=== PATIENT | male | born 1990 | race Caucasian/White ===

== ENCOUNTER 2019-03-17 09:45 | Day surgery (SDC) | payer MEDICAID, SELFPAY ==
[2019-03-17] VITALS (11 sets, daily range): BP systolic 94–140; BP diastolic 40–106; PULSE 69–101; RESP 16–24; TEMP 36.5–36.7; O2SAT 87–98
[2019-03-17] MEDS: Lactated Ringers 1,000 ML 80 ML IV ×2 (10:44→13:01)
--- NOTE | 2019-03-17 10:55 | DI.RAD_ITS ---
EXAM: XR RETROGRADE IN OR INDICATION: LEFT URETER STONE. COMPARISON: No exams were available for comparison TECHNIQUE: 2D digital imaging was performed. Fluoro time: 103.4, 30.84 FINDINGS: Fluoroscopy was utilized by Dr. Garcia during retrograde evaluation of the left renal collecting syste m. Please refer to the procedure report for complete details.
[2019-03-17] MEDS: ceFAZolin 2 GM/50 ML BAG IVPB (11:21)
[2019-03-17] MEDS: Omnipaque 300 MG/ML 50 ML BTL (11:45)
[2019-03-17] MEDS: Lidocaine 2% Jelly 6 ML SYR (11:45)
--- NOTE | 2019-03-17 12:15 | W.PM.DSUDISC ---
Discharge Plan Disposition Patient Disposition: HOME Condition: Stable Discharge Details Reason For Visit: (L) URETERAL STONE Attending Provider: Ranjeet Garcia Primary Care Provider: Will Lucas Home Meds and New Rx's Prescriptions: No Action sulfamethoxazole-trimethoprim [Bactrim DS] 800-160 mg tablet 1 tab PO BID RF: 0 cephalexin 500 mg capsule 500 mg PO BID RF: 0 cyclobenzaprine 10 mg tablet 10 mg PO HS RF: 0 dicyclomine 20 mg tablet 20 mg PO QDAY RF: 0 fluoxetine 10 mg capsule 30 mg PO DAILY RF: 0 ibuprofen 800 mg tablet 800 mg PO Q8H RF: 0 methylprednisolone 4 mg tablet 4 mg PO DAILY RF: 0 ondansetron 4 mg tablet,disintegrating 4 mg PO Q8H RF: 0 pantoprazole 40 mg tablet,delayed release (DR/EC) 40 mg PO DAILY RF: 0 propranolol 60 mg capsule,extended release 24 hr 60 mg PO DAILY RF: 0 pantoprazole [Protonix] 40 mg tablet,delayed release (DR/EC) 40 mg PO DAILY RF: 0 quetiapine [Seroquel] 300 mg tablet 300 mg PO DAILY RF: 0 trazodone 150 mg tablet 150 mg PO DAILY RF: 0 hydrocodone-acetaminophen 10-325 mg tablet 1 - 2 tab PO Q4H MDD 10 PRN (Reason: pain) Qty: 30 RF: 0 Discharge Instructions Additional Instructions: No need to strain urine pt will need stent removed later this week - tell my office he has string on stent F/U appt with me @ 6 weeks with renal US and stone analysis Script for hydrocodone 10/325 sent to pharmacy electronically Stand Alone Forms: [facility] Cysto Shower/Bathe:: 24 hours Diet:: As Tolerated Discharge Orders Discharge Orders: Discharge Order (Routine); Ordered 03/17/19 Ordered By: Ranjeet Garcia DS: Diagnosis Discharge Diagnosis (1) Left ureteral stone: Status: Acute
[2019-03-17] MEDS: fentaNYL 100 MCG/2 ML VIAL IVP ×2 (12:53→13:17)
[2019-03-17] MEDS: oxyCODONE 5 MG TAB 10 MG PO (13:36)
--- NOTE | 2019-03-17 13:51 | ROE_ITS ---
DATE OF PROCEDURE: March 17, 2019 PREOPERATIVE DIAGNOSIS: Left ureteral stone. POSTOPERATIVE DIAGNOSIS: Same. PROCEDURE: Cystoscopy; left retrograde pyelogram; left ureteroscopy with stone extraction; insert le ft ureteral stent. SURGEON: Ranjeet Garcia M.D. ANESTHESIA: General. COMPLICATIONS: None. FINDINGS: Left proximal ureteral stone. ESTIMATED BLOOD LOSS: Minimal. HISTORY: This is a 29-year-old gentleman who recently presented to an outlying Emergency Room with f lank pain. He was identified as having a left proximal ureteral stone. His symptoms persisted in spite of conservative management. He presents for stone manipulation. OPERATIVE REPORT: The patient was brought to the Operating Room on 03/17/19. After successful induc tion of general anesthesia, he was placed in the dorsal lithotomy position. His genitalia was preppe d and draped. 2% Xylocaine jelly was instilled into the urethra to act as a local anesthetic. A 22 Emir[place] rigid cy stoscope was then passed through the urethra into the bladder. The urethra and bladder were inspecte d with the 30-degree lens. The pendulous, bulbous and membranous urethras all appeared normal with no strictures. The prostatic urethra showed no significant lateral lobe enlargement. The bladder neck was entered and the bladder mucosa was inspected. Both ureteral orifices appeared n ormal in configuration and location. No papillary or nodular lesions were seen. No stones were seen within the bladder. The left ureteral orifice was then cannulated with a 6 Emir[place] access catheter. A retrograde film was obtained by injecting Omnipaque through the access catheter under fluoroscopic guidance. A filling defect was outlined in the proximal ureter. A Glidewire was then advanced through the access catheter and maneuvered above the level of the filli ng defect up to the renal pelvis. The access catheter was removed and was replaced with a dual-lumen catheter. The second wire was then positioned and the duel-lumen catheter was removed. A ureteral access jon th was then advanced over one of the wires. The other wire was chosen as a safety wire. The flexible ureteroscope was then advanced through the access sheath and maneuvered to the proximal ureter. The stone was visualized in this area. The stone was then grasped in a Zero Tip stone baske t and withdrawn to the level of the ureteral orifice. The stone was then dislodged from the basket a t that point. We passed the semi-rigid ureteroscope through the urethra into the bladder. The scope was then advan aleta into the left distal ureter and the stone was again visualized. The stone was grasped in a Gemin i stone basket and removed in its entirety. The stone particles were then sent to pathology for perm anent section. A 6 Emir[place] access catheter was advanced over the safety wire and the wire was removed. A repeat retr ograde pyelogram was obtained. There appeared to be a narrowing up at the previously-identified ston e. We reintroduced the ureteral access sheath and flexible ureteroscope to ensure no residual partic les were seen. The narrowed area appeared more edematous than stone-related. Because of the edema we decided to place a ureteral stent. We chose a 4.8 Emir[place] variable-length rasta nt and advanced it over the safety wire. The proximal end of the stent was curled in the renal pelvi s and the distal end was curled within the bladder. The safety string was left in place and was brou ght through the urethra. The safety string was taped to the dorsum of the penis. The string and rasta nt will be removed later this week. The patient tolerated this procedure well with no complications.
[2019-03-17] MEDS: Acetaminophen 500 MG TAB 1000 MG PO (15:00)
[2019-03-17] MEDS: Phenazopyridine 200 MG TAB PO (15:01)
--- NOTE | 2019-03-17 17:32 | NUR.NOTE ---
1725: Pt. called reporting pharmacy had only a narcotic prescription that he cannot get filled until tomorrow due to previous prescription form ER. Pt. asking about bladder spasm medication, which he believed MD had escripted also. Nursing checked and only narcotic escripted. Pt. requesting bladder spasm medication. This nurse spoke to Dr. Garcia on phone, MD to escript oxybutnin for pt. to take Q6hr PRN (for spasms) to pt's pharmacy. This nurse called pt. back with information and informed him it would take a bit to escript medication. Pt. appreciative.ursing Note:
[2019-03-19 16:10] LABS: Source: Left Ureter
== END 2019-03-17 15:47 | disposition home or self-care (01) ==
PROVIDERS: PCP Family Medicine; Visit Provider Urology
PROC: (CPT 52352; principal; 2019-03-17 11:30)
DX: N20.1 Calculus of ureter (principal); Z96.0 Presence of urogenital implants; F31.9 Bipolar disorder, unspecified; I10 Essential (primary) hypertension
CPT/HCPCS: 52352; 52332; 74420; 82365; J0690; J1885; J2250; J2370; J2405; J3010; Q9967

== ENCOUNTER 2022-01-30 23:57 | Emergency (ER) | payer MEDICAID, SELFPAY ==
[2022-01-31 00:05] VITALS: BP 129/73; PULSE 124; RESP 16; TEMP 36.8; O2SAT 95
[2022-01-31] MEDS: oxyCODONE 5 MG TAB PO (00:15)
[2022-01-31] MEDS: Ondansetron O.D.T. 4 MG TABEF PO (00:15)
--- NOTE | 2022-01-31 00:15 | DI.RAD_ITS ---
Exam(s) XR ANKLE RT COMPLETE EXAM: XR ANKLE RT COMPLETE CLINICAL HISTORY: pain s/p fall. TECHNIQUE: 2D digital imaging was performed. Three views. COMPARISON: No exams were available for comparison FINDINGS: BONES: No acute fracture is present. No bony destructive lesion is seen. Heel spur. JOINTS: The ankle mortise is normally aligned. SOFT TISSUE: Swelling greatest around the malleoli. IMPRESSION: Soft tissue swelling. DATA REPOSITORY: RADIATION DOSE DELIVERED:
--- NOTE | 2022-01-31 00:15 | DI.RAD_ITS ---
Exam(s) XR FOOT RT COMPLETE EXAM: XR FOOT RT COMPLETE CLINICAL HISTORY: pain s/p fall. TECHNIQUE: 2D digital imaging was performed. Three views. COMPARISON: No exams were available for comparison FINDINGS: BONES: No acute fracture is present. No bony destructive lesion is seen. JOINTS: No dislocation present. SOFT TISSUE: Swelling around the ankle. IMPRESSION: Soft tissue swelling. No evidence of fracture. DATA REPOSITORY: RADIATION DOSE DELIVERED:
--- NOTE | 2022-01-31 00:15 | DI.RAD_ITS ---
Exam(s) XR TIB/FIB RT EXAM: XR TIB/FIB RT CLINICAL HISTORY: pain s/p fall. TECHNIQUE: 2D digital imaging was performed. Two views. COMPARISON: No exams were available for comparison FINDINGS: BONES: No acute fracture is present. No bony destructive lesion is seen. Visualized portion of knee a nd ankle joints are unremarkable. Incidental heel spur. SOFT TISSUE: Swelling greatest around malleoli. IMPRESSION: Soft tissue swelling. DATA REPOSITORY: RADIATION DOSE DELIVERED:
--- NOTE | 2022-01-31 00:15 | ED.GENADUL_ITS ---
Discharge Plan Disposition Patient Disposition: HOME Condition: Stable Discharge Details Chief Complaint: Orthopedic Clinical Impression: Leg pain, right, Right ankle sprain Primary Care Provider: Will Lucas ED Provider: Fabiano Cedeño Home Meds and New Rx's Prescriptions: No Action No Known Home Meds Discharge Instructions Instructions: Ankle Sprain (ED) Additional Instructions: use the crutches and walking boot as needed for comfort if you are not improving in a week follow up with your primary care provider if you feel more ill or have new pain such as chest pain or difficulty breathing return to the emergency department Stand Alone Forms: Work Release Medical Decision Making 31 yo male comes in with right ankle and leg pain. He states this afternoon he was going down stairs, missed the last step and rolled his ankle. Denies loc or hitting his head. He has had pain in the right lower leg since so came here for an evaluation. No relief with ibuprofen. He has no head pain, neck pain, chest pain, back pain or abdomen pain. He has swelling of the right ankle and tenderness over both malleolus. He also has pain in the metatarsals, no visble deformity or palpable deformity of the foot, normal sensation and pulses. Also has pain at the proximal fibular, no swelling or tenderness of the knee, femur or hip. Suspect sprain of the ankle vs fracture, will obtain xrays and reassess. imaging negative on my read, he remains stable. He doesn't want to wait for vrad reads which i feel is reasonable, advised I would call if they see a fracture. He will use crutches as needed and a walking boot. He was advised to f/u with his pcp if not improving in a week and return precautions given Differential Diagnosis Differential Diagnosis: sprain, strain, fracture Imaging Data Radiologic Study: Attestation: I personally reviewed and interpreted this imaging study as follows: Imaging: X-Ray My impression: no acute findings tib/fib xray Radiologic Study #2: Attestation: I personally reviewed and interpreted this imaging study as follows: Imaging: X-Ray My impression: no acute findings ankle xray Radiologic Study #3: Attestation: I personally reviewed and interpreted this imaging study as follows: Imaging: X-Ray My impression: no acute findings foot xray HPI General Mode of arrival: wheelchair . Date/Time Provider Initiated Documentation: 01/31/22 00:04 . Limitations to Documentation: no limitations . Information obtained by: patient . History of Present Illness 31 year old M presents to the emergency department with the chief complaint of right leg pain, described as moderate and severe, Quality is described as aching, and is localized to the right and lower extremity. Patient reports no radiation. Patient started experiencing this hour(s) (10) and it has been constant. Rest improves symptom(s), Movement worsens symptoms . Patient notes no other symptoms.. Patient did receive the following treatments prior to arrival, NSAID Related Data Home Medications Medication Instructions Recorded Confirmed Unknown [No Known Home Meds] 01/31/22 01/31/22 Allergies Allergy/AdvReac Type Severity Reaction Status Date / Time acetaminophen [From Tylenol] Allergy Verified 01/31/22 00:09 ciprofloxacin [From Cipro] Allergy Verified 01/31/22 00:09 clarithromycin [From Biaxin] Allergy Verified 01/31/22 00:09 General Stated Complaint: Orthopedic JOHNNY: 4 Review of Systems All systems reviewed & are unremarkable except as noted in HPI and below Constitutional Constitutional: Denies chills, Denies fever(s) and Denies weakness Cardiovascular Cardiovascular: Denies chest pain and Denies dyspnea Respiratory Respiratory: Denies cough and Denies dyspnea Gastrointestinal Gastrointestinal: Denies abdominal pain, Denies nausea and Denies vomiting Integumentary/Breasts Skin/Breast: Denies rash Neurologic Neurologic: Denies weakness PFSH All Active Problems (Updated 01/31/22 @ 01:20 by Fabiano Cedeño MD) Leg pain, right (Acute) Right ankle sprain (Acute) Left ureteral stone (Acute) Medical History (Updated 01/31/22 @ 01:20 by Fabiano Cedeño MD) Abdominal pain Bipolar 1 disorder Degeneration of cervical intervertebral disc History of herpes zoster Hyperlipidemia Hypertensive disorder Impaired glucose tolerance Kidney stone Lumbago with sciatica Muscle pain Nausea PTSD (post-traumatic stress disorder) Secondary polycythemia Sleep pattern disturbance Social History Smoking/Tobacco Use Status: Current every day Tobacco Type: cigarettes Tobacco: How many years used: 14 Smoking risk assessment performed?: Yes Alcohol Intake: current Alcohol Intake frequency: a few times a month Drug use: Daily Substance use type: marijuana Details: last use 03/16/19 Current gender identity: female Do you feel safe at home: Yes Exam Const General: no acute distress Orientation: alert HENMT Head: normal to inspection Ears: external ears normal General nose exam: external nose normal Mouth: moist mucous membranes Eyes General: appearance normal, both eyes and all related structures Neck Neck: normal visual inspection Resp Effort & Inspection: normal respiratory effort and able to speak in complete sentences Cardio Rate: regular rate Skin General skin exam: no rashes or lesions noted Neuro General: patient alert and patient oriented x3 Extrem General: capillary refill normal Psych Mental Status: mental status grossly normal Course Vital Signs Vital signs: Vital Signs Temperature 36.8 C 01/31/22 00:05 Pulse 124 H 01/31/22 00:05 Respiratory Rate 16 01/31/22 00:05 Blood Pressure 129/73 01/31/22 00:05 Pulse Oximetry 95 01/31/22 00:05 Temperature 36.8 C 01/31/22 00:05 Temperature Source Temporal Artery Scan 01/31/22 00:05 Pulse 124 H 01/31/22 00:05 Respiratory Rate 16 01/31/22 00:05 Respiratory Effort 01/31/22 00:05 Blood Pressure 129/73 01/31/22 00:05 Blood Pressure Position Supine 01/31/22 00:05 Pulse Oximetry 95 01/31/22 00:05 Oxygen Delivery Method Room Air 01/31/22 00:05 Oxygen Flow Rate 0 01/31/22 00:05 Pain Level 10 01/31/22 00:11
--- NOTE | 2022-01-31 02:32 | DI.VRAD_ITS ---
PROCEDURE INFORMATION: Exam: XR Right Tibia and Fibula Exam date and time: 01/31/2022 12:41 AM Age: 31 years old Clinical indication: Lower leg; Right; Patient HX: Pain S/P fall TECHNIQUE: Imaging protocol: Radiologic exam of the Right tibia and fibula. Views: 2 views. COMPARISON: CR XR FOOT RT COMPLETE 01/31/2022 12:39 AM FINDINGS: Bones/joints: Normal. Soft tissues: Soft tissue swelling of the ankle. IMPRESSION: Soft tissue swelling of the ankle. Dictated and Authenticated by: Fabiano Maldonado MD. Ordering:LATASHA Mario MD
--- NOTE | 2022-01-31 02:32 | DI.VRAD_ITS ---
PROCEDURE INFORMATION: Exam: XR Right Foot Exam date and time: 01/31/2022 12:39 AM Age: 31 years old Clinical indication: Foot; Right; Patient HX: Pain, S/P fall TECHNIQUE: Imaging protocol: Radiologic exam of the Right foot. Views: 3 or more views. COMPARISON: CR XR ANKLE RT COMPLETE 01/31/2022 12:36 AM FINDINGS: Bones/joints: Normal. Soft tissues: Normal. IMPRESSION: No acute findings. Dictated and Authenticated by: Fabiano Maldonado MD. Ordering:LATASHA Mario MD
--- NOTE | 2022-01-31 02:32 | DI.VRAD_ITS ---
PROCEDURE INFORMATION: Exam: XR Right Ankle Exam date and time: 01/31/2022 12:36 AM Age: 31 years old Clinical indication: Ankle; Right; Patient HX: Pain S/P fall TECHNIQUE: Imaging protocol: Radiologic exam of the Right ankle. Views: 3 or more views. COMPARISON: No relevant prior studies available. FINDINGS: Bones/joints: Normal. Soft tissues: Soft tissue swelling. IMPRESSION: Soft tissue swelling. Dictated and Authenticated by: Fabiano Maldonado MD. Ordering:LATASHA Mario MD
== END 2022-01-31 01:35 | disposition home or self-care (01) ==
PROVIDERS: Emergency Provider Emergency Medicine; PCP Family Medicine
DX: S93.401A Sprain of unspecified ligament of right ankle, initial encounter (principal); M79.661 Pain in right lower leg; I10 Essential (primary) hypertension; F17.210 Nicotine dependence, cigarettes, uncomplicated; X50.9XXA Other and unspecified overexertion or strenuous movements or postures, initial encounter
CPT/HCPCS: 99284; 73590; 73610; 73630

== ENCOUNTER 2022-02-13 19:59 | Emergency (ER) | payer MEDICAID, SELFPAY ==
[2022-02-13 20:08] VITALS: BP 143/99; PULSE 110; RESP 16; TEMP 36.5; O2SAT 98
--- NOTE | 2022-02-13 20:32 | ED.GENADUL_ITS ---
Discharge Plan Disposition Patient Disposition: HOME Condition: Stable Discharge Details Clinical Impression: Acute right ankle pain Primary Care Provider: Will Lucas ED Provider: Mario Alberto Ennis Home Meds and New Rx's Prescriptions: No Action No Known Home Meds Discharge Instructions Instructions: Ankle Sprain (ED) Additional Instructions: Please continue to take [id number] pain medication including Tylenol and Motrin. Please do not exceed 4000 mg of acetaminophen/Tylenol in a day and do not exceed 2400 mg of ibuprofen/Motrin in a 24-hour period. You have been placed on the orthopedic follow-up list and please contact the office tomorrow for arrangement of your follow-up appointment. Stand Alone Forms: Work Release Referrals: [facility] [Provider Group] (Please call the office for arrangement of follow-up appointment) Medical Decision Making Patient presenting to the emergency department for chief complaint of right ankle pain. Patient was seen on 913 for fall and right ankle injury. He states he has been wearing the walking boot but has had 0 improvement of symptoms and actually now states paresthesias to the right foot with continued ankle swelling and discomfort. Patient does state that yesterday he did have slight trip while wearing the boot causing some increase of symptoms. Patient denies any other injury or trauma. Physical exam shows significantly swollen right lower extremity from the ankle through the foot. It is difficult to assess due to patient's severe pain level but then there are areas that seem to be random where patient states no sensation mainly to the plantar aspect of the foot. Patient has been using [id number] acetaminophen and ibuprofen with very minimal help. Due to worsening symptoms and spite of conservative management and negative initial x-ray imaging will perform CT imaging of right lower extremity. Pending results we will give patient 1 dose of oxycodone to help with pain. Radiologist interpretation of CT images shows a probable avulsion fracture of the medial malleolus. Patient placed upon orthopedic follow-up as I do feel that patient may need urgent reevaluation due to worsening pain, lack of improvement, and missing work for the last 2 weeks. Patient states it has been difficult for him to use his crutches but has been while using walking boot. We will reencourage crutch use pending orthopedic follow-up. After discussion of diagnosis and plan of care patient has no further needs, questions, or concerns and states clear understanding to return to the emergency department for any worsening symptoms. This documentation was generated using [employer] dictation system, please disregard any oddities of phrase or misspellings. Imaging Data Radiologic Study: Attestation: I personally reviewed and interpreted this imaging study as follows: Imaging: CT Scan Radiologist's impression: FINDINGS: Bones/joints: Tiny ossific density along medial malleolus. Tiny ossicle along navicular. Small ossicle along talus. No dislocation. Plantar calcaneal enthesophyte. No significant joint effusion. Soft tissues: Soft tissue swelling/stranding. IMPRESSION: Probable avulsion fracture of medial malleolus. HPI General Mode of arrival: ambulatory . Date/Time Provider Initiated Documentation: 02/13/22 20:10 . Limitations to Documentation: no limitations . Information obtained by: patient, RN notes reviewed and old records reviewed . History of Present Illness 31 year old M presents to the emergency department with the chief complaint of right ankle pain , described as moderate and severe, with intensity rated at 8. Quality is described as aching and sharp, and is localized to the lower extremity. Patient started experiencing this week(s) (2) and it has been constant. No relieving factors improve symptom(s), No exacerbating factors reported . Patient notes no other symptoms.. Patient did receive the following treatments prior to arrival, NSAID Related Data Home Medications Medication Instructions Recorded Confirmed Unknown [No Known Home Meds] 01/31/22 02/13/22 Allergies Allergy/AdvReac Type Severity Reaction Status Date / Time acetaminophen [From Tylenol] Allergy Verified 02/13/22 20:11 ciprofloxacin [From Cipro] Allergy Verified 02/13/22 20:11 clarithromycin [From Biaxin] Allergy Verified 02/13/22 20:11 General Stated Complaint: Orthopedic JOHNNY: 4 Review of Systems Narrative: 6 systems reviewed and unremarkable except what is marked below. Constitutional Constitutional: Denies fever(s) Musculoskeletal Musculoskeletal: Reports as per HPI, Denies myalgias, Reports arthralgias, Reports joint swelling, Reports limited range of motion, Reports numbness and Reports tingling Integumentary/Breasts Skin/Breast: Denies rash and Denies unusual bruising Neurologic Neurologic: Reports numbness and Reports tingling PFSH All Active Problems (Updated 02/13/22 @ 21:51 by Mario Alberto Ennis NP) Leg pain, right (Acute) Right ankle sprain (Acute) Acute right ankle pain (Acute) Left ureteral stone (Acute) Medical History (Updated 02/13/22 @ 21:51 by Mario Alberto Ennis NP) Abdominal pain Bipolar 1 disorder Degeneration of cervical intervertebral disc History of herpes zoster Hyperlipidemia Hypertensive disorder Impaired glucose tolerance Kidney stone Lumbago with sciatica Muscle pain Nausea PTSD (post-traumatic stress disorder) Secondary polycythemia Sleep pattern disturbance Social History Smoking/Tobacco Use Status: Current every day Tobacco Type: cigarettes Tobacco: How many years used: 14 Smoking risk assessment performed?: Yes Alcohol Intake: current Alcohol Intake frequency: a few times a month Drug use: Daily Substance use type: marijuana Current gender identity: female Do you feel safe at home: Yes Exam Const General: cooperative, no acute distress and not ill appearing Orientation: alert, awake and oriented x3 Resp Effort & Inspection: normal respiratory effort, able to speak in complete sentences and no respiratory distress Cardio Rate: regular rate Rhythm: regular rhythm Pulses: normal peripheral pulses Skin General skin exam: no rashes or lesions noted Neuro General: patient alert, patient awake, patient oriented x3, moves all extremities and no focal motor deficits Sensory Exam: lower extremity right light-touch abnormal (Within ankle and foot) decreased Extrem General: normal exam except as noted Right lower extremity: lower leg Details: tenderness Location: of the distal tibia and of the distal fibula, ankle Details: normal to inspection, tenderness (difuse) Location: of the lateral malleolus and of the medial malleolus, edema Details: non-pitting and abnormal ROM Details: pain with active ROM, pain with passive ROM and with range as follows (unable to assess due to severe pain ); no abrasions, no lacerations and no ecchymosis and foot Details: normal capillary refill, tenderness Location: of the dorsal foot, toes with normal ROM, edema Location: of the dorsal foot and vascular exam Details: dorsalis pedis pulse present, posterior tibial pulse present and normal capillary refill; no ecchymosis and no crepitus Course Vital Signs Vital signs: Vital Signs Temperature 36.5 C 02/13/22 20:08 Pulse 110 H 02/13/22 20:08 Respiratory Rate 16 02/13/22 20:08 Blood Pressure 143/99 H 02/13/22 20:08 Pulse Oximetry 98 02/13/22 20:08 Temperature 36.5 C 02/13/22 20:08 Temperature Source Temporal Artery Scan 02/13/22 20:08 Pulse 110 H 02/13/22 20:08 Respiratory Rate 16 02/13/22 20:08 Respiratory Effort 02/13/22 20:08 Blood Pressure 143/99 H 02/13/22 20:08 Blood Pressure Position Sitting 02/13/22 20:08 Pulse Oximetry 98 02/13/22 20:08 Pain Level 9 02/13/22 20:08
[2022-02-13] MEDS: oxyCODONE 10 MG TAB PO (20:38)
--- NOTE | 2022-02-13 21:25 | DI.CT_ITS ---
Exam(s) CT LOWER EXTREMITY RT WO EXAM: CT LOWER EXTREMITY RT WO CLINICAL HISTORY: severe ankle pain. TECHNIQUE: Imaging Protocol: Axial computed tomography images with coronal and sagittal reformatted images were created and reviewed. COMPARISON: CR,XR XR ANKLE RT COMPLETE from 01/31/2022 FINDINGS: Bones: There is a tiny ossific density posterior to the distal aspect of the medial malleolus. Ther e are 2 tiny ossicles medial to the navicular. The posterior medial ossicle appears well corticated and old. The triangular more anterior nodule adjacent to the navicular may represent a small avulsed fracture. There is a well corticated ossicle adjacent to the talus posterior laterally. This appea rs old. Bony alignment is satisfactory. No cellulitic or osteomyelitic changes are identified. The re is no evidence of joint space narrowing or cystic degeneration seen. No lytic or sclerotic lesions are identified. Soft Tissues: There is edema seen in the soft tissues both medially and laterally at the ankle. IMPRESSION: 1. Tiny ossific density adjacent to the medial malleolus which may represent a small avulsion fractur e. 2. Tiny ossicle adjacent to the medial aspect of the navicular. This may represent a small avulsed f racture. RADIATION DOSE DELIVERED: 280.21mGy.cm Total DLP 280.21mGy.cm Total DLP DATA REPOSITORY: All CT scans at this facility are submitted to the National Radiology Data Registry (NRDR) Dose Index Registry (DIR) with the [employer] (ACR). RADIATION OPTIMIZATION: All CT scans at this facility use at least one of these dose optimization te chniques: automated exposure control; mA and/or kV adjustment per patient size (includes targeted exa ms where dose is matched to clinical indication); or iterative reconstruction.
--- NOTE | 2022-02-13 21:45 | DI.VRAD_ITS ---
PROCEDURE INFORMATION: Exam: CT Right Lower Extremity Without Contrast, Ankle Exam date and time: 02/13/2022 9:22 PM Age: 31 years old Clinical indication: Patient HX: Right ankle pain continued from ankle x-rays on 01/31/22. Severe pain. TECHNIQUE: Imaging protocol: CT of the Right lower extremity without contrast was performed. Exam focused on the ankle. Radiation optimization: All CT scans at this facility use at least one of these dose optimization techniques: automated exposure control; mA and/or kV adjustment per patient size (includes targeted exams where dose is matched to clinical indication); or iterative reconstruction. COMPARISON: CR XR ANKLE RT COMPLETE 01/31/2022 12:36 AM FINDINGS: Bones/joints: Tiny ossific density along medial malleolus. Tiny ossicle along navicular. Small ossicle along talus. No dislocation. Plantar calcaneal enthesophyte. No significant joint effusion. Soft tissues: Soft tissue swelling/stranding. IMPRESSION: Probable avulsion fracture of medial malleolus. Dictated and Authenticated by: Jeremy Chavez MD. Ordering:FARIHA Llanes MD
== END 2022-02-13 22:04 | disposition home or self-care (01) ==
PROVIDERS: Emergency Provider Nurse Practitioner Family; PCP Family Medicine
DX: S99.911A Unspecified injury of right ankle, initial encounter (principal); I10 Essential (primary) hypertension; F17.210 Nicotine dependence, cigarettes, uncomplicated; W01.0XXA Fall on same level from slipping, tripping and stumbling without subsequent striking against object, initial encounter; Y93.89 Activity, other specified
CPT/HCPCS: 99284; 73700

== ENCOUNTER 2022-03-21 22:36 | Emergency (ER) | payer MEDICAID, SELFPAY ==
[2022-03-21 22:46] VITALS: BP 139/98; PULSE 103; RESP 20; TEMP 36.8; O2SAT 98
--- NOTE | 2022-03-21 22:56 | ED.GENADUL_ITS ---
Discharge Plan Disposition Patient Disposition: HOME Condition: Stable Discharge Details Clinical Impression: Skin abnormality, Scar tissue, Inflammation, skin Primary Care Provider: Unknown,Unknown ED Provider: Jhony Mcintyre Home Meds and New Rx's Prescriptions: New clindamycin HCl 300 mg capsule 300 mg PO QID 7 Days Qty: 28 0RF Discharge Instructions Additional Instructions: Please follow-up with surgical team within the next week for evaluation of chronic scar tissue/skin irritation. Please take antibiotics as prescribed. Please return to the emergency department for any worsening symptoms. Medical Decision Making 32-year-old male presents with 2 months of chronic skin irritation at belt line, patient has incised this skin lesion multiple times over the past 2 months, only able to express small amount of bloody material, no purulence patient denies fevers chills or systemic signs of illness, most recent home incision was 2 days ago. Patient has 2.5 cm ellipsoid firm indurated raised skin lesion with pink/light purple coloration, bedside ultrasound showing thickened epidermis and dermis in this region consistent with scar tissue. No appreciable fluctuance or purulent head. Given localized induration and recent manipulation at home we will start patient on empiric antibiotics to cover strep staph and MRSA. Will be given referral to surgical services as an outpatient to be evaluated for possible wide excision of chronic inflammatory tissue. Given home care instructions and strict return precautions HPI General Date/Time Provider Initiated Documentation: 03/21/22 22:44 . HPI Narrative: 32-year-old male denies past medical history presents with skin lesion left lower abdominal wall near belt line over the past 2 months, patient has intermittently cut into this lesion trying to drain it multiple times over the past several months most recently 2 days ago, daily material that he is able to express some slight bloody material. Denies fevers chills nausea vomiting or systemic signs of illness Related Data Home Medications Medication Instructions Recorded Confirmed clindamycin HCl 300 mg capsule 300 mg PO QID 7 days #28 caps 03/21/22 Previous Rx's Medication Instructions Recorded clindamycin HCl 300 mg capsule 300 mg PO QID 7 days #28 caps 03/21/22 Allergies Allergy/AdvReac Type Severity Reaction Status Date / Time acetaminophen [From Tylenol] Allergy Verified 03/21/22 22:50 ciprofloxacin [From Cipro] Allergy Verified 03/21/22 22:50 clarithromycin [From Biaxin] Allergy Verified 03/21/22 22:50 General Stated Complaint: RashLesion JOHNNY: 4 Review of Systems Narrative: Review of Systems Constitutional: negative Eyes: negative ENT: negative Cardiovascular: negative Respiratory: negative Gastrointestinal: negative : negative Musculoskeletal: negative Skin: Skin lesion Neurologic: negative Psych: negative PFSH All Active Problems (Updated 03/21/22 @ 23:04 by Jhony Mcintyre MD) Skin abnormality (Acute) Scar tissue (Acute) Inflammation, skin (Acute) Left ureteral stone (Acute) Medical History (Updated 03/21/22 @ 23:04 by Jhony Mcintyre MD) Abdominal pain Bipolar 1 disorder Degeneration of cervical intervertebral disc History of herpes zoster Hyperlipidemia Hypertensive disorder Impaired glucose tolerance Kidney stone Lumbago with sciatica Muscle pain Nausea PTSD (post-traumatic stress disorder) Secondary polycythemia Sleep pattern disturbance Social History Smoking/Tobacco Use Status: Current every day Tobacco Type: cigarettes Tobacco: How many years used: 14 Smoking risk assessment performed?: Yes Alcohol Intake: current Alcohol Intake frequency: a few times a month Drug use: Daily Substance use type: marijuana Current gender identity: female Do you feel safe at home: Yes Do you feel safe in your relationship?: Yes Exam Narrative Exam Narrative: Physical Examination General: alert, awake, cooperative, resting comfortably, no acute distress HEENT: normocephalic, atraumatic; PERRL, EOM intact, conjunctiva normal; no nasal discharge; moist mucous membranes, oral and pharyngeal mucosa normal, tolerating secretions Neck: supple, trachea midline; full ROM Chest: normal to inspection Respiratory: normal respiratory effort, speaking in full sentences, clear to auscultation, no wheezing, rales or rhonchi Cardiac: regular rate, regular rhythm, S1S2 intact, no murmurs rubs or gallops GI: abdomen soft, non-tender, non-distended; no palpable mass or hepatosplenomegaly Skin: 2.5 cm long ellipsoid firm superficial skin lesion nonfluctuant pink/light purple in color consistent with chronic inflamed superficial skin/scar Neuro: AAOx3, normal speech, moving all extremities Psych: Appropriate mood and affect Course Vital Signs Vital signs: Vital Signs Temperature 36.8 C 03/21/22 22:46 Pulse 103 H 03/21/22 22:46 Respiratory Rate 20 03/21/22 22:46 Blood Pressure 139/98 H 03/21/22 22:46 Pulse Oximetry 98 03/21/22 22:46 Temperature 36.8 C 03/21/22 22:46 Temperature Source Temporal Artery Scan 03/21/22 22:46 Pulse 103 H 03/21/22 22:46 Respiratory Rate 20 03/21/22 22:46 Respiratory Effort 03/21/22 22:51 Blood Pressure 139/98 H 03/21/22 22:46 Blood Pressure Position Supine 03/21/22 22:46 Pulse Oximetry 98 03/21/22 22:46 Oxygen Delivery Method Room Air 03/21/22 22:46 Oxygen Flow Rate 0 03/21/22 22:46 Pain Level 6 03/21/22 22:46
[2022-03-21] MEDS: Clindamycin 300 MG CAP PO (23:01)
--- NOTE | 2022-03-22 02:40 | NUR.NOTE ---
Faxed referral to [facility] for a rash lesion in [address] De La Paz. Put the referral in the acute care nurse practitioner's box for assistance with the appt.Nursing Note:
== END 2022-03-21 23:11 | disposition home or self-care (01) ==
PROVIDERS: Emergency Provider Emergency Medicine
DX: L98.8 Other specified disorders of the skin and subcutaneous tissue (principal); L90.5 Scar conditions and fibrosis of skin
CPT/HCPCS: 99283

== ENCOUNTER 2022-07-12 02:43 | Outpatient (CLI) | payer MEDICAID, SELFPAY ==
[2022-07-12 07:20] LABS: HCT 50.8 % (40.0-50.0); MCH 27.9 pg (27.0-33.0); MCHC 33.5 % (32.0-36.0); MCV 83 fL (80-95); MPV 11.1 fL (8.0-11.0); Platelet Count 310 10^3/uL (130-400); RBC 6.09 10^6/uL (4.36-5.78); RDW 13.1 % (11.8-14.1); RDW-SD 39.8 fL; WBC 16.41 10^3/uL (4.4-10.8)
[2022-07-12 07:33] LABS: Bilirubin Negative (Negative); Blood Trace-intact (Negative); Clarity Clear (Clear); Glucose Negative (Negative); Ketones Negative (Negative); Leukocyte Esterase Negative (Negative); Nitrite Negative (Negative); Specific Gravity 1.015 (1.005-1.025); Urobilinogen 0.2 mg/dL (Up to 0.2); pH 7.5 (5-8)
[2022-07-12 07:47] LABS: Bacteria Few HPF (Negative); C & S Indicated? No; Casts Negative LPF (Negative); Crystals Negative HPF (Negative); Epithelial Cells Rare HPF (Negative); Mucus Negative (Negative); Other Cells Negative (Negative); WBC 0-2 HPF (0-5)
[2022-07-12 07:51] LABS: ALT 43 U/L (16-63); AST 22 U/L (15-37); Albumin 3.9 g/dL (3.4-5.0); Alkaline Phosphatase 76 U/L (46-116); Anion Gap 12.2 mmol/L (3-11); BUN 19 mg/dL (7-18); Bilirubin, Total 0.7 mg/dL (0.2-1.0); CO2 23.8 mmol/L (21.0-32.0); CREATININE 1.1 mg/dL (0.70-1.30); Calcium 9.3 mg/dL (8.5-10.1); Calculated LDL 110 mg/dL (<100); Chloride 101 mmol/L (98-107); Cholesterol 189 mg/dL (<200); Estimated GFR 91.47 (mL/min/1.73m2); Glucose 101 mg/dL (74-106); HDL Cholesterol 53 mg/dL (40-60); Potassium 3.6 mmol/L (3.5-5.1); Sodium 137 mmol/L (136-145); TSH (W/Ref FT4) 1.97 uIU/mL (0.36-3.74); Total Protein 7.4 g/dL (6.4-8.2); Triglyceride 133 mg/dL (<150)
== END 2022-07-12 02:44 | disposition home or self-care (01) ==
LOC: LBO 02:44
PROVIDERS: PCP Nurse Practitioner; Visit Provider Nurse Practitioner
DX: E78.5 Hyperlipidemia, unspecified (principal); I10 Essential (primary) hypertension; E66.8 Other obesity; R82.998 Other abnormal findings in urine; F41.8 Other specified anxiety disorders
CPT/HCPCS: 36415; 80053; 80061; 85027; 81003; 81015; 84443

== ENCOUNTER 2022-10-20 01:13 | Emergency (ER) | payer MEDICAID, SELFPAY ==
[2022-10-20] VITALS (11 sets, daily range): BP systolic 139–156; BP diastolic 90–111; PULSE 103–126; RESP 16–35; TEMP 36.6–37.1; O2SAT 97–98
--- NOTE | 2022-10-20 01:15 | RT.EKG_ITS ---
APPROVED REPORT Exam: Resting ECG Reason for Exam: tachy Patient Location: E HR:121 bpm ECG Measurements Heart Rate 121 AXIS ME 160 P 37 QRSd 102 QRS 39 QT 329 T 6 QTc 465 Conclusion Sinus tachycardia...rate> 99 Ventricular premature complex...V complex w/ short R-R interval
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
[2022-10-20 01:36] LABS: Abs Immature Grans 0.07 10^3/uL (0.0-0.06); Absolute Basophil Count 0.06 10^3/uL (0.0-0.2); Absolute Lymphocyte Count 1.73 10^3/uL (1.2-3.4); Absolute Monocyte Count 0.94 10^3/uL (0.1-0.8); Absolute Neutrophil Count 16.33 10^3/uL (1.2-6.7); Basophils % 0.3; Eosinophils % 0.5; HCT 49.3 % (40.0-50.0); HGB 16.8 g/dL (13.5-17.5); Immature Grans % 0.4; MCHC 34.1 % (32.0-36.0); MCV 82 fL (80-95); MPV 11.2 fL (8.0-11.0); Monocytes % 4.9; Neutrophils % 84.9; Platelet Count 326 10^3/uL (130-400); RDW 13.2 % (11.8-14.1); WBC 19.24 10^3/uL (4.4-10.8)
[2022-10-20] MEDS: Normal Saline 1,000 ML 1000 ML IV ×2 (01:40→02:20)
[2022-10-20] MEDS: LORazepam 2 MG/ML VIAL 1 MG IVP (01:44)
--- NOTE | 2022-10-20 01:45 | DI.CT_ITS ---
Exam(s) CT CHEST PE ABD PELVIS W EXAM: CT CHEST PE ABD PELVIS W CLINICAL HISTORY: chest and abdominal pain, tachycardia. TECHNIQUE: Imaging Protocol: Axial CT angiography was performed with multi-slice acquisition and mu lti-planar and/or 3D reconstructions. CONTRAST MATERIAL: Intravenous: Omnipaque 350 Contrast volume:100 ml COMPARISON: No exams were available for comparison FINDINGS: CHEST: Pulmonary Arteries: No evidence of filling defect to suggest pulmonary emboli. Tracheobronchial tree: Patent where visualized. Mediastinum and Kathie: No dominant adenopathy or fluid collection. Pulmonary parenchyma: No consolidation or dominant measurable mass. Pleura: No effusion or pneumothorax. Heart: The heart is not dilated. No coronary artery calcifications are seen. Aorta: Thoracic aorta non-dilated. Bones: Normal. ABDOMEN: Liver: Mildly enlarged. Mild fatty infiltration. No measurable mass. Portal, Superior Mesenteric, and Splenic Veins: Unremarkable. Gallbladder and Biliary Tract: No radiodense calculus or dilation. Pancreas: Normal density, no abnormal calcifications or inflammatory process. Spleen: Normal. Adrenals: No masses seen. Kidneys: Normal size, contour and axis. No radiodense stones or obstructive uropathy. No masses seen. Abdominal Aorta: Abdominal portion non-dilated. Bowel: Diverticulosis descending and sigmoid colon. No obstruction or bowel wall thickening. Appendi x is unremarkable. Peritoneal Cavity: No ascites, collection or mesenteric inflammatory response. Lymph Nodes: Within normal limits. Bones: Unremarkable. Soft Tissues: Unremarkable. PELVIS: Bladder: Symmetric distention, no gross wall thickening. Reproductive Organs: Unremarkable as visualized. Lymph Nodes: Within normal limits. Bones: Within normal limits. IMPRESSION: 1. No evidence of pulmonary embolism or other acute abnormality in the chest.. 2. No acute abdominal or pelvic process. RADIATION DOSE DELIVERED: 2,110.24mGy.cm Total DLP 2,110.24mGy.cm Total DLP 2,110.24mGy.cm Total DLP 2,110.24mGy.cm Total DLP DATA REPOSITORY: All CT scans at this facility are submitted to the National Radiology Data Registry (NRDR) Dose Index Registry (DIR) with the [employer] (ACR). RADIATION OPTIMIZATION: All CT scans at this facility use at least one of these dose optimization te chniques: automated exposure control; mA and/or kV adjustment per patient size (includes targeted exa ms where dose is matched to clinical indication); or iterative reconstruction.
[2022-10-20 01:46] LABS: ETHANOL BLOOD 3.6 mg/dL (<10)
[2022-10-20 02:00] LABS: ALT 56 U/L (16-63); AST 26 U/L (15-37); Albumin 3.9 g/dL (3.4-5.0); Alkaline Phosphatase 70 U/L (46-116); Anion Gap 14.3 mmol/L (3-11); BUN 19 mg/dL (7-18); Bilirubin, Total 0.6 mg/dL (0.2-1.0); CO2 20.7 mmol/L (21.0-32.0); CREATININE 1.4 mg/dL (0.70-1.30); Calcium 9.1 mg/dL (8.5-10.1); Chloride 105 mmol/L (98-107); Estimated GFR 68.49 (mL/min/1.73m2); Glucose 135 mg/dL (74-106); Potassium 3.8 mmol/L (3.5-5.1); Sodium 140 mmol/L (136-145); TSH (W/Ref FT4) 1.87 uIU/mL (0.36-3.74); Total Protein 7.4 g/dL (6.4-8.2); Troponin I < 50 ng/L (<or=60)
[2022-10-20] MEDS: Omnipaque 350 MG/ML 100 ML BTL IJ (02:03)
[2022-10-20] MEDS: Normal Saline - Diluent 50 ML VIAL IJ (02:03)
[2022-10-20] MEDS: Ketorolac 15 MG/ML VIAL IVP (02:03)
[2022-10-20 02:06] LABS: Acetaminophen < 2 ug/mL (10-30)
[2022-10-20 02:07] LABS: D-Dimer 203 ng/mlFEU (<500)
--- NOTE | 2022-10-20 02:56 | DI.VRAD_ITS ---
PROCEDURE INFORMATION: Exam: CTA Chest With Contrast Exam date and time: 10/20/2022 1:58 AM Age: 32 years old Clinical indication: Other: Tachycardia; Abdominal pain; Generalized; Chest wall pain; Additional info: Chest and abdominal pain, tachycardia TECHNIQUE: Imaging protocol: Computed tomographic angiography of the chest with contrast. Exam focused on the arteries. 3D rendering (Not supervised by radiologist): MIP and/or 3D reconstructed images were created by the technologist. Radiation optimization: All CT scans at this facility use at least one of these dose optimization techniques: automated exposure control; mA and/or kV adjustment per patient size (includes targeted exams where dose is matched to clinical indication); or iterative reconstruction. Contrast material: OMNI 350; Contrast volume: 100 ml; Contrast route: INTRAVENOUS (IV); COMPARISON: CT RENAL COLIC 03/13/2019 3:04 PM FINDINGS: Pulmonary arteries: Normal. No pulmonary emboli. Aorta: Unremarkable. No aortic aneurysm. No aortic dissection. Lungs: Unremarkable. No consolidation. No masses. Pleural spaces: Unremarkable. No pneumothorax. No pleural effusion. Heart: Unremarkable. No cardiomegaly. No pericardial effusion. Lymph nodes: Unremarkable. No enlarged lymph nodes. Bones/joints: Unremarkable. No acute fracture. Soft tissues: Unremarkable. IMPRESSION: No acute findings. PROCEDURE INFORMATION: Exam: CT Abdomen And Pelvis With Contrast Exam date and time: 10/20/2022 1:58 AM Age: 32 years old Clinical indication: Other: Tachycardia; Abdominal pain; Generalized; Chest wall pain; Additional info: Chest and abdominal pain, tachycardia TECHNIQUE: Imaging protocol: Computed tomography of the abdomen and pelvis with contrast. Radiation optimization: All CT scans at this facility use at least one of these dose optimization techniques: automated exposure control; mA and/or kV adjustment per patient size (includes targeted exams where dose is matched to clinical indication); or iterative reconstruction. Contrast material: OMNI 350; Contrast volume: 100 ml; Contrast route: INTRAVENOUS (IV); COMPARISON: CT RENAL COLIC 03/13/2019 3:04 PM FINDINGS: Liver: Hepatic steatosis. Gallbladder and bile ducts: Normal. No calcified stones. No ductal dilation. Pancreas: Normal. No ductal dilation. Spleen: Normal. No splenomegaly. Adrenal glands: Normal. No mass. Kidneys and ureters: Normal. No hydronephrosis. Stomach and bowel: Colonic diverticula. Appendix: No evidence of appendicitis. Intraperitoneal space: Unremarkable. No free air. No significant fluid collection. Vasculature: Unremarkable. No abdominal aortic aneurysm. Lymph nodes: Unremarkable. No enlarged lymph nodes. Urinary bladder: Unremarkable as visualized. Reproductive: Unremarkable as visualized. Bones/joints: Unremarkable. No acute fracture. Soft tissues: Unremarkable. IMPRESSION: No acute finding. Dictated and Authenticated by: Fabiano Maldonado MD. Ordering:LATASHA Mario MD
[2022-10-20 03:33] LABS: HGB 15.2 g/dL (13.5-17.5); MCH 28.4 pg (27.0-33.0); MCHC 33.8 % (32.0-36.0); MCV 84 fL (80-95); MPV 11.3 fL (8.0-11.0); Platelet Count 285 10^3/uL (130-400); RBC 5.36 10^6/uL (4.36-5.78); RDW 13.2 % (11.8-14.1); RDW-SD 40.8 fL; WBC 18.47 10^3/uL (4.4-10.8)
[2022-10-20 03:47] LABS: Anion Gap 10.2 mmol/L (3-11); BUN 18 mg/dL (7-18); CO2 23.8 mmol/L (21.0-32.0); CREATININE 1.2 mg/dL (0.70-1.30); Chloride 107 mmol/L (98-107); Glucose 99 mg/dL (74-106); Potassium 4.1 mmol/L (3.5-5.1); Sodium 141 mmol/L (136-145); Troponin I < 50 ng/L (<or=60)
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
[2022-10-20 05:54] LABS: Bilirubin Negative (Negative); Blood Negative (Negative); Clarity Clear (Clear); Glucose Negative (Negative); Ketones Negative (Negative); Leukocyte Esterase Negative (Negative); Nitrite Negative (Negative); Specific Gravity 1.015 (1.005-1.025); Urobilinogen 0.2 mg/dL (Up to 0.2); pH 5.5 (5-8)
[2022-10-20 06:07] LABS: *AMPHETAMINES SCREEN URINE Positive (Negative); *BARBITURATES SCREEN URINE Negative (Negative); *BENZODIAZEPINES SCREEN URINE Negative (Negative); Cannabinoids THC Positive (Negative); Cocaine Screen,Urine Negative (Negative); METHADONE URINE SCREEN Negative (Negative); OPIATES URINE SCREEN Negative (Negative); Tricyclic Antidepressants Negative (Negative)
[2022-10-20] MEDS: hydroCHLOROthiazide 25 MG TAB PO (08:45)
--- NOTE | 2022-10-20 11:55 | NUR.NOTE ---
Nursing Note: PT C/O to this RN he has had 2 loose stools and his stomach feels upset. Provider Aware.
--- NOTE | 2022-10-20 12:58 | NUR.NOTE ---
Nursing Note: nurse to nurse report given to Kailyn at [facility].
--- NOTE | 2022-10-20 13:37 | ED.PROG_ITS ---
Date of service: 10/20/22 Time of Service: 13:38 Medical Decision Making Care was signed out by Dr. Cedeño, please see his documentation regarding initial ED presentation and course. Leukocytosis noted and was present in July 13. Patient medically screened and cleared for psychiatric treatment facility [facility]. Plan at signout was to await placement. Patient was reassessed and I spoke with him about his results. He does note small abscess that has been draining intermittently over the past month right axilla. I examined the area and he has a nickel sized lesion with a small pustule that he was able to squeeze and express. No fluctuance or erythema. No significant induration. There are some scattered macules around his axilla and right upper back. Concern for likely staph. Plan to initiate treatment with Bactrim. 1340 --patient reassessed and notes no pain. He is quite anxious. I will give Ativan 1 mg p.o. He also notes of associated nausea and will give Zofran 4 mg ODT. I spoke with nurse practitioner Nohemi at [facility] regarding patient transfer. Discussed ED presentation and course. She will accept the patient in transfer. Lab Data Lab results reviewed: Yes I reviewed the patient's lab results. Labs: Laboratory Tests Range/Units 10/20/22 10/20/22 10/20/22 01:31 01:31 01:31 WBC (4.4-10.8) 10^3/uL RBC (4.36-5.78) 10^6/uL Hgb (13.5-17.5) g/dL Hct (40.0-50.0) % MCV (80-95) fL MCH (27.0-33.0) pg MCHC (32.0-36.0) % RDW (11.8-14.1) % Plt Count (130-400) 10^3/uL MPV (8.0-11.0) fL Immature Gran % Neutrophils % Lymphocytes % Monocytes % Eosinophils % Basophils % Nucleated RBC % (0.0-0.3) % Absolute Neutrophils (1.2-6.7) 10^3/uL Absolute Lymphocytes (1.2-3.4) 10^3/uL Absolute Monocytes (0.1-0.8) 10^3/uL Absolute Eosinophils (0.0-0.7) 10^3/uL Absolute Basophils (0.0-0.2) 10^3/uL D-Dimer (<500) ng/mlFEU 203 Sodium (136-145) mmol/L 140 Potassium (3.5-5.1) mmol/L 3.8 Chloride (98-107) mmol/L 105 Carbon Dioxide (21.0-32.0) mmol/L 20.7 L Anion Gap (3-11) mmol/L 14.3 H BUN (7-18) mg/dL 19 H Creatinine (0.70-1.30) mg/dL 1.4 H Est GFR (CKD-EPI 2020) (mL/min/1.73m2) 68.49 Glucose (74-106) mg/dL 135 H Calcium (8.5-10.1) mg/dL 9.1 Total Bilirubin (0.2-1.0) mg/dL 0.6 AST (15-37) U/L 26 ALT (16-63) U/L 56 Alkaline Phosphatase (46-116) U/L 70 Troponin I (<or=60) ng/L < 50 Total Protein (6.4-8.2) g/dL 7.4 Albumin (3.4-5.0) g/dL 3.9 TSH (0.36-3.74) uIU/mL 1.87 Urine Color (Yellow) Urine Clarity (Clear) Urine pH (5-8) Ur Specific [place] (1.005-1.025) Urine Protein (Negative) mg/dL Urine Ketones (Negative) mg/dL Urine Blood (Negative) Urine Nitrite (Negative) Urine Bilirubin (Negative) Urine Urobilinogen (Up to 0.2) mg/dL Ur Leukocyte Esterase (Negative) Urine Glucose (Negative) mg/dL Salicylates (<2.8) mg/dL 3.0 Urine Opiates Screen (Negative) Urine Methadone Screen (Negative) Acetaminophen (10-30) ug/mL < 2 Ur Barbiturates Screen (Negative) Ur Tricyclics Screen (Negative) Ur Amphetamines Screen (Negative) U Benzodiazepines Scrn (Negative) Urine Cocaine Screen (Negative) Ur THC Screen (Negative) Ethyl Alcohol (<10) mg/dL Range/Units 10/20/22 10/20/22 10/20/22 01:31 01:31 03:10 WBC (4.4-10.8) 10^3/uL 19.24 H RBC (4.36-5.78) 10^6/uL 6.00 H Hgb (13.5-17.5) g/dL 16.8 Hct (40.0-50.0) % 49.3 MCV (80-95) fL 82 MCH (27.0-33.0) pg 28.0 MCHC (32.0-36.0) % 34.1 RDW (11.8-14.1) % 13.2 Plt Count (130-400) 10^3/uL 326 MPV (8.0-11.0) fL 11.2 H Immature Gran % 0.4 Neutrophils % 84.9 Lymphocytes % 9.0 Monocytes % 4.9 Eosinophils % 0.5 Basophils % 0.3 Nucleated RBC % (0.0-0.3) % 0.0 Absolute Neutrophils (1.2-6.7) 10^3/uL 16.33 H Absolute Lymphocytes (1.2-3.4) 10^3/uL 1.73 Absolute Monocytes (0.1-0.8) 10^3/uL 0.94 H Absolute Eosinophils (0.0-0.7) 10^3/uL 0.10 Absolute Basophils (0.0-0.2) 10^3/uL 0.06 D-Dimer (<500) ng/mlFEU Sodium (136-145) mmol/L 141 Potassium (3.5-5.1) mmol/L 4.1 Chloride (98-107) mmol/L 107 Carbon Dioxide (21.0-32.0) mmol/L 23.8 Anion Gap (3-11) mmol/L 10.2 BUN (7-18) mg/dL 18 Creatinine (0.70-1.30) mg/dL 1.2 Est GFR (CKD-EPI 2020) (mL/min/1.73m2) 82.40 Glucose (74-106) mg/dL 99 Calcium (8.5-10.1) mg/dL 8.0 L Total Bilirubin (0.2-1.0) mg/dL AST (15-37) U/L ALT (16-63) U/L Alkaline Phosphatase (46-116) U/L Troponin I (<or=60) ng/L < 50 Total Protein (6.4-8.2) g/dL Albumin (3.4-5.0) g/dL TSH (0.36-3.74) uIU/mL Urine Color (Yellow) Urine Clarity (Clear) Urine pH (5-8) Ur Specific [place] (1.005-1.025) Urine Protein (Negative) mg/dL Urine Ketones (Negative) mg/dL Urine Blood (Negative) Urine Nitrite (Negative) Urine Bilirubin (Negative) Urine Urobilinogen (Up to 0.2) mg/dL Ur Leukocyte Esterase (Negative) Urine Glucose (Negative) mg/dL Salicylates (<2.8) mg/dL Urine Opiates Screen (Negative) Urine Methadone Screen (Negative) Acetaminophen (10-30) ug/mL Ur Barbiturates Screen (Negative) Ur Tricyclics Screen (Negative) Ur Amphetamines Screen (Negative) U Benzodiazepines Scrn (Negative) Urine Cocaine Screen (Negative) Ur THC Screen (Negative) Ethyl Alcohol (<10) mg/dL 3.6 Range/Units 10/20/22 10/20/22 10/20/22 03:10 05:40 05:40 WBC (4.4-10.8) 10^3/uL 18.47 H RBC (4.36-5.78) 10^6/uL 5.36 Hgb (13.5-17.5) g/dL 15.2 Hct (40.0-50.0) % 45.0 MCV (80-95) fL 84 MCH (27.0-33.0) pg 28.4 MCHC (32.0-36.0) % 33.8 RDW (11.8-14.1) % 13.2 Plt Count (130-400) 10^3/uL 285 MPV (8.0-11.0) fL 11.3 H Immature Gran % Neutrophils % Lymphocytes % Monocytes % Eosinophils % Basophils % Nucleated RBC % (0.0-0.3) % Absolute Neutrophils (1.2-6.7) 10^3/uL Absolute Lymphocytes (1.2-3.4) 10^3/uL Absolute Monocytes (0.1-0.8) 10^3/uL Absolute Eosinophils (0.0-0.7) 10^3/uL Absolute Basophils (0.0-0.2) 10^3/uL D-Dimer (<500) ng/mlFEU Sodium (136-145) mmol/L Potassium (3.5-5.1) mmol/L Chloride (98-107) mmol/L Carbon Dioxide (21.0-32.0) mmol/L Anion Gap (3-11) mmol/L BUN (7-18) mg/dL Creatinine (0.70-1.30) mg/dL Est GFR (CKD-EPI 2020) (mL/min/1.73m2) Glucose (74-106) mg/dL Calcium (8.5-10.1) mg/dL Total Bilirubin (0.2-1.0) mg/dL AST (15-37) U/L ALT (16-63) U/L Alkaline Phosphatase (46-116) U/L Troponin I (<or=60) ng/L Total Protein (6.4-8.2) g/dL Albumin (3.4-5.0) g/dL TSH (0.36-3.74) uIU/mL Urine Color (Yellow) Yellow Urine Clarity (Clear) Clear Urine pH (5-8) 5.5 Ur Specific [place] (1.005-1.025) 1.015 Urine Protein (Negative) mg/dL Negative Urine Ketones (Negative) mg/dL Negative Urine Blood (Negative) Negative Urine Nitrite (Negative) Negative Urine Bilirubin (Negative) Negative Urine Urobilinogen (Up to 0.2) mg/dL 0.2 Ur Leukocyte Esterase (Negative) Negative Urine Glucose (Negative) mg/dL Negative Salicylates (<2.8) mg/dL Urine Opiates Screen (Negative) Negative Urine Methadone Screen (Negative) Negative Acetaminophen (10-30) ug/mL Ur Barbiturates Screen (Negative) Negative Ur Tricyclics Screen (Negative) Negative Ur Amphetamines Screen (Negative) Positive A U Benzodiazepines Scrn (Negative) Negative Urine Cocaine Screen (Negative) Negative Ur THC Screen (Negative) Positive A Ethyl Alcohol (<10) mg/dL Sign Out Sign Out Data: Sign Out Comment: hx of bipolar, ptsd, comes in with depression/si, seeking voluntary placement for SI. Last updated by Fabiano Cedeño MD at 10/20/22 06:09 Discharge Plan Disposition Patient Disposition: Psychiatric Hospital/Unit Specific Psychiatric Facility: [facility] Condition: Serious Discharge Details Clinical Impression: Depression, Suicide ideation, Skin pustule, Leukocytosis Primary Care Provider: Ann-Marie Booker ED Provider: Mejia Tran Home Meds and New Rx's Prescriptions: No Action trazodone 100 mg tablet 100 mg PO QHS PRN (Reason: sleep) Qty: 90 1RF hydrochlorothiazide 25 mg tablet 25 mg PO DAILY Qty: 90 1RF lurasidone [Latuda] 40 mg tablet 40 mg PO QPM Qty: 30 2RF Rx Instructions: must administer with food (at least 350 calories) clonidine HCl 0.1 mg tablet 0.1 mg PO BID PRN (Reason: anxiety) Qty: 60 2RF Rx Instructions: * Doses should be at least 6 hours apart * magnesium gluconate 500 mg tablet See Rx Instructions PO BID Rx Instructions: 500 mg orally twice a day; increase dose to 1000 mg bid as tolerated for leg cramps per noted dated 09/27/22 cc lithium carbonate 150 mg capsule 150 mg PO QHS Discharge Data Discharge Date/Time-TO BE ENTERED AT DEPARTURE: 10/20/22 15:35
[2022-10-20] MEDS: Sulfameth/Trimeth DS TAB 1 TAB PO (13:47)
[2022-10-20] MEDS: Ondansetron O.D.T. 4 MG TABEF PO (13:47)
[2022-10-20] MEDS: LORazepam 1 MG TAB PO (13:49)
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
[2022-10-20] MEDS: Acetaminophen 325 MG TAB (15:35)
--- NOTE | 2022-10-20 16:53 | CMDISCH_ITS ---
Date of service: 10/20/22 Time of Service: 16:53 Care Management Discharge Plan Reason for Hospitalization: SI and depression Discharge Plan: Ananth was transferred to [facility] for voluntary inpatient psychiatric treatment. 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 Patient/Family Education Needs: expectations, limitations Disposition Disposition: [facility] via of: Picking Tech
--- NOTE | 2022-10-20 16:53 | PDOC.CMDIS ---
Date of service: 10/20/22 Time of Service: 16:53 Care Management Discharge Plan Reason for Hospitalization: SI and depression Discharge Plan: Ananth was transferred to [facility] for voluntary inpatient psychiatric treatment. 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 Patient/Family Education Needs: expectations, limitations Disposition Disposition: [place] [facility] via of: Teacher Hearing Impaired
== END 2022-10-20 15:35 ==
PROVIDERS: Emergency Medicine; Emergency Provider Student in an Organized Health Care Education/Training Program; PCP Nurse Practitioner
DX: F32.A Depression, unspecified (principal); R45.851 Suicidal ideations; D72.829 Elevated white blood cell count, unspecified; L08.9 Local infection of the skin and subcutaneous tissue, unspecified; R00.0 Tachycardia, unspecified; R07.9 Chest pain, unspecified; R10.13 Epigastric pain; R10.9 Unspecified abdominal pain
CPT/HCPCS: 36415; 71275; 74177; 80048; 80053; 80307; 85027; 93005; 96361; 96374; 96375; 99285; 80320; 80329; 81003; 84443; 84484; 85025; 85379; 93010; 99284; J1885; J2060; J3490

== ENCOUNTER 2022-12-14 09:13 | Emergency (ER) | payer MEDICAID, SELFPAY ==
--- NOTE | 2022-12-14 09:15 | RT.EKG_ITS ---
APPROVED REPORT Exam: Resting ECG Reason for Exam: sob Patient Location: E HR:99 bpm ECG Measurements Heart Rate 99 AXIS AK 157 P 41 QRSd 95 QRS 14 QT 336 T 38 QTc 431 Conclusion Sinus rhythm...normal P axis, V-rate 60- 99 Sinus rhythm. Compared to 10/20/22 decreased heart rate noted. WD
[2022-12-14 09:18] VITALS: BP 155/115; PULSE 102; RESP 22; O2SAT 100
--- NOTE | 2022-12-14 09:45 | DI.CT_ITS ---
Exam(s) CT NECK W EXAM: CT NECK W INDICATION: right lower dental pain into neck. COMPARISON: No exams were available for comparison TECHNIQUE: FINDINGS: VISUALIZED PARANASAL SINUSES: There is post inflammatory retention cyst in the floor of the right max illary sinus not associated with fluid level. Small area of focal mucosal thickening is noted animal caretaker iorly in the left maxillary sinus. No associated fluid level. Frontal sinuses and ethmoidal air jonas ls are clear as are the sphenoid sinuses. Mild fluid is noted in mastoid air cells on the right side . Left mastoid air cells are clear. NASOPHARYNX: Unremarkable ORODENTAL: There is some periapical lucency around the root of most posterior molar in the right-side of the mandible. No bone dehiscence evident. The same posterior right molar exhibits a surface def ect, finding not seen in the other molar teeth. There does not appear to be prominent surrounding ed les nor obvious abscess. OROPHARYNX: Unremarkable. No masses evident. HYPOPHARYNX: Unremarkable. Valleculae and epiglottis and aryepiglottic folds appear normal. VOCAL CORDS: Unremarkable. No masses evident. Subglottic airway appears unremarkable. THYROID GLAND: Unremarkable. Normal size and no obvious nodules. SALIVARY GLANDS: Unremarkable. No significant findings in the parotid and submandibular glands. LYMPH NODES: There is no adenopathy evident in the neck and supraclavicular regions. OTHER: VISUALIZED LUNG APICES: No significant findings. IMPRESSION: 1. Posterior right molar tooth findings as above. No obvious soft tissue abscess. 2. No prominent lymphadenopathy evident. 3. Mild maxillary sinus findings. No fluid levels. RADIATION DOSE DELIVERED: 663.21mGy.cm Total DLP DATA REPOSITORY: All CT scans at this facility are submitted to the National Radiology Data Registry (NRDR) Dose Index Registry (DIR) with the [employer] (A[employer]). RADIATION OPTIMIZATION: All CT scans at this facility use at least one of these dose optimization te chniques: automated exposure control; mA and/or kV adjustment per patient size (includes targeted exa ms where dose is matched to clinical indication); or iterative reconstruction.
--- NOTE | 2022-12-14 10:04 | ED.GENADUL_ITS ---
Discharge Plan Disposition Patient Disposition: Home Condition: Stable Discharge Details Chief Complaint: RespSymp Clinical Impression: Dental infection Primary Care Provider: Ann-Marie Booker ED Provider: Irma Leal Home Meds and New Rx's Prescriptions: No Action trazodone 100 mg tablet 100 mg PO QHS PRN (Reason: sleep) Qty: 90 1RF hydrochlorothiazide 25 mg tablet 25 mg PO DAILY Qty: 90 1RF lurasidone [Latuda] 40 mg tablet 40 mg PO QPM Qty: 30 2RF Rx Instructions: must administer with food (at least 350 calories) lithium carbonate 150 mg capsule 150 mg PO QHS doxycycline monohydrate 100 mg capsule 100 mg PO BID magnesium oxide 400 mg magnesium tablet 400 mg PO DAILY Discharge Instructions Instructions: Dental Abscess (ED) Discharge Data Discharge Physician: Irma Leal Medical Decision Making 32-year-old male presents for evaluation of dental pain and difficulty breathing secondary to the pain radiating to his neck. Clinically patient is not in any respiratory distress. He does have a broken tooth. Laboratory studies do show an elevated white count. CTA of neck/maxillofacial with contrast was obtained. No abscess noted. No airway impingement. Patient with inflammatory changes to right lower jaw. Patient informed of results. He is feeling better at this time. He will continue on antibiotics. I have encouraged him to follow-up with a dentist. He understands indications to return. Patient was given a paper prescription for Augmentin and paper discharge instructions due to unexpected [employer] downtime. HPI General Date/Time Provider Initiated Documentation: 12/14/22 09:31 . HPI Narrative: 32-year-old male presents for evaluation of dental pain and feeling that his throat is closing off. Patient has known broken tooth to right lower jaw. He states that he has had pain for more than a month. Last antibiotics was over a month ago. He states that the pain has increased over the last day or 2. He feels that there is swelling in his right lower jaw that is extending into his throat. He feels that it is difficult to breathe secondary to this throat swelling. Denies any fevers or chills. No nausea or vomiting. No difficulty swallowing. Related Data Home Medications Medication Instructions Recorded Confirmed hydrochlorothiazide 25 mg tablet 25 mg PO DAILY #90 tabs 08/24/22 12/14/22 trazodone 100 mg tablet 100 mg PO QHS PRN sleep #90 tabs 08/24/22 12/14/22 lurasidone 40 mg tablet (Latuda) 40 mg PO QPM #30 tabs 09/07/22 12/14/22 lithium carbonate 150 mg capsule 150 mg PO QHS 10/25/22 12/14/22 doxycycline monohydrate 100 mg 100 mg PO BID 10/31/22 12/14/22 capsule magnesium oxide 400 mg PO DAILY 10/31/22 12/14/22 Previous Rx's Medication Instructions Recorded hydrochlorothiazide 25 mg tablet 25 mg PO DAILY #90 tabs 08/24/22 trazodone 100 mg tablet 100 mg PO QHS PRN sleep #90 tabs 08/24/22 lurasidone 40 mg tablet (Latuda) 40 mg PO QPM #30 tabs 09/07/22 Allergies Allergy/AdvReac Type Severity Reaction Status Date / Time acetaminophen [From Tylenol] Allergy Verified 12/14/22 09:20 ciprofloxacin [From Cipro] Allergy Verified 12/14/22 09:20 clarithromycin [From Biaxin] Allergy Verified 12/14/22 09:20 General Stated Complaint: RespSymp JOHNNY: 3 Review of Systems Narrative: Remainder of review of systems otherwise negative except for as noted x10. PFSH All Active Problems (Updated 12/14/22 @ 15:23 by Irma Leal MD) Dental infection (Acute) Leg cramps (Acute) Bipolar 1 disorder (Acute) Anxiety and depression (Chronic) Snoring (Acute) Essential hypertension (Acute) Left ureteral stone (Acute) Medical History Abdominal pain Alcoholic gastritis Degeneration of cervical intervertebral disc History of herpes zoster Hyperlipidemia Hypertensive disorder Impaired glucose tolerance Kidney stone Lumbago with sciatica Muscle pain Nausea PTSD (post-traumatic stress disorder) Secondary polycythemia Sleep pattern disturbance Surgical History History of colonoscopy with polypectomy (01/28/18) inflammatory bowel disease, polyps x3, internal and external hemorrhoids History of cystoscopy (05/30/16) with laser litho LT History of esophagogastroduodenoscopy (EGD) (09/17/19) paraesophageal hernia type 3 History of placement of ear tubes History of ureteroscopy (03/17/19) left, with stone extraction Family History Other Colon cancer Dementia Social History Smoking/Tobacco Use Status: Current every day Tobacco Type: cigarettes Tobacco: How many years used: 14 Smoking risk assessment performed?: Yes Alcohol Intake: never Drug use: Occasionally Substance use type: marijuana Counseling given: No Adopted: No Caregiver/Support person: No Foster care: No Household members: significant other Housing: homeless Number of Children: 1 Communication Needs: None and Corrective Lenses Education Level: high school Do you need help understanding health information?: Rarely Pets and animals: No Sexually active: Yes Do you think of yourself as: straight/heterosexual What is your relationship status?: living with partner How often do you talk on the phone with friends or family?: decline to answer How often do you get together with friends or relatives?: never Do you belong to any clubs or organized social groups?: no Panel score (0-1 are the most socially isolated patients): 1 What type of physical activity do you participate in: walking and other Details: stretches Duration: 15-30 minutes/day Frequency: daily Meghana/Congregation: None Seatbelt use: always Helmet use: No Drive intox or ride w/intox water taxi driver: No Working smoke detector in home: Yes Fire extinguisher in home: Yes Carbon monox detector in home: No Do you feel safe at home: Yes Do you feel safe in your relationship?: Yes Exam Narrative Exam Narrative: General: non-toxic, no respiratory distress, comfortable HEENT: normocephalic, atraumatic, lids and lashes normal, PERRL, EOMI, anicteric sclera, no conjunctival injection, moist mucous membranes, no erythema, tenderness to palpation over right lower posterior tooth which is broken, no palpable area of fluctuance, no visible abscess, no hoarseness, stridor or drooling, no trismus. Patient is maintaining own secretions just fine. Uvula is midline, no peritonsilar abscess. Neck: Mild pain palpation right anterior lower neck Lungs: good air entry, clear to auscultation bilaterally. no wheezes, rales, rhonchi, or retractions Abd: soft, non-tender, non-distended, normal bowel sounds, no rebound or guarding, no peritoneal signs Musculoskeletal: full range of motion of arms and legs, no tenderness to palpation. no clubbing, cyanosis, or edema Neurologic: appropriate for age, strength normal Psych: alert and oriented Skin: no petechiae, no lesions, warm and dry Course Vital Signs Vital signs: Vital Signs Pulse 102 H 12/14/22 09:18 Respiratory Rate 22 12/14/22 09:18 Blood Pressure 155/115 H 12/14/22 09:18 Pulse Oximetry 100 12/14/22 09:18 Pulse 102 H 12/14/22 09:18 Respiratory Rate 22 12/14/22 09:18 Respiratory Effort Short of Breath 12/14/22 09:20 Blood Pressure 155/115 H 12/14/22 09:18 Blood Pressure Position Sitting 12/14/22 09:18 Pulse Oximetry 100 12/14/22 09:18 Oxygen Delivery Method Room Air 12/14/22 09:18 Oxygen Flow Rate 0 12/14/22 09:18
[2022-12-14] MEDS: CLINDAMYCIN 600 MG/50 ML BAG 100 MG IVPB (10:11)
[2022-12-14] MEDS: Dexamethasone 10 MG/ML VIAL IVP (10:12)
[2022-12-14] MEDS: Ketorolac 30 MG/ML VIAL IVP (10:12)
[2022-12-14 10:23] LABS: Abs Immature Grans 0.12 10^3/uL (0.0-0.06); Absolute Eosinophil Count 0.16 10^3/uL (0.0-0.7); Absolute Lymphocyte Count 2.03 10^3/uL (1.2-3.4); Basophils % 0.3; Eosinophils % 0.9; HCT 47.4 % (40.0-50.0); Immature Grans % 0.7; Lymphocytes % 11.3; MCH 28.3 pg (27.0-33.0); MCHC 33.8 % (32.0-36.0); MCV 84 fL (80-95); MPV 11.1 fL (8.0-11.0); Monocytes % 6.7; Neutrophils % 80.1; Platelet Count 286 10^3/uL (130-400); RBC 5.65 10^6/uL (4.36-5.78); RDW 13.4 % (11.8-14.1); WBC 17.99 10^3/uL (4.4-10.8)
[2022-12-14 10:25] LABS: Absolute Basophil Count 0.05 10^3/uL (0.0-0.2); Absolute Monocyte Count 1.21 10^3/uL (0.1-0.8); Absolute Neutrophil Count 14.41 10^3/uL (1.2-6.7)
[2022-12-14 10:33] LABS: Anion Gap 10.9 mmol/L (3-11); BUN 13 mg/dL (7-18); CO2 24.1 mmol/L (21.0-32.0); CREATININE 0.9 mg/dL (0.70-1.30); Calcium 8.5 mg/dL (8.5-10.1); Chloride 104 mmol/L (98-107); Estimated GFR 116.37 (mL/min/1.73m2); Glucose 117 mg/dL (74-106); Potassium 4.2 mmol/L (3.5-5.1); Sodium 139 mmol/L (136-145)
[2022-12-14] MEDS: Normal Saline - Diluent 50 ML VIAL IJ (11:03)
[2022-12-14] MEDS: Normal Saline Flush 10 ML SYR IVP (11:03)
[2022-12-14] MEDS: Omnipaque 350 MG/ML 500 ML BTL-Imaging package IJ (11:04)
[2022-12-14 11:24] VITALS: BP 169/116; PULSE 98; RESP 18; TEMP 36.8; O2SAT 95
--- NOTE | 2022-12-14 22:25 | NUR.NOTE ---
Nursing Note: Downtime chart. Discharge time is not accurate.
== END 2022-12-14 15:59 | disposition home or self-care (01) ==
PROVIDERS: Emergency Provider Emergency Medicine Emergency Medical Services; PCP Nurse Practitioner
DX: K04.7 Periapical abscess without sinus (principal)
CPT/HCPCS: 70491; 80048; 93005; 96365; 96375; 99285; 85025; 93010; 99284; J1100; J1885

== ENCOUNTER 2023-03-08 22:25 | Emergency (ER) | payer MEDICAID, SELFPAY ==
[2023-03-08 22:30] VITALS: BP 164/109; PULSE 107; RESP 18; TEMP 36.7; O2SAT 96
--- NOTE | 2023-03-08 22:30 | DI.CT_ITS ---
Exam(s) CT NECK W EXAM: CT NECK W INDICATION: globus sensation in neck, eval for mass/FB. COMPARISON: CT CT NECK W from 12/14/2022 TECHNIQUE: FINDINGS: There is moderate motion artifact degrading image quality. VISUALIZED PARANASAL SINUSES: Mucosal thickening noted in both maxillary sinuses without fluid levels . Sphenoid and frontal sinuses are clear. Some fluid noted in right-sided mastoid air cells. NASOPHARYNX: Unremarkable ORODENTAL: Unremarkable. OROPHARYNX: Unremarkable. No masses evident. HYPOPHARYNX: Unremarkable. Valleculae and epiglottis and aryepiglottic folds appear normal. VOCAL CORDS: Unremarkable. No masses evident. Subglottic airway appears unremarkable. THYROID GLAND: Unremarkable. Normal size and no obvious nodules. SALIVARY GLANDS: Unremarkable. No significant findings in the parotid and submandibular glands. LYMPH NODES: There is no adenopathy evident in the neck and supraclavicular regions. OTHER: VISUALIZED LUNG APICES: No significant findings. IMPRESSION: 1. No evidence of significant mass nor lymphadenopathy in the neck. 2. Mucosal thickening noted in the maxillary sinuses. RADIATION DOSE DELIVERED: Total DLP DATA REPOSITORY: All CT scans at this facility are submitted to the National Radiology Data Registry (NRDR) Dose Index Registry (DIR) with the [employer] (ACR). RADIATION OPTIMIZATION: All CT scans at this facility use at least one of these dose optimization te chniques: automated exposure control; mA and/or kV adjustment per patient size (includes targeted exa ms where dose is matched to clinical indication); or iterative reconstruction.
--- NOTE | 2023-03-08 22:30 | RT.EKG_ITS ---
APPROVED REPORT Exam: Resting ECG Reason for Exam: spasms Patient Location: E HR:105 bpm ECG Measurements Heart Rate 105 AXIS RI 168 P 33 QRSd 101 QRS 19 QT 346 T 29 QTc 457 Conclusion Sinus tachycardia...rate> 99
[2023-03-08 22:35] VITALS: RESP 18
--- NOTE | 2023-03-08 22:40 | ED.GENADUL_ITS ---
Discharge Plan Disposition Patient Disposition: Home Discharge Details Clinical Impression: Acute dehydration, Muscle spasm, Paresthesia of both feet Primary Care Provider: Ann-Marie Booker ED Provider: Marco Antonio Pina Home Meds and New Rx's Prescriptions: New gabapentin 450 mg tablet extended release 24 hr 450 mg PO QPM Qty: 30 0RF No Action trazodone 100 mg tablet 100 mg PO QHS PRN (Reason: sleep) Qty: 90 1RF hydrochlorothiazide 25 mg tablet 25 mg PO DAILY Qty: 90 1RF lurasidone [Latuda] 40 mg tablet 40 mg PO QPM Qty: 30 2RF Rx Instructions: must administer with food (at least 350 calories) lithium carbonate 150 mg capsule 150 mg PO QHS doxycycline monohydrate 100 mg capsule 100 mg PO BID magnesium oxide 400 mg magnesium tablet 400 mg PO DAILY Discharge Instructions Instructions: Dehydration (ED), Muscle Spasm (ED) Additional Instructions: At this time your work-up shows no evidence of significant electrolyte abnormality. I suspect your spasms were from dehydration based on your current clinical assessment. Please stay well-hydrated. Please take the gabapentin as needed to help with the burning and tingling sensation that occurs in your feet. If you notice any worsening of your symptoms, or any new symptoms such as vomiting, diarrhea, fever, chills, shortness of breath, chest pain, numbness, weakness, or fainting , please return immediately to the emergency department for reevaluation. Please follow up with your primary care provider as soon as possible for reassessment and reevaluation. As always, it was a pleasure participating in your medical care today. Medical Decision Making 33-year-old male who is currently homeless with a past medical history of bipolar disorder, hypertension, previous kidney stones, presents today for evaluation of spasms in his muscles, tingling in his fingers, and a atypical numb and globus sensation in his throat. Symptoms have been present for the last day or so. He denies any change in his medications, except he does admit that he has not been able to take all of his medications regularly. He denies any excessive water or electrolyte use. He states that he drinks plenty of water throughout the day and also takes regular electrolyte solutions. He denies any chest pain or shortness of breath. He denies any pain in his throat with swallowing. He denies any posterior neck pain or headache. No other complaints at this time. Patient also does complain of a burning sensation in the bottom of his feet. He denies any recent episodes where his feet were wet and cold. He denies a history of frostbite. Exam demonstrates well-appearing male, posterior oropharynx is unremarkable. No evidence of Ludewig's angina or signs of significant hypertrophic component. Patient is able to control secretions well. No evidence of periapical or peritonsillar abscess. Patient does have notable Trousseau sign bilaterally, negative Chvostek sign. Suspect electrolyte/calcium abnormality. Will evaluate for these, give muscle relaxant to help with cramps, rehydrate with LR, get imaging to evaluate for mass in the neck region that cannot be visually seen, monitor closely and reassess. 1:30 AM On reassessment patient is feeling much better. We did add gabapentin, some Valium, and bilateral Lidoderm patches to the bottoms of his feet. Spasms have resolved, burning sensation has improved. He is feeling better. Work-up is surprisingly unremarkable, he does have mild white count of 13, but no bandemia. Electrolytes are all normal. No fever. Thyroid function normal. CT scan of his neck demonstrates no evidence of abscess or other concerning abnormality. After the 2 L of IV fluids his spasms have resolved. The burning and tingling sensation in his feet appears clinically inconsistent with cauda equina syndrome. Paresthesias is highest as to the cause of his symptoms, peripheral neuropathy is of concern, but symptoms are inconsistent with cord compression or radiculopathy at this time. With his history of homelessness I do wonder if perhaps there is a component of paresthesias from previous trench foot, frostbite or chilblains. No evidence of abnormality on his feet at this time clinically on exam. We will prescribe gabapentin for home use of. He is currently homeless, but we will allow him to rest here for the next few hours. Patient is otherwise stable for discharge. I have extensively reviewed the treatment plan and discharge instructions with the patient. I have addressed all patient concerns at this time. The patient was made aware of what symptoms to monitor for that would warrant a return to the emergency department. Discussed the plan with the patient, they demonstrate verbal understanding and agreement with our assessment and plan at this time. The documentation in this chart was dictated using [employer] dictation software. Please excuse any dictation errors. FINDINGS: Paranasal sinuses: Mild mucosal thickening in maxillary sinuses and ethmoid air cells without airfluid levels. Dental: Periodontal disease. Pharynx: There may be a couple of small right-sided tonsilliths. Motion artifact. No significant tonsillar inflammation for motion. Larynx: Normal epiglottis. Prevertebral and retropharyngeal spaces: Unremarkable. Salivary glands: Normal. Glands are normal in size. Thyroid: No gross thyroid lesions, motion artifact. Lymph nodes: No lymphadenopathy. Trachea: Visualized trachea is unremarkable. Lungs: The lungs appear hyperinflated. Bones/joints: No acute fracture or subluxation. Soft tissues: No significant soft tissue swelling. No radiopaque foreign body. Other findings: Motion artifact.IMPRESSION: 1. No acute findings. 2. Incidental findings as described. Thank you for allowing us to participate in the care of your patient. Dictated and Authenticated by: Etelvina Sanders MD 03/09/2023 12:21 AM Eastern Time ([place] & [place]) HPI General Date/Time Provider Initiated Documentation: 03/08/23 22:29 . HPI Narrative: 33-year-old male who is currently homeless with a past medical history of bipolar disorder, hypertension, previous kidney stones, presents today for evaluation of spasms in his muscles, tingling in his fingers, and a atypical numb and globus sensation in his throat. Symptoms have been present for the last day or so. He denies any change in his medications, except he does admit that he has not been able to take all of his medications regularly. He denies any excessive water or electrolyte use. He states that he drinks plenty of water throughout the day and also takes regular electrolyte solutions. He denies any chest pain or shortness of breath. He denies any pain in his throat with swallowing. He denies any posterior neck pain or headache. No other complaints at this time. Patient also does complain of a burning sensation in the bottom of his feet. He denies any recent episodes where his feet were wet and cold. He denies a history of frostbite. Related Data Home Medications Medication Instructions Recorded Confirmed hydrochlorothiazide 25 mg tablet 25 mg PO DAILY #90 tabs 08/24/22 12/14/22 trazodone 100 mg tablet 100 mg PO QHS PRN sleep #90 tabs 08/24/22 12/14/22 lurasidone 40 mg tablet (Latuda) 40 mg PO QPM #30 tabs 09/07/22 12/14/22 lithium carbonate 150 mg capsule 150 mg PO QHS 10/25/22 12/14/22 doxycycline monohydrate 100 mg 100 mg PO BID 10/31/22 12/14/22 capsule magnesium oxide 400 mg PO DAILY 10/31/22 12/14/22 gabapentin 450 mg tablet,extended 450 mg PO QPM #30 tabs 03/09/23 release 24 hr Previous Rx's Medication Instructions Recorded hydrochlorothiazide 25 mg tablet 25 mg PO DAILY #90 tabs 08/24/22 trazodone 100 mg tablet 100 mg PO QHS PRN sleep #90 tabs 08/24/22 lurasidone 40 mg tablet (Latuda) 40 mg PO QPM #30 tabs 09/07/22 gabapentin 450 mg tablet,extended 450 mg PO QPM #30 tabs 03/09/23 release 24 hr Allergies Allergy/AdvReac Type Severity Reaction Status Date / Time acetaminophen [From Tylenol] Allergy Verified 12/14/22 09:20 ciprofloxacin [From Cipro] Allergy Verified 12/14/22 09:20 clarithromycin [From Biaxin] Allergy Verified 12/14/22 09:20 General Stated Complaint: GenMedical JOHNNY: 4 Review of Systems All systems reviewed & are unremarkable except as noted in HPI and below PFSH All Active Problems (Updated 03/09/23 @ 01:33 by Marco Antonio Pina DO) Paresthesia of both feet (Acute) Muscle spasm (Acute) Acute dehydration (Acute) Leg cramps (Acute) Bipolar 1 disorder (Acute) Anxiety and depression (Chronic) Snoring (Acute) Essential hypertension (Acute) Left ureteral stone (Acute) Medical History Alcoholic gastritis History of herpes zoster Impaired glucose tolerance Abdominal pain Nausea Sleep pattern disturbance Muscle pain Lumbago with sciatica Degeneration of cervical intervertebral disc Kidney stone Hypertensive disorder PTSD (post-traumatic stress disorder) Secondary polycythemia Hyperlipidemia Surgical History History of colonoscopy with polypectomy (01/28/18) inflammatory bowel disease, polyps x3, internal and external hemorrhoids History of cystoscopy (05/30/16) with laser litho LT History of ureteroscopy (03/17/19) left, with stone extraction History of esophagogastroduodenoscopy (EGD) (09/17/19) paraesophageal hernia type 3 History of placement of ear tubes Family History Other Colon cancer Dementia Social History Smoking/Tobacco Use Status: Current every day Tobacco Type: cigarettes Tobacco: How many years used: 14 Smoking risk assessment performed?: Yes Alcohol Intake: never Drug use: Occasionally Substance use type: marijuana Counseling given: No Adopted: No Caregiver/Support person: No Foster care: No Household members: significant other Housing: homeless Number of Children: 1 Communication Needs: None and Corrective Lenses Education Level: high school Do you need help understanding health information?: Rarely Pets and animals: No Sexually active: Yes Do you think of yourself as: straight/heterosexual What is your relationship status?: living with partner How often do you talk on the phone with friends or family?: decline to answer How often do you get together with friends or relatives?: never Do you belong to any clubs or organized social groups?: no Panel score (0-1 are the most socially isolated patients): 1 What type of physical activity do you participate in: walking and other Details: stretches Duration: 15-30 minutes/day Frequency: daily Meghana/Sabianism: None Seatbelt use: always Helmet use: No Drive intox or ride w/intox wagon driver: No Working smoke detector in home: Yes Fire extinguisher in home: Yes Carbon monox detector in home: No Do you feel safe at home: Yes Do you feel safe in your relationship?: Yes Exam Narrative Exam Narrative: 1.Const: Well-nourished, Well-developed, appearing stated age 2.Eyes: PERRL, no conjunctival injection, and symmetrical lids. 3.ENT: Atraumatic external nose and ears. Moist MM. Neck: Symmetric, trachea midline, No thyromegaly. no swelling in the posterior oropharynx. No evidence of Ludewig's angina. No neck tenderness. Some dental caries are noted. No evidence of periapical abscess. No stridor 4.CVS: +S1/S2, No murmurs or gallops. Peripheral pulses 2+ and equal in all extremities. Brisk capillary refill in all extremities. 5.RESP: Unlabored respiratory effort. Clear to auscultation bilaterally. No wheezes rales or rhonchi 6.GI: Soft, Nontender/Nondistended, No hepatosplenomegaly. No guarding or rebound. 7.MSK: Normocephalic/Atraumatic, Extremities w/o deformity or ttp No cyanosis or clubbing, Normal movement of all extremities. Negative Chvostek sign, but positive Trousseau sign. 8.Skin: Warm, Dry. No rashes or lesions. 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 Sensation grossly intact, no focal neurologic deficits. 10.Psych: (AAO) x3. Appropriate mood and affect Course Vital Signs Vital signs: Vital Signs Temperature 36.7 C 03/08/23 22:30 Pulse 107 H 03/08/23 22:30 Respiratory Rate 18 03/08/23 22:30 Blood Pressure 164/109 H 03/08/23 22:30 Pulse Oximetry 96 03/08/23 22:30 Temperature 36.7 C 03/08/23 22:30 Temperature Source Oral 03/08/23 22:30 Pulse 107 H 03/08/23 22:30 Respiratory Rate 18 03/08/23 22:35 Respiratory Effort Normal 03/08/23 22:35 Respiratory Depth Normal 03/08/23 22:35 Respiratory Pattern Normal 03/08/23 22:35 Blood Pressure 164/109 H 03/08/23 22:30 Blood Pressure Position Sitting 03/08/23 22:30 Pulse Oximetry 96 03/08/23 22:30 Oxygen Delivery Method Room Air 03/08/23 22:35 Oxygen Flow Rate 0 03/08/23 22:30 Pain Level 8 03/08/23 22:35 PAWSS Have you Been Recently Intoxicated or Drunk Within the Last 30 days?: No Have you Ever Experienced Previous Episodes of Alcohol Withdrawal?: No Have you ever Experienced Withdrawal Seizures?: No Have you ever Experienced Delirium Tremens(DT)s?: No Have you ever undergone Alcohol Rehabilitation Treatment (i.e, inpt ot outpatient treatment programs)?: No Have you ever Experienced Blackouts?: No Have you ever Combined Alcohol with other Downers within the last 90 days?: No Have you ever Combined Alcohol with any other Substance of Abuse during the last 90 days?: No Positive Blood Alcohol level on Presentation? [PCS.BAL]: No Evidence of Increased Autonomic Activity (i.e. HR>120, tremor, sweating, agitation, nausea)?: No Result: 0
[2023-03-08 23:04] LABS: Abs Immature Grans 0.05 10^3/uL (0.0-0.06); Absolute Basophil Count 0.08 10^3/uL (0.0-0.2); Absolute Eosinophil Count 0.37 10^3/uL (0.0-0.7); Absolute Lymphocyte Count 2.83 10^3/uL (1.2-3.4); Absolute Monocyte Count 0.87 10^3/uL (0.1-0.8); Absolute Neutrophil Count 9.33 10^3/uL (1.2-6.7); Basophils % 0.6; Eosinophils % 2.7; HGB 16.2 g/dL (13.5-17.5); Immature Grans % 0.4; Lymphocytes % 20.9; MCHC 33.8 % (32.0-36.0); MCV 83 fL (80-95); MPV 10.9 fL (8.0-11.0); Monocytes % 6.4; Platelet Count 318 10^3/uL (130-400); RBC 5.78 10^6/uL (4.36-5.78); RDW 13.3 % (11.8-14.1); RDW-SD 40.3 fL; WBC 13.52 10^3/uL (4.4-10.8)
[2023-03-08] MEDS: diazePAM 10 MG/2 ML SYR 5 MG IVP (23:09)
[2023-03-08] MEDS: Lactated Ringers 1,000 ML 1000 ML IV (23:10)
[2023-03-08 23:28] LABS: ALT 55 U/L (16-63); AST 29 U/L (15-37); Albumin 3.7 g/dL (3.4-5.0); Alkaline Phosphatase 71 U/L (46-116); Anion Gap 7.3 mmol/L (3-11); BUN 14 mg/dL (7-18); Bilirubin, Total 0.4 mg/dL (0.2-1.0); CO2 26.7 mmol/L (21.0-32.0); CREATININE 1.1 mg/dL (0.70-1.30); Calcium 9.9 mg/dL (8.5-10.1); Chloride 102 mmol/L (98-107); Glucose 94 mg/dL (74-106); Magnesium 1.9 mg/dL (1.8-2.4); Potassium 4.1 mmol/L (3.5-5.1); Sodium 136 mmol/L (136-145); TSH (W/Ref FT4) 2.48 uIU/mL (0.36-3.74); Total Protein 7.4 g/dL (6.4-8.2)
[2023-03-08] MEDS: Omnipaque 350 MG/ML 100 ML BTL IJ (23:32)
[2023-03-08] MEDS: Normal Saline - Diluent 50 ML VIAL IJ (23:32)
[2023-03-09] MEDS: Gabapentin 300 MG CAP 600 MG PO (00:09)
[2023-03-09] MEDS: Lidocaine 5% Patch 2 PATCH TP (00:10)
--- NOTE | 2023-03-09 00:21 | DI.VRAD_ITS ---
PROCEDURE INFORMATION: Exam: CT Neck With Contrast Exam date and time: 03/08/2023 11:32 PM Age: 33 years old Clinical indication: Other: Globus sensation in neck, eval for mass/fb TECHNIQUE: Imaging protocol: Computed tomography of the neck with contrast. Contrast material: OMNIPAQUE 350; Contrast volume: 100 ml; Contrast route: INTRAVENOUS (IV); COMPARISON: CT NECK W 12/14/2022 11:08 AM FINDINGS: Paranasal sinuses: Mild mucosal thickening in maxillary sinuses and ethmoid air cells without air-fluid levels. Dental: Periodontal disease. Pharynx: There may be a couple of small right-sided tonsilliths. Motion artifact. No significant tonsillar inflammation for motion. Larynx: Normal epiglottis. Prevertebral and retropharyngeal spaces: Unremarkable. Salivary glands: Normal. Glands are normal in size. Thyroid: No gross thyroid lesions, motion artifact. Lymph nodes: No lymphadenopathy. Trachea: Visualized trachea is unremarkable. Lungs: The lungs appear hyperinflated. Bones/joints: No acute fracture or subluxation. Soft tissues: No significant soft tissue swelling. No radiopaque foreign body. Other findings: Motion artifact. IMPRESSION: 1. No acute findings. 2. Incidental findings as described. Dictated and Authenticated by: Etelvina Sanders MD. Ordering:MANUEL Bernard MD
[2023-03-09] MEDS: diazePAM 10 MG/2 ML SYR 5 MG IVP (00:41)
[2023-03-09] MEDS: Normal Saline 1,000 ML 1000 ML IV (00:41)
[2023-03-09 06:15] VITALS: BP 160/115; PULSE 95; RESP 16; O2SAT 96
== END 2023-03-09 06:16 | disposition home or self-care (01) ==
PROVIDERS: Emergency Provider Student in an Organized Health Care Education/Training Program; PCP Nurse Practitioner
DX: E86.0 Dehydration (principal); M62.838 Other muscle spasm; R20.2 Paresthesia of skin
CPT/HCPCS: 70491; 80053; 87880; 93005; 96361; 96374; 96376; 99285; 83735; 84443; 85025; 87081; 93010; 99284; J3360; J3490

== ENCOUNTER 2023-03-10 08:09 | Emergency (ER) | payer MEDICAID, SELFPAY ==
[2023-03-10 08:14] VITALS: BP 159/116; PULSE 80; RESP 20; TEMP 37.1; O2SAT 99
--- NOTE | 2023-03-10 08:36 | ED.GENADUL_ITS ---
Discharge Plan Disposition Patient Disposition: Home Discharge Details Clinical Impression: Muscle spasm Primary Care Provider: Ann-Marie Booker ED Provider: Mario Alberto Ennis Home Meds and New Rx's Prescriptions: New methocarbamol 750 mg tablet 750 mg PO TID PRN (Reason: muscle spasm) Qty: 10 0RF Continued trazodone 100 mg tablet 100 mg PO QHS PRN (Reason: sleep) Qty: 90 1RF hydrochlorothiazide 25 mg tablet 25 mg PO DAILY Qty: 90 1RF lurasidone [Latuda] 40 mg tablet 40 mg PO QPM Qty: 30 2RF Rx Instructions: must administer with food (at least 350 calories) lithium carbonate 150 mg capsule 150 mg PO QHS doxycycline monohydrate 100 mg capsule 100 mg PO BID magnesium oxide 400 mg magnesium tablet 400 mg PO DAILY gabapentin 450 mg tablet extended release 24 hr 450 mg PO QPM Qty: 30 0RF Discharge Instructions Instructions: Muscle Spasm (ED) Additional Instructions: It is important that you continue to take your medications as prescribed and stay well-hydrated. If you have any new or significant worsening of symptoms feel free to return the emergency department for reassessment otherwise follow- up with your primary care provider if not improving. Referrals: Ann-Marie Booker, ISABEL [Primary Care Provider] - Discharge Data Discharge Date/Time-TO BE ENTERED AT DEPARTURE: 03/10/23 11:44 Medical Decision Making Patient presenting to the emergency department for chief complaint of bilateral lower leg pain. Patient reports that this has been going on for the past 2 days and he was seen in the emergency department and discharged yesterday morning and was having significant relief at that time but since approximately 2 to 3 hours after discharge had return of symptoms that have not changed since. He does report no more sore throat and that seems to have resolved but continued bilateral lower leg pain and discomfort. Denies edema, denies back pain, denies bowel or bladder dysfunction does report poor p.o. intake and that he has not filled his prescriptions since discharge. Patient has pertinent past medical history of homelessness, PTSD, hypertensive disorder, back pain with sciatica, hyperlipidemia, hypertension. Physical exam shows diffuse nonfocal pain to even light touch of lower extremities from the mid thigh downward, no obvious discoloration or vascular issues to the toes or feet and otherwise fairly unremarkable exam except for marked noted pain even with movement. We will recheck patient's labs, give IV fluids, give ketorolac and gabapentin. At this time I do not feel that any advanced imaging is warranted. I do not feel symptoms are clinically consistent with cauda equina and do appear mostly like superficial paresthesias. Reviewed patient's labs and does have slight leukocytosis but improved from 2 days ago, CMP shows a BUN of 19 otherwise unremarkable CMP, magnesium is within normal limits, calcium also 9.3 so nonworrisome all other labs unremarkable. Reassessed patient patient still having significant amount of pain and discomfort and spite of fluids ketorolac and gabapentin. Patient was given some Robaxin to see if this would help with his reported spasms. Reassessed patient and patient stated significant improvement of his symptoms. We will prescribe limited amount of muscle relaxant for use on outpatient basis otherwise patient to follow-up with primary care provider for recheck or return for any new or significant worsening of symptoms. After discussion of diagnosis and plan of care patient has no further needs, questions, or concerns and states clear understanding to return to the emergency department for any worsening symptoms. This documentation was generated using [employer] dictation system, please disregard any oddities of phrase or misspellings. Lab Data Lab results reviewed: Yes I reviewed the patient's lab results. HPI General Mode of arrival: ambulatory . Date/Time Provider Initiated Documentation: 03/10/23 08:10 . Limitations to Documentation: no limitations . Information obtained by: patient and RN notes reviewed . History of Present Illness 33 year old M presents to the emergency department with the chief complaint of Bilateral leg pain, described as moderate and severe, Quality is described as burning, and is localized to the lower extremity. Patient reports no radiation. Patient started experiencing this day(s) (2) and it has been constant. No relieving factors improve symptom(s), No exacerbating factors reported . Patient notes no other symptoms.. Patient did receive the following treatments prior to arrival, none Related Data Home Medications Medication Instructions Recorded Confirmed hydrochlorothiazide 25 mg tablet 25 mg PO DAILY #90 tabs 08/24/22 03/10/23 trazodone 100 mg tablet 100 mg PO QHS PRN sleep #90 tabs 08/24/22 03/10/23 lurasidone 40 mg tablet (Latuda) 40 mg PO QPM #30 tabs 09/07/22 03/10/23 lithium carbonate 150 mg capsule 150 mg PO QHS 10/25/22 03/10/23 doxycycline monohydrate 100 mg 100 mg PO BID 10/31/22 03/10/23 capsule magnesium oxide 400 mg PO DAILY 10/31/22 03/10/23 gabapentin 450 mg tablet,extended 450 mg PO QPM #30 tabs 03/09/23 03/10/23 release 24 hr methocarbamol 750 mg tablet 750 mg PO TID PRN muscle spasm #10 03/10/23 tabs Previous Rx's Medication Instructions Recorded hydrochlorothiazide 25 mg tablet 25 mg PO DAILY #90 tabs 08/24/22 trazodone 100 mg tablet 100 mg PO QHS PRN sleep #90 tabs 08/24/22 lurasidone 40 mg tablet (Latuda) 40 mg PO QPM #30 tabs 09/07/22 gabapentin 450 mg tablet,extended 450 mg PO QPM #30 tabs 03/09/23 release 24 hr methocarbamol 750 mg tablet 750 mg PO TID PRN muscle spasm #10 03/10/23 tabs Allergies Allergy/AdvReac Type Severity Reaction Status Date / Time acetaminophen [From Tylenol] Allergy Verified 03/10/23 08:19 ciprofloxacin [From Cipro] Allergy Verified 03/10/23 08:19 clarithromycin [From Biaxin] Allergy Verified 03/10/23 08:19 General Stated Complaint: Nk/Back Pain JOHNNY: 4 Review of Systems Constitutional Constitutional: Denies chills, Denies fever(s) and Denies headache(s) ENT Ears, Nose, Mouth, and Throat: Denies headache(s), Denies nasal congestion and Denies sore throat Cardiovascular Cardiovascular: Denies chest pain and Denies dyspnea Respiratory Respiratory: Denies cough and Denies dyspnea Gastrointestinal Gastrointestinal: Denies abdominal pain Genitourinary Genitourinary: Denies oliguria and Denies difficulty urinating Musculoskeletal Musculoskeletal: Reports as per HPI, Denies joint swelling, Denies limited range of motion, Reports radiating pain into limb and Reports tingling Integumentary/Breasts Skin/Breast: Denies erythema and Denies rash Neurologic Neurologic: Denies headache(s) and Reports tingling PFSH All Active Problems (Updated 03/10/23 @ 11:28 by Mario Alberto Ennis NP) Paresthesia of both feet (Acute) Muscle spasm (Acute) Acute dehydration (Acute) Leg cramps (Acute) Bipolar 1 disorder (Acute) Anxiety and depression (Chronic) Snoring (Acute) Essential hypertension (Acute) Left ureteral stone (Acute) Medical History Alcoholic gastritis History of herpes zoster Impaired glucose tolerance Abdominal pain Nausea Sleep pattern disturbance Muscle pain Lumbago with sciatica Degeneration of cervical intervertebral disc Kidney stone Hypertensive disorder PTSD (post-traumatic stress disorder) Secondary polycythemia Hyperlipidemia Surgical History History of colonoscopy with polypectomy (01/28/18) inflammatory bowel disease, polyps x3, internal and external hemorrhoids History of cystoscopy (05/30/16) with laser litho LT History of ureteroscopy (03/17/19) left, with stone extraction History of esophagogastroduodenoscopy (EGD) (09/17/19) paraesophageal hernia type 3 History of placement of ear tubes Family History Other Colon cancer Dementia Social History Smoking/Tobacco Use Status: Current every day Tobacco Type: cigarettes Tobacco: How many years used: 14 Smoking risk assessment performed?: Yes Alcohol Intake: never Drug use: Occasionally Substance use type: marijuana Counseling given: No Adopted: No Caregiver/Support person: No Foster care: No Household members: significant other Housing: homeless Number of Children: 1 Communication Needs: None and Corrective Lenses Education Level: high school Do you need help understanding health information?: Rarely Pets and animals: No Sexually active: Yes Do you think of yourself as: straight/heterosexual What is your relationship status?: living with partner How often do you talk on the phone with friends or family?: decline to answer How often do you get together with friends or relatives?: never Do you belong to any clubs or organized social groups?: no Panel score (0-1 are the most socially isolated patients): 1 What type of physical activity do you participate in: walking and other Details: stretches Duration: 15-30 minutes/day Frequency: daily Meghana/Congregation: None Seatbelt use: always Helmet use: No 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 Working smoke detector in home: Yes Fire extinguisher in home: Yes Carbon monox detector in home: No Do you feel safe at home: Yes Do you feel safe in your relationship?: Yes Exam Const General: cooperative and no acute distress Orientation: alert, awake and oriented x3 Neck Neck: normal visual inspection, full ROM and no meningeal signs Resp Effort & Inspection: normal respiratory effort Auscultation: clear to auscultation bilaterally Cardio Rate: regular rate Rhythm: regular rhythm Heart Sounds: S1 normal and S2 normal Neuro General: patient alert, patient awake and patient oriented x3 DTR's: Rt Brachioradialis: 2+, Lt Brachioradialis: 2+, Rt Patellar: 2+ and Lt Patellar: 2+ Extrem Right lower extremity: normal to inspection, full ROM, normal capillary refill and foot Details: vascular exam Details: dorsalis pedis pulse present, posterior tibial pulse present and normal capillary refill Left lower extremity: normal to inspection, full ROM, normal capillary refill and foot Details: vascular exam Details: dorsalis pedis pulse present, posterior tibial pulse present and normal capillary refill Course Vital Signs Vital signs: Vital Signs Temperature 37.1 C 03/10/23 08:14 Pulse 80 03/10/23 08:14 Respiratory Rate 20 03/10/23 08:14 Blood Pressure 159/116 H 03/10/23 08:14 Pulse Oximetry 99 03/10/23 08:14 Temperature 37.1 C 03/10/23 08:14 Temperature Source Oral 03/10/23 08:14 Pulse 80 03/10/23 08:14 Respiratory Rate 20 03/10/23 08:14 Respiratory Effort Normal 03/10/23 08:18 Blood Pressure 159/116 H 03/10/23 08:14 Blood Pressure Position Sitting 03/10/23 08:14 Pulse Oximetry 99 03/10/23 08:14 Oxygen Delivery Method Room Air 03/10/23 08:14 Oxygen Flow Rate 0 03/10/23 08:14
[2023-03-10] MEDS: Ketorolac 15 MG/ML VIAL IVP (09:00)
[2023-03-10] MEDS: Normal Saline 1,000 ML 1000 ML IV (09:04)
[2023-03-10] MEDS: Gabapentin 300 MG CAP PO (09:04)
[2023-03-10 09:05] LABS: Abs Immature Grans 0.04 10^3/uL (0.0-0.06); Absolute Basophil Count 0.08 10^3/uL (0.0-0.2); Absolute Eosinophil Count 0.34 10^3/uL (0.0-0.7); Absolute Lymphocyte Count 2.43 10^3/uL (1.2-3.4); Absolute Monocyte Count 0.88 10^3/uL (0.1-0.8); Basophils % 0.7; Eosinophils % 2.9; HCT 46.1 % (40.0-50.0); HGB 15.6 g/dL (13.5-17.5); Immature Grans % 0.3; Lymphocytes % 20.5; MCH 28.3 pg (27.0-33.0); MCHC 33.8 % (32.0-36.0); MCV 84 fL (80-95); MPV 10.9 fL (8.0-11.0); Monocytes % 7.4; Neutrophils % 68.2; Platelet Count 295 10^3/uL (130-400); RBC 5.51 10^6/uL (4.36-5.78); RDW 13.3 % (11.8-14.1); RDW-SD 41.1 fL; WBC 11.83 10^3/uL (4.4-10.8)
[2023-03-10 09:07] LABS: Absolute Neutrophil Count 8.07 10^3/uL (1.2-6.7)
[2023-03-10 09:32] LABS: ALT 47 U/L (16-63); AST 26 U/L (15-37); Albumin 3.4 g/dL (3.4-5.0); Alkaline Phosphatase 72 U/L (46-116); Anion Gap 8.8 mmol/L (3-11); BUN 19 mg/dL (7-18); Bilirubin, Total 0.3 mg/dL (0.2-1.0); CO2 24.2 mmol/L (21.0-32.0); Calcium 9.3 mg/dL (8.5-10.1); Chloride 103 mmol/L (98-107); Estimated GFR 101.92 (mL/min/1.73m2); Glucose 101 mg/dL (74-106); Potassium 3.8 mmol/L (3.5-5.1); Sodium 136 mmol/L (136-145); TSH (W/Ref FT4) 2.09 uIU/mL (0.36-3.74); Total Protein 6.9 g/dL (6.4-8.2)
[2023-03-10] MEDS: Methocarbamol 750 MG TAB PO (10:40)
[2023-03-10 11:43] VITALS: BP 160/101; PULSE 80; RESP 20; O2SAT 99
== END 2023-03-10 11:44 | disposition home or self-care (01) ==
PROVIDERS: Emergency Provider Nurse Practitioner Family; PCP Nurse Practitioner
DX: R20.2 Paresthesia of skin (principal); F41.9 Anxiety disorder, unspecified; F32.A Depression, unspecified; Z79.899 Other long term (current) drug therapy; I10 Essential (primary) hypertension
CPT/HCPCS: 80053; 96361; 96374; 99284; 83735; 84443; 85025; 99283; J1885

== ENCOUNTER 2023-03-11 17:27 | Emergency (ER) | payer MEDICAID, SELFPAY ==
[2023-03-11 17:38] VITALS: BP 158/111; PULSE 100; RESP 22; TEMP 36.9; O2SAT 97
[2023-03-11 17:45] VITALS: BP 146/98; PULSE 97; RESP 12; RESP 24; O2SAT 95
--- NOTE | 2023-03-11 19:03 | W.ED.GENAD ---
Discharge Plan Disposition Patient Disposition: Home Condition: Stable Discharge Details Clinical Impression: Paresthesia of both feet, Anxiety and depression Primary Care Provider: Ann-Marie Booker ED Provider: Sabina Handy Home Meds and New Rx's Prescriptions: Continued gabapentin 450 mg tablet extended release 24 hr 450 mg PO QPM Qty: 30 0RF methocarbamol 750 mg tablet 750 mg PO TID PRN (Reason: muscle spasm) Qty: 10 0RF Discharge Instructions Instructions: Paresthesia (ED), Anxiety (ED) Additional Instructions: take medication as prescribed Referrals: Ann-Marie Booker, [employer] MANAGER [Primary Care Provider] - (call in am for follow up appointment) Medical Decision Making This is a 33-year-old male patient who returns for the third time for reports of bilateral lower extremity swelling and [id number] in his feet and hands. He also reports difficulty swallowing but handling oral secretions with no difficulty. He has no hot potato voice, no stridor. Posterior pharynx is clear. CAT scan of the neck from previous visit was reviewed and unremarkable. He is oxygenating in the high 90s on room air and hemodynamically stable. He is clearly very agitated and hyperventilating which I think is contributing to his symptoms. I do not feel that repeat imaging him is warranted at this point. I will add BNP sed rate CRP to his work-up for primary care provider to review at his follow-up appointment. I think he is stable for discharge to home and should continue his medications as previously directed I did explain that he has not had enough days of treatment to call this a treatment failure. Medical Records Medical records reviewed: Yes I reviewed the patient's medical records. Lab Data Lab results reviewed: Yes I reviewed the patient's lab results. Lab results narrative: Laboratory Results - last 24 hr 03/11/23 19:10 C-Reactive Protein 1.11 H NT-Pro-B Natriuret Pep 34 Vitamin B12 470 ESR pending as it is a send out HPI General Mode of arrival: ambulatory. Date/Time Provider Initiated Documentation: 03/11/23 18:22. Limitations to Documentation: no limitations. Information obtained by: patient. HPI Narrative: This is a 33-year-old male patient who returns for the third time for reports of bilateral lower extremity swelling and [id number] in his feet and hands. He also reports difficulty swallowing but handling oral secretions with no difficulty. He has no hot potato voice, no stridor. Posterior pharynx is clear. CAT scan of the neck from previous visit was reviewed and unremarkable. He is oxygenating in the high 90s on room air and hemodynamically stable. He is clearly very agitated and hyperventilating which I think is contributing to his symptoms. Related Data Home Medications Medication Instructions Recorded Confirmed gabapentin 450 mg tablet,extended 450 mg PO QPM #30 tabs 03/09/23 03/11/23 release 24 hr methocarbamol 750 mg tablet 750 mg PO TID PRN muscle spasm #10 03/11/23 tabs Previous Rx's Medication Instructions Recorded gabapentin 450 mg tablet,extended 450 mg PO QPM #30 tabs 03/09/23 release 24 hr methocarbamol 750 mg tablet 750 mg PO TID PRN muscle spasm #10 03/11/23 tabs Allergies Allergy/AdvReac Type Severity Reaction Status Date / Time acetaminophen [From Tylenol] Allergy Verified 03/11/23 17:42 ciprofloxacin [From Cipro] Allergy Verified 03/11/23 17:42 clarithromycin [From Biaxin] Allergy Verified 03/11/23 17:42 General Stated Complaint: GenMedical JOHNNY: 3 PFSH All Active Problems (Updated 03/11/23 @ 20:19 by Sabina Handy NP) Paresthesia of both feet (Acute) Muscle spasm (Acute) Acute dehydration (Acute) Leg cramps (Acute) Bipolar 1 disorder (Acute) Anxiety and depression (Chronic) Snoring (Acute) Essential hypertension (Acute) Left ureteral stone (Acute) Medical History Alcoholic gastritis History of herpes zoster Impaired glucose tolerance Abdominal pain Nausea Sleep pattern disturbance Muscle pain Lumbago with sciatica Degeneration of cervical intervertebral disc Kidney stone Hypertensive disorder PTSD (post-traumatic stress disorder) Secondary polycythemia Hyperlipidemia Surgical History History of colonoscopy with polypectomy (01/28/18) inflammatory bowel disease, polyps x3, internal and external hemorrhoids History of cystoscopy (05/30/16) with laser litho LT History of ureteroscopy (03/17/19) left, with stone extraction History of esophagogastroduodenoscopy (EGD) (09/17/19) paraesophageal hernia type 3 History of placement of ear tubes Family History Other Colon cancer Dementia Social History Smoking/Tobacco Use Status: Current every day Tobacco Type: cigarettes Tobacco: How many years used: 14 Smoking risk assessment performed?: Yes Alcohol Intake: never Drug use: Occasionally Substance use type: marijuana Counseling given: No Adopted: No Caregiver/Support person: No Foster care: No Household members: significant other Housing: homeless Number of Children: 1 Communication Needs: None and Corrective Lenses Education Level: high school Do you need help understanding health information?: Rarely Pets and animals: No Sexually active: Yes Do you think of yourself as: straight/heterosexual What is your relationship status?: living with partner How often do you talk on the phone with friends or family?: decline to answer How often do you get together with friends or relatives?: never Do you belong to any clubs or organized social groups?: no Panel score (0-1 are the most socially isolated patients): 1 What type of physical activity do you participate in: walking and other Details: stretches Duration: 15-30 minutes/day Frequency: daily Meghana/Scientologist: None Seatbelt use: always Helmet use: No 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 Working smoke detector in home: Yes Fire extinguisher in home: Yes Carbon monox detector in home: No Do you feel safe at home: Yes Do you feel safe in your relationship?: Yes Course Vital Signs Vital signs: Vital Signs Temperature 36.9 C 03/11/23 17:38 Pulse 100 H 03/11/23 17:38 Respiratory Rate 22 03/11/23 17:38 Blood Pressure 158/111 H 03/11/23 17:38 Pulse Oximetry 97 03/11/23 17:38 Temperature 36.9 C 03/11/23 17:38 Temperature Source Skin 03/11/23 17:38 Pulse 97 H 03/11/23 17:45 Respiratory Rate 24 03/11/23 17:45 Respiratory Effort Normal 03/11/23 17:45 Respiratory Depth Normal 03/11/23 17:45 Respiratory Pattern Normal 03/11/23 17:45 Blood Pressure 146/98 H 03/11/23 17:45 Blood Pressure Position Sitting 03/11/23 17:38 Pulse Oximetry 95 03/11/23 17:45 Oxygen Delivery Method Room Air 03/11/23 17:38 Oxygen Flow Rate 0 03/11/23 17:38 Pain Level 7 03/11/23 17:45
[2023-03-11 19:36] LABS: C-Reactive Protein 1.11 mg/dL (0.0-0.3)
[2023-03-11 19:40] LABS: NT-proBNP 34 pg/mL (<300)
[2023-03-11 20:17] LABS: Vitamin B12 470 pg/mL (193-986)
[2023-03-15 10:48] LABS: ESR (LRH) 23 mm/hr
== END 2023-03-11 20:25 | disposition home or self-care (01) ==
PROVIDERS: Emergency Provider Nurse Practitioner Acute Care; PCP Nurse Practitioner
DX: R20.2 Paresthesia of skin (principal); F41.9 Anxiety disorder, unspecified; F32.A Depression, unspecified; I10 Essential (primary) hypertension; E78.5 Hyperlipidemia, unspecified; F17.210 Nicotine dependence, cigarettes, uncomplicated
CPT/HCPCS: 85652; 99283; 82607; 83880; 86140

== ENCOUNTER 2023-03-15 12:45 | Outpatient (REF) | payer MEDICAID, SELFPAY ==
[2023-03-18 23:55] LABS: Anaplasma phagocytophilum Negative (Negative); B. miyamotoi PCR Negative (Negative); Babesia divergens/MO-1 Negative (Negative); Babesia duncani Negative (Negative); Babesia microti Negative (Negative); Ehrlichia chaffeensis Negative (Negative); Ehrlichia ewingii/canis Negative (Negative); Ehrlichia muris eauclairensis Negative (Negative)
[2023-03-19 10:09] LABS: Lyme Ab w Rflx to Lyme Confirm Negative (Negative)
== END 2023-03-15 12:46 | disposition home or self-care (01) ==
LOC: LBN 12:45
PROVIDERS: PCP Nurse Practitioner; Visit Provider Physician Assistant
DX: R20.2 Paresthesia of skin (principal)
CPT/HCPCS: 87798; 86618

== ENCOUNTER 2023-08-28 13:52 | Emergency (ER) | payer MEDICAID, SELFPAY ==
[2023-08-28] VITALS (15 sets, daily range): BP systolic 152–169; BP diastolic 113; PULSE 82–115; RESP 13–23; TEMP 36.7; O2SAT 92–98
--- NOTE | 2023-08-28 14:15 | RT.EKG_ITS ---
APPROVED REPORT Exam: Resting ECG Reason for Exam: tachycardia Patient Location: E HR:100 bpm ECG Measurements Heart Rate 100 AXIS OK 170 P 45 QRSd 98 QRS 15 QT 351 T 30 QTc 453 Conclusion Sinus tachycardia...rate> 99 Probable left atrial enlargement...P >50mS, <-0.10mV V1 sinus tachycardia, normal axis, normal intervals, non ischemic
--- NOTE | 2023-08-28 14:20 | ED.GENADUL_ITS ---
Discharge Plan Disposition Patient Disposition: Home Condition: Improving Discharge Details Clinical Impression: Body aches Primary Care Provider: Ann-Marie Booker ED Provider: Jhony Mcintyre Home Meds and New Rx's Prescriptions: New methocarbamol 750 mg tablet 750 mg PO QHS PRNQty: 14 0RF metoprolol succinate 50 mg tablet extended release 24 hr 50 mg PO DAILY 30 Days Qty: 30 1RF gabapentin 300 mg capsule 300 mg PO TID 15 Days Qty: 45 0RF No Action trazodone 150 mg tablet 150 mg PO QHS PRN (Reason: sleep) Qty: 30 2RF methylprednisolone [Medrol (Genaro)] 4 mg tablets,dose pack See Rx Instructions PO PER PKG DIR Qty: 21 0RF Rx Instructions: PO PER PKG DIR gabapentin 300 mg capsule 300 mg PO TID Qty: 90 0RF methocarbamol 750 mg tablet See Rx Instructions .ROUTE .COMPLEX Qty: 90 0RF Dose Instruction: TAKE ONE TABLET BY MOUTH THREE TIMES A DAY NEEDED FOR MUSCLE SPASMS Rx Instructions: TAKE ONE TABLET BY MOUTH THREE TIMES A DAY NEEDED FOR MUSCLE SPASMS metoprolol succinate 50 mg tablet extended release 24 hr 50 mg PO DAILY Qty: 90 0RF Discharge Instructions Instructions: Hypertension (ED) HPI General Date/Time Provider Initiated Documentation: 08/28/23 14:08 . HPI Narrative: 33-year-old male history of bipolar, hypertension presents with cramping in his body arms legs back associate with fatigue noted over the last 2 days Related Data Home Medications Medication Instructions Recorded Confirmed methylprednisolone 4 mg tablets in See Rx Instructions PO PER PKG DIR 03/15/23 08/28/23 a dose pack (Medrol (Genaro)) #21 dose pk trazodone 150 mg tablet 150 mg PO QHS PRN sleep #30 tabs 03/20/23 08/28/23 gabapentin 300 mg capsule 300 mg PO TID #90 caps 06/25/23 08/28/23 methocarbamol 750 mg tablet See Rx Instructions .Route 06/25/23 08/28/23 .COMPLEX #90 tabs metoprolol succinate 50 mg 50 mg PO DAILY #90 tabs 06/25/23 08/28/23 tablet,extended release 24 hr gabapentin 300 mg capsule 300 mg PO TID 15 days #45 caps 08/28/23 methocarbamol 750 mg tablet 750 mg PO QHS PRN #14 tabs 08/28/23 metoprolol succinate 50 mg 50 mg PO DAILY 30 days #30 tabs 08/28/23 tablet,extended release 24 hr Previous Rx's Medication Instructions Recorded methylprednisolone 4 mg tablets in See Rx Instructions PO PER PKG DIR 03/15/23 a dose pack (Medrol (Genaro)) #21 dose pk trazodone 150 mg tablet 150 mg PO QHS PRN sleep #30 tabs 03/20/23 gabapentin 300 mg capsule 300 mg PO TID #90 caps 06/25/23 methocarbamol 750 mg tablet See Rx Instructions .Route 06/25/23 .COMPLEX #90 tabs metoprolol succinate 50 mg 50 mg PO DAILY #90 tabs 06/25/23 tablet,extended release 24 hr gabapentin 300 mg capsule 300 mg PO TID 15 days #45 caps 08/28/23 methocarbamol 750 mg tablet 750 mg PO QHS PRN #14 tabs 08/28/23 metoprolol succinate 50 mg 50 mg PO DAILY 30 days #30 tabs 08/28/23 tablet,extended release 24 hr Allergies Allergy/AdvReac Type Severity Reaction Status Date / Time acetaminophen [From Tylenol] Allergy Unknown unknown Verified 03/20/23 16:20 ciprofloxacin [From Cipro] Allergy Unknown unknown Verified 03/20/23 16:20 clarithromycin [From Biaxin] Allergy Unknown unknown Verified 03/20/23 16:20 General Stated Complaint: Nk/Back Pain JOHNNY: 3 Review of Systems Narrative: Review of Systems Constitutional: Body ache Eyes: negative ENT: negative Cardiovascular: negative Respiratory: negative Gastrointestinal: negative : negative Musculoskeletal: negative Skin: negative Neurologic: negative Psych: negative Exam Narrative Exam Narrative: Physical Examination General: alert, awake, cooperative, resting comfortably, no acute distress HEENT: normocephalic, atraumatic; PERRL, EOM intact, conjunctiva normal; no nasal discharge; moist mucous membranes, oral and pharyngeal mucosa normal, tolerating secretions Neck: supple, trachea midline; full ROM Chest: normal to inspection Respiratory: normal respiratory effort, speaking in full sentences Cardiac: Tachycardia, regular rhythm, S1S2 intact, no murmurs rubs or gallops GI: abdomen soft, non-tender, non-distended; no palpable mass or hepatosplenomegaly Skin: no lesions, rashes or trauma appreciated Neuro: AAOx3, normal speech, moving all extremities Extremities: No signs of trauma no signs of edema Psych: Appropriate mood and affect Course Vital Signs Vital signs: Vital Signs Temperature 36.7 C 08/28/23 13:56 Pulse 115 H 08/28/23 13:56 Respiratory Rate 16 08/28/23 13:56 Blood Pressure 152/113 H 08/28/23 13:56 Pulse Oximetry 98 08/28/23 13:56 Temperature 36.7 C 08/28/23 13:56 Temperature Source Oral 08/28/23 13:56 Pulse 115 H 08/28/23 13:56 Respiratory Rate 16 08/28/23 13:56 Blood Pressure 152/113 H 08/28/23 13:56 Blood Pressure Position Sitting 08/28/23 13:56 Pulse Oximetry 98 08/28/23 13:56 Oxygen Delivery Method Room Air 08/28/23 13:56 Oxygen Flow Rate 0 08/28/23 13:56 Pain Level 8 08/28/23 13:56 Medical Decision Making 33-year-old male history of bipolar disorder, hypertension, presents with full body aches with predominance in upper extremities and back associated with fatigue denies nausea vomiting abdominal pain chest pain or shortness of breath. Denies new strenuous physical activity. 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 No new medications. Denies drug or alcohol use. Consider viral illness with myalgia versus rhabdomyolysis versus myositis versus musculoskeletal strain was also consider pneumonia lower suspicion for PE ACS or aortic pathology. No evidence of necrotizing infection on examination. No midline spinal tenderness. No neurologic symptoms. Trial of fluids analgesia, will obtain basic labs EKG chest x-ray flu COVID RSV swab 16: 19 patient resting comfortably no acute distress. Labs and imaging unremarkable. Feeling somewhat better after fluids. Persistently hypertensive patient has been noncompliant with his metoprolol as he has not been able to obtain a prescription from his primary care team. Will refill his prescriptions here given improved symptoms patient be discharged home Quality:SDOH Health Related Social Needs: No Data to Display PFSH All Active Problems (Updated 08/28/23 @ 16:20 by Jhony Mcintyre MD) Body aches (Acute) Homeless (Acute) Leg cramps (Acute) Bipolar 1 disorder (Acute) Anxiety and depression (Chronic) Snoring (Acute) Essential hypertension (Acute) Left ureteral stone (Acute) Medical History Alcoholic gastritis History of herpes zoster Impaired glucose tolerance Abdominal pain Nausea Sleep pattern disturbance Muscle pain Lumbago with sciatica Degeneration of cervical intervertebral disc Kidney stone Hypertensive disorder PTSD (post-traumatic stress disorder) Secondary polycythemia Hyperlipidemia Surgical History History of colonoscopy with polypectomy (01/28/18) inflammatory bowel disease, polyps x3, internal and external hemorrhoids History of cystoscopy (05/30/16) with laser litho LT History of ureteroscopy (03/17/19) left, with stone extraction History of esophagogastroduodenoscopy (EGD) (09/17/19) paraesophageal hernia type 3 History of placement of ear tubes Family History Other Colon cancer Dementia Social History Smoking/Tobacco Use Status: Current every day Tobacco Type: cigarettes Tobacco: How many years used: 14 Smoking risk assessment performed?: Yes Alcohol Intake: never Drug use: Occasionally Substance use type: marijuana Counseling given: No Adopted: No Caregiver/Support person: No Foster care: No Household members: significant other Housing: homeless Number of Children: 1 Communication Needs: None and Corrective Lenses Education Level: high school Do you need help understanding health information?: Rarely Pets and animals: No Sexually active: Yes Do you think of yourself as: straight/heterosexual What is your relationship status?: living with partner How often do you talk on the phone with friends or family?: decline to answer How often do you get together with friends or relatives?: never Do you belong to any clubs or organized social groups?: no Panel score (0-1 are the most socially isolated patients): 1 What type of physical activity do you participate in: walking and other Details: stretches Duration: 15-30 minutes/day Frequency: daily Meghana/Christianity: None Seatbelt use: always Helmet use: No Drive intox or ride w/intox courtesy bus driver: No Working smoke detector in home: Yes Fire extinguisher in home: Yes Carbon monox detector in home: No Do you feel safe at home: Yes Do you feel safe in your relationship?: Yes
[2023-08-28] MEDS: Ketorolac 15 MG/ML VIAL IVP (14:50)
[2023-08-28] MEDS: Normal Saline 1,000 ML 1000 ML IV (14:50)
[2023-08-28 14:52] LABS: Abs Immature Grans 0.05 10^3/uL (0.0-0.06); Absolute Basophil Count 0.06 10^3/uL (0.0-0.2); Absolute Eosinophil Count 0.39 10^3/uL (0.0-0.7); Absolute Lymphocyte Count 2.09 10^3/uL (1.2-3.4); Absolute Neutrophil Count 8.84 10^3/uL (1.2-6.7); Basophils % 0.5; Eosinophils % 3.2; HCT 49.7 % (40.0-50.0); HGB 16.2 g/dL (13.5-17.5); Immature Grans % 0.4; Lymphocytes % 17.1; MCH 27.7 pg (27.0-33.0); MCHC 32.6 % (32.0-36.0); MCV 85 fL (80-95); Monocytes % 6.5; Neutrophils % 72.3; Platelet Count 284 10^3/uL (130-400); RBC 5.85 10^6/uL (4.36-5.78); RDW 13.3 % (11.8-14.1); RDW-SD 41.2 fL; WBC 12.23 10^3/uL (4.4-10.8)
[2023-08-28 14:56] LABS: Absolute Monocyte Count 0.79 10^3/uL (0.1-0.8)
--- NOTE | 2023-08-28 14:59 | DI.RAD_ITS ---
Exam(s) XR CHEST 2V PA LATERAL EXAM: XR CHEST 2V PA LATERAL CLINICAL HISTORY: body ache, pain in back TECHNIQUE: 2D digital imaging was performed. Two views. COMPARISON: No exams were available for comparison FINDINGS: HEART: Normal size. Aorta: Not dilated. PULMONARY VASCULATURE: Normal. LUNGS: Clear. PLEURAL SPACE: No pleural effusion or pneumothorax. BONE:Unremarkable for age. Soft tissues: Unremarkable. IMPRESSION: No acute abnormality. DATA REPOSITORY: RADIATION DOSE DELIVERED:
[2023-08-28 15:06] LABS: PTT Activated 27.4 sec (23.6-32.8); Prothrombin Time 9.6 sec (9.1-11.1)
[2023-08-28 15:21] LABS: ALT 42 U/L (16-63); AST 19 U/L (15-37); Albumin 3.2 g/dL (3.4-5.0); Alkaline Phosphatase 74 U/L (46-116); Anion Gap 6.3 mmol/L (3-11); BUN 13 mg/dL (7-18); Bilirubin, Total 0.3 mg/dL (0.2-1.0); CO2 25.7 mmol/L (21.0-32.0); CREATININE 0.8 mg/dL (0.70-1.30); Calcium 8.3 mg/dL (8.5-10.1); Chloride 105 mmol/L (98-107); Creatine Kinase 272 U/L (39-308); Estimated GFR 119.84 (mL/min/1.73m2); Glucose 97 mg/dL (74-106); Lipase 30 U/L (16-77); NT-proBNP 57 pg/mL (<300); Potassium 4.1 mmol/L (3.5-5.1); Sodium 137 mmol/L (136-145); TSH (W/Ref FT4) 1.49 uIU/mL (0.36-3.74); Total Protein 6.9 g/dL (6.4-8.2); Troponin I < 50 ng/L (< or =60)
[2023-08-28 15:29] LABS: COVID-19 PCR Negative (Negative); Influenza A PCR Negative (Negative); Influenza B PCR Negative (Negative); RSV PCR Negative (Negative)
[2023-08-28 15:31] LABS: Source Nasopharynx
[2023-08-28 15:52] LABS: Bilirubin Negative (Negative); Blood Negative (Negative); Clarity Clear (Clear); Glucose Negative (Negative); Ketones Negative (Negative); Leukocyte Esterase Negative (Negative); Nitrite Negative (Negative); Specific Gravity 1.025 (1.005-1.025); Urobilinogen 0.2 mg/dL (Up to 0.2)
[2023-08-28 16:21] LABS: Bacteria Rare HPF (Negative); C & S Indicated? No; Casts Negative LPF (Negative); Crystals Negative HPF (Negative); Epithelial Cells Negative HPF (Negative); Mucus Trace (Negative); RBC 0-2 HPF (0-2); WBC 0-2 HPF (0-5)
== END 2023-08-28 16:36 | disposition home or self-care (01) ==
PROVIDERS: Emergency Provider Emergency Medicine; PCP Nurse Practitioner
DX: M54.6 Pain in thoracic spine (principal); M79.10 Myalgia, unspecified site; I10 Essential (primary) hypertension; E78.5 Hyperlipidemia, unspecified; Z11.52 Encounter for screening for COVID-19; F17.210 Nicotine dependence, cigarettes, uncomplicated
CPT/HCPCS: 80053; 82550; 83690; 87637; 93005; 96361; 96374; 99284; 71046; 81003; 81015; 83735; 83880; 84443; 84484; 85025; 85610; 85730; 93010; J1885

== ENCOUNTER 2024-04-10 15:04 | Outpatient (REF) | payer MEDICAID, SELFPAY ==
[2024-04-15 22:14] LABS: HSV 1 PCR Negative (Negative); HSV 2 PCR Negative (Negative)
== END 2024-04-10 15:05 | disposition home or self-care (01) ==
LOC: LBN 15:04
PROVIDERS: PCP Nurse Practitioner; Visit Provider Physician Assistant
DX: J02.9 Acute pharyngitis, unspecified (principal); K12.2 Cellulitis and abscess of mouth
CPT/HCPCS: 87529; 87070

== ENCOUNTER 2024-05-05 16:33 | Outpatient (REF) | payer MEDICAID, SELFPAY | END 2024-05-05 16:34 | disposition home or self-care (01) | LOC: LBN 16:33 | PROVIDERS: PCP Nurse Practitioner; Visit Provider Physician Assistant | DX: R22.32 Localized swelling, mass and lump, left upper limb (principal); N30.90 Cystitis, unspecified without hematuria; L02.91 Cutaneous abscess, unspecified | CPT/HCPCS: 87077; 87070; 87186; 87205 ==

== ENCOUNTER 2024-05-06 15:20 | Inpatient (IN) | payer MEDICAID, SELFPAY ==
[2024-05-06] VITALS (51 sets, daily range): BP systolic 107–183; BP diastolic 61–117; PULSE 97–130; RESP 11–29; TEMP 36.3–36.7; O2SAT 80–98; BMI 38.4
--- NOTE | 2024-05-06 15:46 | ED.GENADUL_ITS ---
Discharge Plan Disposition Patient Disposition: Admit to [facility] Discharge Details Clinical Impression: Cellulitis and abscess of upper extremity, Sepsis Primary Care Provider: Ann-Marie Booker ED Provider: Lyssa Pat Home Meds and New Rx's Prescriptions: No Action cephalexin 500 mg capsule 500 mg PO QID Qty: 40 0RF sulfamethoxazole-trimethoprim [Bactrim DS] 800-160 mg tablet 1 tab PO BID Qty: 20 0RF metoprolol succinate 50 mg tablet extended release 24 hr 50 mg PO DAILY 30 Days Qty: 30 1RF methocarbamol 750 mg tablet 750 mg PO QHS PRNQty: 14 0RF HPI General Date/Time Provider Initiated Documentation: 05/06/24 15:26 . HPI Narrative: [place]on is a 34year old male who presents to the emergency department today for evaluation of cellulitis to the L upper arm. He reports that he was diagnosed with MRSA cellulitis yesterday at [facility], received injection of Rocephin there but has been unable to flower buncher or picker his medications from the pharmacy due to a lapse in his insurance, says he can get them tomorrow. He reports that he started with an ingrown hair 5 days ago, has been using warm compresses and peroxide to keep it clean, however it has rapidly increased in size. 2 days ago it started draining spontaneously through a pinprick opening; has been draining a large amount of purulent fluid. He admits to body aches, cold chills, headache, nausea, fatigue/low energy, and extreme pain with some tingling in his fingers. He admits that the reddened area is smaller than it was yesterday, which was outlined in marker, but it does remain significantly uncomfortable. He has been using Tylenol and ibuprofen with little improvement in discomfort. Past medical history is significant for hypertension. Denies history of IV drug use, immunocompromise, or antibiotic resistant infections in the past Physical exam remarkable for erythematous, tender, indurated area of redness to left inner bicep. There is an approximately 1 cm linear incision consistent with I&D, drained a moderate amount of purulent fluid with palpation. Localized lymphadenopathy noted in the axilla. Radial pulses intact. Tachycardia noted, heart rate 130. Easy work of breathing, lung sounds clear bilaterally. History and presentation consistent with abscess, vital signs initially not consistent with sepsis at this time based on SIRS criteria; however on quality assurance monitor chassis patient was noted to have respiratory rate that is elevated at 27; blood cultures drawn and vancomycin loading dose initiated. Call placed to hospitalist for admission. As patient does not have hypotension, no indication at this time for fluid bolus. I independently interpreted the following tests: CBC notable for leukocytosis, white cell count 16.04. Sed rate elevated at 49; CRP also very elevated at 10. 48. VBG reassuring at 1.7. BMP, CPK reassuring. CT remarkable for infectious induration in the left upper extremity with a single deep subcutaneous gas bubble that most likely represents a developing abscess per radiologist. While in the emergency department, Trenton received Toradol for discomfort and vancomycin loading dose of 20 mg/kg. Presented case to Dr. Garcia, hospitalist. Patient to be admitted after CT scan. CPK added to evaluate for compartment syndrome, though low suspicion for this as patient does not have any symptoms other than pain and compartments do feel soft. Consulted with Dr. Henry, general surgeon. She evaluated patient. She does have concern for serious pathology requiring surgical intervention. Patient to be brought to the OR. Related Data Home Medications ?Medication ?Instructions ?Recorded ?Confirmed methocarbamol 750 mg tablet 750 mg PO QHS PRN #14 tabs 08/28/23 05/06/24 metoprolol succinate 50 mg 50 mg PO DAILY 30 days #30 tabs 04/10/24 05/06/24 tablet,extended release 24 hr cephalexin 500 mg capsule 500 mg PO QID #40 caps 05/05/24 05/06/24 sulfamethoxazole 800 1 tab PO BID #20 tabs 05/05/24 05/06/24 mg-trimethoprim 160 mg tablet (Bactrim DS) Previous Rx's ?Medication ?Instructions ?Recorded methocarbamol 750 mg tablet 750 mg PO QHS PRN #14 tabs 08/28/23 metoprolol succinate 50 mg 50 mg PO DAILY 30 days #30 tabs 04/10/24 tablet,extended release 24 hr cephalexin 500 mg capsule 500 mg PO QID #40 caps 05/05/24 sulfamethoxazole 800 1 tab PO BID #20 tabs 05/05/24 mg-trimethoprim 160 mg tablet (Bactrim DS) Allergies Allergy/AdvReac Type Severity Reaction Status Date / Time acetaminophen (From Tylenol) Allergy Unknown unknown Verified 05/05/24 10:02 ciprofloxacin (From Cipro) Allergy Unknown unknown Verified 05/05/24 10:02 clarithromycin (From Biaxin) Allergy Unknown unknown Verified 05/05/24 10:02 General Stated Complaint: Cellulitis JOHNNY: 3 Review of Systems Narrative: see HPI Exam Const General: cooperative, comfortable, no acute distress, well developed and well groomed Nutritional Appearance: overweight Orientation: alert Resp Effort & Inspection: normal respiratory effort and able to speak in complete sentences Auscultation: clear to auscultation bilaterally Cardio Jugular venous pressure: no JVD Rate: tachycardic Rhythm: regular rhythm Extrem Right upper extremity: normal to inspection Left upper extremity: full ROM and shoulder/upper arm Details: other (Large area of induration with abscess draining through incision made during I&D) Course Vital Signs Vital signs: Vital Signs Temperature 36.6 C 05/06/24 15:22 Pulse 130 H 05/06/24 15:22 Respiratory Rate 16 05/06/24 15:22 Blood Pressure 148/102 H 05/06/24 15:22 Pulse Oximetry 93 05/06/24 15:22 Temperature 36.6 C 05/06/24 15:22 Temperature Source Tympanic 05/06/24 15:22 Pulse 130 H 05/06/24 15:22 Respiratory Rate 16 05/06/24 15:22 Blood Pressure 148/102 H 05/06/24 15:22 Blood Pressure Position Supine 05/06/24 15:22 Pulse Oximetry 93 05/06/24 15:22 Oxygen Delivery Method Room Air 05/06/24 15:22 Oxygen Flow Rate 0 05/06/24 15:22 Medical Decision Making Quality:SDOH Health Related Social Needs: No Data to Display PFSH All Active Problems (Updated 05/06/24 @ 21:24 by Nancy Henry DO) MRSA infection (Acute) Abscess of left axilla (Acute) Sleep apnea in adult (Acute) Sepsis (Acute) Cellulitis and abscess of upper extremity (Acute) Homeless (Acute) Leg cramps (Acute) Bipolar 1 disorder (Acute) Anxiety and depression (Chronic) Snoring (Acute) Essential hypertension (Chronic) Left ureteral stone (Acute) Medical History Alcoholic gastritis History of herpes zoster Impaired glucose tolerance Abdominal pain Nausea Sleep pattern disturbance Muscle pain Lumbago with sciatica Degeneration of cervical intervertebral disc Kidney stone Hypertensive disorder PTSD (post-traumatic stress disorder) Secondary polycythemia Hyperlipidemia Surgical History History of colonoscopy with polypectomy (01/28/18) inflammatory bowel disease, polyps x3, internal and external hemorrhoids History of cystoscopy (05/30/16) with laser litho LT History of ureteroscopy (03/17/19) left, with stone extraction History of esophagogastroduodenoscopy (EGD) (09/17/19) paraesophageal hernia type 3 History of placement of ear tubes Family History Other Colon cancer Dementia Social History Smoking/Tobacco Use Status: Current every day Tobacco Type: cigarettes Tobacco: How many years used: 14 Smoking risk assessment performed?: Yes Alcohol Intake: never Drug use: Occasionally Substance use type: marijuana Counseling given: No Adopted: No Caregiver/Support person: No Foster care: No Household members: significant other Housing: homeless Number of Children: 1 Communication Needs: None and Corrective Lenses Education Level: high school Do you need help understanding health information?: Rarely Pets and animals: No Sexually active: Yes Do you think of yourself as: straight/heterosexual What is your relationship status?: living with partner How often do you talk on the phone with friends or family?: decline to answer How often do you get together with friends or relatives?: never Do you belong to any clubs or organized social groups?: no Panel score (0-1 are the most socially isolated patients): 1 What type of physical activity do you participate in: walking and other Details: stretches Duration: 15-30 minutes/day Frequency: daily Meghana/Jainism: None Seatbelt use: always Helmet use: No Drive intox or ride w/intox armored car driver: No Working smoke detector in home: Yes Fire extinguisher in home: Yes Carbon monox detector in home: No Do you feel safe at home: Yes Do you feel safe in your relationship?: Yes
[2024-05-06 16:22] LABS: Lactate 1.7 mmol/L (0.6-1.4)
[2024-05-06 16:27] LABS: Abs Immature Grans 0.06 10^3/uL (0.0-0.06); Absolute Basophil Count 0.06 10^3/uL (0.0-0.2); Absolute Eosinophil Count 0.47 10^3/uL (0.0-0.7); Absolute Lymphocyte Count 2.15 10^3/uL (1.2-3.4); Absolute Monocyte Count 0.95 10^3/uL (0.1-0.8); Absolute Neutrophil Count 12.35 10^3/uL (1.2-6.7); Basophils % 0.4 %; Eosinophils % 2.9 %; HCT 47.5 % (40.0-50.0); HGB 15.2 g/dL (13.5-17.5); Immature Grans % 0.4 %; Lymphocytes % 13.4 %; MCH 27.1 pg (27.0-33.0); MCV 85 fL (80-95); MPV 10.8 fL (8.0-11.0); Monocytes % 5.9 %; Platelet Count 320 10^3/uL (130-400); RDW 14.2 % (11.8-14.1); RDW-SD 43.7 fL; WBC 16.04 10^3/uL (4.4-10.8)
[2024-05-06 16:29] LABS: ESR 49 mm/hr (0-15)
[2024-05-06] MEDS: Ketorolac 15 MG/ML VIAL IVP (16:33)
[2024-05-06] MEDS: VANCOMYCIN/WATER (PEG) 1.5 GM/300 ML BAG IVPB ×2 (16:46→18:30)
[2024-05-06 17:02] LABS: Anion Gap 9.8 mmol/L (3-11); BUN 9 mg/dL (7-18); C-Reactive Protein 10.48 mg/dL (<or=0.5); CO2 26.2 mmol/L (21.0-32.0); CREATININE 1.1 mg/dL (0.70-1.30); Calcium 8.7 mg/dL (8.5-10.1); Chloride 104 mmol/L (98-107); Estimated GFR 90.34 (mL/min/1.73m2); Glucose 139 mg/dL (74-106); Potassium 4.3 mmol/L (3.5-5.1); Sodium 140 mmol/L (136-145)
--- NOTE | 2024-05-06 17:15 | DI.CT_ITS ---
Exam(s) CT UPPER EXTREMITY LT WO EXAM: CT UPPER EXTREMITY LT WO CLINICAL HISTORY: abscess, evaluate extent of infection (surgical?) TECHNIQUE: Imaging Protocol: Axial computed tomography images with coronal and sagittal reformatted images were created and reviewed. CONTRAST MATERIAL: Intravenous: Omnipaque 350 Contrast volume:structured data in ml Contrast route:I V - Oral: yes / no COMPARISON: CT CT LOWER EXTREMITY RT WO from 02/13/2022 FINDINGS: OSSEOUS: No evidence of fracture or osseous lesions in the humerus. SOFT TISSUES: There is abnormal subcutaneous induration and streaking on the anterior aspect of the upper arm from just below the glenohumeral joint extending caudally over the anterior and medial aspect of the upper arm anterior to the biceps musculature. This extends down to the elbow level. There is a single ga s bubble in the deep subcutaneous tissue within this induration is located approximately 5 cm below t he humeral neck and 2.8 cm deep from the skin surface. This is surrounded by abnormal deep fat densi ty and probably represents a developing abscess at this level. There is no radiopaque foreign body a t this level. The skin thickening and subcutaneous induration extending from this level down through the elbow level is most probably a cellulitis pattern. IMPRESSION: Infectious induration in the left upper extremity as described above. The Epicenter of this infectio us process appears to be in the upper arm a few cm below the humeral neck where there is a single jerry p subcutaneous gas bubble measuring 4 mm with surrounding prominent fat tissue induration. This is p robably a developing abscess. There is no radiopaque foreign body evident at this level nor elsewher e in the upper extremity. Report called by myself to ER provider 05/06/2024 5:40 p.m. RADIATION DOSE DELIVERED: 633.14mGy.cm Total DLP DATA REPOSITORY: All CT scans at this facility are submitted to the National Radiology Data Registry (NRDR) Dose Index Registry (DIR) with the [employer] (A[employer]). RADIATION OPTIMIZATION: All CT scans at this facility use at least one of these dose optimization te chniques: automated exposure control; mA and/or kV adjustment per patient size (includes targeted exa ms where dose is matched to clinical indication); or iterative reconstruction.
[2024-05-06 17:23] LABS: Creatine Kinase 205 U/L (39-308)
--- NOTE | 2024-05-06 20:12 | W.PM.HP.N ---
Date of service: 05/06/24 Time of Service: 23:30 Assessment and Plan Assessment and plan (1) Sepsis: Start date: 05/06/24 Status: Acute Assessment and plan: This is a 34-year-old gentleman who self treated a furuncle on his left arm which has exploded into a cellulitis with abscess seen now status post I&D. He did have fever and chills along with symptoms meeting criteria for sepsis given his significant elevation of WBC with tachycardia and tachypnea. Will continue IV hydration with no evidence of endorgan decompensation at this time or hypotension. Patient did well with treatment of the source of his sepsis. He is a full code. (2) Cellulitis and abscess of upper extremity: Start date: 05/06/24 Status: Acute Assessment and plan: Left arm involved status post self treatment of infected ingrown hair. Patient does not have a history of significant drug use disorder in the past and the patient is denying IV drug use. His urine drug screen was positive for amphetamines which is not prescribed. Full drug screen was performed and patient was counseled on avoiding this problem. He was comfortable with this discussion. Continue IV vancomycin and wound care with surgery following and to aid with plan for conversion to oral therapy and outpatient care. (3) Essential hypertension: Status: Chronic Assessment and plan: Continue outpatient medical therapy adjusting as needed. (4) Anxiety and depression: Status: Chronic Assessment and plan: Continue outpatient medical therapy. Patient has had alcoholic gastritis in the past and PTSD, this does put patient at increased risk of self treatment. History of Present Illness History of Present Illness Chief Complaint: Left arm swelling and redness with drainage. Narrative: This is a 34-year-old male patient who has had problems getting home within the past but recently has been working and does live in a safe environment with normal hygiene. He noticed an ingrown hair over his left arm over his tricep area which he pulled out with tweezers and had drainage. This was 4 days prior to presentation. After that he had light erythema which worsened and then increasing redness and pain with purulent drainage when he use a hot tub. He did report to his PCP appointment medical and was sent to the ED for evaluation. He was having fever and chills. He denies any IV drug use that he does have a history of risk. His urine drug screen upon admission did show amphetamines and a full drug screen with panel was sent. He is aware of these test. He still denies any IV drug use. He is nondiabetic and has not had problems with furuncles or carbuncles in the past. He is overweight. He does have piercings. The patient was seen by surgery in consultation in the ED and taken to the OR for I&D with drainage and packing of his left arm abscess. He does have some discomfort and pain management with IV Dilaudid is being maintained along with Toradol scheduled. He is on IV vancomycin. Surgery will continue to follow with wound care. He is a full code. Review of Systems Narrative: 13 point review of systems otherwise unrevealing or stable. PFSH All Active Problems MRSA infection (Acute) Abscess of left axilla (Acute) Sleep apnea in adult (Acute) Sepsis (Acute) Cellulitis and abscess of upper extremity (Acute) Homeless (Acute) Leg cramps (Acute) Bipolar 1 disorder (Acute) Anxiety and depression (Chronic) Snoring (Acute) Essential hypertension (Chronic) Left ureteral stone (Acute) Medical History Alcoholic gastritis History of herpes zoster Impaired glucose tolerance Abdominal pain Nausea Sleep pattern disturbance Muscle pain Lumbago with sciatica Degeneration of cervical intervertebral disc Kidney stone Hypertensive disorder PTSD (post-traumatic stress disorder) Secondary polycythemia Hyperlipidemia Surgical History History of colonoscopy with polypectomy (01/28/18) inflammatory bowel disease, polyps x3, internal and external hemorrhoids History of cystoscopy (05/30/16) with laser litho LT History of ureteroscopy (03/17/19) left, with stone extraction History of esophagogastroduodenoscopy (EGD) (09/17/19) paraesophageal hernia type 3 History of placement of ear tubes Family History Other Colon cancer Dementia Social History Smoking/Tobacco Use Status: Current every day Tobacco Type: cigarettes Tobacco: How many years used: 14 Smoking risk assessment performed?: Yes Alcohol Intake: never Drug use: Occasionally Substance use type: marijuana Counseling given: No Adopted: No Caregiver/Support person: No Foster care: No Household members: significant other Housing: house Number of Children: 1 Communication Needs: None and Corrective Lenses Education Level: high school Do you need help understanding health information?: Rarely Pets and animals: No Sexually active: Yes Do you think of yourself as: straight/heterosexual What is your relationship status?: living with partner How often do you talk on the phone with friends or family?: decline to answer How often do you get together with friends or relatives?: never Do you belong to any clubs or organized social groups?: no Panel score (0-1 are the most socially isolated patients): 1 What type of physical activity do you participate in: walking and other Details: stretches Duration: 15-30 minutes/day Frequency: daily Meghana/Episcopal: None Seatbelt use: always Helmet use: No 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 Working smoke detector in home: Yes Fire extinguisher in home: Yes Carbon monox detector in home: No Do you feel safe at home: Yes Do you feel safe in your relationship?: Yes Meds Allergies and Home Medications Allergies Allergy/AdvReac Type Severity Reaction Status Date / Time acetaminophen (From Tylenol) Allergy Unknown unknown Verified 05/05/24 10:02 ciprofloxacin (From Cipro) Allergy Unknown unknown Verified 05/05/24 10:02 clarithromycin (From Biaxin) Allergy Unknown unknown Verified 05/05/24 10:02 morphine AdvReac Severe Other (See Verified 05/07/24 00:24 Comment) Home Medications ?Medication ?Instructions ?Recorded ?Confirmed ?Type methocarbamol 750 mg tablet 750 mg PO QHS PRN #14 tabs 08/28/23 05/06/24 Rx metoprolol succinate 50 mg 50 mg PO DAILY 30 days #30 tabs 04/10/24 05/06/24 Rx tablet,extended release 24 hr cephalexin 500 mg capsule 500 mg PO QID #40 caps 05/05/24 05/06/24 Rx sulfamethoxazole 800 1 tab PO BID #20 tabs 05/05/24 05/06/24 Rx mg-trimethoprim 160 mg tablet (Bactrim DS) Exam Narrative Exam Narrative: General: Patient appears appropriate for age, moderately obese, alert and oriented x 3 and in no acute distress. He does appear slightly agitated with being awakened and having to tell his story again. HEENT: Normocephalic, eyes with pupils equal and react to light symmetrically, extraocular movement intact and sclera anicteric. Oropharynx with dry mucosa. Fair dentition. Neck: Supple without JVD. Back: To posture without CVA tenderness. Lungs: Clear to auscultation percussion with bronchovesicular breath sounds diffusely, no focalizing rales or rhonchi. Heart: Regular rate and rhythm with no murmurs or gallops appreciated. Abdomen: Obese contour, soft nontender to palpation no palpable hepatosplenomegaly. Genitalia/rectal: Exam deferred. Skin: Normal color, moist and warm. Left arm is wrapped with dry bandage status post I&D. Patient does have piercing over his left nipple. Extremities: Without clubbing, cyanosis or pitting edema. Peripheral pulses intact. Neuro: Cranial nerves II through XII gross intact, no focalized motor deficits and no tremor. Psych: Slightly flattened affect with depressed mood. Easily agitated. No abnormal thought processes. Remote and recent memory intact. Results Imaging Imaging Studies: EXAM: CT UPPER EXTREMITY LT WO Date of exam: 05/06/2024 CLINICAL HISTORY: abscess, evaluate extent of infection (surgical?) TECHNIQUE: Imaging Protocol: Axial computed tomography images with coronal and sagittal reformatted images were created and reviewed. CONTRAST MATERIAL: Intravenous: Omnipaque 350 Contrast volume:structured data in ml Contrast route:IV - Oral: yes / no COMPARISON: CT CT LOWER EXTREMITY RT WO from 02/13/2022 FINDINGS: OSSEOUS: No evidence of fracture or osseous lesions in the humerus. SOFT TISSUES: There is abnormal subcutaneous induration and streaking on the anterior aspect of the upper arm from just below the glenohumeral joint extending caudally over the anterior and medial aspect of the upper arm anterior to the biceps musculature. This extends down to the elbow level. There is a single gas bubble in the deep subcutaneous tissue within this induration is located approximately 5 cm below the humeral neck and 2.8 cm deep from the skin surface. This is surrounded by abnormal deep fat density and probably represents a developing abscess at this level. There is no radiopaque foreign body at this level. The skin thickening and subcutaneous induration extending from this level down through the elbow level is most probably a cellulitis pattern. IMPRESSION: Infectious induration in the left upper extremity as described above. The Epicenter of this infectious process appears to be in the upper arm a few cm below the humeral neck where there is a single deep subcutaneous gas bubble measuring 4 mm with surrounding prominent fat tissue induration. This is probably a developing abscess. There is no radiopaque foreign body evident at this level nor elsewhere in the upper extremity. Labs 05/06/24 16:16 05/06/24 16:16 Labs: Laboratory Results - last 24 hr 05/06/24 16:16 WBC 16.04 H RBC 5.60 Hgb 15.2 Hct 47.5 MCV 85 MCH 27.1 MCHC 32.0 RDW 14.2 H Plt Count 320 MPV 10.8 Immature Gran % 0.4 Neutrophils % 77.0 Lymphocytes % 13.4 Monocytes % 5.9 Eosinophils % 2.9 Basophils % 0.4 Nucleated RBC % 0.0 Absolute Neutrophils 12.35 H Absolute Lymphocytes 2.15 Absolute Monocytes 0.95 H Absolute Eosinophils 0.47 Absolute Basophils 0.06 ESR 49 H VBG Lactate 1.7 H Sodium 140 Potassium 4.3 Chloride 104 Carbon Dioxide 26.2 Anion Gap 9.8 BUN 9 Creatinine 1.1 Est GFR (CKD-EPI 2020) 90.34 Glucose 139 H Calcium 8.7 Creatine Kinase 205 C-Reactive Protein 10.48 H Last Vital Signs Temp 36.7 C 05/06/24 16:05 Pulse 114 H 05/06/24 16:31 Resp 25 H 05/06/24 17:00 BP 183/111 H 05/06/24 16:31 Pulse Ox 94 05/06/24 17:00 Time Spent Time spent with Patient: 55-74 minutes Time was spent: preparing to see the patient(eg.review tests), obtaining and/or reviewing separately otained hiistory, ordering medications,tests, procedures, referring, communicating with other health career development specialist, indepentently interpreting results and care coordination
--- NOTE | 2024-05-06 20:40 | SCONE_ITS ---
Date of service: 05/06/24 Time of Service: 20:43 Assessment and Plan Assessment and plan (1) Bipolar 1 disorder: Status: Acute (2) Anxiety and depression: Status: Chronic (3) Sleep apnea in adult: Status: Acute (4) Hyperlipidemia: (5) Impaired glucose tolerance: (6) Cellulitis and abscess of upper extremity: Status: Acute (7) Sepsis: Status: Acute (8) Abscess of left axilla: Status: Acute Assessment and plan: The patient will go to the OR for incision and drainage. He is meeting sepsis criteria. Risks include but not limited to: Bleeding, infection, pneumonia, blood clots, chronic pain, chronic numbness, poor cosmesis, anesthesia, need for packing and repeat dressing changes. The patient understands and is agree to surgery. (9) MRSA infection: Status: Acute Assessment and plan: Vancomycin History of Present Illness Narrative: Patient is a 34-year-old male who presents to the ER complaining of a abscess in the left arm. He was cysts had multiple abscesses in the past. He denies being a diabetic. He has had multiple abscesses before. He was seen at [facility] and given a prescription for antibiotics. He did not have enough money to fill the prescription. They did do a culture and did come back as MRSA. CT scan does show 5 x 5 cm abscess. The area of redness/pain/edema has increased. He complains of fever and chills. He complains of nausea. He is tachycardic and tachypneic and running a temperature. Past medical history is significant for bipolar and SESAR. Past surgical history past surgical history significant for kidney stone extraction and tubes and tonsils as a child. He denies any problems with anesthesia. He is not currently taking any of his medications. Review of Systems All systems reviewed & are unremarkable except as noted in HPI and below PFSH All Active Problems (Updated 05/06/24 @ 21:24 by Nancy Henry DO) MRSA infection (Acute) Abscess of left axilla (Acute) Sleep apnea in adult (Acute) Sepsis (Acute) Cellulitis and abscess of upper extremity (Acute) Homeless (Acute) Leg cramps (Acute) Bipolar 1 disorder (Acute) Anxiety and depression (Chronic) Snoring (Acute) Essential hypertension (Chronic) Left ureteral stone (Acute) Medical History Alcoholic gastritis History of herpes zoster Impaired glucose tolerance Abdominal pain Nausea Sleep pattern disturbance Muscle pain Lumbago with sciatica Degeneration of cervical intervertebral disc Kidney stone Hypertensive disorder PTSD (post-traumatic stress disorder) Secondary polycythemia Hyperlipidemia Surgical History History of colonoscopy with polypectomy (01/28/18) inflammatory bowel disease, polyps x3, internal and external hemorrhoids History of cystoscopy (05/30/16) with laser litho LT History of ureteroscopy (03/17/19) left, with stone extraction History of esophagogastroduodenoscopy (EGD) (09/17/19) paraesophageal hernia type 3 History of placement of ear tubes Family History Other Colon cancer Dementia Social History Smoking/Tobacco Use Status: Current every day Tobacco Type: cigarettes Tobacco: How many years used: 14 Smoking risk assessment performed?: Yes Alcohol Intake: never Drug use: Occasionally Substance use type: marijuana Counseling given: No Adopted: No Caregiver/Support person: No Foster care: No Household members: significant other Housing: homeless Number of Children: 1 Communication Needs: None and Corrective Lenses Education Level: high school Do you need help understanding health information?: Rarely Pets and animals: No Sexually active: Yes Do you think of yourself as: straight/heterosexual What is your relationship status?: living with partner How often do you talk on the phone with friends or family?: decline to answer How often do you get together with friends or relatives?: never Do you belong to any clubs or organized social groups?: no Panel score (0-1 are the most socially isolated patients): 1 What type of physical activity do you participate in: walking and other Details: stretches Duration: 15-30 minutes/day Frequency: daily Meghana/Yazdanism: None Seatbelt use: always Helmet use: No Drive 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 in no acute distress HYDRATION: Well hydrated HEAD, EYES, EARS, NECK, THROAT: Head is normocephalic, pupils equal, round, reactive to light and accommodation, ocular movement intact, sclera clear and no jaundice. ?Dentition intact. LUNGS: normal respiration/normal chest excursion. ?Clear to auscultation bilaterally. ?No wheeze. ?HEART: Regular rate and rhythm. no murmurs ABDOMEN: soft and non-tender to palpation.? Normal bowel sounds.? left arm- draining =-he has a 1 x 1 cm area that is open and draining purulent material in the R arm with the surrounding area of 10 x 10 cm of erythema/edema/pain He was seen in urgent care on 1215 and they did do a simple I&D. The redness/edema/pain has increased. ER did do a CT scan which does show a 5 x 5 cm abscess Results Last Vital Signs Temp 36.7 C 05/06/24 16:05 Pulse 114 H 05/06/24 16:31 Resp 25 H 05/06/24 17:00 BP 183/111 H 05/06/24 16:31 Pulse Ox 94 05/06/24 17:00 Labs 05/06/24 16:16 05/06/24 16:16 Labs: Laboratory Results - last 24 hr 05/06/24 16:16 WBC 16.04 H RBC 5.60 Hgb 15.2 Hct 47.5 MCV 85 MCH 27.1 MCHC 32.0 RDW 14.2 H Plt Count 320 MPV 10.8 Immature Gran % 0.4 Neutrophils % 77.0 Lymphocytes % 13.4 Monocytes % 5.9 Eosinophils % 2.9 Basophils % 0.4 Nucleated RBC % 0.0 Absolute Neutrophils 12.35 H Absolute Lymphocytes 2.15 Absolute Monocytes 0.95 H Absolute Eosinophils 0.47 Absolute Basophils 0.06 ESR 49 H VBG Lactate 1.7 H Sodium 140 Potassium 4.3 Chloride 104 Carbon Dioxide 26.2 Anion Gap 9.8 BUN 9 Creatinine 1.1 Est GFR (CKD-EPI 2020) 90.34 Glucose 139 H Calcium 8.7 Creatine Kinase 205 C-Reactive Protein 10.48 H
[2024-05-06 20:52] LABS: Source Nasal/Nares
[2024-05-06] MEDS: HYDROmorphone 2 MG/ML SYR 0.5 MG IVP (20:57)
[2024-05-06] MEDS: metroNIDAZOLE 500 MG/100 ML BAG 100 MG IVPB (20:58)
[2024-05-06 21:02] LABS: *AMPHETAMINES SCREEN URINE Positive (Negative); *BARBITURATES SCREEN URINE Negative (Negative); *BENZODIAZEPINES SCREEN URINE Negative (Negative); Cannabinoids THC Positive (Negative); Cocaine Screen,Urine Negative (Negative); METHADONE URINE SCREEN Negative (Negative); OPIATES URINE SCREEN Negative (Negative)
[2024-05-06 21:04] LABS: Tricyclic Antidepressants Negative (Negative)
[2024-05-06 21:22] LABS: COVID-19 PCR Negative (Negative)
--- NOTE | 2024-05-06 21:37 | ANES.PREOP_ITS ---
General Info Date of Service Date Performed: 05/06/24 Height: 6 ft 4 in Weight: 143.088 kg Body Mass Index (BMI): 38.4 Surgical Procedure: Operation Date: 05/06/24 21:30 Proposed Procedure Side Surgeon isabella Henry, DO Meds Allergies and Home Medications Allergies Allergy/AdvReac Type Severity Reaction Status Date / Time acetaminophen (From Tylenol) Allergy Unknown unknown Verified 05/05/24 10:02 ciprofloxacin (From Cipro) Allergy Unknown unknown Verified 05/05/24 10:02 clarithromycin (From Biaxin) Allergy Unknown unknown Verified 05/05/24 10:02 Home Medication ?Medication ?Instructions ?Recorded methocarbamol 750 mg tablet 750 mg PO QHS PRN #14 tabs 08/28/23 metoprolol succinate 50 mg 50 mg PO DAILY 30 days #30 tabs 04/10/24 tablet,extended release 24 hr cephalexin 500 mg capsule 500 mg PO QID #40 caps 05/05/24 sulfamethoxazole 800 1 tab PO BID #20 tabs 05/05/24 mg-trimethoprim 160 mg tablet (Bactrim DS) Current Visit Medications: Current Medications Generic Name Dose Route Start Last Admin Trade Name Freq PRN Reason Stop Dose Admin Heparin Sodium (Porcine) 5,000 units 05/07/24 08:30 Heparin 5,000 Units/Ml Vial SC Q12H [facility] Vancomycin HCl / Sodium 250 mls @ 167 mls/hr 05/06/24 20:30 Chloride IVPB .PER PROTOCOL [facility] Metronidazole 500 mg in 100 mls @ 100 mls/hr 05/06/24 20:49 05/06/24 20:58 Flagyl IVPB 05/06/24 21:48 100 mls/hr NOW ONE Administration Sodium Chloride 1,000 mls @ 30 mls/hr 05/06/24 21:30 Saline 1000ml Bag IV INFUSION SALOME Vancomycin HCl 1,000 mg/ 250 mls @ 1,000 mls/hr 05/06/24 21:30 Sodium Chloride IV .PER PROTOCOL [facility] IV Miscellaneous Supplies 1 each 05/06/24 21:30 Iv Access IV DIRECTED SALOME Ketorolac Tromethamine 15 mg 05/06/24 20:30 Ketorolac 15 Mg/Ml Vial IVP 05/11/24 20:59 Q6H PRN Pain Ketorolac Tromethamine 15 mg 05/06/24 22:00 Ketorolac 15 Mg/Ml Vial IVP 05/11/24 21:59 Q6H [facility] Morphine Sulfate 2 mg 05/06/24 21:28 Morphine 2 Mg/Ml Syr IVP Q1H PRN PRN Ondansetron HCl 4 mg 05/06/24 21:28 Ondansetron 4 Mg/2 Ml Vial IVP Q4H PRN PRN Sodium Chloride 0 ml 05/06/24 21:28 Normal Saline Flush 10 Ml Syr IVP PRN PRN Sodium Chloride 0 ml 05/07/24 08:30 Normal Saline Flush 10 Ml Syr IVP BID SALOME Sodium Chloride 0 ml 05/06/24 21:28 Normal Saline 10 Ml Vial IJ DIRECTED PRN PFSH Active Problems Active Problems: Problem Status Onset Code MRSA infection Acute A49.02 Abscess of left axilla Acute L02.412 Sleep apnea in adult Acute G47.30 Sepsis Acute A41.9 Cellulitis and abscess of upper extremity Acute L03.119, L02.419 Homeless Acute Z59.00 Leg cramps Acute R25.2 Bipolar 1 disorder Acute F31.9 Anxiety and depression Chronic F41.9, F32.A Snoring Acute R06.83 Essential hypertension Chronic I10 Left ureteral stone Acute N20.1 Medical History Medical History Alcoholic gastritis History of herpes zoster Impaired glucose tolerance Abdominal pain Nausea Sleep pattern disturbance Muscle pain Lumbago with sciatica Degeneration of cervical intervertebral disc Kidney stone Hypertensive disorder PTSD (post-traumatic stress disorder) Secondary polycythemia Hyperlipidemia Surgical History Surgical History History of colonoscopy with polypectomy (01/28/18) inflammatory bowel disease, polyps x3, internal and external hemorrhoids History of cystoscopy (05/30/16) with laser litho LT History of ureteroscopy (03/17/19) left, with stone extraction History of esophagogastroduodenoscopy (EGD) (09/17/19) paraesophageal hernia type 3 History of placement of ear tubes Tobacco Smoking/Tobacco Use Status: Current every day Tobacco Type: cigarettes Alcohol Alcohol Intake: never Substance Use Substance use: Occasionally Substance use type: marijuana Vital Signs and Lab Results Vital Signs Most Recent Vital Signs in EMR: Most Recent Vital Signs Temp Pulse Resp BP Pulse Ox 36.7 C 105 H 20 166/105 H 91 L 05/06/24 16:05 05/06/24 21:02 05/06/24 21:10 05/06/24 21:02 05/06/24 21:10 Lab Results 05/06/24 16:16 05/06/24 16:16 Blood Type / Crossmatch: 2 No Data to Display Complete Blood Count: 2 White Blood Count 16.04 10^3/uL (4.4-10.8) H 05/06/24 16:16 Red Blood Count 5.60 10^6/uL (4.36-5.78) 05/06/24 16:16 Hemoglobin 15.2 g/dL (13.5-17.5) 05/06/24 16:16 Hematocrit 47.5 % (40.0-50.0) 05/06/24 16:16 Platelet Count 320 10^3/uL (130-400) 05/06/24 16:16 Venous Blood Lactate 1.7 mmol/L (0.6-1.4) H 05/06/24 16:16 Complete Metabolic Panel: 2 Sodium 140 mmol/L (136-145) 05/06/24 16:16 Potassium 4.3 mmol/L (3.5-5.1) 05/06/24 16:16 Chloride 104 mmol/L (98-107) 05/06/24 16:16 Carbon Dioxide 26.2 mmol/L (21.0-32.0) 05/06/24 16:16 BUN 9 mg/dL (7-18) 05/06/24 16:16 Creatinine 1.1 mg/dL (0.70-1.30) 05/06/24 16:16 Est GFR (CKD-EPI 2020) 90.34 (mL/min/1.73m2) 05/06/24 16:16 Calcium 8.7 mg/dL (8.5-10.1) 05/06/24 16:16 Glucose 139 mg/dL (74-106) H 05/06/24 16:16 Hemoglobin A1c Pending 05/06/24 16:16 C-Reactive Protein 10.48 mg/dL (<or=0.5) H 05/06/24 16:16 Liver Function Panel: 2 No Data to Display Coagulation Panel: 2 No Data to Display Cardiac Panel: 2 Creatine Kinase 205 U/L (39-308) 05/06/24 Arterial Blood Gas: 2 No Data to Display Venous Blood Gas: 2 No Data to Display Pancreas Panel: 2 No Data to Display Thyroid Panel: 2 No Data to Display Infectious Disease: 2 Coronavirus (COVID-19)(PCR) Negative (Negative) 05/06/24 20:40 Coronavirus 2019 Source Nasal/Nares 05/06/24 20:40 Blood Cultures: 2 No Data to Display Toxicology Panel: 2 Urine Amphetamines Screen Positive (Negative) A 05/06/24 20:40 Urine Benzodiazepines Screen Negative (Negative) 05/06/24 20:4 0 Urine Barbiturates Screen Negative (Negative) 05/06/24 20:40 Urine Cocaine Screen Negative (Negative) 05/06/24 20:40 Urine Methadone Screen Negative (Negative) 05/06/24 20:40 Urine Opiates Screen Negative (Negative) 05/06/24 20:40 Ur Tricyclic Antidepressants Screen Negative (Negative) 20:40 Ur Tetrahydrocannabinol (THC) Scrn Positive (Negative) A 05/06 20:40 Imaging and Studies Imaging and Studies Study information below may be from another EMR and interpreted by another provider. Please see original notes in EMR for more complete details. EKG Summary: Conclusion Sinus tachycardia...rate> 99 Probable left atrial enlargement...P >50mS, <-0.10mV V1 08/28/23 Anesthesia Assessment and Plan Anesthesia History Personal History: No History of Anesthesia Complications Family History: No Family History of Anesthesia Complications Exercise Tolerance Exercise Tolerance: Metabolic Equivalents>4 Pertinent Negatives Pertinent Negatives: No Major Cardiovascular Symptoms or Complaints and No Major Pulmonary Symptoms or Complaints Cardiac & Pulmonary Exam Cardiac Exam: Normal S1/S2 Heart Sounds Pulmonary Exam: Clear Bilateral Breath Sounds Cardiac and Pulmonary Comment:: Sleep apnea Implantable Cardiac Device Does patient have a Pacemaker or an ICD?: No Airway Exam Known Difficult Airway: No Mallampati Class: 3 Mouth Opening: Normal (> 3cm) Thyromental Distance: Greater than 3 cm Neck Range of Motion: Full ROM Neck Circumference: Thick Teeth Condition: Normal Dentition and Loose or Chipped (chipped left front tooth) ASA Classification ASA Score: ASA 2 Emergency Case?: Yes NPO Status NPO Status: NPO Clear Liquids>2 hours and Full Stomach (chicken salad sandwich at approx 1830 today) Anesthesia Plan Resuscitation Status: Full Code Anesthesia Technique: General Anesthesia Airway Planned: Endotracheal Tube Monitors Used: Standard Monitors Preoperative Comments:: RSI, full stomach, deemed emergency by surgeon
[2024-05-06 21:47] LABS: Lab Add On Test DONE
[2024-05-06] MEDS: Lactated Ringers 500 ML 30 ML IV (21:59)
[2024-05-06 22:14] LABS: Hemoglobin A1C 5.8 % (<5.7)
[2024-05-06 22:15] LABS: Ferritin 163 ng/mL (26-388)
[2024-05-06] MEDS: Lidocaine 1% Multi-Dose W/EPI 1/100,000 50 ML VIAL (22:32)
--- NOTE | 2024-05-06 23:00 | W.BRIEF ---
Date of service: 05/06/24 Time of Service: 23:00 Brief Operative Note Procedure/Pre & Post Op Diagnoses/Senior Business Development Analyst: Operation Date: 05/06/24 21:30 Actual Procedures p I & D Left Upper Arm(Left) - Nancy Henry DO Pre-Op Diagnosis: ABCESS LEFT UPPER ARM Post-Op Diagnosis: ABCESS LEFT UPPER ARM Case Staff Physician Senior Business Development Analyst: Hussain Neely Anesthesia Anesthesia Type: Local By Surgeon and General LMA/ETT 5
--- NOTE | 2024-05-06 23:01 | ROE_ITS ---
Operative Note Operative Note PRE-OP DIAGNOSIS: MRSA abscess POST-OP DIAGNOSIS: same PROCEDURE: I & D of left axillary mrsa asbcess SURGEON: Nancy Henry HUMAN RESOURCES BENEFITS MANAGER: Evelyn Majano ANESTHESIA TYPE: Local By Surgeon and General LMA/ETT Refer to Anesthesia Record ESTIMATED BLOOD LOSS: 5 PATHOLOGY: none sent COMPLICATIONS: None Patient was transported to: PACU Patient's condition: stable Procedure Description: Patient is a 34-year-old male who presents to the ER with MRSA positive abscess. He was seen in urgent care on 05/05 and prescribed antibiotics and a simple I&D was done. He did not have money to get the antibiotics and continue to drain. He started having fever chills and nausea. And increased pain and redness in his arm and came to the ER. CT scan was done which shows a large abscess. Patient is to be taken to the OR for I&D and exploration. Informed consent obtained symptoms of procedure include not limited to: Bleeding, infection, pneumonia, blood clot, complications from anesthesia, need for repeat dressing change, chronic pain, chronic numbness, damage to muscle or nerve structures and poor cosmesis. Patient is brought to the operative suite placed supine position. Anesthesia is administered per the department of anesthesia. General endotracheal anesthesia. Patient received vancomycin in the ER. Patient is prepped and draped in usual sterile fashion using Betadine scrub solution. Timeout is performed in the institution according to institutional standards. The site had been identified and the patient identified in preop. 20 cc of quarter percent Marcaine with epi was used for local anesthesia. #15 blade was used to make a 3 cm incision over the apex of the abscess. Purulent material is evacuated. Curette is used to remove all nonviable tissue. Irrigated with 2 L of saline. There is minimal blood loss. It is then packed with 1 inch plain gauze and sterile compression dressings are applied. Cultures already been taken previously. Patient tolerated procedure well without complication transferred to cover room stable condition will be admitted to [facility] for further IV antibiotics. Date of Procedure: 05/06/24
--- NOTE | 2024-05-06 23:08 | W.ANESPOSTOP ---
Postoperative Evaluation Date, Time and Location Date Performed: 05/06/24 Time Performed: 23:08 Patient Location: PACU Vital Signs Most Recent Imported Vital Signs: Most Recent Vital Signs Temp Pulse Resp BP Pulse Ox 36.6 C 107 H 12 109/77 96 05/06/24 23:00 05/06/24 23:00 05/06/24 23:00 05/06/24 23:00 05/06/24 23:00 Pain Score Most Recent Pain Score: Most Recent Pain Score Pain Level 0 05/06/24 23:00 Assessment Mental Status: Awake (Alert & Oriented to Patient Baseline) Airway and Respiratory Function: Patent airway with normal (patient baseline) respiratory exam Cardiovascular Function: Hemodynamically Stable Hydration Status: Adequately Hydrated Nausea & Vomiting: No Nausea or Vomiting Pain: Pain is tolerable per patient Peripheral Nerve Block: Patient did not receive a nerve block
--- NOTE | 2024-05-06 23:37 | W.PC.ACHO ---
Registration Status: Primary Language: Preferred Language: ED Information & Data Chief Complaint Cellulitis 05/06/24 15:49 Triage Note Pt received call from corner 05/06/24 15:22 medical stating his L arm has an active MRSA infection unable to obtain abx due to insurance Medical / Surgical History (Last Reviewed 05/06/24 @ 20:44 by Nancy Henry DO) Alcoholic gastritis History of herpes zoster Impaired glucose tolerance Abdominal pain Nausea Sleep pattern disturbance Muscle pain Lumbago with sciatica Degeneration of cervical intervertebral disc Kidney stone Hypertensive disorder PTSD (post-traumatic stress disorder) Secondary polycythemia Hyperlipidemia (Last Reviewed 05/06/24 @ 20:44 by Nancy Henry DO) History of colonoscopy with polypectomy (01/28/18) History of cystoscopy (05/30/16) History of ureteroscopy (03/17/19) History of esophagogastroduodenoscopy (EGD) (09/17/19) History of placement of ear tubes Most Recent Vital Signs Temperature 36.6 C 05/06/24 23:00 Temperature Source Oral 05/06/24 16:05 Pulse 107 H 05/06/24 23:00 Pulse 112 H 05/06/24 21:46 Respiratory Rate 12 05/06/24 23:00 Blood Pressure 109/77 05/06/24 23:00 Blood Pressure Mean 87 05/06/24 21:46 Blood Pressure Position Supine 05/06/24 16:05 Pulse Oximetry 96 05/06/24 23:00 Respiratory End-tidal CO2 40 05/06/24 23:00 Oxygen Delivery Method Nasal Cannula 05/06/24 23:00 Oxygen Flow Rate 2 05/06/24 23:00 Pain Level 0 05/06/24 23:00 Comment Provider makes aware of all elevated blood pressures 05/06/24 21:10 Allergies acetaminophen (From Tylenol) Allergy (Unknown, Verified 05/05/24 10:02) unknown ciprofloxacin (From Cipro) Allergy (Unknown, Verified 05/05/24 10:02) unknown clarithromycin (From Biaxin) Allergy (Unknown, Verified 05/05/24 10:02) unknown Active Medications Generic Name Dose Route Start Last Admin Trade Name Freq PRN Reason Stop Dose Admin Ringer's Solution 500 mls @ 30 mls/hr 05/06/24 23:15 05/06/24 22:45 IV 30 mls/hr INFUSION SALOME Infusion IV IV Catheter Type [Right Saline Lock Antecubital] IV Catheter Gauge [Right 18 Antecubital] Diet Orders Category Date Time Status Diabetes Consistent CHO [DIET] Nutrition 05/07/24 Breakfast Ordered Diagnostics 05/06/24 05/06/24 05/06/24 Range/Units Unknown 22:12 20:40 WBC (4.4-10.8) 10^3/uL RBC (4.36-5.78) 10^6/uL Hgb (13.5-17.5) g/dL Hct (40.0-50.0) % MCV (80-95) fL MCH (27.0-33.0) pg MCHC (32.0-36.0) % RDW (11.8-14.1) % Plt Count (130-400) 10^3/uL MPV (8.0-11.0) fL Immature Gran % % Neutrophils % % Lymphocytes % % Monocytes % % Eosinophils % % Basophils % % Nucleated RBC % (0.0-0.3) % Absolute Neutrophils (1.2-6.7) 10^3/uL Absolute Lymphocytes (1.2-3.4) 10^3/uL Absolute Monocytes (0.1-0.8) 10^3/uL Absolute Eosinophils (0.0-0.7) 10^3/uL Absolute Basophils (0.0-0.2) 10^3/uL ESR (0-15) mm/hr VBG Lactate (0.6-1.4) mmol/L Sodium (136-145) mmol/L Potassium (3.5-5.1) mmol/L Chloride (98-107) mmol/L Carbon Dioxide (21.0-32.0) mmol/L Anion Gap (3-11) mmol/L BUN (7-18) mg/dL Creatinine (0.70-1.30) mg/dL Est GFR (CKD-EPI 2020) (mL/min/1.73m2) Glucose (74-106) mg/dL Hemoglobin A1c (<5.7) % Calcium (8.5-10.1) mg/dL Ferritin (26-388) ng/mL Creatine Kinase (39-308) U/L C-Reactive Protein (<or=0.5) mg/dL Urine Opiates Screen Negative (Negative) Ur Buprenorphine Pending Ur Norbuprenorphine Pending Urine Methadone Screen Negative (Negative) Ur Barbiturates Screen Negative (Negative) Ur Tricyclics Screen Negative (Negative) Ur Amphetamines Screen Positive A (Negative) U Benzodiazepines Scrn Negative (Negative) Urine Cocaine Screen Negative (Negative) Ur THC Screen Positive A (Negative) Urine Xylazine Pending COVID-19 Source Nasal/Nares SARS-CoV-2 (PCR) Negative (Negative) Add-On Test Request 05/06/24 Range/Units 16:16 WBC 16.04 H (4.4-10.8) 10^3/uL RBC 5.60 (4.36-5.78) 10^6/uL Hgb 15.2 (13.5-17.5) g/dL Hct 47.5 (40.0-50.0) % MCV 85 (80-95) fL MCH 27.1 (27.0-33.0) pg MCHC 32.0 (32.0-36.0) % RDW 14.2 H (11.8-14.1) % Plt Count 320 (130-400) 10^3/uL MPV 10.8 (8.0-11.0) fL Immature Gran % 0.4 % Neutrophils % 77.0 % Lymphocytes % 13.4 % Monocytes % 5.9 % Eosinophils % 2.9 % Basophils % 0.4 % Nucleated RBC % 0.0 (0.0-0.3) % Absolute Neutrophils 12.35 H (1.2-6.7) 10^3/uL Absolute Lymphocytes 2.15 (1.2-3.4) 10^3/uL Absolute Monocytes 0.95 H (0.1-0.8) 10^3/uL Absolute Eosinophils 0.47 (0.0-0.7) 10^3/uL Absolute Basophils 0.06 (0.0-0.2) 10^3/uL ESR 49 H (0-15) mm/hr VBG Lactate 1.7 H (0.6-1.4) mmol/L Sodium 140 (136-145) mmol/L Potassium 4.3 (3.5-5.1) mmol/L Chloride 104 (98-107) mmol/L Carbon Dioxide 26.2 (21.0-32.0) mmol/L Anion Gap 9.8 (3-11) mmol/L BUN 9 (7-18) mg/dL Creatinine 1.1 (0.70-1.30) mg/dL Est GFR (CKD-EPI 2020) 90.34 (mL/min/1.73m2) Glucose 139 H (74-106) mg/dL Hemoglobin A1c 5.8 H (<5.7) % Calcium 8.7 (8.5-10.1) mg/dL Ferritin 163 (26-388) ng/mL Creatine Kinase 205 (39-308) U/L C-Reactive Protein 10.48 H (<or=0.5) mg/dL Urine Opiates Screen (Negative) Ur Buprenorphine Ur Norbuprenorphine Urine Methadone Screen (Negative) Ur Barbiturates Screen (Negative) Ur Tricyclics Screen (Negative) Ur Amphetamines Screen (Negative) U Benzodiazepines Scrn (Negative) Urine Cocaine Screen (Negative) Ur THC Screen (Negative) Urine Xylazine COVID-19 Source SARS-CoV-2 (PCR) (Negative) Add-On Test Request DONE 05/06/24 16:35 Blood Culture - Pending Blood 05/06/24 16:40 Blood Culture - Pending Blood Intake and Output - 24 Hour Total 05/06/24 15:20 thru 05/06/24 23:00 Intake Total 1100 Balance 1100 Weight 143.088 kg Intake: IV 1100 Other: Emesis Description None Falls Risk Assessment History of Falls No History 05/06/24 17:06 Contributing Factors No Factors 05/06/24 17:06 Ambulatory Aids Independent 05/06/24 17:06 Tubes/Lines None 05/06/24 17:06 Gait Evaluation No gait disturbance 05/06/24 17:06 Cognition No cognitive impairment 05/06/24 17:06 Fall Total Score 0 05/06/24 17:06 Level of Risk Standard/Low Risk 05/06/24 17:06 Problems (Last Reviewed 05/06/24 @ 20:44 by Nancy Henry DO) MRSA infection (Acute) Abscess of left axilla (Acute) Sleep apnea in adult (Acute) Sepsis (Acute) Cellulitis and abscess of upper extremity (Acute) Bipolar 1 disorder (Acute) Anxiety and depression (Chronic) Essential hypertension (Chronic) v v v v v v v v v Sending and/or Receiving Nurses: Please use comment section below to note any information pertinent to the patient hand-off not included above. Information / Comments: Report received from: Natalie CARABALLO [id number]
[2024-05-06] MEDS: Normal Saline 1,000 ML 150 ML IV (23:43)
[2024-05-07] VITALS (10 sets, daily range): BP systolic 128–153; BP diastolic 86–100; PULSE 79–103; RESP 18–20; TEMP 36–37; O2SAT 92–99
[2024-05-07] MEDS: Acetaminophen 325 MG TAB PO ×3 (00:01→20:39)
[2024-05-07] MEDS: HYDROmorphone 1 MG/ML SYR 0.5 MG IVP ×3 (00:50→14:23)
[2024-05-07] MEDS: Normal Saline Flush 10 ML SYR IVP ×7 (00:51→20:40)
[2024-05-07] MEDS: Ketorolac 15 MG/ML VIAL IVP ×4 (04:08→21:00)
[2024-05-07] MEDS: Metoprolol 25 MG TAB PO ×5 (06:01→23:34)
[2024-05-07 06:33] LABS: Bilirubin Negative (Negative); Blood Negative (Negative); Clarity Sl Cloudy (Clear); Glucose Negative (Negative); Ketones Negative (Negative); Leukocyte Esterase Negative (Negative); Nitrite Negative (Negative); Specific Gravity >= 1.030 (1.005-1.025); Urobilinogen 0.2 mg/dL (Up to 0.2); pH 5.5 (5-8)
[2024-05-07 06:40] LABS: RBC 0-2 HPF (0-2); WBC 0-2 HPF (0-5)
[2024-05-07 06:41] LABS: Bacteria Rare HPF (Negative); C & S Indicated? No; Casts 5-10 Hyaline LPF (Negative); Crystals Negative HPF (Negative); Epithelial Cells Rare HPF (Negative); Mucus Moderate (Negative)
[2024-05-07 07:22] LABS: HCT 46.2 % (40.0-50.0); HGB 14.7 g/dL (13.5-17.5); MCHC 31.8 % (32.0-36.0); MCV 85 fL (80-95); Platelet Count 316 10^3/uL (130-400); RBC 5.44 10^6/uL (4.36-5.78); RDW 14.4 % (11.8-14.1); RDW-SD 44.3 fL; WBC 13.15 10^3/uL (4.4-10.8)
[2024-05-07 07:39] LABS: C-Reactive Protein 9.76 mg/dL (<or=0.5)
[2024-05-07 07:40] LABS: ALT 30 U/L (16-63); AST 16 U/L (15-37); Albumin 2.5 g/dL (3.4-5.0); Alkaline Phosphatase 74 U/L (46-116); Anion Gap 8.3 mmol/L (3-11); BUN 13 mg/dL (7-18); Bilirubin, Total 0.24 mg/dL (0.2-1.0); CO2 25.7 mmol/L (21.0-32.0); Calcium 8.3 mg/dL (8.5-10.1); Chloride 107 mmol/L (98-107); Estimated GFR 101.28 (mL/min/1.73m2); Glucose 103 mg/dL (74-106); Magnesium 2.1 mg/dL (1.8-2.4); Potassium 4.5 mmol/L (3.5-5.1); Sodium 141 mmol/L (136-145); Total Protein 6.4 g/dL (6.4-8.2)
[2024-05-07] MEDS: VANCOMYCIN/WATER (PEG) 1.25 GM/250 ML BAG IV ×2 (09:19→20:40)
[2024-05-07] MEDS: Heparin 5,000 UNITS/ML VIAL 5000 UNITS SC ×2 (09:20→20:40)
--- NOTE | 2024-05-07 15:20 | PDOC.CMIN ---
Date of service: 05/07/24 Time of Service: 15:20 Care Management Initial Assmt Initial Assessment Reason for Hospitalization: cellulitis/sepsis/abcess Functional Status/Living Situation Patient Presentation: [place] was admitted yesterday with cellulitis and abscess of his left axila. He had an ingrown hair 5 days ago that he tried to treat, and the area has become infected. He presented with fever and chills, received IV abx and IVF and the abscess was drained by surgery, and packed. He is requiring IV hydromorphone for the pain today. Ananth was sitting up on the edge of the bed when CM met with him. He appeared uncomfortable, and stated that the pain is really bad. He stated disbelief that all of this could happen because of an ingrown hair! Ananth is worried about his bill. He does not have insurance, it is offered through his work, but it was too expensive to keep up with. CM discussed Anum for help finding insurance, he had already been in touch with them. CM also gave him the patient assistance application for the hospital. 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: N 03/14/19 18:15 Date Asked 05/06/24 05/06/24 15:23 AD Date Reviewed COLST On File at [facility] COLST Date Scanned Code Status Resuscitation Status Full Code Insurance Coverage/Financial Issues Insurance: Ananth currently has no insurance. He was given the contact info for [employer], which he already had, and was also given the patient assistance packet. Care Team Visit Care Team Role Provider Type Ann-Marie Booker NP Primary Care Provider NURSE PRACTITIONER Nancy Henry, DO Other Providers OSTEOPATHIC DOCTOR Lyssa Khan Emergency Provider NURSE PRACTITIONER Will Lucas Admit Provider NON-[facility] STAFF PHYSICIAN Attending Provider Discharge Potential Discharge Needs: PCP F/U Appt and Surgical F/U Appt Anticipated Barriers to Discharge: None Identified Patient/Family Education Needs: Review discharge instructions, discuss Ask Me Three Transportation: Private vehicle Plan: Anticipate that Ananth will be discharged home with no new services. He will have new orders for antibiotics and will f/u with his PCP. CM will continue to follow. PFSH All Active Problems MRSA infection (Acute) Abscess of left axilla (Acute) Sleep apnea in adult (Acute) Sepsis (Acute) Cellulitis and abscess of upper extremity (Acute) Homeless (Acute) Leg cramps (Acute) Bipolar 1 disorder (Acute) Anxiety and depression (Chronic) Snoring (Acute) Essential hypertension (Chronic) Left ureteral stone (Acute) Medical History Alcoholic gastritis History of herpes zoster Impaired glucose tolerance Abdominal pain Nausea Sleep pattern disturbance Muscle pain Lumbago with sciatica Degeneration of cervical intervertebral disc Kidney stone Hypertensive disorder PTSD (post-traumatic stress disorder) Secondary polycythemia Hyperlipidemia Surgical History History of colonoscopy with polypectomy (01/28/18) inflammatory bowel disease, polyps x3, internal and external hemorrhoids History of cystoscopy (05/30/16) with laser litho LT History of ureteroscopy (03/17/19) left, with stone extraction History of esophagogastroduodenoscopy (EGD) (09/17/19) paraesophageal hernia type 3 History of placement of ear tubes Family History Other Colon cancer Dementia Social History Smoking/Tobacco Use Status: Current every day Tobacco Type: cigarettes Tobacco: How many years used: 14 Smoking risk assessment performed?: Yes Alcohol Intake: never Drug use: Occasionally Substance use type: marijuana Counseling given: No Adopted: No Caregiver/Support person: No Foster care: No Household members: significant other Housing: house Number of Children: 1 Communication Needs: None and Corrective Lenses Education Level: high school Do you need help understanding health information?: Rarely Pets and animals: No Sexually active: Yes Do you think of yourself as: straight/heterosexual What is your relationship status?: living with partner How often do you talk on the phone with friends or family?: decline to answer How often do you get together with friends or relatives?: never Do you belong to any clubs or organized social groups?: no Panel score (0-1 are the most socially isolated patients): 1 What type of physical activity do you participate in: walking and other Details: stretches Duration: 15-30 minutes/day Frequency: daily Meghana/Samaritan: None Seatbelt use: always Helmet use: No Drive intox or ride w/intox delivery motorcycle driver: No Working smoke detector in home: Yes Fire extinguisher in home: Yes Carbon monox detector in home: No Do you feel safe at home: Yes Do you feel safe in your relationship?: Yes Readmission Within the Past 30 Days Yes or No: No SDOH(Care Management) Screening Will the Patient Participate in the Screening?: Yes Do you worry about having a steady place to live?: no Problems where you live: no known problems In the past 12 months, have you had to go without electric, gas, oil or water in your home?: no Have you or anyone in your house had to go without enough food to eat?: no Has lack of transportation kept you from medical appointments or from doing things needed for daily living?: no Has anyone in your support network made you feel unsafe for any reason?: no
--- NOTE | 2024-05-07 16:00 | PGE_ITS ---
Date of Service Date of service: 05/07/24 Time of Service: 16:00 Assessment and Plan Assessment and plan (1) Sepsis: Status: Acute Assessment and plan: Sepsis criteria met with WBC at 16, tachycardia at 101 and a temperature at 35.6; source of infection abscess to the left upper extremity. Started on vancomycin. Suspicion of MRSA infection As below (2) Cellulitis and abscess of upper extremity: Status: Acute Assessment and plan: Continue dressing change as per surgery consult. Continue vancomycin Risk of immunocompromisation: HIV testing Urine drug screen was positive for amphetamines THC and opiates other results pending . Blood cultures pending Improving leukocytosis (3) Abscess of left axilla: Status: Acute Assessment and plan: Surgery consult initiated on admission Incision and drainage completed in the OR. Pain management with scheduled APAP as needed ketorolac and as needed hydromorphone. Will give 1 dose of IV hydromorphone prior to dressing change Patient complains of pain 8 out of 10 but was falling asleep midsentence will use careful monitoring to prevent adverse events linked to opiates such as respiratory distress. (4) MRSA infection: Status: Acute Assessment and plan: Vancomycin (5) Bipolar 1 disorder: Status: Acute Assessment and plan: Does not seem to be at home meds. Further treatment as per primary care practitioner (6) Anxiety and depression: Status: Chronic Assessment and plan: No treatment regimen listed at this time used to be on trazodone in 2022 (7) Sleep apnea in adult: Status: Acute Assessment and plan: Follow-up out patient (8) Hyperlipidemia: Assessment and plan: LDL 110 in 07/12/2022 not currently on pharmacologic treatment; follow-up as per PCP (9) Impaired glucose tolerance: Assessment and plan: A1c at 5.8 patient might benefit from lifestyle modifications at this time with follow-up with primary care practitioner Discussed with Dr. Garcia Subjective Subjective Patient reports: still having pain, tolerating liquids well, tolerating a regular diet, voiding w/o difficulty, flatus and bowel movement; denies diarrhea, nausea, vomiting, shortness of breath or fever Exam Narrative Exam Narrative: HENMT:Facial structures with normal appearance Neck: Normal ROM, short Neuro:alert and oriented X4. No neurological focal deficit Resp: Unlabored breathing, clear lung bilaterally Cardio: regular rhythm, S1, S2, no murmur, capillary refill<3 sec., bilateral radial and dorsalis pedis pulses are positive, palpable GI: Abdomen is not distended, soft and non tender, bowel sounds are present : Negative Costovertebral angle tenderness Back/spine/Pelvis: No back tenderness, normal alignment Integumentary:LUE: Wound entrance from abscess drainage with packing to the proximal tricep region near axilla- skin well perfused, no streaking Coupious drainage of serosanguinous fluid Extremities: strength 5/5 to bilateral lower and upper extremities, but guarding left UE Psych: RASS 0, congruent mood and normal affect. Objective Last Vital Signs Temp 36.3 C L 05/07/24 15:48 Pulse 79 05/07/24 15:48 Resp 19 05/07/24 15:48 BP 140/94 H 05/07/24 15:48 Pulse Ox 96 05/07/24 15:48 Laboratory Results - last 24 hr 05/06/24 05/06/24 05/07/24 16:16 20:40 06:15 WBC 16.04 H RBC 5.60 Hgb 15.2 Hct 47.5 MCV 85 MCH 27.1 MCHC 32.0 RDW 14.2 H Plt Count 320 MPV 10.8 Immature Gran % 0.4 Neutrophils % 77.0 Lymphocytes % 13.4 Monocytes % 5.9 Eosinophils % 2.9 Basophils % 0.4 Nucleated RBC % 0.0 Absolute Neutrophils 12.35 H Absolute Lymphocytes 2.15 Absolute Monocytes 0.95 H Absolute Eosinophils 0.47 Absolute Basophils 0.06 ESR 49 H VBG Lactate 1.7 H Sodium 140 Potassium 4.3 Chloride 104 Carbon Dioxide 26.2 Anion Gap 9.8 BUN 9 Creatinine 1.1 Est GFR (CKD-EPI 2020) 90.34 Glucose 139 H Hemoglobin A1c 5.8 H Calcium 8.7 Magnesium Ferritin 163 Total Bilirubin AST ALT Alkaline Phosphatase Creatine Kinase 205 C-Reactive Protein 10.48 H Total Protein Albumin Urine Color Yellow Urine Clarity Sl Cloudy Urine pH 5.5 Ur Specific [place] >= 1.030 H Urine Protein 100 H Urine Ketones Negative Urine Blood Negative Urine Nitrite Negative Urine Bilirubin Negative Urine Urobilinogen 0.2 Ur Leukocyte Esterase Negative Urine RBC 0-2 Urine WBC 0-2 Ur Epithelial Cells Rare Urine Crystals Negative Urine Bacteria Rare Urine Casts 5-10 Hyaline Urine Mucus Moderate Ur Culture Indicated? No Urine Glucose Negative Random Vancomycin Urine Opiates Screen Negative Urine Methadone Screen Negative Ur Barbiturates Screen Negative Ur Tricyclics Screen Negative Ur Amphetamines Screen Positive A U Benzodiazepines Scrn Negative Urine Cocaine Screen Negative Ur THC Screen Positive A COVID-19 Source Nasal/Nares SARS-CoV-2 (PCR) Negative Add-On Test Request DONE 05/07/24 05/07/24 06:40 10:00 WBC 13.15 H RBC 5.44 Hgb 14.7 Hct 46.2 MCV 85 MCH 27.0 MCHC 31.8 L RDW 14.4 H Plt Count 316 MPV 11.0 Immature Gran % Neutrophils % Lymphocytes % Monocytes % Eosinophils % Basophils % Nucleated RBC % Absolute Neutrophils Absolute Lymphocytes Absolute Monocytes Absolute Eosinophils Absolute Basophils ESR VBG Lactate Sodium 141 Potassium 4.5 Chloride 107 Carbon Dioxide 25.7 Anion Gap 8.3 BUN 13 Creatinine 1.0 Est GFR (CKD-EPI 2020) 101.28 Glucose 103 Hemoglobin A1c Calcium 8.3 L Magnesium 2.1 Ferritin Total Bilirubin 0.24 AST 16 ALT 30 Alkaline Phosphatase 74 Creatine Kinase C-Reactive Protein 9.76 H Total Protein 6.4 Albumin 2.5 L Urine Color Urine Clarity Urine pH Ur Specific [place] Urine Protein Urine Ketones Urine Blood Urine Nitrite Urine Bilirubin Urine Urobilinogen Ur Leukocyte Esterase Urine RBC Urine WBC Ur Epithelial Cells Urine Crystals Urine Bacteria Urine Casts Urine Mucus Ur Culture Indicated? Urine Glucose Random Vancomycin Cancelled Urine Opiates Screen Urine Methadone Screen Ur Barbiturates Screen Ur Tricyclics Screen Ur Amphetamines Screen U Benzodiazepines Scrn Urine Cocaine Screen Ur THC Screen COVID-19 Source SARS-CoV-2 (PCR) Add-On Test Request PAWSS Have you Been Recently Intoxicated or Drunk Within the Last 30 days?: No Have you Ever Experienced Previous Episodes of Alcohol Withdrawal?: No Have you ever Experienced Withdrawal Seizures?: No Have you ever Experienced Delirium Tremens(DT)s?: No Have you ever undergone Alcohol Rehabilitation Treatment (i.e, inpt ot outpatient treatment programs)?: No Have you ever Experienced Blackouts?: No Have you ever Combined Alcohol with other Downers within the last 90 days?: No Have you ever Combined Alcohol with any other Substance of Abuse during the last 90 days?: No Positive Blood Alcohol level on Presentation? [PCS.BAL]: No Evidence of Increased Autonomic Activity (i.e. HR>120, tremor, sweating, agitation, nausea)?: No Result: 0 Time Spent with Patient Time Spent with Patient: >50 minutes Time was spent: preparing to see the patient(eg.review tests), obtaining and/or reviewing separately otained hiistory, ordering medications,tests, procedures, referring, communicating with other health healthcare consulting manager, indepentently interpreting results, counseling the patient and care coordination
--- NOTE | 2024-05-07 16:56 | CHAPLAIN ---
I had a brief visit with Ananth. He was in bed when I stopped in. I explained my role and offered support. He was looking forward to dinner arriving within 15 minutes.
[2024-05-08] VITALS (7 sets, daily range): BP systolic 137–159; BP diastolic 100–124; PULSE 85–95; RESP 18–20; TEMP 36–36.7; O2SAT 94–97
[2024-05-08] MEDS: Ketorolac 15 MG/ML VIAL IVP ×4 (03:57→21:07)
[2024-05-08] MEDS: Metoprolol 25 MG TAB PO (05:31)
--- NOTE | 2024-05-08 07:06 | W.PM.PROGNOT ---
Date of Service Date of service: 05/07/24 Time of Service: 07:00 Assessment and Plan Assessment and plan (1) Bipolar 1 disorder: Status: Acute (2) Anxiety and depression: Status: Chronic (3) Sleep apnea in adult: Status: Acute (4) Hyperlipidemia: (5) Impaired glucose tolerance: (6) Cellulitis and abscess of upper extremity: Status: Acute (7) Sepsis: Status: Acute (8) Abscess of left axilla: Status: Acute Assessment and plan: Packing to removed and changed today. Patient education regarding dressing changes. Encouraged activity OOB. Continue abx (9) MRSA infection: Status: Acute Assessment and plan: Vancomycin Subjective Subjective Interval history since last seen: Ananth reports he is doing better with some L UE pain. Denies any nausea or vomiting. Exam Const General: cooperative, healthy appearing and comfortable Orientation: alert and oriented x3 Resp Effort & Inspection: normal respiratory effort, no audible wheezes and no cough Extrem Other: L UE dressing in place. minimal bloody drainage. Objective Last Vital Signs Temp 36.0 C L 05/08/24 03:05 Pulse 95 H 05/08/24 03:05 Resp 18 05/08/24 03:05 BP 137/112 H 05/08/24 03:05 Pulse Ox 97 05/08/24 03:05 Laboratory Results - last 24 hr 05/07/24 05/07/24 06:40 10:00 WBC 13.15 H RBC 5.44 Hgb 14.7 Hct 46.2 MCV 85 MCH 27.0 MCHC 31.8 L RDW 14.4 H Plt Count 316 MPV 11.0 Sodium 141 Potassium 4.5 Chloride 107 Carbon Dioxide 25.7 Anion Gap 8.3 BUN 13 Creatinine 1.0 Est GFR (CKD-EPI 2020) 101.28 Glucose 103 Calcium 8.3 L Magnesium 2.1 Total Bilirubin 0.24 AST 16 ALT 30 Alkaline Phosphatase 74 C-Reactive Protein 9.76 H Total Protein 6.4 Albumin 2.5 L Random Vancomycin Cancelled PAWSS Have you Been Recently Intoxicated or Drunk Within the Last 30 days?: No Have you Ever Experienced Previous Episodes of Alcohol Withdrawal?: No Have you ever Experienced Withdrawal Seizures?: No Have you ever Experienced Delirium Tremens(DT)s?: No Have you ever undergone Alcohol Rehabilitation Treatment (i.e, inpt ot outpatient treatment programs)?: No Have you ever Experienced Blackouts?: No Have you ever Combined Alcohol with other Downers within the last 90 days?: No Have you ever Combined Alcohol with any other Substance of Abuse during the last 90 days?: No Positive Blood Alcohol level on Presentation? [PCS.BAL]: No Evidence of Increased Autonomic Activity (i.e. HR>120, tremor, sweating, agitation, nausea)?: No Result: 0 Time Spent with Patient Time Spent with Patient: <25 minutes Time was spent: preparing to see the patient(eg.review tests), obtaining and/or reviewing separately otained hiistory and counseling the patient
[2024-05-08 07:10] LABS: HCT 46.7 % (40.0-50.0); HGB 15.1 g/dL (13.5-17.5); MCH 27.3 pg (27.0-33.0); MCHC 32.3 % (32.0-36.0); MCV 84 fL (80-95); MPV 11.3 fL (8.0-11.0); Platelet Count 340 10^3/uL (130-400); RBC 5.53 10^6/uL (4.36-5.78); RDW-SD 43.1 fL; WBC 11.61 10^3/uL (4.4-10.8)
[2024-05-08 07:29] LABS: ALT 30 U/L (16-63); AST 16 U/L (15-37); Albumin 2.6 g/dL (3.4-5.0); Alkaline Phosphatase 74 U/L (46-116); Anion Gap 7.8 mmol/L (3-11); BUN 15 mg/dL (7-18); Bilirubin, Total 0.25 mg/dL (0.2-1.0); CO2 26.2 mmol/L (21.0-32.0); CREATININE 0.9 mg/dL (0.70-1.30); Calcium 8.8 mg/dL (8.5-10.1); Chloride 107 mmol/L (98-107); Estimated GFR 114.93 (mL/min/1.73m2); Glucose 97 mg/dL (74-106); Potassium 4.3 mmol/L (3.5-5.1); Sodium 141 mmol/L (136-145); Total Protein 6.6 g/dL (6.4-8.2)
[2024-05-08 07:36] LABS: Vancomycin, Random 5.9 ug/mL
[2024-05-08] MEDS: Heparin 5,000 UNITS/ML VIAL 5000 UNITS SC ×2 (08:02→20:24)
[2024-05-08] MEDS: Normal Saline Flush 10 ML SYR IVP ×2 (08:13→20:19)
[2024-05-08] MEDS: VANCOMYCIN/WATER (PEG) 1.75 GM/350 ML BAG IV ×3 (08:14→23:49)
--- NOTE | 2024-05-08 09:51 | W.PM.PROGNOT ---
Date of Service Date of service: 05/08/24 Time of Service: 09:51 Assessment and Plan Assessment and plan (1) Sepsis: Status: Acute Assessment and plan: On admission, sepsis criteria was met with WBC at 16, tachycardia at 101 and a temperature at 35.6 and a source of infection being the abscess to the left upper extremity. Continue vancomycin. MRSA infection positive as per outpatient cultures Blood culture shows no growth at 48 hours x 1 bottle?second bottle results pending MRSA sensitive to daptomycin, linezolid and trimethoprim/sulfamethoxazole?this is to be considered for outpatient therapy in the setting of negative blood cultures in all bottles the patient could be sent on trimethoprim sulfamethoxazole at home This was discussed with care management (2) Cellulitis and abscess of upper extremity: Status: Acute Assessment and plan: Continue dressing change as per surgery consult. Continue vancomycin Risk of immunocompromisation: HIV testing results are still pending Urine drug screen was positive: -amphetamines ( none ordered OPT) -THC ( smokes to assist w depression anxiety and bipolar ) other results pending . Blood cultures negative but 1 bottle still pending Improving leukocytosis As below (3) Abscess of left axilla: Status: Acute Assessment and plan: Ongoing surgery consult: Wound care as per surgery Incision and drainage completed in the OR on admission day. Pain management with scheduled APAP AND ketorolac and as needed hydromorphone. Continue to give 1 dose of IV hydromorphone prior to dressing change (4) MRSA infection: Status: Acute Assessment and plan: Continue vancomycin (5) Bipolar 1 disorder: Status: Acute Assessment and plan: Does not seem to be at home meds. But stated that THC helps as pharmacological treatment was causing side effects Further discussion with primary care needed (6) Hypertensive disorder: Assessment and plan: On home dose Metoprolol succinate 50 p.o. daily now was on metoprolol tartrate 25 mg PO Q6 on admit UDT was positive for opiates THC and amphetamines on arrival increased BP's normal HR- not Tx as per point 7 Will initiate clonidine 3 times daily as needed (7) Anxiety and depression: Status: Chronic Assessment and plan: No treatment regimen listed at this time used to be on trazodone in 2022 and as per point 5 (8) Sleep apnea in adult: Status: Acute Assessment and plan: Outpatient treatment to be discussed with PCP (9) Hyperlipidemia: Assessment and plan: Outpatient follow-up needed LDL 110 in 07/12/2022 not currently on pharmacologic treatment (10) Impaired glucose tolerance: Assessment and plan: A1C at 5.8 and BMI 45.3: Outpatient follow-up with primary care practitioner for lifestyle modifications (11) Discharge planning issues: Status: Acute Assessment and plan: Discharge meds discussed with care management. Sulfamethoxazole trimethoprim seems to be an affordable option for the patient if blood cultures are all negative as it is MRSA is sensitive to this antibiotic. Discussed with Dr. Garcia Subjective Subjective Patient reports: feels better, still having pain, pain is less, tolerating liquids well, tolerating a regular diet, voiding w/o difficulty, flatus and no bowel movement; denies nausea, vomiting, shortness of breath or fever Exam Narrative Exam Narrative: HENMT:Facial structures with normal appearance Neck: Normal ROM, short Neuro:alert and oriented X4. No neurological focal deficit Resp: Unlabored breathing, clear lung bilaterally Cardio: regular rhythm, S1, S2, no murmur,bilateral radial pulses are positive, cap refill< 3 sec to left fingers GI: Abdomen is not distended, soft and non tender, bowel sounds are present : Negative Costovertebral angle tenderness Back/spine/Pelvis: No back tenderness Integumentary:LUE: Wound entrance from abscess drainage with packing to the proximal tricep region near axilla- skin not cyanotic or discolored, no streaking-reduced drainage noticed Coupious drainage of serosanguinous fluid Extremities: Moves bilateral upper extremities equally Psych: RASS 0, congruent mood and normal affect. Objective Last Vital Signs Temp 36.6 C 05/08/24 07:42 Pulse 89 05/08/24 07:42 Resp 20 05/08/24 07:42 BP 159/112 H 05/08/24 07:42 Pulse Ox 94 05/08/24 07:42 Laboratory Results - last 24 hr 05/07/24 05/08/24 10:00 06:24 WBC 11.61 H RBC 5.53 Hgb 15.1 Hct 46.7 MCV 84 MCH 27.3 MCHC 32.3 RDW 14.0 Plt Count 340 MPV 11.3 H Sodium 141 Potassium 4.3 Chloride 107 Carbon Dioxide 26.2 Anion Gap 7.8 BUN 15 Creatinine 0.9 Est GFR (CKD-EPI 2021) 114.93 Glucose 97 Calcium 8.8 Magnesium 2.0 Total Bilirubin 0.25 AST 16 ALT 30 Alkaline Phosphatase 74 Total Protein 6.6 Albumin 2.6 L Random Vancomycin Cancelled 5.9 PAWSS Have you Been Recently Intoxicated or Drunk Within the Last 30 days?: No Have you Ever Experienced Previous Episodes of Alcohol Withdrawal?: No Have you ever Experienced Withdrawal Seizures?: No Have you ever Experienced Delirium Tremens(DT)s?: No Have you ever undergone Alcohol Rehabilitation Treatment (i.e, inpt ot outpatient treatment programs)?: No Have you ever Experienced Blackouts?: No Have you ever Combined Alcohol with other Downers within the last 90 days?: No Have you ever Combined Alcohol with any other Substance of Abuse during the last 90 days?: No Positive Blood Alcohol level on Presentation? [PCS.BAL]: No Evidence of Increased Autonomic Activity (i.e. HR>120, tremor, sweating, agitation, nausea)?: No Result: 0 Time Spent with Patient Time Spent with Patient: >50 minutes Time was spent: preparing to see the patient(eg.review tests), obtaining and/or reviewing separately otained hiistory, ordering medications,tests, procedures, referring, communicating with other health career development specialist, indepentently interpreting results, counseling the patient and care coordination
[2024-05-08] MEDS: cloNIDine 0.1 MG TAB PO ×2 (10:01→20:24)
--- NOTE | 2024-05-08 11:09 | PDOC.CMPRO ---
Date of service: 05/08/24 Time of Service: 11:09 Care Management Progress Note Progress Note Text Progress Note Text: Ananth is being monitored and treated for MRSA, blood cultures pending, ABX course to follow. RX was sent to [facility] for PO Linezolid ant it is $800.51 with [facility], $2600 without. Hospitalist is made aware of expense and is exploring other medication options. Pt does not have medical insurance, BRE[facility] referral is placed to support patient with this process and funding (if available). Discharge Potential Discharge Needs: PCP F/U Appt and Surgical F/U Appt Anticipated Barriers to Discharge: Medical Status Patient/Family Education Needs: Review discharge instructions, discuss Ask Me Three Transportation: Private vehicle Plan: Anticipate Ananth will discharged home via private vehicle when medically ready for discharge. Patient does not have healthcare coverage and will be unable to afford RX's needed to discharge. [facility] referral is placed for support with his healthcare coverage needs, and may have funding to help out. SDOH(Care Management) Screening Will the Patient Participate in the Screening?: Yes Do you worry about having a steady place to live?: no Problems where you live: no known problems In the past 12 months, have you had to go without electric, gas, oil or water in your home?: no Have you or anyone in your house had to go without enough food to eat?: no Has lack of transportation kept you from medical appointments or from doing things needed for daily living?: no Has anyone in your support network made you feel unsafe for any reason?: no
[2024-05-08 12:04] LABS: Fentanyl Scr w/Rfx Confirm Negative ng/mL (<1)
[2024-05-08] MEDS: Metoprolol CR 50 MG TABCR PO (12:17)
[2024-05-08] MEDS: HYDROmorphone 2 MG/ML VIAL 0.5 MG IVP (13:09)
[2024-05-08 13:33] LABS: Xylazine, Confirmation Urine Negative ng/mL (<50)
[2024-05-08 18:50] LABS: HIV-1/2 Ag & Ab Screen Negative (Negative)
[2024-05-08] MEDS: HYDROmorphone 1 MG/ML SYR 0.5 MG IVP (20:16)
[2024-05-08] MEDS: Polyethylene Glycol 3350 17 GM PACKET PO (20:23)
[2024-05-08] MEDS: Acetaminophen 325 MG TAB PO (20:24)
[2024-05-08] MEDS: Docusate Sodium 100 MG/10 ML CUP PO (20:24)
[2024-05-09 04:09] VITALS: BP 159/110; PULSE 95; RESP 18; TEMP 36.1; O2SAT 95
[2024-05-09] MEDS: Ketorolac 15 MG/ML VIAL IVP (04:10)
[2024-05-09] MEDS: cloNIDine 0.1 MG TAB PO (04:15)
[2024-05-09] MEDS: Acetaminophen 325 MG TAB PO (04:15)
[2024-05-09 07:38] LABS: HCT 47.6 % (40.0-50.0); HGB 15.4 g/dL (13.5-17.5); MCH 27.3 pg (27.0-33.0); MCHC 32.4 % (32.0-36.0); MCV 84 fL (80-95); MPV 10.8 fL (8.0-11.0); Platelet Count 361 10^3/uL (130-400); RBC 5.64 10^6/uL (4.36-5.78); RDW 13.6 % (11.8-14.1); RDW-SD 42.1 fL; WBC 11.12 10^3/uL (4.4-10.8)
[2024-05-09 08:07] LABS: ALT 39 U/L (16-63); AST 20 U/L (15-37); Albumin 2.7 g/dL (3.4-5.0); Alkaline Phosphatase 77 U/L (46-116); Anion Gap 8.8 mmol/L (3-11); BUN 14 mg/dL (7-18); Bilirubin, Total 0.22 mg/dL (0.2-1.0); CO2 25.2 mmol/L (21.0-32.0); CREATININE 0.9 mg/dL (0.70-1.30); Calcium 8.7 mg/dL (8.5-10.1); Chloride 108 mmol/L (98-107); Estimated GFR 114.93 (mL/min/1.73m2); Glucose 98 mg/dL (74-106); Magnesium 1.9 mg/dL (1.8-2.4); Potassium 4.4 mmol/L (3.5-5.1); Sodium 142 mmol/L (136-145); Total Protein 6.5 g/dL (6.4-8.2)
[2024-05-09 08:13] LABS: Vancomycin, Random 13.8 ug/mL
[2024-05-09 08:16] VITALS: BP 135/90; PULSE 74; RESP 18; TEMP 35.8; O2SAT 97
--- NOTE | 2024-05-09 08:48 | PDOC.CMPRO ---
Date of service: 05/09/24 Time of Service: 08:48 Care Management Progress Note Progress Note Text Progress Note Text: CM had a consult to see Ananth. CM has been following him since admission. CM has referred Ananth to [facility]. This CM spoke with Anum early this morning. Anum spoke with Ananth 3x yesterday. He is in a tricky situation. He is offered insurance at his work place, but has chosen not to take it due to cost. Ananth found out later in the day that he has active Medicaid insurance, with Anum's help. He was so very pleased. He is being discharged on Bactrim. CM called the pharmacy to get the cost $9.55! Again, Ananth was pleased. Discharge Potential Discharge Needs: PCP F/U Appt and Surgical F/U Appt (has appt on 05/[address] Henry and PCP on 05/27) Anticipated Barriers to Discharge: None Identified Plan: Ananth is being discharged today. He feels confident that he can do his own dressing changes. He was given supplies from the hospital to get him to his appt on . He will be on Bactrim 2 x/day for 8 days. He was instructed both hands on, and given detailed written instructions as well. Ananth will drive himself home today. SDOH(Care Management) Screening Will the Patient Participate in the Screening?: Yes Do you worry about having a steady place to live?: no Problems where you live: no known problems In the past 12 months, have you had to go without electric, gas, oil or water in your home?: no Have you or anyone in your house had to go without enough food to eat?: no Has lack of transportation kept you from medical appointments or from doing things needed for daily living?: no Has anyone in your support network made you feel unsafe for any reason?: no
[2024-05-09] MEDS: Normal Saline Flush 10 ML SYR IVP (08:56)
[2024-05-09] MEDS: VANCOMYCIN/WATER (PEG) 1.75 GM/350 ML BAG IV (08:57)
[2024-05-09] MEDS: Polyethylene Glycol 3350 17 GM PACKET PO (08:57)
[2024-05-09] MEDS: Heparin 5,000 UNITS/ML VIAL 5000 UNITS SC (08:57)
[2024-05-09] MEDS: Lactobacillus Acidophilus CAP 1 CAP PO ×2 (08:58→14:18)
[2024-05-09] MEDS: Docusate Sodium 100 MG/10 ML CUP PO (08:58)
[2024-05-09] MEDS: Metoprolol CR 50 MG TABCR PO (08:58)
--- NOTE | 2024-05-09 10:43 | DSE_ITS ---
Date of service: 05/09/24 Time of Service: 10:43 DS: Diagnosis Discharge Diagnosis (1) Sepsis: Status: Acute (2) Cellulitis and abscess of upper extremity: Status: Acute (3) Abscess of left axilla: Status: Acute (4) MRSA infection: Status: Acute (5) Bipolar 1 disorder: Status: Acute (6) Hypertensive disorder: (7) Anxiety and depression: Status: Chronic (8) Sleep apnea in adult: Status: Acute (9) Hyperlipidemia: (10) Impaired glucose tolerance: (11) Discharge planning issues: Status: Acute (12) Pre-diabetes: Status: Acute Discharge Plan Disposition Patient Disposition: Home Condition: Improving Discharge Details Reason For Visit: Sepsis, Cellulitis arm Admit Date/Time: 05/06/24 20:29 Admit Provider: Will Lucas Attending Provider: Will Lucas Primary Care Provider: Ann-Marie Booker Hospital Course Hospital Course: see addendum Home Meds and New Rx's Prescriptions: New sulfamethoxazole-trimethoprim 800-160 mg tablet 1 tab PO BID Qty: 16 0RF Continued sulfamethoxazole-trimethoprim [Bactrim DS] 800-160 mg tablet 1 tab PO BID Qty: 20 0RF metoprolol succinate 50 mg tablet extended release 24 hr 50 mg PO DAILY 30 Days Qty: 30 1RF Discontinued cephalexin 500 mg capsule 500 mg PO QID Qty: 40 0RF methocarbamol 750 mg tablet 750 mg PO QHS PRNQty: 14 0RF Discharge Instructions Additional Instructions: Keep an ice bag on the incision. 20 minutes on and 20 minutes off. Ice keeps the swelling down and swelling causes pain. Make sure you wrap the ice pack in a towel and don't apply directly to the skin. -No driving for 24 hrs or of you are taking narcotic pain medications. -wet to dry dressing changes daily. -remove packing in shower. wash w/ soap and water. rinse good. re-pack wound to keep open -Follow-up with Dr. Henry in 1 week. -F/u PCP in 1-2 wks. You are pre-diabetic which does predispose you to soft tissue and urinary tract infections. -regular diet -no straining to move bowels -pain meds are very constipating: if you do not move your bowels daily take a dose of OTC Miralax -It is ok to shower. No bathe, soaking, swimming or hot tubs -Keep wound clean and dry. -You may find that your appetite is smaller. Eat 3-6 small meals throughout the day. It is important to drink lots of water after surgery, 6-10 glasses a day. -If you were given an incentive spirometry (breathing purchase price analyst?), continue to do this 10x/hour while awake. -We do want you up walking, at least 5-6 times per day. This is very important to prevent pneumonia and blood clots. You can climb stairs, take them slowly. -No lifting over 5 pounds with left arm for 2-3 weeks -You may find that you are very tired after surgery- this is normal. -please do not smoke for a minimum of 72 hours after surgery. Discharge Instructions: Packing a Wound You have a wound that needs a special dressing, or packing. When a wound is deep, or when it tunnels under the skin, packing the wound can help it heal. The packing material soaks up any drainage from the wound, which?helps the tissues heal from the inside out. Without the packing, the wound could close at the top. This would trap fluid and possibly bacteria in the?deeper areas of the wound causing your wound not to heal. The wound could also get infected. You were shown how to pack your wound before you left the hospital. These steps will help you remember how to take care of your wound. Follow any specific directions from your healthcare provider. Gather your supplies Keep your supplies all in [address] place. Put them in a basket or large bag. You will need the following: Packing?materialSterile wetting solutionSterile glovesA clean bowlScissorsA clean towelA bandage to put on the top of the wound after you have packed itTapeSterile cotton swabsAlcohol or alcohol wipesSupplies to clean the woundA small plastic bag for old dressing supplies Getting ready Put pets and children in another room, away from your work areaWash your hands before touching any of your supplies: Turn on the water. Wet your hands and wrists. Use liquid soap from a pump dispenser. Work up a lather. Scrub your hands thoroughly. Rinse your hands with your fingers pointing toward the drain. Dry your hands with a clean cloth or paper towel. Use this towel to turn off the faucet. Remember, once you have washed your hands, don?t touch anything other than your supplies. Wash your hands again if you touch anything, like furniture or your clothes.Clean the area where you will set out your dressing supplies.Put a clean towel over the area and set a clean bowl on it. Don?t touch the inside of the bowl.Clean the scissors with alcohol or an alcohol wipe and place on the clean towel. Prepare the packing material Wash your hands again.Pour enough wetting solution into the clean bowl to wet the packing material.Cut off a length of packing material and drop it carefully into the bowl of wetting solution. (Remember, the amount of packing material needed to fill the wound should become less and less as the area heals. You will need to adjust the length of the packing material over time.)Open your new outer dressing material and place it on the towel. Keep it away from the bowl, and do n?t get it wet.Cut pieces of tape to desired lengths. You will use these strips to hold your outer dressing in place. For now, hang the pieces of tape on the edge of your work surface.Gently remove your existing bandage (old tape, outer dressing, and packing). Check the bandage for any drainage or odor. Put these items in a small plastic bag for disposal.Inspect the wound. Look for signs that it isn't healing normally (lsee When to call your healthcare provider). Clean and pack the wound Wash your hands thoroughly again. Use soap and clean, running water.Clean the wound as you were shown by your healthcare provider.Put on the gloves. Gently squeeze the packing material to get rid of excess wetting solution. The packing material should be wet, but not dripping.Gently put the packing material into the wound. Packing should fill the wound space completely, but not tightly. Filling the space tightly will cause pressure and pain. Use a cotton swab?to gently guide the packing into small or tunneled areas.Put the new outer dressing over the packing and wound site.Tape the outer dressing in place.Remove your gloves.Wash your hands again with soap and water. Follow-up Make a follow-up appointment. It's recommended that you be seen within 48 hours after the first time a packing is placed. When to call your healthcare provider Call your?healthcare provider?right away if any of the following occur: Increased drainage from the wound Redness in or around the wound Increased pain or swelling in or around the wound Wound tissue that changes from pink to white, yellow, or black in color Odor coming from the wound Increased size or depth of the wound Fever above 100.4?F?(38?C) or higher, or as directed by your healthcare providerShaking chills Activity:: see above Equipment/Supplies:: No Equipment Needed Diet:: Carb Counting DS: Summary Time Spent with Patient providing and/or coordinating discharge services: Greater than 30 minutes Status at Discharge Functional status at discharge: independent ambulation Overall status at discharge: patient is progressing back to baseline Mental Status: mental status grossly normal Speech and Movement: speech and movement normal Mood: congruent mood Affect: normal affect Quality:SDOH Health Related Social Needs: No Data to Display Exam Psych Mental Status: mental status grossly normal Speech and Movement: speech and movement normal Mood: congruent mood Affect: normal affect DS: Data Vitals/I&O Vitals and I&O: Vital Signs Temperature 35.8 C L 05/09/24 08:16 Temperature Source Temporal Artery Scan 05/09/24 08:16 Pulse 74 05/09/24 08:16 Pulse Rhythm Regular 05/07/24 00:06 Pulse 112 H 05/06/24 21:46 Respiratory Rate 18 05/09/24 08:16 Respiratory Effort Normal 05/07/24 00:06 Respiratory Depth Normal 05/07/24 00:06 Respiratory Pattern Normal 05/07/24 00:06 Blood Pressure 135/90 05/09/24 08:16 Blood Pressure Mean 87 05/06/24 21:46 Blood Pressure Position Supine 05/06/24 16:05 Pulse Oximetry 97 05/09/24 08:16 Respiratory End-tidal CO2 40 05/06/24 23:00 Oxygen Delivery Method Room Air 05/09/24 08:16 Oxygen Flow Rate 0 05/09/24 08:16 Pain Level 6 05/09/24 08:16 Comment pain in left arm 05/09/24 08:16 Comment Provider makes aware of all elevated blood pressures 05/06/24 21:10 Intake & Output 05/08/24 05/08/24 05/09/24 11:59 23:59 11:59 Intake Total 350 / 1200 850 / 1200 1071 / 1071 Balance 350 / 1200 850 / 1200 1071 / 1071 Weight 165.2 kg 163 kg Intake: IV 350 / 700 350 / 700 350 / 350 Oral 500 / 500 721 / 721 Other: Urine Color Pale Yellow Yellow Urine Appearance Clear Clear Clear Urine Odor None None None Comment pt voiding independently in toilet. voided in the toilet Data Completed and Pending Labs on day of discharge: Labs from last 24 hours 05/09/24 05/08/24 05/06/24 07:25 06:24 20:40 WBC 11.12 H RBC 5.64 Hgb 15.4 Hct 47.6 MCV 84 MCH 27.3 MCHC 32.4 RDW 13.6 Plt Count 361 MPV 10.8 Sodium 142 Potassium 4.4 Chloride 108 H Carbon Dioxide 25.2 Anion Gap 8.8 BUN 14 Creatinine 0.9 Est GFR (CKD-EPI 2020) 114.93 Glucose 98 Calcium 8.7 Magnesium 1.9 Total Bilirubin 0.22 AST 20 ALT 39 Alkaline Phosphatase 77 Total Protein 6.5 Albumin 2.7 L Random Vancomycin 13.8 Urine Fentanyl Screen Negative Urine Xylazine Negative HIV 1&2 Ag/Ab, 4th Gen Negative Preliminary micro results at discharge 05/06/24 16:35 Blood Culture - Preliminary Blood NO GROWTH 48 HOURS 05/06/24 16:40 Blood Culture - Preliminary Blood NO GROWTH 48 HOURS PFSH All Active Problems (Updated 05/09/24 @ 11:58 by Nancy Henry DO) Pre-diabetes (Acute) a1c 5.9 Discharge planning issues (Acute) Hypotension (Acute) MRSA infection (Acute) Abscess of left axilla (Acute) Sleep apnea in adult (Acute) Sepsis (Acute) Cellulitis and abscess of upper extremity (Acute) Homeless (Acute) Leg cramps (Acute) Bipolar 1 disorder (Acute) Anxiety and depression (Chronic) Snoring (Acute) Essential hypertension (Chronic) Left ureteral stone (Acute) Medical History (Updated 05/09/24 @ 11:58 by Nancy Henry DO) Alcoholic gastritis History of herpes zoster Impaired glucose tolerance Abdominal pain Nausea Sleep pattern disturbance Muscle pain Lumbago with sciatica Degeneration of cervical intervertebral disc Kidney stone Hypertensive disorder PTSD (post-traumatic stress disorder) Secondary polycythemia Hyperlipidemia Surgical History (Updated 05/08/24 @ 09:51 by Luisa Page) Status post incision and drainage (~04/2024) left axilla, MRSA + History of colonoscopy with polypectomy (01/28/18) inflammatory bowel disease, polyps x3, internal and external hemorrhoids History of cystoscopy (05/30/16) with laser litho LT History of ureteroscopy (03/17/19) left, with stone extraction History of esophagogastroduodenoscopy (EGD) (09/17/19) paraesophageal hernia type 3 History of placement of ear tubes Family History Other Colon cancer Dementia Social History Smoking/Tobacco Use Status: Current every day Tobacco Type: cigarettes Tobacco: How many years used: 14 Smoking risk assessment performed?: Yes Alcohol Intake: never Drug use: Occasionally Substance use type: marijuana Counseling given: No Adopted: No Caregiver/Support person: No Foster care: No Household members: significant other Housing: house Number of Children: 1 Communication Needs: None and Corrective Lenses Education Level: high school Do you need help understanding health information?: Rarely Pets and animals: No Sexually active: Yes Do you think of yourself as: straight/heterosexual What is your relationship status?: living with partner How often do you talk on the phone with friends or family?: decline to answer How often do you get together with friends or relatives?: never Do you belong to any clubs or organized social groups?: no Panel score (0-1 are the most socially isolated patients): 1 What type of physical activity do you participate in: walking and other Details: stretches Duration: 15-30 minutes/day Frequency: daily Meghana/Islam: None Seatbelt use: always Helmet use: No Drive intox or ride w/intox fuel truck driver: No Working smoke detector in home: Yes Fire extinguisher in home: Yes Carbon monox detector in home: No Do you feel safe at home: Yes Do you feel safe in your relationship?: Yes Time Spent with Patient Time Spent with Patient: 45-69 minutes Time was spent: preparing to see the patient(eg.review tests), obtaining and/or reviewing separately otained hiistory, ordering medications,tests, procedures, referring, communicating with other health healthcare educator, indepentently interpreting results, counseling the patient, care coordination and other
[2024-05-09 11:40] VITALS: BP 143/111; PULSE 85; RESP 19; TEMP 36.7; O2SAT 96
[2024-05-09 11:52] VITALS: BP 150/100
[2024-05-13 07:51] LABS: Buprenorphine Negative ng/mL (Cutoff: 5.0); Norbuprenorphine Negative ng/mL (Cutoff: 2.5)
== END 2024-05-09 14:28 | disposition home or self-care (01) | DRG 872 ==
LOC: ER 18:17 → MS 23:40
PROVIDERS: Hospitalist; Nurse Practitioner Acute Care; Surgery; Admitting Provider Family Medicine; Emergency Provider Nurse Practitioner Family; PCP Nurse Practitioner; Visit Provider Family Medicine
PROC: 0X950ZZ Drainage of Left Axilla, Open Approach (ICD-10-PCS; CPT 10060; principal; 2024-05-06 21:30)
DX: A41.02 Sepsis due to Methicillin resistant Staphylococcus aureus; L03.114 Cellulitis of left upper limb; L02.412 Cutaneous abscess of left axilla; Z59.00 Homelessness unspecified; Z68.41 Body mass index [BMI] 40.0-44.9, adult; R73.03 Prediabetes; I10 Essential (primary) hypertension; B95.62 Methicillin resistant Staphylococcus aureus infection as the cause of diseases classified elsewhere; G47.30 Sleep apnea, unspecified; N20.0 Calculus of kidney; F41.8 Other specified anxiety disorders; R25.2 Cramp and spasm; F31.9 Bipolar disorder, unspecified; F43.10 Post-traumatic stress disorder, unspecified; E78.5 Hyperlipidemia, unspecified; M54.40 Lumbago with sciatica, unspecified side; D75.1 Secondary polycythemia; F17.210 Nicotine dependence, cigarettes, uncomplicated; E66.3 Overweight
CPT/HCPCS: 10060; 00123; 36415; 80048; 80053; 80307; 80348; 80375; 82550; 85027; 85652; 87040; 87389; 87635; 96365; 96366; 96367; 96375; 99285; 73200; 80202; 81003; 81015; 82728; 83036; 83605; 83735; 85025; 86140; 99222; 99233; J1171; J1644; J1836; J1885; J2003; J2004; J2250; J2270; J2405; J2704; J3372

== ENCOUNTER 2024-06-25 00:10 | Outpatient (CLI) | payer MEDICAID, SELFPAY ==
--- NOTE | 2024-06-25 06:30 | DI.US_ITS ---
Exam(s) US BREAST RT COMPLETE MG MAMMO DIAGNOSTIC BI EXAM: MG MAMMO DIAGNOSTIC BI CLINICAL HISTORY: right breast lump,n63.0. COMPARISON: No exams were available for comparison TECHNIQUE: Craniocaudal and mediolateral oblique Full Field Digital Mammography views of both breast s with Computer Aided Diagnosis followed by Tomosynthesis and right breast ultrasound. FINDINGS: Mammography/Tomosynthesis: Masses: None seen. Mild breast tissue development in the subareolar regions, right slightly greater than left. Architectural Distortion: None seen. Microcalcifications: No suspicious pleomorphic-type are seen. Skin Thickening/Nipple Retraction: None. Right breast US: Echotexture: Mild branch in low density in subareolar region consistent with mild gynecomastia. Shadowing: No suspicious foci. Cyst: None. Solid lesions: None seen. Ductal dilation: None. IMPRESSION: No evidence of malignancy is noted. Findings consistent with mild bilateral gynecomastia, right great er than left. BI-RADS Category 2 - Benign Findings Breast Density - Category A - Almost entirely fatty A negative radiographic report should not delay biopsy if a dominant or clinically suspicious mass is present. Up to ten percent of cancers are not identified on mammography. A negative report may reinforce clinical impression. Adenosis and dense breasts may obscure an underlying neoplasm. False positive reports average 6 to 10%. Patient will receive a letter notifying them of these results.
== END 2024-06-25 00:30 ==
LOC: DI 00:10
PROVIDERS: PCP Nurse Practitioner; Visit Provider Nurse Practitioner Family
DX: N62 Hypertrophy of breast (principal); Z12.31 Encounter for screening mammogram for malignant neoplasm of breast
CPT/HCPCS: 76642; 77062; 77066; G0279

== ENCOUNTER 2024-06-25 10:02 | Outpatient (CLI) | payer MEDICAID, SELFPAY ==
--- NOTE | 2024-06-25 08:45 | DI.RAD_ITS ---
Exam(s) XR CHEST 2V PA LATERAL EXAM: XR CHEST 2V PA LATERAL CLINICAL HISTORY: cough r/o pneumonia R05.9 COUGH TECHNIQUE: 2D digital imaging was performed. Two views. COMPARISON: CR XR CHEST 2V PA LATERAL from 08/28/2023 FINDINGS: HEART: Normal size. Aorta: Not dilated. PULMONARY VASCULATURE: Normal. MEDIASTINUM: Unremarkable. LUNGS: Clear. PLEURAL SPACE: No pleural effusion or pneumothorax. BONE:Unremarkable for age. SOFT TISSUES: Unremarkable. IMPRESSION: No acute abnormality. DATA REPOSITORY: RADIATION DOSE DELIVERED:
== END 2024-06-25 10:22 ==
LOC: DI 10:02
PROVIDERS: PCP Nurse Practitioner; Visit Provider Physician Assistant
DX: R05.9 Cough, unspecified (principal)
CPT/HCPCS: 71046

== ENCOUNTER 2024-09-03 16:13 | Emergency (ER) | payer MEDICAID, SELFPAY ==
[2024-09-03] VITALS (26 sets, daily range): BP systolic 157–183; BP diastolic 100–142; PULSE 97–118; RESP 16–32; TEMP 36.7–37.1; O2SAT 93–98
--- NOTE | 2024-09-03 16:15 | RT.EKG_ITS ---
APPROVED REPORT Exam: Resting ECG Reason for Exam: chest pain Patient Location: E HR:119 bpm ECG Measurements Heart Rate 119 AXIS FL 167 P 49 QRSd 96 QRS 32 QT 327 T 60 QTc 459 Conclusion Sinus tachycardia, rate 119 No interval abnormalities No STEMI No significant changes from priors
--- NOTE | 2024-09-03 18:00 | DI.CT_ITS ---
Exam(s) CT RENAL COLIC WO EXAM: CT RENAL COLIC WO CLINICAL HISTORY: R CVA tenderness. TECHNIQUE: Imaging Protocol: Axial computed tomography images with coronal and sagittal reformatted images were created and reviewed CONTRAST MATERIAL: Intravenous: none Oral: None COMPARISON: CT CT CHEST PE ABD PELVIS W from 10/20/2022 FINDINGS: VISUALIZED LUNG BASES: Mild increased markings in the right lower lobe. No pleural effusions.. ABDOMEN: There is no ascites. LIVER: Liver is again noted be hypodense implying steatosis and there is an element of a hepato megal y again evident. There are no dilated intrahepatic ducts. GALLBLADDER/BILIARY: No obvious gallbladder pathology. CBD is not dilated. PANCREAS: No evidence of pancreatic mass nor dilatation of the pancreatic duct. SPLEEN: Spleen is not enlarged. No obvious intrasplenic lesions. ADRENALS: Left adrenal unremarkable. Small hypodense nodule in the medial limb of the left adrenal g land noted which is probably an adenoma. This measures 1.6 x 1.2 cm, similar to previous. KIDNEYS:No cysts evident. No solid renal masses. No calculi nor hydronephrosis... ABDOMINAL AORTA: Abdominal aorta is not enlarged. LYMPH NODES: There is no retroperitoneal nor paraaortic adenopathy. ABDOMINAL WALL: There is abnormal Jami umbilical and infraumbilical midline fat streaking consistent with inflammatory process which was not evident on the 2022 study. GI: There is no evidence of bowel obstruction, free air, nor abscess. PELVIS: LYMPH NODES: There is no intrapelvic nor inguinal adenopathy. GI: No evidence of appendicitis.No evidence of sigmoid diverticulitis. URINARY BLADDER: Urinary bladder wall is uniformly thickened which is either related to cystitis or u nder distension. The pelvic ureters are not dilated. REPRODUCTIVE: Prostate gland size is normal. There calcifications in the prostate. Seminal vesicles unremarkable. OSSEOUS: No significant osseous lesions. No fractures. IMPRESSION: 1. There is uniform thickening of the urinary bladder wall which is either related to cystitis or und er distension. 2. There are no radiopaque calculi in the kidneys and ureters and there is no hydronephrosis nor hydr oureter. There are no radiopaque calculi seen in the urinary bladder. 3. Hepatic steatosis. RADIATION DOSE DELIVERED: 2,062.76mGy.cm Total DLP DATA REPOSITORY: All CT scans at this facility are submitted to the National Radiology Data Registry (NRDR) Dose Index Registry (DIR) with the [employer] (A[employer]). RADIATION OPTIMIZATION: All CT scans at this facility use at least one of these dose optimization te chniques: automated exposure control; mA and/or kV adjustment per patient size (includes targeted exa ms where dose is matched to clinical indication); or iterative reconstruction.
--- NOTE | 2024-09-03 18:00 | W.ED.GENAD ---
Discharge Plan Disposition Patient Disposition: Home Condition: Stable Discharge Details Clinical Impression: Renal colic on right side, Pedal edema Primary Care Provider: Ann-Marie Booker ED Provider: Marco Antonio Irvin Home Meds and New Rx's Prescriptions: New cefpodoxime 200 mg tablet 200 mg PO BID 7 Days Qty: 14 0RF Rx Instructions: must administer with a meal/food Continued loratadine [Claritin] 10 mg tablet 10 mg PO DAILY aspirin 325 mg tablet 325 mg PO DAILY metoprolol succinate 50 mg tablet extended release 24 hr 50 mg PO DAILY 90 Days Qty: 90 1RF Rx Instructions: Please cancel 100mg script.. sorry albuterol sulfate 90 mcg/actuation HFA aerosol inhaler 2 puff inhalation Q6H PRN (Reason: shortness of breath or wheezing) Qty: 8.5 0RF Held hydrochlorothiazide 25 mg tablet 25 mg PO DAILY Qty: 90 1RF Hold Instructions: Resume on 09/08/24. Hold until off furosemide Discharge Instructions Instructions: Swelling, Cefpodoxime, Furosemide, Flank Pain ED Additional Instructions: You were seen in the emergency room for your right-sided flank pain as well as lower extremity edema, your cardiac workup is negative and you do not appear to be septic based on laboratory workup today. There is no evidence of UTI in your urine studies, no bacteria in your urine but there is some inflammation seen in the urinary system especially on the right, the CT scan questions a passed kidney stone. Your lower extremity edema may be due to this kidney stone. I am starting you on a stronger diuretic for the next 4 days, we started this tonight. Please pick this up at [facility] in [place] tomorrow. I have also sent a prescription for urinary tract infection and kidney infection to prevent any further complication from your right flank pain, you are welcome to return for any acute worsening especially with focal abdominal pain, fever, nausea and vomiting, urinary retention. Please follow-up with your primary care provider for referral to cardiology for an echocardiogram. Referrals: Ann-Marie Booker, TRAINING AND QUALITY MANAGER [Primary Care Provider] - Discharge Data Discharge Date/Time-TO BE ENTERED AT DEPARTURE: 09/03/24 21:31 HPI General Date/Time Provider Initiated Documentation: 09/03/24 17:18. HPI Narrative: 34 year-old male presents to ED today by POV/ambulating with a chief complaint of chest pain since this morning, bilateral pedal edema with onset for a few days, acute on chronic. Quality described as migraine, endorses shortness of breath sometimes, and that he's been off his meds, no radiation to decreased urine output, palpitations, near syncope, nausea/vomiting, fever. Severity is described as moderate. Palliating factors include nothing specific. Provoking factors include nothing specific. Patient not anticoagulated. Related Data Home Medications ?Medication ?Instructions ?Recorded ?Confirmed aspirin 325 mg tablet 325 mg PO DAILY 06/11/24 09/03/24 loratadine 10 mg tablet (Claritin) 10 mg PO DAILY 06/11/24 09/03/24 hydrochlorothiazide 25 mg tablet 25 mg PO DAILY #90 tabs 07/02/24 09/03/24 metoprolol succinate 50 mg 50 mg PO DAILY 90 days #90 tabs 07/02/24 09/03/24 tablet,extended release 24 hr albuterol sulfate 90 mcg/actuation 2 puff inhalation Q6H PRN 07/10/24 09/03/24 aerosol inhaler shortness of breath or wheezing #8.5 grams cefpodoxime 200 mg tablet 200 mg PO BID 7 days #14 tabs 09/03/24 Previous Rx's ?Medication ?Instructions ?Recorded hydrochlorothiazide 25 mg tablet 25 mg PO DAILY #90 tabs 07/02/24 metoprolol succinate 50 mg 50 mg PO DAILY 90 days #90 tabs 07/02/24 tablet,extended release 24 hr albuterol sulfate 90 mcg/actuation 2 puff inhalation Q6H PRN 07/10/24 aerosol inhaler shortness of breath or wheezing #8.5 grams cefpodoxime 200 mg tablet 200 mg PO BID 7 days #14 tabs 09/03/24 Allergies Allergy/AdvReac Type Severity Reaction Status Date / Time acetaminophen (From Tylenol) Allergy Unknown unknown Verified 09/03/24 16:21 ciprofloxacin (From Cipro) Allergy Unknown unknown Verified 09/03/24 16:21 clarithromycin (From Biaxin) Allergy Unknown unknown Verified 09/03/24 16:21 morphine AdvReac Severe Other (See Verified 09/03/24 16:21 Comment) General Stated Complaint: Chest Pain JOHNNY: 2 Review of Systems All systems reviewed & are unremarkable except as noted in HPI and below Exam Narrative Exam Narrative: GENERAL APPEARANCE: Well-nourished, non-toxic, awake and alert, atraumatic, no acute distress. SKIN: Warm, pink, dry, intact, without rashes/lesions/ulcerations. HEAD: Normocephalic, atraumatic, normal hair distribution for gender/age. EYES: Normal conjunctiva, no exudates on lids/lashes. ENT: Nares patent, no circumoral cyanosis, no facial swelling NECK: Supple, trachea midline, painless cervical ROM. LUNGS/CHEST: Lungs CTA bilaterally, non-labored respirations, normal A/P diameter, symmetrical expansion, no chest wall deformity HEART (CV/PV): Regular rate and rhythm without murmur, no peripheral edema, no JVD. ABDOMEN: Soft, non-distended, no guarding. MSK: Normal ROM, no swelling/deformity to bilateral UEs or LEs, moving all extremities without weakness, no cyanosis, spine midline without tenderness, normal curvature. NEURO: Mental Status AAOx4 - alert to person, place, time, events No facial droop, no forehead involvement. Motor: No focal weakness - strength 5/5 in bilateral UEs and LEs, proximal and distal, symmetric. Sensory: sensation intact to light touch globally. Gait normal: patient ambulated without ataxia into ED room. PSYCH: euthymic, cooperative, pleasant, appropriate speech Course Vital Signs Vital signs: Vital Signs Temperature 37.1 C 09/03/24 16:15 Pulse 118 H 09/03/24 16:15 Respiratory Rate 20 09/03/24 16:15 Blood Pressure 158/117 H 09/03/24 16:15 Pulse Oximetry 93 09/03/24 16:15 Temperature 37.1 C 09/03/24 16:15 Pulse 118 H 09/03/24 16:15 Respiratory Rate 20 09/03/24 16:15 Blood Pressure 158/117 H 09/03/24 16:15 Blood Pressure Position Sitting 09/03/24 16:15 Pulse Oximetry 93 09/03/24 16:15 Oxygen Delivery Method Room Air 09/03/24 16:15 Oxygen Flow Rate 0 09/03/24 16:15 Pain Level 4 09/03/24 16:15 Comment 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 34 year-old male presents to ED today by POV/ambulating with a chief complaint of chest pain since this morning, bilateral pedal edema with onset for a few days, acute on chronic. Quality described as migraine, endorses shortness of breath sometimes, and that he's been off his meds, no radiation to decreased urine output, palpitations, near syncope, nausea/vomiting, fever. Severity is described as moderate. Palliating factors include nothing specific. Provoking factors include nothing specific. Patients' medical history: HTN, renal stones, SESAR, obesity, pre-diabetes, alcoholic gastritis. Family and social history: denies heavy ETOH use, no illicit drug use. Pertinent exam findings / vital signs include 3+ non-pitting edema bilateral legs, benign cardiopulmonary exam, R CVA tenderness to percussion, lungs CTA. Differential / pathologies of concern include CHF, ACS, Renal Colic, UTI, CKD. Diagnostic studies of: - CBC, CMP, troponin, BNP, lipase, TSH, UA, chest x-ray, CT ABD/pelvis without contrast, EKG. - CBC shows a mild leukocytosis, nonspecific without left shift, WBCs 11.48 - CMP shows no acute actionable abnormality - Magnesium within normal limits - Troponin negative with reliable onset - BNP negative -not CHF - UA shows no actionable abnormality, no overt UTI - Lipase negative - Chest x-ray shows no acute findings - CT renal study question cystitis or possible recently passed kidney stone versus upper urinary tract infection - EKG shows NSR at 119, no change from priors, normal intervals no ischemic changes Interventions of: -Rx for cefpodoxime to cover pyelonephritis, started on Furosemide. ED Course/Assessment/Plan: 34-year-old male presents for chest pain since early this morning and worsening bilateral edema with no known coronary artery disease, does have chronic hypertension, his cardiac workup is negative his heart score is low risk warranting outpatient follow-up, negative troponin, negative BNP likely pedal edema worsening in the setting of chronic kidney disease, he does have some evidence for possible passed on her upper urinary tract infection I did cover him with cefpodoxime, started him on furosemide, recommend he follow-up with his primary care provider for these issues, strict return criteria for any worsening chest pain, shortness of breath, worsening edema despite treatment. Findings not consistent with CHF exacerbation, coronary artery disease or ACS, pneumonia, severe dehydration, acute kidney injury or renal failure. Disposition of Renal Colic on Right Side, Pedal Edema. Patient verbalized understanding of the plan and return to ED criteria and engaged in shared decision making. Medical Records Medical records reviewed: Yes I reviewed the patient's medical records. Imaging Data Radiologic Study: Attestation: I personally reviewed and interpreted this imaging study as follows: Imaging: X-Ray Radiologist's impression: Exam: XR Chest Exam date and time: 09/03/2024 8:00 PM Age: 34 years old Clinical indication: Shortness of breath TECHNIQUE: Imaging protocol: Radiologic exam of the chest. Views: 2 views. COMPARISON: CR XR CHEST 2V PA LATERAL 06/25/2024 10:46 AM FINDINGS: Lungs: Unremarkable. No consolidation. Pleural spaces: Unremarkable. No pleural effusion. No pneumothorax. Heart/Mediastinum: Unremarkable. No cardiomegaly. Bones/joints: Unremarkable. IMPRESSION: No acute findings. Dictated and Authenticated by: Cristobal Lisa MD. Radiologic Study #2: Attestation: I personally reviewed and interpreted this imaging study as follows: Imaging: CT Scan Radiologist's impression: Exam: CT Abdomen And Pelvis Without Contrast Exam date and time: 09/03/2024 7:51 PM Age: 34 years old Clinical indication: Other: R CVA tenderness TECHNIQUE: Imaging protocol: Computed tomography of the abdomen and pelvis without contrast. COMPARISON: CT CHEST PE ABD PELVIS W 10/20/2022 1:58 AM FINDINGS: Lungs: Mild atelectasis or scar tissue is noted in the lung bases. Liver: Liver attenuation is low. Negative for mass or abscess. Gallbladder and biliary ducts: Normal. No calcified stones. No ductal dilation. Pancreas: Normal. No ductal dilation. Spleen: Normal. No splenomegaly. Adrenal glands: A right adrenal myelolipoma is noted, 1.4 cm diameter, Hounsfield units -10. Kidneys and ureters: There is no hydronephrosis. There is no fat stranding around the kidneys. There are no perinephric fluid collections. There are no stones in the collecting systems or the ureters. Mild distension and fat stranding are noted in the right mid ureter, 11 mm diameter on axial image 166 series 9. Stomach and bowel: Unremarkable stomach. Nondilated small bowel. Negative for inflammatory changes around the colon. Appendix: Normal appendix. Intraperitoneal space: Unremarkable. No free air. No significant fluid collection. Vasculature: Mild vascular calcifications. Negative for abdominal aortic aneurysm. Lymph nodes: Unremarkable. No enlarged lymph nodes. Urinary bladder: Mild wall thickening and fat stranding. No stones. No gas. Reproductive: Unremarkable as visualized. Bones/joints: Negative for compression fracture. Mild degenerative changes are noted in the spine overall. Moderate-severe spinal canal stenosis is suspected at L4-L5. Soft tissues: No abdominal wall hernia. No fluid collection. Infraumbilical midline fat stranding is noted in the subcutaneous tissues. IMPRESSION: 1. No hydronephrosis. No urolithiasis. 2. Question cystitis/urinary tract infection. 3. Abnormal right ureter. Upper urinary tract infection/ureteritis considered. A recently passed stone may also be considered. 4. Moderate-severe spinal canal stenosis suspected at L4-L5. Nonemergent follow-up MR lumbar spine is advised for better characterization. 5. Hepatic steatosis. Dictated and Authenticated by: Fabiano Garcia MD. Lab Data Lab results reviewed: Yes I reviewed the patient's lab results. Labs: Laboratory Tests Range/Units 09/03/24 09/03/24 18:28 19:28 WBC (4.4-10.8) 10^3/uL 11.48 H RBC (4.36-5.78) 10^6/uL 5.74 Hgb (13.5-17.5) g/dL 15.2 Hct (40.0-50.0) % 47.6 MCV (80-95) fL 83 MCH (27.0-33.0) pg 26.5 L MCHC (32.0-36.0) % 31.9 L RDW (11.8-14.1) % 14.6 H Plt Count (130-400) 10^3/uL 309 MPV (8.0-11.0) fL 11.0 Immature Gran % % 0.3 Neutrophils % % 71.7 Lymphocytes % % 20.2 Monocytes % % 5.4 Eosinophils % % 2.0 Basophils % % 0.4 Nucleated RBC % (0.0-0.3) % 0.0 Absolute Neutrophils (1.2-6.7) 10^3/uL 8.23 H Absolute Lymphocytes (1.2-3.4) 10^3/uL 2.32 Absolute Monocytes (0.1-0.8) 10^3/uL 0.62 Absolute Eosinophils (0.0-0.7) 10^3/uL 0.23 Absolute Basophils (0.0-0.2) 10^3/uL 0.05 Sodium (136-145) mmol/L 139 Potassium (3.5-5.1) mmol/L 3.9 Chloride (98-107) mmol/L 105 Carbon Dioxide (21.0-32.0) mmol/L 25.6 Anion Gap (3-11) mmol/L 8.4 BUN (7-18) mg/dL 11 Creatinine (0.70-1.30) mg/dL 0.9 Est GFR (CKD-EPI 2020) (mL/min/1.73m2) 114.93 Glucose (74-106) mg/dL 97 Calcium (8.5-10.1) mg/dL 9.1 Magnesium (1.8-2.4) mg/dL 1.9 Total Bilirubin (0.2-1.0) mg/dL 0.3 Conjugated Bilirubin (0.0-0.2) mg/dL 0.1 AST (15-37) U/L 23 ALT (16-63) U/L 47 Alkaline Phosphatase (46-116) U/L 73 Troponin I (<or=76) ng/L 13 NT-Pro-B Natriuret Pep (<300) pg/mL 46 Total Protein (6.4-8.2) g/dL 6.8 Albumin (3.4-5.0) g/dL 3.3 L Lipase (<78) U/L 28 TSH (0.36-3.74) uIU/mL 2.19 Urine Color (Yellow) Yellow Urine Clarity (Clear) Clear Urine pH (5-8) 6.0 Ur Specific [place] (1.005-1.025) 1.015 Urine Protein (Neg-Trace) mg/dL 30 H Urine Ketones (Negative) mg/dL Trace H Urine Blood (Negative) Trace-intact H Urine Nitrite (Negative) Negative Urine Bilirubin (Negative) Negative Urine Urobilinogen (Up to 0.2) mg/dL 0.2 Ur Leukocyte Esterase (Negative) Negative Urine RBC (0-2) HPF 0-2 Urine WBC (0-5) HPF Negative Ur Epithelial Cells (Negative) HPF Negative Urine Crystals (Negative) HPF Negative Urine Bacteria (Negative) HPF Negative Urine Mucus (Negative) Negative Ur Culture Indicated? No Urine Glucose (Negative) mg/dL Negative Quality:SDOH Health Related Social Needs: No Data to Display PFSH All Active Problems (Updated 09/03/24 @ 21:04 by LYNNETTE Bergeron) Pedal edema (Acute) Renal colic on right side (Acute) URI (upper respiratory infection) (Acute) Cough (Acute) Breast lump (Acute) Pre-diabetes (Acute) a1c 5.9 Discharge planning issues (Acute) Hypotension (Acute) MRSA infection (Acute) Sleep apnea in adult (Acute) Homeless (Acute) Leg cramps (Acute) Bipolar 1 disorder (Acute) Anxiety and depression (Chronic) Snoring (Acute) Essential hypertension (Chronic) Left ureteral stone (Acute) Medical History (Updated 09/03/24 @ 21:04 by LYNNETTE Bergeron) Sepsis Alcoholic gastritis History of herpes zoster Impaired glucose tolerance Abdominal pain Nausea Sleep pattern disturbance Muscle pain Lumbago with sciatica Degeneration of cervical intervertebral disc Kidney stone Hypertensive disorder PTSD (post-traumatic stress disorder) Secondary polycythemia Hyperlipidemia Surgical History (Updated 05/08/24 @ 09:51 by Luisa Abdi) Status post incision and drainage (~04/2024) left axilla, MRSA + History of colonoscopy with polypectomy (01/28/18) inflammatory bowel disease, polyps x3, internal and external hemorrhoids History of cystoscopy (05/30/16) with laser litho LT History of ureteroscopy (03/17/19) left, with stone extraction History of esophagogastroduodenoscopy (EGD) (09/17/19) paraesophageal hernia type 3 History of placement of ear tubes Family History Other Colon cancer Dementia Social History (Updated 07/02/24 @ 09:42 by Merle Navarro LPN) Smoking/Tobacco Use Status: Current every day Tobacco Type: cigarettes Tobacco: How many years used: 14 Smoking risk assessment performed?: Yes Alcohol Intake: never Drug use: Occasionally Substance use type: marijuana Counseling given: No Adopted: No Caregiver/Support person: No Foster care: No Household members: significant other Housing: homeless Number of Children: 1 Communication Needs: None and Corrective Lenses Education Level: high school Do you need help understanding health information?: Rarely current occupation: working [employer] Pets and animals: No Sexually active: Yes Do you think of yourself as: straight/heterosexual What is your relationship status?: living with partner How often do you talk on the phone with friends or family?: decline to answer How often do you get together with friends or relatives?: never Do you belong to any clubs or organized social groups?: no Panel score (0-1 are the most socially isolated patients): 1 What type of physical activity do you participate in: walking and other Details: stretches Duration: 15-30 minutes/day Frequency: daily Meghana/Yazidi: None Seatbelt use: always Helmet use: No Drive intox or ride w/intox 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
[2024-09-03 18:40] LABS: Abs Immature Grans 0.04 10^3/uL (0.0-0.06); Absolute Basophil Count 0.05 10^3/uL (0.0-0.2); Absolute Eosinophil Count 0.23 10^3/uL (0.0-0.7); Absolute Lymphocyte Count 2.32 10^3/uL (1.2-3.4); Absolute Monocyte Count 0.62 10^3/uL (0.1-0.8); Basophils % 0.4 %; HCT 47.6 % (40.0-50.0); HGB 15.2 g/dL (13.5-17.5); Immature Grans % 0.3 %; Lymphocytes % 20.2 %; MCH 26.5 pg (27.0-33.0); MCHC 31.9 % (32.0-36.0); MCV 83 fL (80-95); Monocytes % 5.4 %; Neutrophils % 71.7 %; Platelet Count 309 10^3/uL (130-400); RBC 5.74 10^6/uL (4.36-5.78); RDW 14.6 % (11.8-14.1); RDW-SD 43.9 fL; WBC 11.48 10^3/uL (4.4-10.8)
[2024-09-03 18:42] LABS: Absolute Neutrophil Count 8.23 10^3/uL (1.2-6.7)
[2024-09-03] MEDS: Furosemide 40 MG/4 ML VIAL IVP (18:45)
[2024-09-03 19:04] LABS: ALT 47 U/L (16-63); AST 23 U/L (15-37); Albumin 3.3 g/dL (3.4-5.0); Alkaline Phosphatase 73 U/L (46-116); Anion Gap 8.4 mmol/L (3-11); BUN 11 mg/dL (7-18); Bilirubin, Direct 0.1 mg/dL (0.0-0.2); Bilirubin, Total 0.3 mg/dL (0.2-1.0); CO2 25.6 mmol/L (21.0-32.0); CREATININE 0.9 mg/dL (0.70-1.30); Calcium 9.1 mg/dL (8.5-10.1); Chloride 105 mmol/L (98-107); Estimated GFR 114.93 (mL/min/1.73m2); Glucose 97 mg/dL (74-106); Lipase 28 U/L (<78); Magnesium 1.9 mg/dL (1.8-2.4); NT-proBNP 46 pg/mL (<300); Potassium 3.9 mmol/L (3.5-5.1); Sodium 139 mmol/L (136-145); TSH (W/Ref FT4) 2.19 uIU/mL (0.36-3.74); Total Protein 6.8 g/dL (6.4-8.2); Troponin I 13 ng/L (<or=76)
[2024-09-03] MEDS: Metoprolol CR 50 MG TABCR PO (19:25)
[2024-09-03 19:34] LABS: Bilirubin Negative (Negative); Blood Trace-intact (Negative); Clarity Clear (Clear); Glucose Negative (Negative); Ketones Trace mg/dL (Negative); Leukocyte Esterase Negative (Negative); Nitrite Negative (Negative); Specific Gravity 1.015 (1.005-1.025); Urobilinogen 0.2 mg/dL (Up to 0.2)
[2024-09-03 19:43] LABS: Bacteria Negative HPF (Negative); C & S Indicated? No; Crystals Negative HPF (Negative); Epithelial Cells Negative HPF (Negative); Mucus Negative (Negative); RBC 0-2 HPF (0-2); WBC Negative HPF (0-5)
--- NOTE | 2024-09-03 20:06 | DI.RAD_ITS ---
Exam(s) XR CHEST 2V PA LATERAL EXAM: XR CHEST 2V PA LATERAL CLINICAL HISTORY: shortness of breath. TECHNIQUE: 2D digital imaging was performed. COMPARISON: CR XR CHEST 2V PA LATERAL from 06/25/2024 FINDINGS: 2 views: Heart size is normal. The mediastinum is not widened. Lungs are clear. No infiltrates nor pleural effusions. IMPRESSION: No acute pulmonary findings. DATA REPOSITORY: RADIATION DOSE DELIVERED:
--- NOTE | 2024-09-03 20:32 | DI.VRAD_ITS ---
PROCEDURE INFORMATION: Exam: XR Chest Exam date and time: 09/03/2024 8:00 PM Age: 34 years old Clinical indication: Shortness of breath TECHNIQUE: Imaging protocol: Radiologic exam of the chest. Views: 2 views. COMPARISON: CR XR CHEST 2V PA LATERAL 06/25/2024 10:46 AM FINDINGS: Lungs: Unremarkable. No consolidation. Pleural spaces: Unremarkable. No pleural effusion. No pneumothorax. Heart/Mediastinum: Unremarkable. No cardiomegaly. Bones/joints: Unremarkable. IMPRESSION: No acute findings. Dictated and Authenticated by: Cristobal Lisa MD. Orderin Albaro Bernard MD
--- NOTE | 2024-09-03 20:55 | DI.VRAD_ITS ---
PROCEDURE INFORMATION: Exam: CT Abdomen And Pelvis Without Contrast Exam date and time: 09/03/2024 7:51 PM Age: 34 years old Clinical indication: Other: R CVA tenderness TECHNIQUE: Imaging protocol: Computed tomography of the abdomen and pelvis without contrast. COMPARISON: CT CHEST PE ABD PELVIS W 10/20/2022 1:58 AM FINDINGS: Lungs: Mild atelectasis or scar tissue is noted in the lung bases. Liver: Liver attenuation is low. Negative for mass or abscess. Gallbladder and biliary ducts: Normal. No calcified stones. No ductal dilation. Pancreas: Normal. No ductal dilation. Spleen: Normal. No splenomegaly. Adrenal glands: A right adrenal myelolipoma is noted, 1.4 cm diameter, Hounsfield units -10. Kidneys and ureters: There is no hydronephrosis. There is no fat stranding around the kidneys. There are no perinephric fluid collections. There are no stones in the collecting systems or the ureters. Mild distension and fat stranding are noted in the right mid ureter, 11 mm diameter on axial image 166 series 9. Stomach and bowel: Unremarkable stomach. Nondilated small bowel. Negative for inflammatory changes around the colon. Appendix: Normal appendix. Intraperitoneal space: Unremarkable. No free air. No significant fluid collection. Vasculature: Mild vascular calcifications. Negative for abdominal aortic aneurysm. Lymph nodes: Unremarkable. No enlarged lymph nodes. Urinary bladder: Mild wall thickening and fat stranding. No stones. No gas. Reproductive: Unremarkable as visualized. Bones/joints: Negative for compression fracture. Mild degenerative changes are noted in the spine overall. Moderate-severe spinal canal stenosis is suspected at L4-L5. Soft tissues: No abdominal wall hernia. No fluid collection. Infraumbilical midline fat stranding is noted in the subcutaneous tissues. IMPRESSION: 1. No hydronephrosis. No urolithiasis. 2. Question cystitis/urinary tract infection. 3. Abnormal right ureter. Upper urinary tract infection/ureteritis considered. A recently passed stone may also be considered. 4. Moderate-severe spinal canal stenosis suspected at L4-L5. Nonemergent follow-up MR lumbar spine is advised for better characterization. 5. Hepatic steatosis. Dictated and Authenticated by: Fabiano Garcia MD. Orderin Albaro Bernard MD
[2024-09-03] MEDS: Cefpodoxime 200 MG TAB PO (21:20)
[2024-09-03] MEDS: Furosemide 20 MG TAB PO (21:23)
== END 2024-09-03 21:31 | disposition home or self-care (01) ==
PROVIDERS: Emergency Provider Physician Assistant; PCP Nurse Practitioner
DX: N23 Unspecified renal colic (principal); R60.9 Edema, unspecified; I10 Essential (primary) hypertension; F17.210 Nicotine dependence, cigarettes, uncomplicated; Z79.82 Long term (current) use of aspirin
CPT/HCPCS: 36415; 80048; 80076; 83690; 93005; 96374; 99285; 71046; 74176; 81003; 81015; 83735; 83880; 84443; 84484; 85025; 93010; 99284; J1941

== ENCOUNTER 2024-10-08 14:02 | Inpatient (IN) | payer MEDICAID, SELFPAY ==
[2024-10-08] VITALS (76 sets, daily range): BP systolic 145–206; BP diastolic 97–132; PULSE 83–127; RESP 14–38; TEMP 36.8–37.4; O2SAT 92–98
--- NOTE | 2024-10-08 14:00 | RT.EKG_ITS ---
APPROVED REPORT Exam: Resting ECG Reason for Exam: SOB Patient Location: E HR:107 bpm ECG Measurements Heart Rate 107 AXIS MA 155 P 41 QRSd 100 QRS 38 QT 340 T 50 QTc 454 Conclusion Sinus tachycardia...rate> 99 Probable left atrial enlargement...P >50mS, <-0.10mV V1
--- NOTE | 2024-10-08 14:30 | DI.US_ITS ---
Exam(s) US EXTREMITY VENOUS BI EXAM: US EXTREMITY VENOUS BI CLINICAL HISTORY: swelling, pain. TECHNIQUE: Bilateral lower extremity venous ultrasound performed using grayscale, color-flow, and sp ectral Doppler analysis. COMPARISON: CT CT RENAL COLIC WO from 09/03/2024 FINDINGS: The right common femoral, femoral and popliteal veins demonstrate normal compressibility, augmentatio n, and color Doppler. The posterior tibial and peroneal veins are patent. The saphenofemoral junctio n is unremarkable. There is no evidence of a Aguilar's cyst. There is mild edema seen in the soft tiss ues of the lower leg. The left common femoral, femoral and popliteal veins demonstrate normal compressibility, augmentation , and color Doppler. The posterior tibial and peroneal veins are patent. The saphenofemoral junction is unremarkable. There is no evidence of a Aguilar's cyst. There is mild edema seen in the soft tissu es of the lower leg. Prominent inguinal lymph nodes are seen bilaterally. The largest on the right measures 4.2 cm. The largest on the left measures 3.3 cm. These are similar in appearance to the lymph nodes seen on the CT scan from 09/03/2024. IMPRESSION: 1. No evidence of a right lower extremity DVT. 2. No evidence of a left lower extremity DVT. 3. Mild edema seen in the lower extremities. DATA REPOSITORY:
[2024-10-08 14:45] LABS: Abs Immature Grans 0.05 10^3/uL (0.0-0.06); Absolute Basophil Count 0.05 10^3/uL (0.0-0.2); Absolute Eosinophil Count 0.33 10^3/uL (0.0-0.7); Absolute Lymphocyte Count 1.72 10^3/uL (1.2-3.4); Absolute Monocyte Count 0.81 10^3/uL (0.1-0.8); Absolute Neutrophil Count 7.49 10^3/uL (1.2-6.7); Basophils % 0.5 %; Eosinophils % 3.2 %; HGB 15.5 g/dL (13.5-17.5); Immature Grans % 0.5 %; Lymphocytes % 16.5 %; MCH 26.3 pg (27.0-33.0); MCHC 31.6 % (32.0-36.0); MCV 83 fL (80-95); MPV 11.4 fL (8.0-11.0); Monocytes % 7.8 %; Neutrophils % 71.5 %; Platelet Count 296 10^3/uL (130-400); RBC 5.89 10^6/uL (4.36-5.78); RDW 14.3 % (11.8-14.1); RDW-SD 43.3 fL; WBC 10.45 10^3/uL (4.4-10.8)
[2024-10-08 14:57] LABS: Prothrombin Time 9.6 sec (9.1-11.1)
[2024-10-08 15:10] LABS: D-Dimer 339 ng/mlFEU (<500)
[2024-10-08 15:11] LABS: ALT 44 U/L (16-63); AST 23 U/L (15-37); Albumin 3.1 g/dL (3.4-5.0); Alkaline Phosphatase 92 U/L (46-116); Anion Gap 4.7 mmol/L (3-11); BUN 10 mg/dL (7-18); Bilirubin, Total 0.4 mg/dL (0.2-1.0); CO2 29.3 mmol/L (21.0-32.0); Calcium 8.8 mg/dL (8.5-10.1); Chloride 106 mmol/L (98-107); Estimated GFR 101.28 (mL/min/1.73m2); Glucose 87 mg/dL (74-106); Magnesium 1.8 mg/dL (1.8-2.4); NT-proBNP 47 pg/mL (<300); Potassium 4.3 mmol/L (3.5-5.1); Sodium 140 mmol/L (136-145); Total Protein 6.8 g/dL (6.4-8.2); Troponin I 13 ng/L (<or=76)
[2024-10-08 16:06] LABS: Troponin I 9 ng/L (<or=76)
--- NOTE | 2024-10-08 16:29 | W.ED.GENAD ---
Discharge Plan Disposition Patient Disposition: Admit to [facility] Condition: Serious Discharge Details Chief Complaint: GenMedical Clinical Impression: Essential hypertension, Cellulitis, Bilateral lower extremity edema, Dyspnea on exertion Primary Care Provider: Ann-Marie Booker ED Provider: Mejia Tran Home Meds and New Rx's Prescriptions: No Action loratadine [Claritin] 10 mg tablet 10 mg PO DAILY PRN albuterol sulfate 90 mcg/actuation HFA aerosol inhaler 2 puff inhalation Q6H PRN (Reason: shortness of breath or wheezing) Qty: 8.5 0RF aspirin 325 mg tablet 325 mg PO DAILY Qty: 90 0RF metoprolol succinate 50 mg tablet extended release 24 hr 50 mg PO DAILY 90 Days Qty: 90 1RF Rx Instructions: Please cancel 100mg script.. sorry hydrochlorothiazide 25 mg tablet 25 mg PO DAILY Qty: 90 1RF HPI General Date/Time Provider Initiated Documentation: 10/08/24 14:16. Limitations to Documentation: no limitations. Information obtained by: patient. HPI Narrative: HISTORY OF PRESENT ILLNESS The patient presents with leg swelling persisting for several months, worsening over the past 2 weeks, extending to his knees with new tenderness and sharp pain. No fevers. Compression socks were too painful after 3 days. Lasix prescribed 1.5 months ago provided some relief. No cardiac or pulmonary history. No echocardiogram done. Reports dyspnea, especially when ascending hills or stairs, that has been present over the past months. Blood pressure typically around 150s systolic. Patient was seen by PCP today who was concerned for volume overload and cellulitis of the lower extremities and and advised to seek care in the [place] for hospitalization for diuresis and IV antibiotics. Related Data Home Medications ?Medication ?Instructions ?Recorded ?Confirmed loratadine 10 mg tablet (Claritin) 10 mg PO DAILY PRN 06/11/24 10/08/24 albuterol sulfate 90 mcg/actuation 2 puff inhalation Q6H PRN 09/22/24 10/08/24 aerosol inhaler shortness of breath or wheezing #8.5 grams aspirin 325 mg tablet 325 mg PO DAILY #90 tabs 09/22/24 10/08/24 hydrochlorothiazide 25 mg tablet 25 mg PO DAILY #90 tabs 09/22/24 10/08/24 metoprolol succinate 50 mg 50 mg PO DAILY 90 days #90 tabs 09/22/24 10/08/24 tablet,extended release 24 hr Previous Rx's ?Medication ?Instructions ?Recorded albuterol sulfate 90 mcg/actuation 2 puff inhalation Q6H PRN 09/22/24 aerosol inhaler shortness of breath or wheezing #8.5 grams aspirin 325 mg tablet 325 mg PO DAILY #90 tabs 09/22/24 hydrochlorothiazide 25 mg tablet 25 mg PO DAILY #90 tabs 09/22/24 metoprolol succinate 50 mg 50 mg PO DAILY 90 days #90 tabs 09/22/24 tablet,extended release 24 hr Allergies Allergy/AdvReac Type Severity Reaction Status Date / Time acetaminophen (From Tylenol) Allergy Unknown unknown Verified 10/08/24 14:08 ciprofloxacin (From Cipro) Allergy Unknown unknown Verified 10/08/24 14:08 clarithromycin (From Biaxin) Allergy Unknown unknown Verified 10/08/24 14:08 morphine AdvReac Severe Other (See Verified 10/08/24 14:08 Comment) General Stated Complaint: GenMedical JOHNNY: 3 Review of Systems All systems reviewed & are unremarkable except as noted in HPI and below Constitutional Constitutional: Denies fever(s) Cardiovascular Cardiovascular: Denies chest pain and Reports dyspnea on exertion Respiratory Respiratory: Reports dyspnea on exertion Exam Const General: cooperative Nutritional Appearance: obese Orientation: alert and awake HENFL Mouth: moist mucous membranes Eyes Conjunctivae: normal conjunctivae Sclera: normal sclerae Resp Auscultation: clear to auscultation bilaterally, no rales, no rhonchi and no wheezes Cardio Rate: tachycardic Rhythm: regular rhythm GI Palpation: soft, not firm, no guarding, no masses, not rigid and nontender Skin General skin exam: no rashes or lesions noted Neuro General: patient alert, patient awake, patient oriented x3 and tone normal Extrem General: calf tenderness bilaterally and edema Laterality: bilateral (tense up to knees) Right lower extremity: lower leg Details: erythema and tenderness Left lower extremity: lower leg Details: erythema and tenderness Psych Appearance: grossly normal Mental Status: mental status grossly normal Course Vital Signs Vital signs: Vital Signs Temperature 36.8 C 10/08/24 14:04 Pulse 116 H 10/08/24 14:04 Respiratory Rate 20 10/08/24 14:04 Blood Pressure 146/114 H 10/08/24 14:04 Pulse Oximetry 97 10/08/24 14:04 Temperature 36.8 C 10/08/24 14:09 Temperature Source Temporal Artery Scan 10/08/24 14:09 Pulse 85 10/08/24 15:40 Pulse 93 H 10/08/24 15:40 Respiratory Rate 19 10/08/24 15:40 Respiratory Effort Normal, Short of Breath 10/08/24 14:38 Respiratory Depth Normal 10/08/24 14:38 Respiratory Pattern Normal 10/08/24 14:38 Blood Pressure 179/102 H 10/08/24 15:31 Blood Pressure Mean 122 10/08/24 15:31 Blood Pressure Position Sitting 10/08/24 14:09 Pulse Oximetry 94 10/08/24 15:40 Oxygen Delivery Method Room Air 10/08/24 14:09 Oxygen Flow Rate 0 10/08/24 14:09 Pain Level 9 10/08/24 14:09 Lab/Test Results Lab/Test Results: Laboratory Tests Range/Units 10/08/24 10/08/24 14:40 15:40 WBC (4.4-10.8) 10^3/uL 10.45 RBC (4.36-5.78) 10^6/uL 5.89 H Hgb (13.5-17.5) g/dL 15.5 Hct (40.0-50.0) % 49.0 MCV (80-95) fL 83 MCH (27.0-33.0) pg 26.3 L MCHC (32.0-36.0) % 31.6 L RDW (11.8-14.1) % 14.3 H Plt Count (130-400) 10^3/uL 296 MPV (8.0-11.0) fL 11.4 H Immature Gran % % 0.5 Neutrophils % % 71.5 Lymphocytes % % 16.5 Monocytes % % 7.8 Eosinophils % % 3.2 Basophils % % 0.5 Nucleated RBC % (0.0-0.3) % 0.0 Absolute Neutrophils (1.2-6.7) 10^3/uL 7.49 H Absolute Lymphocytes (1.2-3.4) 10^3/uL 1.72 Absolute Monocytes (0.1-0.8) 10^3/uL 0.81 H Absolute Eosinophils (0.0-0.7) 10^3/uL 0.33 Absolute Basophils (0.0-0.2) 10^3/uL 0.05 PT (9.1-11.1) sec 9.6 INR (0.9-1.1) 1.0 D-Dimer (<500) ng/mlFEU 339 Sodium (136-145) mmol/L 140 Potassium (3.5-5.1) mmol/L 4.3 Chloride (98-107) mmol/L 106 Carbon Dioxide (21.0-32.0) mmol/L 29.3 Anion Gap (3-11) mmol/L 4.7 BUN (7-18) mg/dL 10 Creatinine (0.70-1.30) mg/dL 1.0 Est GFR (CKD-EPI 2020) (mL/min/1.73m2) 101.28 Glucose (74-106) mg/dL 87 Calcium (8.5-10.1) mg/dL 8.8 Magnesium (1.8-2.4) mg/dL 1.8 Total Bilirubin (0.2-1.0) mg/dL 0.4 AST (15-37) U/L 23 ALT (16-63) U/L 44 Alkaline Phosphatase (46-116) U/L 92 Troponin I (<or=76) ng/L 13 9 NT-Pro-B Natriuret Pep (<300) pg/mL 47 Total Protein (6.4-8.2) g/dL 6.8 Albumin (3.4-5.0) g/dL 3.1 L Medical Decision Making ASSESSMENT AND PLAN Initial Assessment: Patient presents with leg swelling for months, worsened over the past 2 weeks, and shortness of breath, especially with exertion. Lower legs concerning for cellulitis given pain and erythema. Differential Diagnosis: - Concern for CHF, consider renal disease. - Lymphedema and cellulitis ED Course: - Patient hypertensive 179/102. - Comprehensive blood workup. Creatinine and BNP and initial troponin normal. - Chest x-ray pending. - Echocardiogram to evaluate heart function not currently available. - Administer Lasix 40 mg IV for volume overload. - Ultrasound bilateral lower extremities to assess for DVT was interpreted by radiology: - Cefazolin IV ordered for potential cellulitis cellulitis. - Plan for hospitalization for continued treatment. - Patient complaining of mild headache and was given ibuprofen. Final Assessment: Patient's leg swelling and shortness of breath have worsened recently. Blood work, chest x-ray, echocardiogram, and ultrasound are planned to evaluate the underlying cause. Lasix will be administered for fluid retention. Clinical Impression: - Lower extremity edema. - Dyspnea on exertion. - Cellulitis Disposition: - Hospitalization for continued IV diuresis and antibiotics. MDM Components Evaluation: - Number of Differential Diagnoses or Management Options: CHF, renal disease. - Amount and Complexity of Data Reviewed: Blood work, chest x-ray, echocardiogram, ultrasound. - Risk of Complication and Morbidity or Mortality: High due to potential CHF and renal disease. This document was written with the assistance of ISIDRO Torres. The patient consented to its use. Lab Data Lab results reviewed: Yes I reviewed the patient's lab results. Labs: Laboratory Tests Range/Units 10/08/24 10/08/24 14:40 15:40 WBC (4.4-10.8) 10^3/uL 10.45 RBC (4.36-5.78) 10^6/uL 5.89 H Hgb (13.5-17.5) g/dL 15.5 Hct (40.0-50.0) % 49.0 MCV (80-95) fL 83 MCH (27.0-33.0) pg 26.3 L MCHC (32.0-36.0) % 31.6 L RDW (11.8-14.1) % 14.3 H Plt Count (130-400) 10^3/uL 296 MPV (8.0-11.0) fL 11.4 H Immature Gran % % 0.5 Neutrophils % % 71.5 Lymphocytes % % 16.5 Monocytes % % 7.8 Eosinophils % % 3.2 Basophils % % 0.5 Nucleated RBC % (0.0-0.3) % 0.0 Absolute Neutrophils (1.2-6.7) 10^3/uL 7.49 H Absolute Lymphocytes (1.2-3.4) 10^3/uL 1.72 Absolute Monocytes (0.1-0.8) 10^3/uL 0.81 H Absolute Eosinophils (0.0-0.7) 10^3/uL 0.33 Absolute Basophils (0.0-0.2) 10^3/uL 0.05 PT (9.1-11.1) sec 9.6 INR (0.9-1.1) 1.0 D-Dimer (<500) ng/mlFEU 339 Sodium (136-145) mmol/L 140 Potassium (3.5-5.1) mmol/L 4.3 Chloride (98-107) mmol/L 106 Carbon Dioxide (21.0-32.0) mmol/L 29.3 Anion Gap (3-11) mmol/L 4.7 BUN (7-18) mg/dL 10 Creatinine (0.70-1.30) mg/dL 1.0 Est GFR (CKD-EPI 2020) (mL/min/1.73m2) 101.28 Glucose (74-106) mg/dL 87 Calcium (8.5-10.1) mg/dL 8.8 Magnesium (1.8-2.4) mg/dL 1.8 Total Bilirubin (0.2-1.0) mg/dL 0.4 AST (15-37) U/L 23 ALT (16-63) U/L 44 Alkaline Phosphatase (46-116) U/L 92 Troponin I (<or=76) ng/L 13 9 NT-Pro-B Natriuret Pep (<300) pg/mL 47 Total Protein (6.4-8.2) g/dL 6.8 Albumin (3.4-5.0) g/dL 3.1 L Quality:SDOH Health Related Social Needs: No Data to Display PFSH All Active Problems (Updated 10/08/24 @ 16:44 by Mejia Tran MD) Dyspnea on exertion (Acute) Bilateral lower extremity edema (Acute) Low testosterone in male (Acute) Cellulitis (Acute) URI (upper respiratory infection) (Acute) Cough (Acute) Breast lump (Acute) Pre-diabetes (Acute) a1c 5.9 Discharge planning issues (Acute) Hypotension (Acute) MRSA infection (Acute) Sleep apnea in adult (Acute) Homeless (Acute) Leg cramps (Acute) Bipolar 1 disorder (Acute) Anxiety and depression (Chronic) Snoring (Acute) Essential hypertension (Chronic) Left ureteral stone (Acute) Medical History Sepsis Alcoholic gastritis History of herpes zoster Impaired glucose tolerance Abdominal pain Nausea Sleep pattern disturbance Muscle pain Lumbago with sciatica Degeneration of cervical intervertebral disc Kidney stone Hypertensive disorder PTSD (post-traumatic stress disorder) Secondary polycythemia Hyperlipidemia Surgical History Status post incision and drainage (~04/2024) left axilla, MRSA + History of colonoscopy with polypectomy (01/28/18) inflammatory bowel disease, polyps x3, internal and external hemorrhoids History of cystoscopy (05/30/16) with laser litho LT History of ureteroscopy (03/17/19) left, with stone extraction History of esophagogastroduodenoscopy (EGD) (09/17/19) paraesophageal hernia type 3 History of placement of ear tubes Family History Other Colon cancer Dementia Social History Smoking/Tobacco Use Status: Current every day Tobacco Type: cigarettes Tobacco: How many years used: 14 Smoking risk assessment performed?: Yes Alcohol Intake: never Drug use: Occasionally Substance use type: marijuana Counseling given: No Adopted: No Caregiver/Support person: No Foster care: No Household members: significant other Housing: homeless Number of Children: 1 Communication Needs: None and Corrective Lenses Education Level: high school Do you need help understanding health information?: Rarely 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 Pets and animals: No Sexually active: Yes Do you think of yourself as: straight/heterosexual What is your relationship status?: living with partner How often do you talk on the phone with friends or family?: decline to answer How often do you get together with friends or relatives?: never Do you belong to any clubs or organized social groups?: no Panel score (0-1 are the most socially isolated patients): 1 What type of physical activity do you participate in: walking and other Details: stretches Duration: 15-30 minutes/day Frequency: daily Meghana/Latter Day: None Seatbelt use: always Helmet use: No Drive intox or ride w/intox team cdl driver: No Working smoke detector in home: Yes Fire extinguisher in home: Yes Carbon monox detector in home: No Do you feel safe at home: Yes Do you feel safe in your relationship?: Yes Additional Social history: lost housing sunday, awaiting bed at [facility]
[2024-10-08] MEDS: ceFAZolin 2 GM/50 ML BAG IVPB (16:37)
[2024-10-08] MEDS: Furosemide 40 MG/4 ML VIAL IVP (16:37)
[2024-10-08] MEDS: Ibuprofen 400 MG TAB PO (16:41)
--- NOTE | 2024-10-08 16:45 | HPE_ITS ---
Date of service: 10/08/24 Time of Service: 16:45 Assessment and Plan Assessment and plan (1) Dyspnea on exertion: Status: Acute Assessment and plan: -progressive over the last few months along with bilateral LE edema -patient does not have known history of CAD or CHF, but does have HTN and potentially sleep apnea leading to pHTN -patient given 40mg IV lasix in ED, will monitor UOP and given additional doses of lasix based on response -TTE ordered, will f/u on results (2) Bilateral lower extremity edema: Status: Acute Assessment and plan: -likley associated with MORELOS, see above - In ED initial concern for bilateral lower extremity cellulitis, but upon exam it is more consistent with a chronic lower extremity edema, especially given that patient stated that redness has been present for 3 weeks, has slowly gotten worse, patient denies any fevers, he has no leukocytosis, and CT did not show any subcutaneous signs consistent with cellulitis (3) Essential hypertension: Status: Chronic Assessment and plan: -contnue home HCTZ and metoprolol succ 50mg daily History of Present Illness History of Present Illness Chief Complaint: dyspnea on exertion, bilateral LE edema Narrative: 34yo male with PMH HTN who presents to the ED from his PCPs office for concerns of ongoing exertional dyspnea,worsening bilateral LE and cellulitis. Patient began to notice bilateral LE edema that started a few months ago and has been getting progressively worse. At one point he was on lasix and stated that it helped his symptoms. He was also seen at urgent care about three weeks ago and was started on HCTZ without improvement. While at his PCPs office he stated that his LE edema was getting worse and that he was unable to wear the recommended compression stockings, and that he has since developed exertional shortness of breath. He is also noted to have low testosterone, as well as likely sleep apnea though he has yet to have a sleep study to confirm. He also stated that he noticed both legs becoming red and warm and having weaping drainage. He denied any fevers, chills, GODINEZ, lightheadedness, chest pain, dizziness, cough, nausea or vomiting. In the ED the patient was noted as being hypertensive without otherwise normal vitals, CBC, and CMP, as well as having an unremarkable EKG and negative troponins. He also had bilateral LE US which did not show any signs of DVT, but did show mild edema bilaterally. Given concern for CHF a pBNP was also checked but was not elevated, and a d-dimer was not elevated in evaluating potential for PE.While in the ED the patient with started on ancef and given a 40mg IV dose of lasix. At which time emergency room physician paged [facility] for admission of a patient with worsening MORELOS, bilateral LE and cellulitis. Review of Systems All systems reviewed & are unremarkable except as noted in HPI and below PFSH All Active Problems (Updated 10/08/24 @ 16:44 by Mejia Tran MD) Dyspnea on exertion (Acute) Bilateral lower extremity edema (Acute) Low testosterone in male (Acute) Cellulitis (Acute) URI (upper respiratory infection) (Acute) Cough (Acute) Breast lump (Acute) Pre-diabetes (Acute) a1c 5.9 Discharge planning issues (Acute) Hypotension (Acute) MRSA infection (Acute) Sleep apnea in adult (Acute) Homeless (Acute) Leg cramps (Acute) Bipolar 1 disorder (Acute) Anxiety and depression (Chronic) Snoring (Acute) Essential hypertension (Chronic) Left ureteral stone (Acute) Medical History Sepsis Alcoholic gastritis History of herpes zoster Impaired glucose tolerance Abdominal pain Nausea Sleep pattern disturbance Muscle pain Lumbago with sciatica Degeneration of cervical intervertebral disc Kidney stone Hypertensive disorder PTSD (post-traumatic stress disorder) Secondary polycythemia Hyperlipidemia Surgical History Status post incision and drainage (~04/2024) left axilla, MRSA + History of colonoscopy with polypectomy (01/28/18) inflammatory bowel disease, polyps x3, internal and external hemorrhoids History of cystoscopy (05/30/16) with laser litho LT History of ureteroscopy (03/17/19) left, with stone extraction History of esophagogastroduodenoscopy (EGD) (09/17/19) paraesophageal hernia type 3 History of placement of ear tubes Family History Other Colon cancer Dementia Social History Smoking/Tobacco Use Status: Current every day Tobacco Type: cigarettes Tobacco: How many years used: 14 Smoking risk assessment performed?: Yes Alcohol Intake: never Drug use: Occasionally Substance use type: marijuana Counseling given: No Adopted: No Caregiver/Support person: No Foster care: No Household members: significant other Housing: homeless Number of Children: 1 Communication Needs: None and Corrective Lenses Education Level: high school Do you need help understanding health information?: Rarely 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 Pets and animals: No Sexually active: Yes Do you think of yourself as: straight/heterosexual What is your relationship status?: living with partner How often do you talk on the phone with friends or family?: decline to answer How often do you get together with friends or relatives?: never Do you belong to any clubs or organized social groups?: no Panel score (0-1 are the most socially isolated patients): 1 What type of physical activity do you participate in: walking and other Details: stretches Duration: 15-30 minutes/day Frequency: daily Meghana/Yazdanism: None Seatbelt use: always Helmet use: No Drive intox or ride w/intox minibus driver: No Working smoke detector in home: Yes Fire extinguisher in home: Yes Carbon monox detector in home: No Do you feel safe at home: Yes Do you feel safe in your relationship?: Yes Additional Social history: lost housing sunday, awaiting bed at [facility] Allergies and Home Medications Allergies Allergy/AdvReac Type Severity Reaction Status Date / Time acetaminophen (From Tylenol) Allergy Unknown unknown Verified 10/08/24 14:08 ciprofloxacin (From Cipro) Allergy Unknown unknown Verified 10/08/24 14:08 clarithromycin (From Biaxin) Allergy Unknown unknown Verified 10/08/24 14:08 morphine AdvReac Severe Other (See Verified 10/08/24 14:08 Comment) Home Medications ?Medication ?Instructions ?Recorded ?Confirmed ?Type loratadine 10 mg tablet (Claritin) 10 mg PO DAILY PRN 06/11/24 10/08/24 History albuterol sulfate 90 mcg/actuation 2 puff inhalation Q6H PRN 09/22/24 10/08/24 Rx aerosol inhaler shortness of breath or wheezing #8.5 grams aspirin 325 mg tablet 325 mg PO DAILY #90 tabs 09/22/24 10/08/24 Rx hydrochlorothiazide 25 mg tablet 25 mg PO DAILY #90 tabs 09/22/24 10/08/24 Rx metoprolol succinate 50 mg 50 mg PO DAILY 90 days #90 tabs 09/22/24 10/08/24 Rx tablet,extended release 24 hr Exam Narrative Exam Narrative: Well-appearing young gentleman laying in bed in mild distress secondary to bilateral lower extremity pain, ANO x 4, heart regular rhythm, lungs good auscultation bilaterally, abdomen soft, nontender, nondistended, bilateral 3+ lower extremity edema to just below the knees, with diffuse erythema bilateral lower extremities to the mid shins, appears to be more consistent with chronic edema and cellulitis Results Labs 10/08/24 14:40 10/08/24 14:40 Labs: Laboratory Results - last 24 hr 10/08/24 10/08/24 14:40 15:40 WBC 10.45 RBC 5.89 H Hgb 15.5 Hct 49.0 MCV 83 MCH 26.3 L MCHC 31.6 L RDW 14.3 H Plt Count 296 MPV 11.4 H Immature Gran % 0.5 Neutrophils % 71.5 Lymphocytes % 16.5 Monocytes % 7.8 Eosinophils % 3.2 Basophils % 0.5 Nucleated RBC % 0.0 Absolute Neutrophils 7.49 H Absolute Lymphocytes 1.72 Absolute Monocytes 0.81 H Absolute Eosinophils 0.33 Absolute Basophils 0.05 PT 9.6 INR 1.0 D-Dimer 339 Sodium 140 Potassium 4.3 Chloride 106 Carbon Dioxide 29.3 Anion Gap 4.7 BUN 10 Creatinine 1.0 Est GFR (CKD-EPI 2020) 101.28 Glucose 87 Calcium 8.8 Magnesium 1.8 Total Bilirubin 0.4 AST 23 ALT 44 Alkaline Phosphatase 92 Troponin I 13 9 NT-Pro-B Natriuret Pep 47 Total Protein 6.8 Albumin 3.1 L Last Vital Signs Temp 98.3 F 10/08/24 14:09 Pulse 85 10/08/24 15:40 Resp 19 10/08/24 15:40 BP 179/102 H 10/08/24 15:31 Pulse Ox 94 10/08/24 15:40 Time Spent Time spent with Patient: >75 minutes Time was spent: preparing to see the patient(eg.review tests), obtaining and/or reviewing separately otained hiistory, ordering medications,tests, procedures, referring, communicating with other health senior care specialist, indepentently interpreting results, counseling the patient and care coordination
--- NOTE | 2024-10-08 16:56 | DI.RAD_ITS ---
Exam(s) XR CHEST 2V PA LATERAL EXAM: XR CHEST 2V PA LATERAL CLINICAL HISTORY: dyspnea TECHNIQUE: 2D digital imaging was performed. Two views. COMPARISON: CR,XR XR CHEST 2V PA LATERAL from 09/03/2024 FINDINGS: Overlying monitoring leads. HEART: Normal size. Aorta: Not dilated. PULMONARY VASCULATURE: Normal. MEDIASTINUM: Unremarkable. LUNGS: Clear. PLEURAL SPACE: No pleural effusion or pneumothorax. BONE:Unremarkable for age. SOFT TISSUES: Unremarkable. IMPRESSION: No acute abnormality. DATA REPOSITORY: RADIATION DOSE DELIVERED:
[2024-10-08] MEDS: Normal Saline Flush 10 ML SYR IVP ×3 (17:54→18:17)
[2024-10-08] MEDS: hydrALAZINE 20 MG/ML VIAL 10 MG IVP (17:54)
[2024-10-08] MEDS: HYDROmorphone 2 MG/ML SYR 0.5 MG IVP (18:03)
--- NOTE | 2024-10-08 18:51 | W.PC.ACHO ---
Registration Status: Primary Language: Preferred Language: ED Information & Data Chief Complaint GenMedical 10/08/24 16:32 Triage Note Pt arrives to ED c/o bilat 10/08/24 14:04 LE edema + pain x > 6 wks. Pt states he is also having dyspnea w/ exertion which started when the leg swelling started. Pt denies any heart problems ; hx of HTN which he takes meds for. Medical / Surgical History (Last Reviewed 10/08/24 @ 16:38 by Mejia Tran MD) Sepsis Alcoholic gastritis History of herpes zoster Impaired glucose tolerance Abdominal pain Nausea Sleep pattern disturbance Muscle pain Lumbago with sciatica Degeneration of cervical intervertebral disc Kidney stone Hypertensive disorder PTSD (post-traumatic stress disorder) Secondary polycythemia Hyperlipidemia (Last Reviewed 10/08/24 @ 16:38 by Mejia Tran MD) Status post incision and drainage (~04/2024) History of colonoscopy with polypectomy (01/28/18) History of cystoscopy (05/30/16) History of ureteroscopy (03/17/19) History of esophagogastroduodenoscopy (EGD) (09/17/19) History of placement of ear tubes Most Recent Vital Signs Temperature 37 C 10/08/24 17:37 Temperature Source Temporal Artery Scan 10/08/24 14:09 Pulse 102 H 10/08/24 17:37 Pulse Rhythm Regular 10/08/24 17:37 Pulse 105 H 10/08/24 16:57 Respiratory Rate 20 10/08/24 18:07 Respiratory Effort Normal 10/08/24 17:37 Respiratory Depth Normal 10/08/24 17:37 Respiratory Pattern Normal 10/08/24 17:37 Blood Pressure 150/101 H 10/08/24 18:07 Blood Pressure Mean 117 10/08/24 18:07 Blood Pressure Position Sitting 10/08/24 14:09 Pulse Oximetry 93 10/08/24 18:07 Oxygen Delivery Method Room Air 10/08/24 18:07 Oxygen Flow Rate 0 10/08/24 18:07 Pain Level 4 10/08/24 18:07 Allergies acetaminophen (From Tylenol) Allergy (Unknown, Verified 10/08/24 14:08) unknown ciprofloxacin (From Cipro) Allergy (Unknown, Verified 10/08/24 14:08) unknown clarithromycin (From Biaxin) Allergy (Unknown, Verified 10/08/24 14:08) unknown morphine Adverse Reaction (Severe, Verified 10/08/24 14:08) Other (See Comment) Becomes violent Precautions Isolation Standard precaution 10/08/24 14:09 Active Medications Generic Name Dose Route Start Last Admin Trade Name Jayda PRN Reason Stop Dose Admin Hydromorphone HCl 0.5 mg 10/08/24 17:45 10/08/24 18:03 Hydromorphone 2 Mg/Ml Syr IVP 0.5 mg Q4H PRN PRN Administration Sodium Chloride 0 ml 10/08/24 17:30 10/08/24 18:04 Normal Saline Flush 10 Ml Syr IVP 20 ml PRN PRN Administration Sodium Chloride 0 ml 10/08/24 20:00 10/08/24 18:17 Normal Saline Flush 10 Ml Syr IVP 20 ml BID SALOME Administration IV IV Catheter Type [Left Saline Lock Antecubital] IV Catheter Gauge [Left 18 Antecubital] Diet Orders Category Date Time Status Heart Healthy Eating [DIET] Nutrition 10/08/24 Dinner Active Diagnostics 10/08/24 10/08/24 10/08/24 Range/Units 17:30 17:24 15:40 WBC (4.4-10.8) 10^3/uL RBC (4.36-5.78) 10^6/uL Hgb (13.5-17.5) g/dL Hct (40.0-50.0) % MCV (80-95) fL MCH (27.0-33.0) pg MCHC (32.0-36.0) % RDW (11.8-14.1) % Plt Count (130-400) 10^3/uL MPV (8.0-11.0) fL Immature Gran % % Neutrophils % % Lymphocytes % % Monocytes % % Eosinophils % % Basophils % % Nucleated RBC % (0.0-0.3) % Absolute Neutrophils (1.2-6.7) 10^3/uL Absolute Lymphocytes (1.2-3.4) 10^3/uL Absolute Monocytes (0.1-0.8) 10^3/uL Absolute Eosinophils (0.0-0.7) 10^3/uL Absolute Basophils (0.0-0.2) 10^3/uL PT (9.1-11.1) sec INR (0.9-1.1) D-Dimer (<500) ng/mlFEU Sodium (136-145) mmol/L Potassium (3.5-5.1) mmol/L Chloride (98-107) mmol/L Carbon Dioxide (21.0-32.0) mmol/L Anion Gap (3-11) mmol/L BUN (7-18) mg/dL Creatinine (0.70-1.30) mg/dL Est GFR (CKD-EPI 2020) (mL/min/1.73m2) Glucose (74-106) mg/dL Calcium (8.5-10.1) mg/dL Magnesium (1.8-2.4) mg/dL Total Bilirubin (0.2-1.0) mg/dL AST (15-37) U/L ALT (16-63) U/L Alkaline Phosphatase (46-116) U/L Troponin I Pending 9 (<or=76) ng/L NT-Pro-B Natriuret Pep (<300) pg/mL Total Protein (6.4-8.2) g/dL Albumin (3.4-5.0) g/dL Procalcitonin Pending 10/08/24 Range/Units 14:40 WBC 10.45 (4.4-10.8) 10^3/uL RBC 5.89 H (4.36-5.78) 10^6/uL Hgb 15.5 (13.5-17.5) g/dL Hct 49.0 (40.0-50.0) % MCV 83 (80-95) fL MCH 26.3 L (27.0-33.0) pg MCHC 31.6 L (32.0-36.0) % RDW 14.3 H (11.8-14.1) % Plt Count 296 (130-400) 10^3/uL MPV 11.4 H (8.0-11.0) fL Immature Gran % 0.5 % Neutrophils % 71.5 % Lymphocytes % 16.5 % Monocytes % 7.8 % Eosinophils % 3.2 % Basophils % 0.5 % Nucleated RBC % 0.0 (0.0-0.3) % Absolute Neutrophils 7.49 H (1.2-6.7) 10^3/uL Absolute Lymphocytes 1.72 (1.2-3.4) 10^3/uL Absolute Monocytes 0.81 H (0.1-0.8) 10^3/uL Absolute Eosinophils 0.33 (0.0-0.7) 10^3/uL Absolute Basophils 0.05 (0.0-0.2) 10^3/uL PT 9.6 (9.1-11.1) sec INR 1.0 (0.9-1.1) D-Dimer 339 (<500) ng/mlFEU Sodium 140 (136-145) mmol/L Potassium 4.3 (3.5-5.1) mmol/L Chloride 106 (98-107) mmol/L Carbon Dioxide 29.3 (21.0-32.0) mmol/L Anion Gap 4.7 (3-11) mmol/L BUN 10 (7-18) mg/dL Creatinine 1.0 (0.70-1.30) mg/dL Est GFR (CKD-EPI 2020) 101.28 (mL/min/1.73m2) Glucose 87 (74-106) mg/dL Calcium 8.8 (8.5-10.1) mg/dL Magnesium 1.8 (1.8-2.4) mg/dL Total Bilirubin 0.4 (0.2-1.0) mg/dL AST 23 (15-37) U/L ALT 44 (16-63) U/L Alkaline Phosphatase 92 (46-116) U/L Troponin I 13 (<or=76) ng/L NT-Pro-B Natriuret Pep 47 (<300) pg/mL Total Protein 6.8 (6.4-8.2) g/dL Albumin 3.1 L (3.4-5.0) g/dL Procalcitonin Intake and Output - 24 Hour Total 10/08/24 14:02 thru 10/08/24 17:37 Weight 164.6 kg Other: Urine Appearance Clear Falls Risk Assessment History of Falls No History 10/08/24 17:37 Contributing Factors Impairments 10/08/24 17:37 Ambulatory Aids Independent 10/08/24 17:37 Tubes/Lines None 10/08/24 17:37 Gait Evaluation No gait disturbance 10/08/24 17:37 Cognition No cognitive impairment 10/08/24 17:37 Fall Total Score 3 10/08/24 17:37 Level of Risk Standard/Low Risk 10/08/24 17:37 Problems (Last Reviewed 10/08/24 @ 16:38 by Mejia Tran MD) Dyspnea on exertion (Acute) Bilateral lower extremity edema (Acute) Cellulitis (Acute) Essential hypertension (Chronic) v v v v v v v v v Sending and/or Receiving Nurses: Please use comment section below to note any information pertinent to the patient hand-off not included above. Information / Comments: Report received from: Took report from Elmer in ED at 17:04, pt up to M/S at 17:25
[2024-10-08 20:02] LABS: Troponin I 14 ng/L (<or=76)
[2024-10-08 20:31] LABS: Procalcitonin < 0.10 ng/mL
[2024-10-09] MEDS: HYDROmorphone 2 MG/ML SYR 0.5 MG IVP ×3 (02:42→23:01)
[2024-10-09 06:53] LABS: HGB 15.7 g/dL (13.5-17.5); MCH 26.1 pg (27.0-33.0); MCHC 31.4 % (32.0-36.0); MCV 83 fL (80-95); MPV 11.6 fL (8.0-11.0); Platelet Count 285 10^3/uL (130-400); RBC 6.01 10^6/uL (4.36-5.78); RDW 14.6 % (11.8-14.1); RDW-SD 43.7 fL; WBC 10.07 10^3/uL (4.4-10.8)
[2024-10-09 07:17] LABS: Anion Gap 7.1 mmol/L (3-11); BUN 8 mg/dL (7-18); CO2 26.9 mmol/L (21.0-32.0); CREATININE 0.9 mg/dL (0.70-1.30); Calcium 9.1 mg/dL (8.5-10.1); Chloride 107 mmol/L (98-107); Estimated GFR 114.93 (mL/min/1.73m2); Glucose 110 mg/dL (74-106); Potassium 4.2 mmol/L (3.5-5.1); Sodium 141 mmol/L (136-145)
[2024-10-09 08:17] VITALS: BP 167/107; PULSE 94; TEMP 35.9; O2SAT 96
[2024-10-09] MEDS: Furosemide 20 MG TAB PO ×2 (08:47→15:51)
[2024-10-09] MEDS: hydroCHLOROthiazide 25 MG TAB PO (08:47)
[2024-10-09] MEDS: Metoprolol CR 50 MG TABCR PO (08:47)
--- NOTE | 2024-10-09 09:20 | PDOC.CMIN ---
Date of service: 10/09/24 Time of Service: 09:20 Care Management Initial Assmt Initial Assessment Reason for Hospitalization: dyspnea on exertion Functional Status/Living Situation Patient Presentation: Ananth was lying in bed when CM met with him. He did not really engage with CM and answered questions with minimal responses in an angry tone. He was clearly not in good spirits. Ananth informed CM that he is currently homeless. He was staying with friends in [place] until Sunday when he had a falling out with them over some missing lunches (his). He is familiar with the assisted in [facility] as well as [employer], however stated he cannot access those services as he works all day. offered to send a referral to [facility] for community support which Ananth agreed to. 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 He is independent at baseline and does not receive any community services. Ananth was admitted with increasing lower extremity edema over the past few months and, most recently, accompanied by erythema. He is afebrile and has a normal WBC and negative procalcitonin so the provider feels that cellulitis in unlikely. He also has dyspnea on exertion and will have an echocardiogram today. 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) Instrumental Activities of Daily Living (ADLs): Independent Medications Medication Management: No Issues/Barriers identified Physical Functioning/Mobility Assistive Device: none Advance Directives Advance Directives: Do you have an Advance Directive: AD On File at [facility]: N 03/14/19 18:15 Date Asked 10/08/24 10/08/24 14:19 AD Date Reviewed COLST On File at [facility] COLST Date Scanned Code Status Resuscitation Status Full Code Insurance Coverage/Financial Issues Insurance: Medicaid Care Team Visit Care Team Role Provider Type Ann-Marie AdeISABEL Primary Care Provider NURSE PRACTITIONER Kim Peralta Other Providers WIRE BASKET MAKER Roxane Randall Other Providers WIRE BASKET MAKER Yuni Garcia Other Providers WIRE BASKET MAKER Maranda Kwon RN Other Providers WIRE BASKET MAKER Keesha Garcia Other Providers WIRE BASKET MAKER Mejia Tran MD Emergency Provider [facility] STAFF PHYSICIAN Allan Masterson MD Admit Provider [facility] STAFF PHYSICIAN Attending Provider Discharge Potential Discharge Needs: PCP F/U Appt Anticipated Barriers to Discharge: None Identified Patient/Family Education Needs: Review discharge instructions, discuss Ask Me Three Plan: Anticipate Ananth will be discharged home with no new services when medically cleared. He will follow up with his PCP and plan of care and transport with family. CM will follow and continue to support discharge planning efforts. Social Determinants of Health Screening Social Determinants of health last assessed in clinic: 10/09/24 Will the Patient Participate in the Screening?: Yes Do you worry about having a steady place to live?: yes What is your living situation today?: I do not have steady housing Problems where you live: other In the past 12 months, have you had to go without electric, gas, oil or water in your home?: yes 1. Within the past 12 months, we worried whether our food would run out before we got money to buy more.: Never true 2. Within the past 12 months, the food we bought just didn't last and we didn't have money to get more.: Never true Has lack of transportation kept you from medical appointments or from doing things needed for daily living?: no Has anyone in your life made you feel unsafe or unsupported?: no How hard is it for you to pay for the very basics like food, housing, medical care, and heating? Would you say it is:: Very hard Do you want help finding or keeping work or a job?: I do not need or want help If for any reason you need help with day-to-day activities such as bathing, preparing meals, shopping, managing finances, etc., do you get the help you need?: I don?t need any help How often do you feel lonely or isolated from those around you?: Never Do you speak a language other than Maori at home?: No Does the patient want assistance with any of the above?: Yes Health Related Social Needs Health related social needs: inadequate housing (Z59.1), housing instability, housed, with risk of homelessness (Z59.811), material hardship(utilities) (Z59.12) and problems related to housing/economic circumstances (Z59.89) Health related social needs details: ANITA PFSH All Active Problems (Updated 10/08/24 @ 16:44 by Mejia Tran MD) Dyspnea on exertion (Acute) Bilateral lower extremity edema (Acute) Low testosterone in male (Acute) Cellulitis (Acute) URI (upper respiratory infection) (Acute) Cough (Acute) Breast lump (Acute) Pre-diabetes (Acute) a1c 5.9 Discharge planning issues (Acute) Hypotension (Acute) MRSA infection (Acute) Sleep apnea in adult (Acute) Homeless (Acute) Leg cramps (Acute) Bipolar 1 disorder (Acute) Anxiety and depression (Chronic) Snoring (Acute) Essential hypertension (Chronic) Left ureteral stone (Acute) Medical History Sepsis Alcoholic gastritis History of herpes zoster Impaired glucose tolerance Abdominal pain Nausea Sleep pattern disturbance Muscle pain Lumbago with sciatica Degeneration of cervical intervertebral disc Kidney stone Hypertensive disorder PTSD (post-traumatic stress disorder) Secondary polycythemia Hyperlipidemia Surgical History Status post incision and drainage (~04/2024) left axilla, MRSA + History of colonoscopy with polypectomy (01/28/18) inflammatory bowel disease, polyps x3, internal and external hemorrhoids History of cystoscopy (05/30/16) with laser litho LT History of ureteroscopy (03/17/19) left, with stone extraction History of esophagogastroduodenoscopy (EGD) (09/17/19) paraesophageal hernia type 3 History of placement of ear tubes Family History Other Colon cancer Dementia Social History Smoking/Tobacco Use Status: Current every day Tobacco Type: cigarettes Tobacco: How many years used: 14 Smoking risk assessment performed?: Yes Alcohol Intake: never Drug use: Occasionally Substance use type: marijuana Counseling given: No Adopted: No Caregiver/Support person: No Foster care: No Household members: significant other Housing: homeless Number of Children: 1 Communication Needs: None and Corrective Lenses Education Level: high school Do you need help understanding health information?: Rarely 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 Pets and animals: No Sexually active: Yes Do you think of yourself as: straight/heterosexual What is your relationship status?: living with partner How often do you talk on the phone with friends or family?: decline to answer How often do you get together with friends or relatives?: never Do you belong to any clubs or organized social groups?: no Panel score (0-1 are the most socially isolated patients): 1 What type of physical activity do you participate in: walking and other Details: stretches Duration: 15-30 minutes/day Frequency: daily Meghana/Yazidi: None Seatbelt use: always Helmet use: No Drive intox or ride w/intox fuel oil truck driver: No Working smoke detector in home: Yes Fire extinguisher in home: Yes Carbon monox detector in home: No Do you feel safe at home: Yes Do you feel safe in your relationship?: Yes Additional Social history: lost housing sunday, awaiting bed at [facility]
[2024-10-09] MEDS: Normal Saline Flush 10 ML SYR IVP ×3 (10:03→23:01)
[2024-10-09 11:09] VITALS: BP 126/109; PULSE 87; TEMP 35.1; O2SAT 95
[2024-10-09] MEDS: SUMAtriptan 50 MG TAB PO ×2 (11:44→19:37)
--- NOTE | 2024-10-09 11:58 | PGE_ITS ---
Date of Service Date of service: 10/09/24 Time of Service: 11:58 Assessment and Plan Assessment and plan (1) Dyspnea on exertion: Status: Acute Assessment and plan: -progressive over the last few months along with bilateral LE edema -patient does not have known history of CAD or CHF, but does have HTN and potentially sleep apnea leading to pHTN -patient given 40mg IV lasix in ED, and had about 3 L of urine output overnight - Will continue 20 mg IV Lasix twice daily and monitor urine output -TTE ordered, will f/u on results (2) Bilateral lower extremity edema: Status: Acute Assessment and plan: -likley associated with MORELOS, see above - In ED initial concern for bilateral lower extremity cellulitis, but upon exam it is more consistent with a chronic lower extremity edema, especially given that patient stated that redness has been present for 3 weeks, has slowly gotten worse, patient denies any fevers, he has no leukocytosis, and CT did not show any subcutaneous signs consistent with cellulitis (3) Essential hypertension: Status: Chronic Assessment and plan: -contnue home HCTZ and metoprolol succ 50mg daily Subjective Subjective Interval history since last seen: Patient states that he is happy his lower extremity edema appears to be impro ving, though at the moment he is having severe headache. Exam Narrative Exam Narrative: Well-appearing young gentleman laying in bed in mild distress secondary to bilateral lower extremity pain, ANO x 4, heart regular rhythm, lungs good auscultation bilaterally, abdomen soft, nontender, nondistended, bilateral 2+ lower extremity edema to just below the knees, with diffuse erythema bilateral lower extremities to the mid shins, appears to be more consistent with chronic edema and cellulitis Objective Last Vital Signs Temp 95.2 F L 10/09/24 11:09 Pulse 87 10/09/24 11:09 Resp 20 10/08/24 23:05 BP 126/109 H 10/09/24 11:09 Pulse Ox 95 10/09/24 11:09 Laboratory Results - last 24 hr 10/08/24 10/08/24 10/08/24 14:40 15:40 19:34 WBC 10.45 RBC 5.89 H Hgb 15.5 Hct 49.0 MCV 83 MCH 26.3 L MCHC 31.6 L RDW 14.3 H Plt Count 296 MPV 11.4 H Immature Gran % 0.5 Neutrophils % 71.5 Lymphocytes % 16.5 Monocytes % 7.8 Eosinophils % 3.2 Basophils % 0.5 Nucleated RBC % 0.0 Absolute Neutrophils 7.49 H Absolute Lymphocytes 1.72 Absolute Monocytes 0.81 H Absolute Eosinophils 0.33 Absolute Basophils 0.05 PT 9.6 INR 1.0 D-Dimer 339 Sodium 140 Potassium 4.3 Chloride 106 Carbon Dioxide 29.3 Anion Gap 4.7 BUN 10 Creatinine 1.0 Est GFR (CKD-EPI 2020) 101.28 Glucose 87 Calcium 8.8 Magnesium 1.8 Total Bilirubin 0.4 AST 23 ALT 44 Alkaline Phosphatase 92 Troponin I 13 9 14 NT-Pro-B Natriuret Pep 47 Total Protein 6.8 Albumin 3.1 L Procalcitonin < 0.10 10/09/24 06:22 WBC 10.07 RBC 6.01 H Hgb 15.7 Hct 50.0 MCV 83 MCH 26.1 L MCHC 31.4 L RDW 14.6 H Plt Count 285 MPV 11.6 H Immature Gran % Neutrophils % Lymphocytes % Monocytes % Eosinophils % Basophils % Nucleated RBC % Absolute Neutrophils Absolute Lymphocytes Absolute Monocytes Absolute Eosinophils Absolute Basophils PT INR D-Dimer Sodium 141 Potassium 4.2 Chloride 107 Carbon Dioxide 26.9 Anion Gap 7.1 BUN 8 Creatinine 0.9 Est GFR (CKD-EPI 2020) 114.93 Glucose 110 H Calcium 9.1 Magnesium 2.0 Total Bilirubin AST ALT Alkaline Phosphatase Troponin I NT-Pro-B Natriuret Pep Total Protein Albumin Procalcitonin Time Spent with Patient Time Spent with Patient: >50 minutes Time was spent: preparing to see the patient(eg.review tests), obtaining and/or reviewing separately otained hiistory, ordering medications,tests, procedures, referring, communicating with other health customer care team coach, indepentently interpreting results, counseling the patient and care coordination
[2024-10-09 14:56] VITALS: BP 158/105; PULSE 115; RESP 18; TEMP 37.2; O2SAT 96
--- NOTE | 2024-10-09 17:45 | CHAPLAIN ---
Ananth was in bed, his room was totally dark when I visited this morning. He was pleasant and but not interested in conversation. I explained my role and offered support.
[2024-10-09 22:38] VITALS: BP 115/107; PULSE 106; RESP 20; TEMP 36.8; O2SAT 93
--- NOTE | 2024-10-10 | DI.US_ITS ---
Exam(s) US ABDOMEN LIMITED EXAM: US ABDOMEN LIMITED CLINICAL HISTORY: low albumin, steatosis and hepatomeg on CT renal TECHNIQUE: Ultrasound abdomen performed using standard protocol. COMPARISON: CT CT RENAL COLIC WO from 09/03/2024 FINDINGS: LIVER: Enlarged at 24 cm in length. Markedly increased echogenicity and decreased through transmissi on consistent with severe hepatic steatosis. Posterior portions of the liver are not well seen. No focal liver lesions are seen. GALLBLADDER: No evidence of cholelithiasis. No evidence of wall thickening. No pericholecystic fluid identified. LEA'S SIGN: Negative. BILIARY SYSTEM: No intrahepatic or extrahepatic biliary ductal dilation. Right KIDNEY: Kidneys are symmetric in size. No evidence of renal calculi. No evidence of hydronephro sis. No renal mass or cyst identified. PANCREAS: Normal where visualized. ABDOMINAL AORTA AND IVC: Visualized portions normal caliber. ASCITES: None seen. IMPRESSION: Enlarged liver severe hepatic steatosis. DATA REPOSITORY:
[2024-10-10 03:25] VITALS: BP 171/120; PULSE 104; RESP 19; TEMP 36.9; O2SAT 93
[2024-10-10] MEDS: HYDROmorphone 2 MG/ML SYR 0.5 MG IVP (03:45)
[2024-10-10 04:20] VITALS: BP 140/100; PULSE 89
[2024-10-10 06:56] LABS: Anion Gap 7.3 mmol/L (3-11); BUN 13 mg/dL (7-18); CO2 29.7 mmol/L (21.0-32.0); CREATININE 0.9 mg/dL (0.70-1.30); Calcium 9.3 mg/dL (8.5-10.1); Chloride 102 mmol/L (98-107); Estimated GFR 114.93 (mL/min/1.73m2); Glucose 107 mg/dL (74-106); Potassium 4.1 mmol/L (3.5-5.1); Sodium 139 mmol/L (136-145)
--- NOTE | 2024-10-10 07:00 | DI.US_ITS ---
APPROVED REPORT EXAM: Comprehensive 2D, Doppler, and color-flow Echocardiogram Patient Location: In-Patient Room/Bed: 214 Policy Services Representative: Jeanne Otero RDCS (AE) Indications: MORELOS, Bilateral LE edema Other Information Study Quality: Fair. Technically limited study due to body habitus. Conclusion Moderate concentric left ventricular hypertrophy. Ejection fraction is 55%. Wall motion is normal Normal right ventricular size and function Both atria are normal in size There is no structural or hemodynamically significant valvular disease Dilated aortic root and ascending aorta Wall motion Left Ventricle The left ventricle is normal size. The left ventricular systolic function is normal. The left ventric ular ejection fraction is within the normal range. Moderate concentric left ventricular hypertrophy. Regional wall motion is grossly normal. There is no ventricular septal defect visualized. LVEF is 55% . Right Ventricle Right ventricle is grossly normal in size. Right ventricular systolic function is grossly normal. Atria The left atrium size is normal. The right atrium size is normal. The interatrial septum is intact wit h no evidence for an atrial septal defect. Aortic Valve The aortic valve is normal in structure. Aortic valve is trileaflet. There is no aortic valvular sten osis. No aortic regurgitation is present. Mitral Valve The mitral valve is normal in structure. No evidence of mitral valve stenosis. Trace mitral regurgita tion. Tricuspid Valve The tricuspid valve is normal in structure. There is no tricuspid valve stenosis. Trace tricuspid reg urgitation. Pulmonic Valve The pulmonary valve is normal in structure. Trace pulmonic regurgitation. Great Vessels Aortic root is moderately dilated. The ascending aorta is mildly dilated. Aortic arch is normal in c aliber. The IVC was not visualized. Technically limited subcostal imaging. Pericardium There is no pericardial effusion. 2D Dimensions IVSD d PLAX 1.42 cm M: 0.6-1.2 Ao Root d 4.75 cm M: 3.1 - 3.7 LVPW d PLAX 1.40 cm M: 0.6 - 1.2 Ao Asc Diam d 4.13 cm M: 2.6 - 3.4 LVID d PLAX 5.40 cm M: 4.2 - 5.8 LVDs 3.83 cm M: 2.5 - 4.0 LV EF Teichholz 55.0 % FS 28.88 % LV EDV (Teich) 140.8 mL LV ESV (Teich) 63.3 mL M-Mode TAPSE 1.81 cm (M/F) >1.7 Auto EF LV EDV A4C 206.3 mL LV EDV A2C 191.3 mL LV EDV BP 201.0 mL LV ESV A4C 103.0 mL LV ESV A2C 85.0 mL LV ESV BP 95.0 mL LVEF(%) A4C 50.1 % LVEF(%) A2C 55.5 % LVEF(%) BP 52.7 % LV SV A4C 103.3 ml LV SV A2C 106.2 ml LV SV BP 106.0 ml LV CO A4C 9.9 L/min LV CO A2C 9.1 L/min LV CO BP 9.5 L/min HR A4C 96.26 BPM HR A2C 85.51 BPM LV EDV Index (BP) LA Volume LA Length A4C 4.7 cm LA Length A2C 4.9 cm LA Area A4C s 12.76 cm2 LA Area A2C s 15.35 cm2 LA Vol A4C A-L 29.43 mL LA Vol A2C A-L 40.68 mL LA Vol Biplane A-L 35.4 mL LA Vol/BSA A4C A-L LA Vol/BSA A2C A-L LA Vol/BSA BP A-L 12.6 mL/m2 LA Vol A4C MOD 27.0 mL LA Vol A2C MOD 38.8 mL LA Vol BP MOD 33.0 mL RA Volume RA Area A4C 11.1 cm2 RA ESV A4C (A-L) 23.4mL RA Vol/BSA A4C A-L RA Length A4C 4.4 cm RA ESV A4C (MOD) 23.3mL LV Diastology MV E' medial 0.087 (>0.07 m/s) MV E Vmax 0.58 (0.4-1.3 m/s) MV E/E' MED 6.68 (<14) MV A Vmax 0.55 (0.4-1.3 m/s) MV E' lateral 0.108 (>0.1 m/s) E/A Ratio 1.1 MV E/E' LAT 5.41 (<14) MV E' Average 0.098 m/s MV E/E'(average) 5.98 Aortic Valve AoV Vmax 1.17 m/s LVOT Vmax 1.02 m/s AoV Peak Grad 5.5 mmHg LVOT Peak Grad 4.2 mmHg AoV Area (Vmax) 4.80 cm2 LVOT VTI 0.217 m AoV VTI 0.241 m LVOT Mean Grad 2.2 mmHg AoV Mean Luc. 0.82 m/s LVOT SV 118.72 mL AoV Mean Grad 3.1 mmHg LVOT Diam s 2.60 cm AoV Area (VTI) 4.93 cm2 AV Regurg Peak Gr. 5.46 mmHg Velocity Ratio 0.87 Mitral Valve MV DT 317 (160-240 msec) MV Vmax TIPS 0.68 m/s MV Mean Grad 1.1 (<2mmHg) MV VTI 0.196 m Pulmonary Valve PV Vmax 0.98 (0.5-1.5 m/s) RVOT Vmax 0.77 m/s PV Peak Grad 3.8 mmHg RVOT Peak Gr. 2.4 mmHg PV Mean Luc 0.78 m/s RVOT VTI 0.142 m PV Mean Grad 2.6 mmHg RVOT Mean Gr. 1.2 mmHg Tricuspid Valve TV S' 0.11 m/s
[2024-10-10 07:45] VITALS: BP 138/115; PULSE 98; RESP 14; TEMP 37; O2SAT 93
[2024-10-10] MEDS: Furosemide 20 MG TAB PO (07:46)
[2024-10-10] MEDS: hydroCHLOROthiazide 25 MG TAB PO (07:46)
[2024-10-10] MEDS: Metoprolol CR 50 MG TABCR PO (07:46)
[2024-10-10] MEDS: Normal Saline Flush 10 ML SYR IVP (07:46)
[2024-10-10] MEDS: SUMAtriptan 50 MG TAB PO (08:14)
--- NOTE | 2024-10-10 09:21 | PDOC.CMPRO ---
Date of service: 10/10/24 Time of Service: 09:21 Care Management Progress Note Progress Note Text Progress Note Text: Ananth was sitting up in a chair with his legs elevated when CM met with him. He stated that he fells better and has less swelling in his legs. Ananth had an Echocardiogram this morning and shared that he was told everything was normal. He also noted that he is scheduled to have an ultrasound of his liver. Ananth seemed to be in better spirits today and was more engaged with CM. Discharge Potential Discharge Needs: PCP F/U Appt Anticipated Barriers to Discharge: None Identified Patient/Family Education Needs: Review discharge instructions, discuss Ask Me Three Transportation: Private vehicle Plan: Anticipate Ananth will be discharged home with no new services when medically cleared. He will follow up with his PCP and plan of care and transport with family. CM will follow and continue to support discharge planning efforts. Social Determinants of Health Screening Social Determinants of health last assessed in clinic: 10/10/24 Will the Patient Participate in the Screening?: Yes Do you worry about having a steady place to live?: yes What is your living situation today?: I do not have steady housing Problems where you live: other In the past 12 months, have you had to go without electric, gas, oil or water in your home?: yes 1. Within the past 12 months, we worried whether our food would run out before we got money to buy more.: Never true 2. Within the past 12 months, the food we bought just didn't last and we didn't have money to get more.: Never true Has lack of transportation kept you from medical appointments or from doing things needed for daily living?: no Has anyone in your life made you feel unsafe or unsupported?: no How hard is it for you to pay for the very basics like food, housing, medical care, and heating? Would you say it is:: Very hard Do you want help finding or keeping work or a job?: I do not need or want help If for any reason you need help with day-to-day activities such as bathing, preparing meals, shopping, managing finances, etc., do you get the help you need?: I don?t need any help How often do you feel lonely or isolated from those around you?: Never Do you speak a language other than Malagasy at home?: No Does the patient want assistance with any of the above?: Yes Health Related Social Needs Health related social needs: inadequate housing (Z59.1), housing instability, housed, with risk of homelessness (Z59.811), material hardship(utilities) (Z59.12) and problems related to housing/economic circumstances (Z59.89) Health related social needs details: ANITA
[2024-10-10] MEDS: Enoxaparin 40 MG/0.4 ML SYR SC (10:35)
[2024-10-10 11:45] VITALS: BP 132/117; PULSE 94; RESP 15; TEMP 36.6; O2SAT 97
--- NOTE | 2024-10-10 13:17 | PHACLINREV_ITS ---
Pharmacy Admission Review Admission Clinical Review Admission Pharmacy Review: Dyspnea on exertion (Acute) Bilateral lower extremity edema (Acute) Cellulitis (Acute) acetaminophen (From Tylenol) Allergy (Unknown, Verified 10/08/24 14:08) unknown ciprofloxacin (From Cipro) Allergy (Unknown, Verified 10/08/24 14:08) unknown clarithromycin (From Biaxin) Allergy (Unknown, Verified 10/08/24 14:08) unknown morphine Adverse Reaction (Severe, Verified 10/08/24 14:08) Other (See Comment) Resuscitation Status Full Code Height 6 ft 4 in Weight 164.6 kg Pharmacy Admission Review Renal Dosing Renal Dosing: BUN 13 mg/dL (7-18) 10/10/24 06:02 Creatinine 0.9 mg/dL (0.70-1.30) 10/10/24 06:02 Medications needing adjustments: Reviewed (CrCl 192.8 mL/min) List of meds needing interventions: Current medications are okay Anticoagulation Anticoagulation: Hgb 15.7 g/dL (13.5-17.5) 10/09/24 06:22 Hct 50.0 % (40.0-50.0) 10/09/24 06:22 Plt Count 285 10^3/uL (130-400) 10/09/24 06:22 INR 1.0 (0.9-1.1) 10/08/24 14:40 Creatinine 0.9 mg/dL (0.70-1.30) 10/10/24 06:02 DVT Prophylaxis: Intervened (No order was put in. Spoke with provider who asked for a Lovenox 40mg x1 to be put in. Likely will be discharged home today. If still here tomorrow ask provider about putting in another order.) Opiate Usage Evaluate Pain Scale/Pains Meds: Reviewed (hydromorphone 0.5mg IVP q4h PRN - 1mg / 24hrs) Scheduled Bowel Reg ordered if on Opiates?: No (PRN docusate/Miralax) Relevant Labs Relevant Labs: Sodium 139 mmol/L (136-145) 10/10/24 06:02 Potassium 4.1 mmol/L (3.5-5.1) 10/10/24 06:02 Chloride 102 mmol/L (98-107) 10/10/24 06:02 Magnesium 2.0 mg/dL (1.8-2.4) 10/09/24 06:22 Electrolytes, C-Reactive P, ESR: Reviewed Cardiac Review Cardiac Review: Troponin I 14 ng/L (<or=76) 10/08/24 19:34 NT-Pro-B Natriuret Pep 47 pg/mL (<300) 10/08/24 14:40 Blood Pressure 132/117 1145 Blood Pressure 138/115 0745 Blood Pressure 140/100 0420 Blood Pressure 171/120 0325 BP, HR, EF%: Reviewed (HR 94) List meds needing interventions: Has orders for furosemide 20mg PO BID, HCTZ 25 mg daily and metoprolol XL 50mg daily QTc Review QTc: Reviewed (454 from 10/08/24) IV to PO Switch IV Medications: Reviewed (hydromorphone) Home Meds Home Med List reviewed: Reviewed Relevent Home Meds Not ordered & why?: aspirin (PRN) Current Meds Current Medication Order Review: Reviewed Comments: Has received 2 now one doses of sumatriptan in the past 24 hrs
--- NOTE | 2024-10-10 14:34 | DSE_ITS ---
Date of service: 10/10/24 Time of Service: 14:34 DS: Diagnosis Discharge Diagnosis (1) Dyspnea on exertion: Status: Acute (2) Bilateral lower extremity edema: Status: Acute (3) Essential hypertension: Status: Chronic Discharge Plan Disposition Patient Disposition: Home Condition: Good Discharge Details Reason For Visit: dyspnea on exertion, bilateral LE edema Admit Date/Time: 10/08/24 16:44 Admit Provider: Allan Masterson Attending Provider: Allan Masterson Primary Care Provider: Ann-Marie Booker Hospital Course Hospital Course: Patient initially presented with progressively worsening dyspnea on exertion and bilateral lower extremity edema. There was initial concern for heart failure as patient may have sleep apnea resulting in pulmonary hypertension and right-sided heart failure however echocardiogram was without any acute findings. However, upon reviewing patient's chart he appears to have chronically low albumin, and renal CT recently performed showed possible enlarged liver. Right upper quadrant ultrasound was done which showed signs of steatosis concerning for SANCHEZ. Additionally, patient was treated with IV Lasix and did begin to experience significant improvement in his bilateral lower extremity edema and c omplete resolution of his exertional dyspnea. It was time is determined that the patient was stable for discharge home and he will have a referral sent to liver specialist at [facility], as well as neurology for formal diagnosis of potential migraines. Home Meds and New Rx's Prescriptions: New furosemide [Lasix] 40 mg tablet 40 mg PO DAILY Qty: 90 0RF sumatriptan succinate [Imitrex] 50 mg tablet See Rx Instructions .ROUTE .COMPLEX Qty: 10 0RF Rx Instructions: take 1 tab at onset of headache; if no relief may repeat 1 tab after at least 2 hrs; max = 4 tabs/24 hr Continued loratadine [Claritin] 10 mg tablet 10 mg PO DAILY PRN albuterol sulfate 90 mcg/actuation HFA aerosol inhaler 2 puff inhalation Q6H PRN (Reason: shortness of breath or wheezing) Qty: 8.5 0RF metoprolol succinate 50 mg tablet extended release 24 hr 50 mg PO DAILY 90 Days Qty: 90 1RF Rx Instructions: Please cancel 100mg script.. sorry hydrochlorothiazide 25 mg tablet 25 mg PO DAILY Qty: 90 1RF Discontinued aspirin 325 mg tablet 325 mg PO DAILY PRN Discharge Instructions Referrals: GASTROENTEROLOGY,[facility] [place] [OTHER] - (Liver specialist; new diagnosis steatosis with hypoalbuminemia and bilateral LE edema) Negrita Howard MD [ [facility] STAFF PHYSICIAN] - (chronic GODINEZ/migraines) Activity:: Activity as Tolerated Equipment/Supplies:: No Equipment Needed Diet:: As Tolerated Discharge Orders Discharge Orders: Discharge Order (Routine); Ordered 10/10/24 Ordered By: Allan Masterson DS: Summary Time Spent with Patient providing and/or coordinating discharge services: Greater than 30 minutes Status at Discharge Functional status at discharge: independent ambulation Overall status at discharge: patient is back to baseline Mental Status: mental status grossly normal Speech and Movement: speech and movement normal Mood: congruent mood Affect: normal affect Quality:SDOH Health Related Social Needs: Health related social needs inadequate housing (Z59.1) , housing instability, housed, with risk of homelessness (Z59.811), material hardship(utilities) (Z59.12), problems related to housing/economic circumstances (Z59.89) Health related social needs details CM Health related social needs details: CM Exam Narrative Exam Narrative: Well-appearing young gentleman laying in bed in mild distress secondary to bilateral lower extremity pain, ANO x 4, heart regular rhythm, lungs good auscultation bilaterally, abdomen soft, nontender, nondistended, bilateral 1+ lower extremity edema to just below the knees which is much improved as compared to admission, with diffuse erythema bilateral lower extremities to the mid shins also improved as compared to admission, appears to be more consistent with chronic edema and cellulitis Psych Mental Status: mental status grossly normal Speech and Movement: speech and movement normal Mood: congruent mood Affect: normal affect DS: Data Vitals/I&O Vitals and I&O: Vital Signs Temperature 97.9 F 10/10/24 11:45 Temperature Source Temporal Artery Scan 10/10/24 11:45 Pulse 94 H 10/10/24 11:45 Pulse Rhythm Regular 10/08/24 17:37 Pulse 105 H 10/08/24 16:57 Respiratory Rate 15 10/10/24 11:45 Respiratory Effort Normal 10/08/24 17:37 Respiratory Depth Normal 10/08/24 17:37 Respiratory Pattern Normal 10/08/24 17:37 Blood Pressure 132/117 H 10/10/24 11:45 Blood Pressure Mean 122 10/10/24 11:45 Blood Pressure Position Sitting 10/08/24 14:09 Pulse Oximetry 97 10/10/24 11:45 Oxygen Delivery Method Room Air 10/10/24 11:45 Oxygen Flow Rate 0 10/10/24 11:45 Pain Level 7 10/10/24 03:45 Comment RN Notified 10/10/24 11:45 Intake & Output 10/09/24 10/10/24 10/10/24 17:59 05:59 17:59 Intake Total Output Total 900 / 900 1500 / 2400 400 / 400 Balance -900 / -900 -1490 / -2390 -400 / -400 Intake: IV Output: Urine 900 / 900 1500 / 2400 400 / 400 Other: Urine Color Yellow Yellow Yellow Urine Appearance Clear Clear Clear Urine Odor Normal Normal Comment full hat and urinal Data Completed and Pending Labs on day of discharge: Labs from last 24 hours 10/10/24 10/10/24 10/10/24 06:02 06:02 06:02 Sodium Potassium Chloride Carbon Dioxide Anion Gap BUN Creatinine Est GFR (CKD-EPI 2020) Pending Glucose Pending 107 H Calcium Pending 9.3 Total Bilirubin Pending AST Pending ALT Pending Alkaline Phosphatase Pending Total Protein Pending Albumin Pending Add-On Test Request Pending 10/10/24 10/10/24 10/10/24 06:02 06:02 06:02 Sodium Potassium Chloride Carbon Dioxide Anion Gap Pending BUN Pending 13 Creatinine Pending 0.9 Est GFR (CKD-EPI 2020) 114.93 Glucose Calcium Total Bilirubin AST ALT Alkaline Phosphatase Total Protein Albumin Add-On Test Request 10/10/24 10/10/24 10/10/24 06:02 06:02 06:02 Sodium Potassium Pending Chloride Pending 102 Carbon Dioxide Pending 29.7 Anion Gap 7.3 BUN Creatinine Est GFR (CKD-EPI 2020) Glucose Calcium Total Bilirubin AST ALT Alkaline Phosphatase Total Protein Albumin Add-On Test Request 10/10/24 10/10/24 06:02 06:02 Sodium Pending 139 Potassium 4.1 Chloride Carbon Dioxide Anion Gap BUN Creatinine Est GFR (CKD-EPI 2020) Glucose Calcium Total Bilirubin AST ALT Alkaline Phosphatase Total Protein Albumin Add-On Test Request PFSH All Active Problems (Updated 10/08/24 @ 16:44 by Mejia Tran MD) Dyspnea on exertion (Acute) Bilateral lower extremity edema (Acute) Low testosterone in male (Acute) Cellulitis (Acute) URI (upper respiratory infection) (Acute) Cough (Acute) Breast lump (Acute) Pre-diabetes (Acute) a1c 5.9 Discharge planning issues (Acute) Hypotension (Acute) MRSA infection (Acute) Sleep apnea in adult (Acute) Homeless (Acute) Leg cramps (Acute) Bipolar 1 disorder (Acute) Anxiety and depression (Chronic) Snoring (Acute) Essential hypertension (Chronic) Left ureteral stone (Acute) Medical History Sepsis Alcoholic gastritis History of herpes zoster Impaired glucose tolerance Abdominal pain Nausea Sleep pattern disturbance Muscle pain Lumbago with sciatica Degeneration of cervical intervertebral disc Kidney stone Hypertensive disorder PTSD (post-traumatic stress disorder) Secondary polycythemia Hyperlipidemia Surgical History Status post incision and drainage (~04/2024) left axilla, MRSA + History of colonoscopy with polypectomy (01/28/18) inflammatory bowel disease, polyps x3, internal and external hemorrhoids History of cystoscopy (05/30/16) with laser litho LT History of ureteroscopy (03/17/19) left, with stone extraction History of esophagogastroduodenoscopy (EGD) (09/17/19) paraesophageal hernia type 3 History of placement of ear tubes Family History Other Colon cancer Dementia Social History Smoking/Tobacco Use Status: Current every day Tobacco Type: cigarettes Tobacco: How many years used: 14 Smoking risk assessment performed?: Yes Alcohol Intake: never Drug use: Occasionally Substance use type: marijuana Counseling given: No Adopted: No Caregiver/Support person: No Foster care: No Household members: significant other Housing: homeless Number of Children: 1 Communication Needs: None and Corrective Lenses Education Level: high school Do you need help understanding health information?: Rarely 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 Pets and animals: No Sexually active: Yes Do you think of yourself as: straight/heterosexual What is your relationship status?: living with partner How often do you talk on the phone with friends or family?: decline to answer How often do you get together with friends or relatives?: never Do you belong to any clubs or organized social groups?: no Panel score (0-1 are the most socially isolated patients): 1 What type of physical activity do you participate in: walking and other Details: stretches Duration: 15-30 minutes/day Frequency: daily Meghana/Baptism: None Seatbelt use: always Helmet use: No Drive intox or ride w/intox 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: No Working smoke detector in home: Yes Fire extinguisher in home: Yes Carbon monox detector in home: No Do you feel safe at home: Yes Do you feel safe in your relationship?: Yes Additional Social history: lost housing sunday, [facility] bed [facility] Time Spent with Patient Time Spent with Patient: <45 minutes Time was spent: preparing to see the patient(eg.review tests), obtaining and/or reviewing separately otained hiistory, ordering medications,tests, procedures, referring, communicating with other health anesthesiologist and critical care, indepentently interpreting results, counseling the patient and care coordination
[2024-10-10 14:42] LABS: ALT 42 U/L (16-63); AST 31 U/L (15-37); Albumin 3.3 g/dL (3.4-5.0); Alkaline Phosphatase 89 U/L (46-116); Anion Gap 8.6 mmol/L (3-11); BUN 12 mg/dL (7-18); Bilirubin, Total 0.4 mg/dL (0.2-1.0); CO2 28.4 mmol/L (21.0-32.0); CREATININE 1.1 mg/dL (0.70-1.30); Calcium 9.5 mg/dL (8.5-10.1); Chloride 103 mmol/L (98-107); Estimated GFR 90.34 (mL/min/1.73m2); Glucose 108 mg/dL (74-106); Potassium 4.2 mmol/L (3.5-5.1); Sodium 140 mmol/L (136-145); Total Protein 7.4 g/dL (6.4-8.2)
--- NOTE | 2024-10-10 15:29 | CMDISCH_ITS ---
Date of service: 10/10/24 Time of Service: 15:34 LACE Index Scoring Tool Questions: Length of Stay (in days): 2 Was the patient admitted via the E.D.?: Yes Comorbidities: Liver or Renal Disease E.D. Visits: 3 Answers: Total Score: 13 Risk of Readmission: High Risk Care Management Discharge Plan Reason for Hospitalization: dyspnea Discharge Plan: Ananth will be discharged back to the community with no new services. He will follow up with his community providers and plan of care and transport with family. Patient/Family Education Needs: review of discharge instructions, limitations, follow up plan and discuss Ask Me Three SDOH Health Related Social Needs: Health related social needs inadequate housing (Z59.1) , housing instab ility, housed, with risk of homelessness (Z59.811), material hardship(utilities) (Z59.12), problems related to housing/economic circumstances (Z59.89) Health related social needs details CM Health related social needs details: ANITA
[2024-10-10 17:08] LABS: Lab Add On Test DONE
== END 2024-10-10 15:06 | disposition home or self-care (01) | DRG 442 ==
LOC: ER 16:44 → MS 17:28
PROVIDERS: Emergency Medicine Emergency Medical Services; Admitting Provider Family Medicine; Emergency Provider Student in an Organized Health Care Education/Training Program; PCP Nurse Practitioner; Responsible Provider Family Medicine; Visit Provider Family Medicine
DX: K76.0 Fatty (change of) liver, not elsewhere classified (principal); F31.89 Other bipolar disorder; Z59.00 Homelessness unspecified; R60.0 Localized edema; R06.09 Other forms of dyspnea; I10 Essential (primary) hypertension; G47.30 Sleep apnea, unspecified; R73.03 Prediabetes; F41.8 Other specified anxiety disorders; R05.9 Cough, unspecified; G47.62 Sleep related leg cramps; Z86.14 Personal history of Methicillin resistant Staphylococcus aureus infection; F43.10 Post-traumatic stress disorder, unspecified; E78.5 Hyperlipidemia, unspecified; M50.30 Other cervical disc degeneration, unspecified cervical region; F17.210 Nicotine dependence, cigarettes, uncomplicated; G43.909 Migraine, unspecified, not intractable, without status migrainosus; E88.09 Other disorders of plasma-protein metabolism, not elsewhere classified
CPT/HCPCS: 00123; 36415; 80048; 80053; 84145; 85027; 93005; 96365; 96375; 99285; J1650; 71046; 76705; 83735; 83880; 84484; 85025; 85379; 85610; 93010; 93306; 93970; 99223; 99233; 99239; J0360; J0690; J1171; J1938

== ENCOUNTER 2024-10-25 17:08 | Inpatient (IN) | payer MEDICAID, SELFPAY ==
[2024-10-25] VITALS (49 sets, daily range): BP systolic 110–161; BP diastolic 52–103; PULSE 114–133; RESP 20–40; TEMP 36.7–37.2; O2SAT 89–96
--- NOTE | 2024-10-25 17:15 | RT.EKG_ITS ---
APPROVED REPORT Exam: Resting ECG Reason for Exam: SOB Patient Location: E HR:128 bpm ECG Measurements Heart Rate 128 AXIS OK 151 P 0 QRSd 88 QRS 36 QT 308 T 17 QTc 448 Conclusion Sinus tachycardia 128 PVCs normal axis no stemi
--- NOTE | 2024-10-25 18:00 | DI.CT_ITS ---
Exam(s) CT CHEST PE CTA EXAM: CT CHEST PE CTA CLINICAL HISTORY: chest pain. TECHNIQUE: Imaging Protocol: Axial CT angiography was performed with multi-slice acquisition and mu lti-planar and/or 3D reconstructions. Lung Computer Aided Detection (CAD) was utilized. CONTRAST MATERIAL: Intravenous: Omnipaque 350 contrast volume:100 mL COMPARISON: CT CT CHEST PE ABD PELVIS W from 10/20/2022 FINDINGS: Tracheobronchial tree: Patent where visualized. No bronchiectasis. Pulmonary parenchyma: No consolidation or dominant measurable mass. No architectural distortion. Pulmonary Arteries: There are filling defects seen in branches of the right lower lobe consistent wit h pulmonary emboli. There is no evidence of a saddle embolus. Mediastinum and Kathie: No dominant adenopathy or fluid collection. The esophagus is unremarkable. Visualized thyroid gland: Unremarkable. Pleura: No effusion or pneumothorax. Heart: No coronary artery calcifications are seen. No pericardial effusion. The RV to LV ratio is gr eater than 1 suggestive of right heart strain. Aorta: Thoracic aorta non-dilated. No evidence of dissection. Upper abdomen: There is again seen a small right adrenal nodule likely reflecting an adenoma. This is stable. No follow-up is recommended. The left adrenal gland is unremarkable. Soft tissues: There is bilateral gynecomastia. Bones: Within normal limits for the patient's age. IMPRESSION: 1. Pulmonary emboli in the right lower lobe. No evidence of a saddle embolus. 2. The RV to LV ratio is greater than 1 suggestive of right heart strain. 3. Findings were discussed with Tana Ray at 7:14 p.m. on 10/25/2024. RADIATION DOSE DELIVERED: 395.09mGy.cm Total DLP DATA REPOSITORY: All CT scans at this facility are submitted to the National Radiology Data Registry (NRDR) Dose Index Registry (DIR) with the [employer] (ACR). RADIATION OPTIMIZATION: All CT scans at this facility use at least one of these dose optimization te chniques: automated exposure control; mA and/or kV adjustment per patient size (includes targeted exa ms where dose is matched to clinical indication); or iterative reconstruction.
[2024-10-25 18:28] LABS: Abs Immature Grans 0.13 10^3/uL (0.0-0.06); Absolute Basophil Count 0.06 10^3/uL (0.0-0.2); Absolute Eosinophil Count 0.34 10^3/uL (0.0-0.7); Absolute Lymphocyte Count 2.58 10^3/uL (1.2-3.4); Absolute Neutrophil Count 12.13 10^3/uL (1.2-6.7); Basophils % 0.4 %; Eosinophils % 2.1 %; HCT 47.5 % (40.0-50.0); HGB 15.1 g/dL (13.5-17.5); Immature Grans % 0.8 %; Lymphocytes % 16.1 %; MCH 26.2 pg (27.0-33.0); MCHC 31.8 % (32.0-36.0); MCV 83 fL (80-95); MPV 10.7 fL (8.0-11.0); Neutrophils % 75.6 %; Platelet Count 300 10^3/uL (130-400); RBC 5.76 10^6/uL (4.36-5.78); RDW 14.3 % (11.8-14.1); WBC 16.05 10^3/uL (4.4-10.8)
[2024-10-25] MEDS: Normal Saline - Diluent 50 ML VIAL IJ (18:33)
[2024-10-25] MEDS: Omnipaque 350 MG/ML 100 ML BTL IJ (18:35)
[2024-10-25 18:54] LABS: ALT 33 U/L (16-63); AST 21 U/L (15-37); Albumin 2.9 g/dL (3.4-5.0); Alkaline Phosphatase 87 U/L (46-116); Anion Gap 6.2 mmol/L (3-11); BUN 13 mg/dL (7-18); Bilirubin, Total 0.3 mg/dL (0.2-1.0); CO2 30.8 mmol/L (21.0-32.0); Calcium 8.9 mg/dL (8.5-10.1); Chloride 101 mmol/L (98-107); Estimated GFR 101.28 (mL/min/1.73m2); Glucose 114 mg/dL (74-106); Lipase 24 U/L (<78); NT-proBNP 23 pg/mL (<300); Potassium 4.1 mmol/L (3.5-5.1); Sodium 138 mmol/L (136-145); TSH (W/Ref FT4) 1.85 uIU/mL (0.36-3.74); Total Protein 6.8 g/dL (6.4-8.2); Troponin I 11 ng/L (<or=76)
[2024-10-25] MEDS: Furosemide 40 MG/4 ML VIAL IVP (19:05)
[2024-10-25 19:17] LABS: Bilirubin Negative (Negative); Blood Negative (Negative); Clarity Clear (Clear); Glucose Negative (Negative); Ketones Negative (Negative); Leukocyte Esterase Negative (Negative); Nitrite Negative (Negative); Specific Gravity 1.025 (1.005-1.025); Urobilinogen 0.2 mg/dL (Up to 0.2)
[2024-10-25 19:27] LABS: Bacteria Rare HPF (Negative); Epithelial Cells Negative HPF (Negative); RBC 0-2 HPF (0-2); WBC Negative HPF (0-5)
[2024-10-25 19:28] LABS: C & S Indicated? No; Casts Negative LPF (Negative); Crystals Negative HPF (Negative); Mucus Negative (Negative)
[2024-10-25 19:38] LABS: PTT Activated 25.8 sec (20.6-30.2)
[2024-10-25 19:47] LABS: Troponin I 11 ng/L (<or=76)
[2024-10-25] MEDS: Heparin in 0.45% NaCl 25,000 UNIT/250 ML BAG 18 UNIT IVINF (19:51)
--- NOTE | 2024-10-25 20:26 | W.PM.HP.N ---
Date of service: 10/25/24 Time of Service: 20:26 Assessment and Plan Assessment and plan (1) Pulmonary embolism: Status: Chronic Assessment and plan: The patient comes in w/ new onset chest pain and tachycardia and is noted on CTA PE to have RLL PE. He does not have any provoked symptoms for PE to include prolonged periods of sitting. He is noted to have hypoalbuminemia and concerns for SANCHEZ which is most likely resulting in hypercoagulable state. Recommend to do a hypercoagulable workup. We should start Heparin gtt and transition to oral anticoagulant once his HR improves, -Cont w/ Heparin gtt and monitor HR -Consider transition to oral anticoagulant once his HR improves -Suspect his PE is secondary to hypoalbuminemia -He may require lifelong A/C if his hypercoagulable disorder is due to hypoalbuminemia -Perform a Hypercoagulable workup - Factor V, 8, Protein C/S, Antithrombin, Prothrombin, Lupus AC, B2/Cardiolipin (2) Bilateral lower extremity edema: Status: Acute Assessment and plan: -Cont w/ Lasix 40mg IV BID -Monitor urine output (3) Essential hypertension: Status: Chronic Assessment and plan: -Cont w/ Metoprolol Succinate 50mg daily (4) Leukocytosis: Status: Acute Assessment and plan: Suspect this is reactive d/t PE. He does have bilateral lower extremity edema but there is low concern for any cellulitis. -Suspect reactive -Repeat CBC in AM and re-evaluate -Obtain Bilateral LE Duplex History of Present Illness History of Present Illness Chief Complaint: Chest Pain Narrative: The patient omero 34 y/o C M w/ PMH HTN, Bipolar 1 and bilateral lower extremity edema c/w suspected SANCHZE Cirrhosis who comes in w/ new onset chest pain which began today at 9:30am. He reports of substernal to L sided chest pain which is described as a muscle ache but was progressively becoming worse w/ a sharp/stabbing feeling as the day progressed. He did not have any radiating symptoms to the neck, between the shoulder blades or to the LUE. His symptoms were exacerbated w/ exertion and he was unable to obtain any relief. Associated symptoms include dyspnea w/ at rest and w/ exertion which is new. He does not weigh himself on a regular basis. He is unsure if he has gained any weight but does endorse bilateral lower extremity edema. He also has 3 pillow orthopnea. He does drink 12-13 16oz of water daily but denies any increased salt intake. He has no fever, chills or night sweats. He denies any abdominal pain, nausea or diarrhea. He did note of two episodes of bilious vomiting w/ 2 episodes. He has no issues w/ any new skin lesions/rashes. Review of Systems Constitutional Constitutional: Denies chills, Denies fatigue, Denies fever(s), Reports headache(s), Denies night sweats and Denies weight loss Eyes Eyes: Denies change in vision, Denies diplopia, Denies loss of vision and Denies eye pain ENT Ears, Nose, Mouth, and Throat: Reports headache(s), Denies neck pain, Denies nose pain, Denies odynophagia and Denies throat swelling Cardiovascular Cardiovascular: Reports chest pain, Reports rapid heart rate and Reports dyspnea Respiratory Respiratory: Denies cough, Denies hemoptysis and Reports dyspnea Gastrointestinal Gastrointestinal: Denies hematochezia, Denies diarrhea, Denies loose stools, Denies nausea, Denies odynophagia, Reports vomiting and Denies hematemesis Genitourinary Genitourinary: Denies hematuria Musculoskeletal Musculoskeletal: Denies arthralgias and Denies neck pain Neurologic Neurologic: Reports headache(s) and Denies loss of vision Endocrine Endocrine: Denies fatigue Allergic/Immunologic Allergic/Immunologic: Denies throat swelling PFSH All Active Problems (Updated 10/25/24 @ 20:53 by Aleksandr Bowles MD) Leukocytosis (Acute) Pulmonary embolism (Chronic) Fluid overload (Acute) Fluid overload (Acute) Bilateral lower extremity edema (Acute) Low testosterone in male (Acute) Cellulitis (Acute) URI (upper respiratory infection) (Acute) Cough (Acute) Breast lump (Acute) Pre-diabetes (Acute) a1c 5.9 Discharge planning issues (Acute) Hypotension (Acute) MRSA infection (Acute) Sleep apnea in adult (Acute) Homeless (Acute) Leg cramps (Acute) Bipolar 1 disorder (Acute) Anxiety and depression (Chronic) Snoring (Acute) Essential hypertension (Chronic) Left ureteral stone (Acute) Medical History Sepsis Alcoholic gastritis History of herpes zoster Impaired glucose tolerance Abdominal pain Nausea Sleep pattern disturbance Muscle pain Lumbago with sciatica Degeneration of cervical intervertebral disc Kidney stone Hypertensive disorder PTSD (post-traumatic stress disorder) Secondary polycythemia Hyperlipidemia Surgical History Status post incision and drainage (~04/2024) left axilla, MRSA + History of colonoscopy with polypectomy (01/28/18) inflammatory bowel disease, polyps x3, internal and external hemorrhoids History of cystoscopy (05/30/16) with laser litho LT History of ureteroscopy (03/17/19) left, with stone extraction History of esophagogastroduodenoscopy (EGD) (09/17/19) paraesophageal hernia type 3 History of placement of ear tubes Family History Other Colon cancer Dementia Social History Smoking/Tobacco Use Status: Current every day Tobacco Type: cigarettes Tobacco: How many years used: 14 Smoking risk assessment performed?: Yes Alcohol Intake: never Drug use: Occasionally Substance use type: marijuana Counseling given: No Adopted: No Caregiver/Support person: No Foster care: No Household members: significant other Housing: homeless Number of Children: 1 Communication Needs: None and Corrective Lenses Education Level: high school Do you need help understanding health information?: Rarely 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 Pets and animals: No Sexually active: Yes Do you think of yourself as: straight/heterosexual What is your relationship status?: living with partner How often do you talk on the phone with friends or family?: decline to answer How often do you get together with friends or relatives?: never Do you belong to any clubs or organized social groups?: no Panel score (0-1 are the most socially isolated patients): 1 What type of physical activity do you participate in: walking and other Details: stretches Duration: 15-30 minutes/day Frequency: daily Meghana/Samaritan: None Seatbelt use: always Helmet use: No Drive intox or ride w/intox compactor driver: No Working smoke detector in home: Yes Fire extinguisher in home: Yes Carbon monox detector in home: No Do you feel safe at home: Yes Do you feel safe in your relationship?: Yes Additional Social history: lost housing sunday, awaiting bed at [facility] Meds Allergies and Home Medications Allergies Allergy/AdvReac Type Severity Reaction Status Date / Time acetaminophen (From Tylenol) Allergy Unknown unknown Verified 10/25/24 17:23 ciprofloxacin (From Cipro) Allergy Unknown unknown Verified 10/25/24 17:23 clarithromycin (From Biaxin) Allergy Unknown unknown Verified 10/25/24 17:23 morphine AdvReac Severe Other (See Verified 10/25/24 17:23 Comment) Home Medications ?Medication ?Instructions ?Recorded ?Confirmed ?Type loratadine 10 mg tablet (Claritin) 10 mg PO DAILY PRN 06/11/24 10/25/24 History albuterol sulfate 90 mcg/actuation 2 puff inhalation Q6H PRN 09/22/24 10/25/24 Rx aerosol inhaler shortness of breath or wheezing #8.5 grams metoprolol succinate 50 mg 50 mg PO DAILY 90 days #90 tabs 09/22/24 10/25/24 Rx tablet,extended release 24 hr furosemide 80 mg tablet 80 mg PO QAM #90 tabs 10/17/24 10/25/24 Rx potassium chloride 20 mEq 20 meq PO DAILY #90 tabs 10/17/24 10/25/24 Rx tablet,extended release sumatriptan succinate 50 mg tablet See Rx Instructions PO .COMPLEX 10/17/24 10/25/24 Rx (Imitrex) #10 tabs Exam Const General: cooperative, healthy appearing, comfortable and no acute distress [facility] Head: normal to inspection Ears: hearing grossly normal bilaterally General nose exam: external nose normal Face and sinus: normal facial exam Eyes General: appearance normal, both eyes and all related structures Eyelids: eyelids normal Sclera: sclerae normal Neck Neck: normal visual inspection, full ROM and no lymphadenopathy Chest Chest: normal inspection of the chest Resp Effort & Inspection: normal respiratory effort and able to speak in complete sentences Auscultation: clear to auscultation bilaterally Cardio Rate: tachycardic Rhythm: regular rhythm Heart Sounds: S1 normal and S2 normal Other: 3/4+ pitting lower extremity edema GI Inspection: normal to inspection Palpation: soft Auscultation: normal bowel sounds Skin General skin exam: no rashes or lesions noted Extrem Right lower extremity: edema Left lower extremity: edema Results Imaging Imaging Studies: CTA PE 1. Pulmonary emboli in the right lower lobe. No evidence of a saddle embolus. 2. The RV to LV ratio is greater than 1 suggestive of right heart strain. 3. Findings were discussed with Tana Ray at 7:14 p.m. on 10/25/2024. Labs 10/25/24 18:17 10/25/24 18:17 Labs: Laboratory Results - last 24 hr 10/25/24 10/25/24 10/25/24 17:22 17:55 18:17 WBC 16.05 H RBC 5.76 Hgb 15.1 Hct 47.5 MCV 83 MCH 26.2 L MCHC 31.8 L RDW 14.3 H Plt Count 300 MPV 10.7 Immature Gran % 0.8 Neutrophils % 75.6 Lymphocytes % 16.1 Monocytes % 5.0 Eosinophils % 2.1 Basophils % 0.4 Nucleated RBC % 0.0 Absolute Neutrophils 12.13 H Absolute Lymphocytes 2.58 Absolute Monocytes 0.80 Absolute Eosinophils 0.34 Absolute Basophils 0.06 APTT 25.8 Sodium 138 Potassium 4.1 Chloride 101 Carbon Dioxide 30.8 Anion Gap 6.2 BUN 13 Creatinine 1.0 Est GFR (CKD-EPI 2020) 101.28 Glucose 114 H Calcium 8.9 Magnesium 2.0 Total Bilirubin 0.3 AST 21 ALT 33 Alkaline Phosphatase 87 Troponin I 11 11 NT-Pro-B Natriuret Pep 23 Total Protein 6.8 Albumin 2.9 L Lipase 24 TSH 1.85 Urine Color Yellow Urine Clarity Clear Urine pH 7.0 Ur Specific [place] 1.025 Urine Protein 100 H Urine Ketones Negative Urine Blood Negative Urine Nitrite Negative Urine Bilirubin Negative Urine Urobilinogen 0.2 Ur Leukocyte Esterase Negative Urine RBC 0-2 Urine WBC Negative Ur Epithelial Cells Negative Urine Crystals Negative Urine Bacteria Rare Urine Casts Negative Urine Mucus Negative Ur Culture Indicated? No Urine Glucose Negative Last Vital Signs Temp 36.7 C 10/25/24 17:17 Pulse 124 H 10/25/24 20:02 Resp 28 H 10/25/24 20:02 BP 148/86 H 10/25/24 20:02 Pulse Ox 93 10/25/24 20:02 Time Spent Time spent with Patient: 40-54 minutes Time was spent: preparing to see the patient(eg.review tests), obtaining and/or reviewing separately otained hiistory, ordering medications,tests, procedures, referring, communicating with other health care program resident, indepentently interpreting results and counseling the patient
--- NOTE | 2024-10-25 22:01 | W.PCEDHO ---
Registration Status: Primary Language: Preferred Language: ED Information & Data Chief Complaint Chest Pain 10/25/24 17:23 Chief Complaint Chest Pain 10/25/24 17:17 Other Complaint SOB 10/25/24 17:17 Triage Note patient here today with CP 10/25/24 17:17 and SOB that has increased. CP started today; sternal to left side, stabbing. numbness and tingling of lips that started today. Patient recently removed from HCTZ for water retention and BP control. increased BLE swellling Medical / Surgical History (Last Reviewed 10/08/24 @ 16:38 by Mejia Tran MD) Sepsis Alcoholic gastritis History of herpes zoster Impaired glucose tolerance Abdominal pain Nausea Sleep pattern disturbance Muscle pain Lumbago with sciatica Degeneration of cervical intervertebral disc Kidney stone Hypertensive disorder PTSD (post-traumatic stress disorder) Secondary polycythemia Hyperlipidemia (Last Reviewed 10/08/24 @ 16:38 by Mejia Tran MD) Status post incision and drainage (~04/2024) History of colonoscopy with polypectomy (01/28/18) History of cystoscopy (05/30/16) History of ureteroscopy (03/17/19) History of esophagogastroduodenoscopy (EGD) (09/17/19) History of placement of ear tubes Most Recent Vital Signs Temperature 36.7 C 10/25/24 17:17 Temperature Source Temporal Artery Scan 10/25/24 17:17 Pulse 119 H 10/25/24 21:54 Pulse 117 H 10/25/24 21:54 Respiratory Rate 20 10/25/24 21:54 Respiratory Effort Non-Labored 10/25/24 18:22 Blood Pressure 129/90 10/25/24 21:54 Blood Pressure Mean 100 10/25/24 21:54 Blood Pressure Position Sitting 10/25/24 17:17 Pulse Oximetry 93 10/25/24 21:54 Oxygen Delivery Method Room Air 10/25/24 17:17 Oxygen Flow Rate 0 10/25/24 17:17 Pain Level 7 10/25/24 18:22 Allergies acetaminophen (From Tylenol) Allergy (Unknown, Verified 10/25/24 17:23) unknown ciprofloxacin (From Cipro) Allergy (Unknown, Verified 10/25/24 17:23) unknown clarithromycin (From Biaxin) Allergy (Unknown, Verified 10/25/24 17:23) unknown morphine Adverse Reaction (Severe, Verified 10/25/24 17:23) Other (See Comment) Becomes violent Precautions Isolation Standard precaution 10/25/24 17:23 Active Medications Generic Name Dose Route Start Last Admin Trade Name Jayda PRN Reason Stop Dose Admin Heparin Sodium/Sodium Chloride 25,000 unit in 250 mls @ 0 mls/hr 10/25/24 19:30 10/25/24 19:51 IVINF 18 mls/hr INFUSION SALOME 18 mls/hr Administration Protocol Per Protocol Iohexol 100 ml 10/25/24 18:45 10/25/24 18:35 Omnipaque 350 Mg/Ml 100 Ml Btl IJ 11/24/24 23:59 100 ml DIRECTED SALOME Administration Sodium Chloride 50 ml 10/25/24 18:45 10/25/24 18:33 Normal Saline - Diluent 50 Ml Vial IJ 50 ml .FOR DI USE SALOME Administration IV IV Catheter Type [Right Saline Lock Antecubital] IV Catheter Gauge [Right 18 Antecubital] Diet Orders Category Date Time Status Regular/Normal [DIET] Nutrition 10/26/24 Breakfast Ordered Diagnostics 10/25/24 10/25/24 10/25/24 Range/Units Unknown 20:50 18:17 WBC 16.05 H (4.4-10.8) 10^3/uL RBC 5.76 (4.36-5.78) 10^6/uL Hgb 15.1 (13.5-17.5) g/dL Hct 47.5 (40.0-50.0) % MCV 83 (80-95) fL MCH 26.2 L (27.0-33.0) pg MCHC 31.8 L (32.0-36.0) % RDW 14.3 H (11.8-14.1) % Plt Count 300 (130-400) 10^3/uL MPV 10.7 (8.0-11.0) fL Immature Gran % 0.8 % Neutrophils % 75.6 % Lymphocytes % 16.1 % Monocytes % 5.0 % Eosinophils % 2.1 % Basophils % 0.4 % Nucleated RBC % 0.0 (0.0-0.3) % Absolute Neutrophils 12.13 H (1.2-6.7) 10^3/uL Absolute Lymphocytes 2.58 (1.2-3.4) 10^3/uL Absolute Monocytes 0.80 (0.1-0.8) 10^3/uL Absolute Eosinophils 0.34 (0.0-0.7) 10^3/uL Absolute Basophils 0.06 (0.0-0.2) 10^3/uL PT Pending INR Pending APTT Pending 25.8 (20.6-30.2) sec LA dRVVT Screen Ratio Pending LA Technical Interp Pending Functional Protein C Pending Functional Protein S Pending Antithrombin III Activ Pending Factor VIII Pending Sodium 138 (136-145) mmol/L Potassium 4.1 (3.5-5.1) mmol/L Chloride 101 (98-107) mmol/L Carbon Dioxide 30.8 (21.0-32.0) mmol/L Anion Gap 6.2 (3-11) mmol/L BUN 13 (7-18) mg/dL Creatinine 1.0 (0.70-1.30) mg/dL Est GFR (CKD-EPI 2020) 101.28 (mL/min/1.73m2) Glucose 114 H (74-106) mg/dL Calcium 8.9 (8.5-10.1) mg/dL Magnesium 2.0 (1.8-2.4) mg/dL Total Bilirubin 0.3 (0.2-1.0) mg/dL AST 21 (15-37) U/L ALT 33 (16-63) U/L Alkaline Phosphatase 87 (46-116) U/L Troponin I 11 (<or=76) ng/L NT-Pro-B Natriuret Pep 23 (<300) pg/mL Total Protein 6.8 (6.4-8.2) g/dL Albumin 2.9 L (3.4-5.0) g/dL Lipase 24 (<78) U/L Homocysteine Pending TSH 1.85 (0.36-3.74) uIU/mL Urine Color (Yellow) Urine Clarity (Clear) Urine pH (5-8) Ur Specific [place] (1.005-1.025) Urine Protein (Neg-Trace) mg/dL Urine Ketones (Negative) mg/dL Urine Blood (Negative) Urine Nitrite (Negative) Urine Bilirubin (Negative) Urine Urobilinogen (Up to 0.2) mg/dL Ur Leukocyte Esterase (Negative) Urine RBC (0-2) HPF Urine WBC (0-5) HPF Ur Epithelial Cells (Negative) HPF Urine Crystals (Negative) HPF Urine Bacteria (Negative) HPF Urine Casts (Negative) LPF Urine Mucus (Negative) Ur Culture Indicated? Urine Glucose (Negative) mg/dL Beta-2 GPI IgG Ab Pending Beta-2 GPI IgM Ab Pending Phospholipid IgG Ab Pending Phospholipid IgM Ab Pending Prothrombin [id number] Mut Pending Prothrombin Mut Interp Pending Prothrombin Gene Reviewed By: Pending 10/25/24 10/25/24 Range/Units 17:55 17:22 WBC (4.4-10.8) 10^3/uL RBC (4.36-5.78) 10^6/uL Hgb (13.5-17.5) g/dL Hct (40.0-50.0) % MCV (80-95) fL MCH (27.0-33.0) pg MCHC (32.0-36.0) % RDW (11.8-14.1) % Plt Count (130-400) 10^3/uL MPV (8.0-11.0) fL Immature Gran % % Neutrophils % % Lymphocytes % % Monocytes % % Eosinophils % % Basophils % % Nucleated RBC % (0.0-0.3) % Absolute Neutrophils (1.2-6.7) 10^3/uL Absolute Lymphocytes (1.2-3.4) 10^3/uL Absolute Monocytes (0.1-0.8) 10^3/uL Absolute Eosinophils (0.0-0.7) 10^3/uL Absolute Basophils (0.0-0.2) 10^3/uL PT INR APTT (20.6-30.2) sec LA dRVVT Screen Ratio LA Technical Interp Functional Protein C Functional Protein S Antithrombin III Activ Factor VIII Sodium (136-145) mmol/L Potassium (3.5-5.1) mmol/L Chloride (98-107) mmol/L Carbon Dioxide (21.0-32.0) mmol/L Anion Gap (3-11) mmol/L BUN (7-18) mg/dL Creatinine (0.70-1.30) mg/dL Est GFR (CKD-EPI 2020) (mL/min/1.73m2) Glucose (74-106) mg/dL Calcium (8.5-10.1) mg/dL Magnesium (1.8-2.4) mg/dL Total Bilirubin (0.2-1.0) mg/dL AST (15-37) U/L ALT (16-63) U/L Alkaline Phosphatase (46-116) U/L Troponin I 11 (<or=76) ng/L NT-Pro-B Natriuret Pep (<300) pg/mL Total Protein (6.4-8.2) g/dL Albumin (3.4-5.0) g/dL Lipase (<78) U/L Homocysteine TSH (0.36-3.74) uIU/mL Urine Color Yellow (Yellow) Urine Clarity Clear (Clear) Urine pH 7.0 (5-8) Ur Specific [place] 1.025 (1.005-1.025) Urine Protein 100 H (Neg-Trace) mg/dL Urine Ketones Negative (Negative) mg/dL Urine Blood Negative (Negative) Urine Nitrite Negative (Negative) Urine Bilirubin Negative (Negative) Urine Urobilinogen 0.2 (Up to 0.2) mg/dL Ur Leukocyte Esterase Negative (Negative) Urine RBC 0-2 (0-2) HPF Urine WBC Negative (0-5) HPF Ur Epithelial Cells Negative (Negative) HPF Urine Crystals Negative (Negative) HPF Urine Bacteria Rare (Negative) HPF Urine Casts Negative (Negative) LPF Urine Mucus Negative (Negative) Ur Culture Indicated? No Urine Glucose Negative (Negative) mg/dL Beta-2 GPI IgG Ab Beta-2 GPI IgM Ab Phospholipid IgG Ab Phospholipid IgM Ab Prothrombin [id number] Mut Prothrombin Mut Interp Prothrombin Gene Reviewed By: Intake and Output - 24 Hour Total 10/25/24 17:08 thru 10/25/24 20:08 Output Total 1500 Balance -1500 Weight 166.922 kg Output: Urine 1500 Falls Risk Assessment History of Falls No History 10/25/24 18:26 Contributing Factors No Factors 10/25/24 18:26 Ambulatory Aids Independent 10/25/24 18:26 Tubes/Lines None 10/25/24 18:26 Gait Evaluation No gait disturbance 10/25/24 18:26 Cognition No cognitive impairment 10/25/24 18:26 Fall Total Score 0 10/25/24 18:26 Level of Risk Standard/Low Risk 10/25/24 18:26 Problems (Last Reviewed 10/08/24 @ 16:38 by Mejia Tran MD) Leukocytosis (Acute) Pulmonary embolism (Chronic) Bilateral lower extremity edema (Acute) Essential hypertension (Chronic) v v v v v v v v v Sending and/or Receiving Nurses: Please use comment section below to note any information pertinent to the patient hand-off not included above. Information / Comments:no questions Report received from:Carol CARABALLO
--- NOTE | 2024-10-25 23:09 | W.ED.GENAD ---
Discharge Plan Disposition Patient Disposition: Admit to [facility] Condition: Serious Discharge Details Clinical Impression: Pulmonary embolism, Bilateral lower extremity edema Admit Date/Time: 10/25/24 20:55 Admit Provider: Aleksandr Bowles Attending Provider: Aleksandr Bowles Primary Care Provider: Ann-Marie Booker ED Provider: Tana Ray Discharge Data Discharge Date/Time-TO BE ENTERED AT DEPARTURE: 10/25/24 22:18 HPI General Date/Time Provider Initiated Documentation: 10/25/24 17:30. HPI Narrative: 34-year-old male presents with bilateral lower extremity swelling and nonexertional chest pain, onset today. History of hospitalization for dyspnea and peripheral edema, treated with diuretics with improvement. Diagnosed with nonalcoholic steatohepatitis (SANCHEZ) during hospitalization; follow-up with gastroenterology scheduled for January at [facility]. Lasix dose increased to 80 mg 1.5 weeks ago, associated with progressive worsening. Denies regular alcohol use, recent surgeries, or long drives. Smokes tobacco. History of tachycardia. Denies illicit substance use. Related Data Home Medications ?Medication ?Instructions ?Recorded ?Confirmed loratadine 10 mg tablet (Claritin) 10 mg PO DAILY PRN 06/11/24 10/25/24 albuterol sulfate 90 mcg/actuation 2 puff inhalation Q6H PRN 09/22/24 10/25/24 aerosol inhaler shortness of breath or wheezing #8.5 grams metoprolol succinate 50 mg 50 mg PO DAILY 90 days #90 tabs 09/22/24 10/25/24 tablet,extended release 24 hr furosemide 80 mg tablet 80 mg PO QAM #90 tabs 10/17/24 10/25/24 potassium chloride 20 mEq 20 meq PO DAILY #90 tabs 10/17/24 10/25/24 tablet,extended release sumatriptan succinate 50 mg tablet See Rx Instructions PO .COMPLEX 10/17/24 10/25/24 (Imitrex) #10 tabs Previous Rx's ?Medication ?Instructions ?Recorded albuterol sulfate 90 mcg/actuation 2 puff inhalation Q6H PRN 09/22/24 aerosol inhaler shortness of breath or wheezing #8.5 grams metoprolol succinate 50 mg 50 mg PO DAILY 90 days #90 tabs 09/22/24 tablet,extended release 24 hr furosemide 80 mg tablet 80 mg PO QAM #90 tabs 10/17/24 potassium chloride 20 mEq 20 meq PO DAILY #90 tabs 10/17/24 tablet,extended release sumatriptan succinate 50 mg tablet See Rx Instructions PO .COMPLEX 10/17/24 (Imitrex) #10 tabs Allergies Allergy/AdvReac Type Severity Reaction Status Date / Time acetaminophen (From Tylenol) Allergy Unknown unknown Verified 10/25/24 17:23 ciprofloxacin (From Cipro) Allergy Unknown unknown Verified 10/25/24 17:23 clarithromycin (From Biaxin) Allergy Unknown unknown Verified 10/25/24 17:23 morphine AdvReac Severe Other (See Verified 10/25/24 17:23 Comment) General Stated Complaint: Chest Pain JOHNNY: 3 Exam Narrative Exam Narrative: General Appearance: Alert and oriented. Vital signs: Within normal limits. HEENT: Within normal limits. Respiratory: Within normal limits. Gastrointestinal: Abdomen distended but nontender. Extremities: Significant anasarca in upper and lower extremities. Pulses intact Skin: Warm and dry, no rash. Neurological: Normal. Alert and oriented times Course Vital Signs Vital signs: Vital Signs Temperature 36.7 C 10/25/24 17:17 Pulse 133 H 10/25/24 17:17 Respiratory Rate 26 H 10/25/24 17:17 Blood Pressure 125/83 10/25/24 17:17 Pulse Oximetry 95 10/25/24 17:17 Temperature 37.2 C 10/25/24 22:22 Temperature Source Temporal Artery Scan 10/25/24 17:17 Pulse 117 H 10/25/24 22:22 Pulse 119 H 10/25/24 22:01 Respiratory Rate 28 H 10/25/24 22:22 Respiratory Effort Non-Labored 10/25/24 18:22 Blood Pressure 134/79 10/25/24 22:22 Blood Pressure Mean 93 10/25/24 22:01 Blood Pressure Position Sitting 10/25/24 17:17 Pulse Oximetry 94 10/25/24 22:22 Oxygen Delivery Method Room Air 10/25/24 22:22 Oxygen Flow Rate 0 10/25/24 22:22 Pain Level 7 10/25/24 18:22 Lab/Test Results Lab/Test Results: Laboratory Tests Range/Units 10/25/24 10/25/24 10/25/24 17:22 17:55 18:17 WBC (4.4-10.8) 10^3/uL 16.05 H RBC (4.36-5.78) 10^6/uL 5.76 Hgb (13.5-17.5) g/dL 15.1 Hct (40.0-50.0) % 47.5 MCV (80-95) fL 83 MCH (27.0-33.0) pg 26.2 L MCHC (32.0-36.0) % 31.8 L RDW (11.8-14.1) % 14.3 H Plt Count (130-400) 10^3/uL 300 MPV (8.0-11.0) fL 10.7 Immature Gran % % 0.8 Neutrophils % % 75.6 Lymphocytes % % 16.1 Monocytes % % 5.0 Eosinophils % % 2.1 Basophils % % 0.4 Nucleated RBC % (0.0-0.3) % 0.0 Absolute Neutrophils (1.2-6.7) 10^3/uL 12.13 H Absolute Lymphocytes (1.2-3.4) 10^3/uL 2.58 Absolute Monocytes (0.1-0.8) 10^3/uL 0.80 Absolute Eosinophils (0.0-0.7) 10^3/uL 0.34 Absolute Basophils (0.0-0.2) 10^3/uL 0.06 APTT (20.6-30.2) sec 25.8 Sodium (136-145) mmol/L 138 Potassium (3.5-5.1) mmol/L 4.1 Chloride (98-107) mmol/L 101 Carbon Dioxide (21.0-32.0) mmol/L 30.8 Anion Gap (3-11) mmol/L 6.2 BUN (7-18) mg/dL 13 Creatinine (0.70-1.30) mg/dL 1.0 Est GFR (CKD-EPI 2020) (mL/min/1.73m2) 101.28 Glucose (74-106) mg/dL 114 H Calcium (8.5-10.1) mg/dL 8.9 Magnesium (1.8-2.4) mg/dL 2.0 Total Bilirubin (0.2-1.0) mg/dL 0.3 AST (15-37) U/L 21 ALT (16-63) U/L 33 Alkaline Phosphatase (46-116) U/L 87 Troponin I (<or=76) ng/L 11 11 NT-Pro-B Natriuret Pep (<300) pg/mL 23 Total Protein (6.4-8.2) g/dL 6.8 Albumin (3.4-5.0) g/dL 2.9 L Lipase (<78) U/L 24 TSH (0.36-3.74) uIU/mL 1.85 Urine Color (Yellow) Yellow Urine Clarity (Clear) Clear Urine pH (5-8) 7.0 Ur Specific [place] (1.005-1.025) 1.025 Urine Protein (Neg-Trace) mg/dL 100 H Urine Ketones (Negative) mg/dL Negative Urine Blood (Negative) Negative Urine Nitrite (Negative) Negative Urine Bilirubin (Negative) Negative Urine Urobilinogen (Up to 0.2) mg/dL 0.2 Ur Leukocyte Esterase (Negative) Negative Urine RBC (0-2) HPF 0-2 Urine WBC (0-5) HPF Negative Ur Epithelial Cells (Negative) HPF Negative Urine Crystals (Negative) HPF Negative Urine Bacteria (Negative) HPF Rare Urine Casts (Negative) LPF Negative Urine Mucus (Negative) Negative Ur Culture Indicated? No Urine Glucose (Negative) mg/dL Negative Medical Decision Making Laboratory Studies: Albumin 2.9, previously 3.4 at discharge. Troponin x2 was 11. BMP was 43. Imaging: CT shows right-sided PE without significant clot burden. Initial Assessment: 34-year-old male presents with bilateral lower extremity swelling and chest pain. History of SANCHEZ with significant peripheral edema previously treated with diuresis. Exam inconsistent with CHF. Significant anasarca noted. Differential Diagnosis: - Bilateral lower extremity swelling: Attributed to SANCHEZ; follow-up with gastroenterology pending. Significant anasarca noted. - Chest pain: CT revealed right-sided PE without significant clot burden. Radiologist expressed concern for possible right ventricular strain. Negative troponin (11) and BNP (43) lower clinical suspicion. ED Course: - CT scan ordered for chest pain and shortness of breath: Revealed right-sided PE without significant clot burden. - Radiologist consultation: Concern for possible right ventricular strain. - Troponin and BNP levels checked: Negative troponin (11) and BNP (43). - Heparinization initiated after confirming no recent head injuries or bleeds. - Case discussed with admitting hospitalist: Patient accepted for admission. Final Assessment: Patient presents with significant anasarca, PE, possible right ventricular strain, and tachycardia. Admission recommended for further management. Heparinization initiated. Clinical Impression: - Bilateral lower extremity swelling. - Right-sided pulmonary embolism. - Possible right ventricular strain. - Tachycardia. Disposition: - Admission: Patient accepted for admission. MDM Components Evaluation: - Number of Differential Diagnoses or Management Options: Bilateral lower extremity swelling, chest pain. - Amount and Complexity of Data Reviewed: CT scan results, radiologist consultation, troponin and BNP levels. - Risk of Complication and Morbidity or Mortality: Significant risk due to PE, possible right ventricular strain, and tachycardia. Quality:SDOH Health Related Social Needs: Health related social needs housing instability, housed, with risk of homelessness (Z59.811), transportation insecurity (Z59.82), problems related to housing/economic circumstances (Z59.89), problems with daily activities (Z73.9), feeling lonely/isolated (Z60.8) Health related social needs details home less PFSH All Active Problems (Updated 10/25/24 @ 23:17 by LYNNETTE Sahu) Leukocytosis (Acute) Pulmonary embolism (Chronic) Fluid overload (Acute) Fluid overload (Acute) Bilateral lower extremity edema (Acute) Low testosterone in male (Acute) Cellulitis (Acute) URI (upper respiratory infection) (Acute) Cough (Acute) Breast lump (Acute) Pre-diabetes (Acute) a1c 5.9 Discharge planning issues (Acute) Hypotension (Acute) MRSA infection (Acute) Sleep apnea in adult (Acute) Homeless (Acute) Leg cramps (Acute) Bipolar 1 disorder (Acute) Anxiety and depression (Chronic) Snoring (Acute) Essential hypertension (Chronic) Left ureteral stone (Acute) Medical History Sepsis Alcoholic gastritis History of herpes zoster Impaired glucose tolerance Abdominal pain Nausea Sleep pattern disturbance Muscle pain Lumbago with sciatica Degeneration of cervical intervertebral disc Kidney stone Hypertensive disorder PTSD (post-traumatic stress disorder) Secondary polycythemia Hyperlipidemia Surgical History Status post incision and drainage (~04/2024) left axilla, MRSA + History of colonoscopy with polypectomy (09/10/18) inflammatory bowel disease, polyps x3, internal and external hemorrhoids History of cystoscopy (05/30/16) with laser litho LT History of ureteroscopy (03/17/19) left, with stone extraction History of esophagogastroduodenoscopy (EGD) (09/17/19) paraesophageal hernia type 3 History of placement of ear tubes Family History Other Colon cancer Dementia Social History Smoking/Tobacco Use Status: Current every day Tobacco Type: cigarettes Tobacco: How many years used: 14 Smoking risk assessment performed?: Yes Alcohol Intake: never Drug use: Occasionally Substance use type: marijuana Counseling given: No Adopted: No Caregiver/Support person: No Foster care: No Household members: significant other Housing: homeless Number of Children: 1 Communication Needs: None and Corrective Lenses Education Level: high school Do you need help understanding health information?: Rarely 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 Pets and animals: No Sexually active: Yes Do you think of yourself as: straight/heterosexual What is your relationship status?: living with partner How often do you talk on the phone with friends or family?: decline to answer How often do you get together with friends or relatives?: never Do you belong to any clubs or organized social groups?: no Panel score (0-1 are the most socially isolated patients): 1 What type of physical activity do you participate in: walking and other Details: stretches Duration: 15-30 minutes/day Frequency: daily Meghana/Taoism: None Seatbelt use: always Helmet use: No Drive intox or ride w/intox locomotive driver: No Working smoke detector in home: Yes Fire extinguisher in home: Yes Carbon monox detector in home: No Do you feel safe at home: Yes Do you feel safe in your relationship?: Yes Additional Social history: lost housing sunday, awaiting bed at [facility]
[2024-10-26] MEDS: SUMAtriptan 50 MG TAB PO ×2 (02:16→08:31)
[2024-10-26 02:33] LABS: PTT Activated 27.8 sec (20.6-30.2)
[2024-10-26] MEDS: Heparin in 0.45% NaCl 25,000 UNIT/250 ML BAG 22.5 UNIT IVINF (02:43)
[2024-10-26 03:42] VITALS: BP 142/87; PULSE 107; RESP 20; TEMP 36.6; O2SAT 92
[2024-10-26 06:37] LABS: HCT 46.3 % (40.0-50.0); HGB 14.8 g/dL (13.5-17.5); MCH 26.6 pg (27.0-33.0); MCV 83 fL (80-95); MPV 10.9 fL (8.0-11.0); Platelet Count 272 10^3/uL (130-400); RBC 5.57 10^6/uL (4.36-5.78); RDW 14.4 % (11.8-14.1); WBC 12.58 10^3/uL (4.4-10.8)
[2024-10-26 06:52] LABS: ALT 30 U/L (16-63); AST 18 U/L (15-37); Albumin 2.7 g/dL (3.4-5.0); Alkaline Phosphatase 77 U/L (46-116); Anion Gap 7.7 mmol/L (3-11); BUN 12 mg/dL (7-18); Bilirubin, Total 0.4 mg/dL (0.2-1.0); CO2 28.3 mmol/L (21.0-32.0); Calcium 8.7 mg/dL (8.5-10.1); Chloride 103 mmol/L (98-107); Estimated GFR 101.28 (mL/min/1.73m2); Glucose 124 mg/dL (74-106); Potassium 3.9 mmol/L (3.5-5.1); Sodium 139 mmol/L (136-145); Total Protein 6.3 g/dL (6.4-8.2)
[2024-10-26 07:17] VITALS: BP 155/114; PULSE 97; RESP 18; TEMP 36.4; O2SAT 94
[2024-10-26] MEDS: Furosemide 40 MG/4 ML VIAL IVP (08:32)
[2024-10-26] MEDS: Metoprolol CR 50 MG TABCR PO (08:32)
[2024-10-26 09:32] LABS: PTT Activated 30.5 sec (20.6-30.2)
--- NOTE | 2024-10-26 10:00 | PDOC.CMIN ---
Date of service: 10/26/24 Time of Service: 10:00 Care Management Initial Assmt Initial Assessment Reason for Hospitalization: pulmonary embolism Functional Status/Living Situation Patient Presentation: Ananth presented to the ER lst night with new onset of chest pain and tacchycardia. CT of his chest revealed a pulmonary embolism in his RLL. He was admitted on a heparin gtt. Ananth was lying in bed when met with him today. He had been sleeping a lot today, so CM was happy to catch him awake. Ananth is known to from previous admissions, and was very pleasant to talk with. He stated that he was really scared by the symptoms that he was having and knew he had to go to the ER. Ananth asked for a return to work letter. This will be given on discharge. Ananth works in a physical job, and should not be returning to work right away. Ananth was informed that the Eliquis he will be discharged on will only cost $3. He was very pleased with this. Ananth is currently living out of his truck. He is eating ok, can shower 2-3x/ week and do his laundry. He is not able to fully stretch out, however, and his feet are dependent at all times, which undoubtedly contributes to his LE edema. Ananth is getting help from the probation office in looking for housing. He has filled out some paper work, and things are moving along. He is hopeful to have a permanent place to live before the weather gets cold again. 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[employer]) Instrumental Activities of Daily Living (ADLs): Independent Advance Directives Advance Directives: Do you have an Advance Directive: N 10/25/24 17:19 AD On File at [facility]: N 03/14/19 18:15 Date Asked 10/25/24 10/25/24 17:15 AD Date Reviewed COLST On File at [facility] No 10/25/24 17:19 COLST Date Scanned Code Status Resuscitation Status Full Code Portal Pt does not currently have a portal and education provided: Yes Insurance Coverage/Financial Issues Insurance: Medicaid of [place] Care Team Visit Care Team Role Provider Type Demetrio Mcfarland MD [facility] STAFF PHYSICIAN Ann-Marie Booker NP Primary Care Provider NURSE PRACTITIONER LYNNETTE Sahu Emergency Provider PHYSICIANS CHIEF ACCOUNTING OFFICER Aleksandr Bowles MD Admit Provider MD [facility] STAFF PHYSICIAN Attending Provider Discharge Potential Discharge Needs: Consult Consult Services Needed: Other (hematology?) and PCP F/U Appt Anticipated Barriers to Discharge: None Identified Patient/Family Education Needs: Review discharge instructions, discuss Ask Me Three Transportation: Private vehicle Plan: Ananth will discharge home with no new services once he is medically stable. He will f/u with his PCP and continue per his plan of care. CM will continue to follow and to update the plan as needed. Social Determinants of Health Screening Social Determinants of health last assessed in clinic: 10/26/24 Will the Patient Participate in the Screening?: Yes Do you worry about having a steady place to live?: yes What is your living situation today?: I do not have steady housing Problems where you live: no known problems In the past 12 months, have you had to go without electric, gas, oil or water in your home?: no 1. Within the past 12 months, we worried whether our food would run out before we got money to buy more.: Sometimes true 2. Within the past 12 months, the food we bought just didn't last and we didn't have money to get more.: Sometimes true Has lack of transportation kept you from medical appointments or from doing things needed for daily living?: yes Has anyone in your life made you feel unsafe or unsupported?: yes How often does anyone, including family and friends, physically hurt you?: Never How often does anyone, including family and friends, insult or talk down to you?: Never How often does anyone, including family and friends, threaten you with harm?: Never How often does anyone, including family and friends, scream or curse at you?: Never HRSN Safety total score: 4 How hard is it for you to pay for the very basics like food, housing, medical care, and heating? Would you say it is:: Very hard Do you want help finding or keeping work or a job?: I do not need or want help If for any reason you need help with day-to-day activities such as bathing, preparing meals, shopping, managing finances, etc., do you get the help you need?: I could use a little more help How often do you feel lonely or isolated from those around you?: Sometimes Do you speak a language other than Emirati at home?: No Does the patient want assistance with any of the above?: Yes Comments: Patient is home less Health Related Social Needs Health related social needs: housing instability, housed, with risk of homelessness (Z59.811), food insecurity (Z59.41), transportation insecurity (Z59.82), problems related to housing/economic circumstances (Z59.89), problems with daily activities (Z73.9) and feeling lonely/isolated (Z60.8) Health related social needs details: home less PFSH All Active Problems (Updated 10/26/24 @ 12:25 by Demetrio Mcfarland) Migraine (Chronic) Leukocytosis (Acute) Pulmonary embolism (Chronic) Fluid overload (Acute) Fluid overload (Acute) Bilateral lower extremity edema (Acute) Low testosterone in male (Acute) Cellulitis (Acute) URI (upper respiratory infection) (Acute) Cough (Acute) Breast lump (Acute) Pre-diabetes (Acute) a1c 5.9 Discharge planning issues (Acute) Hypotension (Acute) MRSA infection (Acute) Sleep apnea in adult (Acute) Homeless (Acute) Leg cramps (Acute) Bipolar 1 disorder (Acute) Anxiety and depression (Chronic) Snoring (Acute) Essential hypertension (Chronic) Left ureteral stone (Acute) Medical History Sepsis Alcoholic gastritis History of herpes zoster Impaired glucose tolerance Abdominal pain Nausea Sleep pattern disturbance Muscle pain Lumbago with sciatica Degeneration of cervical intervertebral disc Kidney stone Hypertensive disorder PTSD (post-traumatic stress disorder) Secondary polycythemia Hyperlipidemia Surgical History Status post incision and drainage (~04/2024) left axilla, MRSA + History of colonoscopy with polypectomy (01/28/18) inflammatory bowel disease, polyps x3, internal and external hemorrhoids History of cystoscopy (05/30/16) with laser litho LT History of ureteroscopy (03/17/19) left, with stone extraction History of esophagogastroduodenoscopy (EGD) (09/17/19) paraesophageal hernia type 3 History of placement of ear tubes Family History Other Colon cancer Dementia Social History Smoking/Tobacco Use Status: Current every day Tobacco Type: cigarettes Tobacco: How many years used: 14 Smoking risk assessment performed?: Yes Alcohol Intake: never Drug use: Occasionally Substance use type: marijuana Counseling given: No Adopted: No Caregiver/Support person: No Foster care: No Household members: significant other Housing: homeless Number of Children: 1 Communication Needs: None and Corrective Lenses Education Level: high school Do you need help understanding health information?: Rarely 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 Pets and animals: No Sexually active: Yes Do you think of yourself as: straight/heterosexual What is your relationship status?: living with partner How often do you talk on the phone with friends or family?: decline to answer How often do you get together with friends or relatives?: never Do you belong to any clubs or organized social groups?: no Panel score (0-1 are the most socially isolated patients): 1 What type of physical activity do you participate in: walking and other Details: stretches Duration: 15-30 minutes/day Frequency: daily Meghana/Quaker: None Seatbelt use: always Helmet use: No Drive intox or ride w/intox straddle bug driver: No Working smoke detector in home: Yes Fire extinguisher in home: Yes Carbon monox detector in home: No Do you feel safe at home: Yes Do you feel safe in your relationship?: Yes Additional Social history: lost housing sunday, awaiting bed at [facility] Readmission Within the Past 30 Days Yes or No: Yes Date of First Admission Date of 1st Admission: 10/08/24 Date of this Admission Date of Admission: 10/25/24 This admission was: Through ED Office Visit Since 1st Admission Have you seen your PCP in the office since discharge?: Yes Date of PCP Appointment: 10/17/24 I. Interview patient and/or Family Difficulty reaching your doctor or getting an office appt?: No ED visits How many ED visits in the past 12 months: 4
--- NOTE | 2024-10-26 11:28 | PHA.REVIEW2 ---
Pharmacy Admission Review Admission Clinical Review Admission Pharmacy Review: Leukocytosis (Acute) Bilateral lower extremity edema (Acute) acetaminophen (From Tylenol) Allergy (Unknown, Verified 10/25/24 17:23) unknown ciprofloxacin (From Cipro) Allergy (Unknown, Verified 10/25/24 17:23) unknown clarithromycin (From Biaxin) Allergy (Unknown, Verified 10/25/24 17:23) unknown morphine Adverse Reaction (Severe, Verified 10/25/24 17:23) Other (See Comment) Resuscitation Status Full Code Height 6 ft 4 in Weight 164.38 kg Pharmacy Admission Review Renal Dosing Renal Dosing: BUN 12 mg/dL (7-18) 10/26/24 06: Creatinine 1.0 mg/dL (0.70-1.30) 10/26/24 06: Medications needing adjustments: Reviewed (CrCl 173.47 mL/min) List of meds needing interventions: Current medications are okay Anticoagulation Anticoagulation: Hgb 14.8 g/dL (13.5-17.5) 10/26/24 06: Hct 46.3 % (40.0-50.0) 10/26/24 06:25 Plt Count 272 10^3/uL (130-400) 10/26/24 06: Creatinine 1.0 mg/dL (0.70-1.30) 10/26/24 06:25 Therapeutic Anticoagulation: Reviewed (Was started on heparin drip last night for PE, transitioned to therapeutic Eliquis this morning) Medications: Apixaban (10mg PO BID) Relevant Labs Relevant Labs: Sodium 139 mmol/L (136-145) 10/26/24 06:25 Potassium 3.9 mmol/L (3.5-5.1) 10/26/24 06:25 Chloride 103 mmol/L (98-107) 10/26/24 06:25 Magnesium 2.0 mg/dL (1.8-2.4) 10/25/24 18:17 Electrolytes, C-Reactive P, ESR: Reviewed (WBC decreased from 16.05 to 12.58) Cardiac Review Cardiac Review: Troponin I 11 ng/L (<or=76) 10/25/24 18:17 NT-Pro-B Natriuret Pep 23 pg/mL (<300) 10/25/24 18:17 Blood Pressure : Heart Rate 155/114 : 97 0717 Blood Pressure : Heart Rate 142/87 : 107 0342 BP, HR, EF%: Reviewed List meds needing interventions: Has order for furosemide 80mg daily and metoprolol XL 50mg daily QTc Review QTc: Reviewed (448 from 10/25/24) IV to PO Switch IV Medications: Reviewed Home Meds Home Med List reviewed: Reviewed Relevent Home Meds Not ordered & why?: loratadine (PRN) Current Meds Current Medication Order Review: Intervened Comments: Added IV admission order set Changed sumatriptan order from DIRECTED to QID PRN - per home med list can take up to 4 tablets daily
[2024-10-26] MEDS: Apixaban 5 MG TAB 10 MG PO ×2 (11:37→20:56)
[2024-10-26 11:46] VITALS: BP 161/104; PULSE 101; RESP 18; TEMP 37.2; O2SAT 93
--- NOTE | 2024-10-26 12:12 | PGE_ITS ---
Date of Service Date of service: 10/26/24 Time of Service: 12:12 Assessment and Plan Assessment and plan (1) Pulmonary embolism: Status: Chronic Assessment and plan: - Acute PE. CT concerning for right heart strain but his HR and RR have improved, not hypoxic. - will transition to oral anticoagulation. - hypercoagulable workup pending. (2) Bilateral lower extremity edema: Status: Acute Assessment and plan: -Cont w/ Lasix 40mg IV BID -Monitor urine output -He has had recent work up including echocardiogram with normal LVEF, some LVH but no clear diastolic dysfunction -He had RUQ u/s showing severe steatosis but no cirrhosis. His labs are not c/w cirrhosis or portal HTN -his u/a significant for 100 protein, get prot/cr to see if in nephrotic range. This could also expiain hypercoagulability and low albumin. (3) Essential hypertension: Status: Chronic Assessment and plan: -Cont w/ Metoprolol Succinate 50mg daily (4) Leukocytosis: Status: Acute Assessment and plan: I agree this is reactive, improving. Continue without antibiotics (5) Migraine: Status: Chronic Assessment and plan: This is a chronic issue. On metoprolol and sumitriptan PRN, which does work. Condider titrating the metoprolol Subjective Subjective Patient reports: tolerating a regular diet and voiding w/o difficulty; denies nausea, vomiting or fever Interval history since last seen: events: started on heparin drip at admission [facility] this morning, typical migraine, sumitriptan given for second time (also given in ED) He feels a little better. GODINEZ better with sumitriptan. His legs are less swollen with the furosemide. Heart is still fast but he doesn't feel pain, not SOB at rest. Exam Narrative Exam Narrative: General Appearance: Alert and oriented. Respiratory: CTAB, normal effort, no rales CV: tachycardic but regular, no m/g/r. Gastrointestinal: Abdomen soft, large but not distended or nontender. Extremities: 2+ pitting edema LE, trace in UE. both calves a little tender, but symmetric Skin: Warm and dry, no rash. Objective Last Vital Signs Temp 37.2 C 10/26/24 11:46 Pulse 101 H 10/26/24 11:46 Resp 18 10/26/24 11:46 BP 161/104 H 10/26/24 11:46 Pulse Ox 93 10/26/24 11:46 Laboratory Results - last 24 hr 10/25/24 10/25/24 10/25/24 17:22 17:55 18:17 WBC 16.05 H RBC 5.76 Hgb 15.1 Hct 47.5 MCV 83 MCH 26.2 L MCHC 31.8 L RDW 14.3 H Plt Count 300 MPV 10.7 Immature Gran % 0.8 Neutrophils % 75.6 Lymphocytes % 16.1 Monocytes % 5.0 Eosinophils % 2.1 Basophils % 0.4 Nucleated RBC % 0.0 Absolute Neutrophils 12.13 H Absolute Lymphocytes 2.58 Absolute Monocytes 0.80 Absolute Eosinophils 0.34 Absolute Basophils 0.06 APTT 25.8 Sodium 138 Potassium 4.1 Chloride 101 Carbon Dioxide 30.8 Anion Gap 6.2 BUN 13 Creatinine 1.0 Est GFR (CKD-EPI 2020) 101.28 Glucose 114 H Calcium 8.9 Magnesium 2.0 Total Bilirubin 0.3 AST 21 ALT 33 Alkaline Phosphatase 87 Troponin I 11 11 NT-Pro-B Natriuret Pep 23 Total Protein 6.8 Albumin 2.9 L Lipase 24 TSH 1.85 Urine Color Yellow Urine Clarity Clear Urine pH 7.0 Ur Specific [place] 1.025 Urine Protein 100 H Urine Ketones Negative Urine Blood Negative Urine Nitrite Negative Urine Bilirubin Negative Urine Urobilinogen 0.2 Ur Leukocyte Esterase Negative Urine RBC 0-2 Urine WBC Negative Ur Epithelial Cells Negative Urine Crystals Negative Urine Bacteria Rare Urine Casts Negative Urine Mucus Negative Ur Culture Indicated? No Urine Glucose Negative 10/26/24 10/26/24 10/26/24 02:10 06:25 08:58 WBC 12.58 H RBC 5.57 Hgb 14.8 Hct 46.3 MCV 83 MCH 26.6 L MCHC 32.0 RDW 14.4 H Plt Count 272 MPV 10.9 Immature Gran % Neutrophils % Lymphocytes % Monocytes % Eosinophils % Basophils % Nucleated RBC % Absolute Neutrophils Absolute Lymphocytes Absolute Monocytes Absolute Eosinophils Absolute Basophils APTT 27.8 30.5 H Sodium 139 Potassium 3.9 Chloride 103 Carbon Dioxide 28.3 Anion Gap 7.7 BUN 12 Creatinine 1.0 Est GFR (CKD-EPI 2020) 101.28 Glucose 124 H Calcium 8.7 Magnesium Total Bilirubin 0.4 AST 18 ALT 30 Alkaline Phosphatase 77 Troponin I NT-Pro-B Natriuret Pep Total Protein 6.3 L Albumin 2.7 L Lipase TSH Urine Color Urine Clarity Urine pH Ur Specific [place] Urine Protein Urine Ketones Urine Blood Urine Nitrite Urine Bilirubin Urine Urobilinogen Ur Leukocyte Esterase Urine RBC Urine WBC Ur Epithelial Cells Urine Crystals Urine Bacteria Urine Casts Urine Mucus Ur Culture Indicated? Urine Glucose Time Spent with Patient Time Spent with Patient: 35-49 minutes Time was spent: preparing to see the patient(eg.review tests), obtaining and/or reviewing separately otained hiistory, ordering medications,tests, procedures, referring, communicating with other health in home caregiver, indepentently interpreting results, counseling the patient and care coordination
[2024-10-26 15:50] LABS: COMMENT (LAB VIEW ONLY) 24.57 mg/dL; PROTEIN 15.8 mg/dL; Prot/Crea Ur Ratio 0.64
[2024-10-26 16:22] VITALS: BP 139/106; PULSE 102; RESP 16; TEMP 36.7; O2SAT 93
[2024-10-26] MEDS: diphenhydrAMINE 25 MG CAP PO (16:48)
[2024-10-26 19:38] VITALS: BP 150/76; PULSE 100; RESP 18; TEMP 36.5; O2SAT 95
[2024-10-26] MEDS: Ibuprofen 600 MG TAB PO (21:33)
--- NOTE | 2024-10-27 | DI.US_ITS ---
Exam(s) US EXTREMITY VENOUS BI EXAM: US EXTREMITY VENOUS BI CLINICAL HISTORY: PE and bilateral LE swelling TECHNIQUE: Grayscale, color, and doppler imaging of the deep venous system of both lower extremities was performed. COMPARISON: US US ABDOMEN LIMITED from 10/10/2024 FINDINGS: There is no evidence of intraluminal thrombus and there is normal compression and augmentation demons trated within the common femoral veins, femoral veins, and popliteal veins of both lower extremities. In the calves the interrogated veins also exhibit normal compression/ augmentation properties. The greater saphenous veins also appear patent as do the saphenofemoral junctions bilaterally.. IMPRESSION: 1. No ultrasound evidence of DVT in either lower extremity. DATA REPOSITORY:
[2024-10-27 07:45] VITALS: BP 155/95; PULSE 100; RESP 20; TEMP 36.4; O2SAT 96
[2024-10-27] MEDS: Apixaban 5 MG TAB 10 MG PO (08:08)
[2024-10-27] MEDS: Metoprolol CR 50 MG TABCR PO (08:08)
[2024-10-27] MEDS: Potassium Chloride 20 MEQ TABCR PO (08:08)
[2024-10-27] MEDS: Furosemide 40 MG TAB 80 MG PO (08:08)
[2024-10-27] MEDS: Normal Saline Flush 10 ML SYR IVP (08:12)
[2024-10-27] MEDS: SUMAtriptan 50 MG TAB PO (08:12)
[2024-10-27 09:14] LABS: Homocysteine 13.1 umol/L (5.0-13.9)
[2024-10-27 10:06] LABS: Factor 8 Assay 275 % (50-150)
--- NOTE | 2024-10-27 11:30 | CMDISCH_ITS ---
Date of service: 10/27/24 Time of Service: 11:30 LACE Index Scoring Tool Questions: Length of Stay (in days): 2 Was the patient admitted via the E.D.?: Yes E.D. Visits: 4 Answers: Total Score: 9 Risk of Readmission: Low Risk Care Management Discharge Plan Reason for Hospitalization: pulmonary embolism Discharge Plan: Ananth will be discharged home later today with no new services. He was started on apixaban, the cost is affordable for him, but not until he is paid on Sunday. Pharmacy has given Ananth enough med to get him to Sunday. Ananth was given a ToGo bag from dietary, and also a return to work letter. Ananth will f/u with his PCP and continue per his plan of care. He will transport in a private vehicle. Patient/Family Education Needs: Review of discharge instructions, activity, limitations, and discuss Ask me 3 SDOH Health Related Social Needs: Health related social needs housing instability, house d, with risk of homelessness (Z59.811), food insecurity (Z59.41), transportation insecurity (Z59.82), problems related to housing/economic circumstances (Z59.89), problems with daily activities (Z73.9), feeling lonely/isolated (Z60.8) Health related social needs details home less Health related social needs details: home less
--- NOTE | 2024-10-27 12:22 | DSE_ITS ---
Date of service: 10/27/24 Time of Service: 12:22 DS: Diagnosis Discharge Diagnosis (1) Pulmonary embolism: Status: Chronic (2) Bilateral lower extremity edema: Status: Acute (3) Essential hypertension: Status: Chronic (4) Leukocytosis: Status: Acute (5) Migraine: Status: Chronic (6) Proteinuria, unspecified: Status: Acute Discharge Plan Disposition Patient Disposition: Home Condition: Stable Discharge Details Reason For Visit: Pulmonary Embolism Admit Date/Time: 10/25/24 20:55 Admit Provider: Aleksandr Bowles Attending Provider: Aleksandr Bowles Primary Care Provider: Ann-Marie Booker Hospital Course Hospital Course: 34 y/o C M w/ PMH HTN, Bipolar 1 and bilateral lower extremity edema a/w MASLD who presented with new onset chest pain and was diagnosed with pulmonary embolism. He was initially on heparin drip but with clinical improvement was transitioned to apixaban and was tolerating this well. Hypercoagulable work up was sent and is pending at time of discharge. His labs and previous imaging were not consistent with cirrhosis. He did have mildly low protein and albumin and some protein in his urine, but these were not at nephrotic levels with urine prot/Cr ratio at 0.67. This should be followed and GI/ARB therapy considerd. His pulse improved but stayed around 100, though reviewing his history he is often mildly tachycardic despite his 50mg metoprolol succinate. He had bilateral LE edema. U/s was negative for DVT. He did diurese on his 80mg furosemide, which was continued. Insurance coverage of apixaban was confirmed, and he was given 2 days worth at discharge as he did not have luna for copay until he is payed 10/29. He will likely need indefinite anticoagulation. PCP follow up: Follow up 1 week Make sure he is getting his apixaban, including refills Consider titration of metoprolol and/or addition of GI/ARB for proteinuria Follow up on MASLD assessment including consideration of GLP-1 is possible. follow up hypercoagulability results follow up proteinuria Home Meds and New Rx's Prescriptions: New Eliquis 5 mg Tablet See Rx Instructions .ROUTE .COMPLEX Qty: 70 0RF Rx Instructions: take 2 tablets twice a day for 7 days, then one tab po BID Continued sumatriptan succinate [Imitrex] 50 mg tablet See Rx Instructions .ROUTE .COMPLEX Qty: 10 0RF Rx Instructions: take 1 tab at onset of headache; if no relief may repeat 1 tab after at least 2 hrs; max = 4 tabs/24 hr furosemide 80 mg tablet 80 mg PO QAM Qty: 90 3RF potassium chloride 20 mEq tablet extended release 20 meq PO DAILY Qty: 90 3RF loratadine [Claritin] 10 mg tablet 10 mg PO DAILY PRN albuterol sulfate 90 mcg/actuation HFA aerosol inhaler 2 puff inhalation Q6H PRN (Reason: shortness of breath or wheezing) Qty: 8.5 0RF metoprolol succinate 50 mg tablet extended release 24 hr 50 mg PO DAILY 90 Days Qty: 90 1RF Rx Instructions: Please cancel 100mg script.. sorry Discharge Instructions Instructions: Pulmonary Embolism (Blood Clot in the Lungs) (DC) Additional Instructions: You had a blood clot in your lungs. You should stay on the blood thinners, though the dose goes down after 1 week. Follow a lower carbohydate diet if you can for your liver, and avoid alcohol You had protein in your urine. Your doctor may adjust your medications to help this. Activity:: Activity as Tolerated Equipment/Supplies:: No Equipment Needed Diet:: Carb Counting Discharge Orders Discharge Orders: Discharge Order (Routine); Ordered 10/27/24 Ordered By: Demetrio Mcfarland DS: Summary Time Spent with Patient providing and/or coordinating discharge services: Greater than 30 minutes Status at Discharge Functional status at discharge: independent ambulation Overall status at discharge: patient is back to baseline Mental Status: mental status grossly normal Speech and Movement: speech and movement normal Mood: congruent mood Affect: normal affect Quality:SDOH Health Related Social Needs: Health related social needs housing instability, house d, with risk of homelessness (Z59.811), food insecurity (Z59.41), transportation insecurity (Z59.82), problems related to housing/economic circumstances (Z59.89), problems with daily activities (Z73.9), feeling lonely/isolated (Z60.8) Health related social needs details home less Health related social needs details: home less Exam Narrative Exam Narrative: General Appearance: Alert and oriented, NAD Respiratory: CTAB, normal effort, no rales CV: borderline tachycardic but regular, no m/g/r. Gastrointestinal: Abdomen soft, large but not distended or nontender. Extremities: 1-2+ pitting edema LE, symmetric. Skin: Warm and dry, no rash. Psych Mental Status: mental status grossly normal Speech and Movement: speech and movement normal Mood: congruent mood Affect: normal affect DS: Data Vitals/I&O Vitals and I&O: Vital Signs Temperature 36.4 C L 10/27/24 07:45 Temperature Source Temporal Artery Scan 10/27/24 07:45 Pulse 100 H 10/27/24 07:45 Pulse 119 H 10/25/24 22:01 Respiratory Rate 20 10/27/24 07:45 Respiratory Effort Non-Labored 10/25/24 18:22 Blood Pressure 155/95 H 10/27/24 07:45 Blood Pressure Mean 115 10/27/24 07:45 Blood Pressure Position Sitting 10/25/24 17:17 Pulse Oximetry 96 10/27/24 07:45 Oxygen Delivery Method Room Air 10/27/24 07:45 Oxygen Flow Rate 0 10/27/24 07:45 Pain Level 0 10/27/24 09:12 Comment RN notified 10/27/24 07:45 Intake & Output 10/26/24 10/27/24 10/27/24 23:59 11:59 23:59 Intake Total 440 / 1203.850 560 / 560 Output Total 1150 / 4125 400 / 400 Balance -710 / -2921.150 160 / 160 Intake: Oral 440 / 880 560 / 560 Output: Urine 1150 / 4125 400 / 400 Other: Urine Color Yellow Yellow Urine Appearance Clear Urine Odor None Data Completed and Pending Labs on day of discharge: Labs from last 24 hours 10/26/24 15:30 Ur Random Creatinine 24.57 U Random Total Protein 15.8 U [place] Prot/Creat Ratio 0.64 PFSH All Active Problems (Updated 10/27/24 @ 12:23 by Demetrio Mcfarland) Proteinuria, unspecified (Acute) Migraine (Chronic) Leukocytosis (Acute) Pulmonary embolism (Chronic) Fluid overload (Acute) Fluid overload (Acute) Bilateral lower extremity edema (Acute) Low testosterone in male (Acute) Cellulitis (Acute) URI (upper respiratory infection) (Acute) Cough (Acute) Breast lump (Acute) Pre-diabetes (Acute) a1c 5.9 Discharge planning issues (Acute) Hypotension (Acute) MRSA infection (Acute) Sleep apnea in adult (Acute) Homeless (Acute) Leg cramps (Acute) Anxiety and depression (Chronic) Snoring (Acute) Essential hypertension (Chronic) Left ureteral stone (Acute) Bipolar 1 disorder (Acute) Medical History Sepsis Alcoholic gastritis History of herpes zoster Impaired glucose tolerance Abdominal pain Nausea Sleep pattern disturbance Muscle pain Lumbago with sciatica Degeneration of cervical intervertebral disc Kidney stone Hypertensive disorder PTSD (post-traumatic stress disorder) Secondary polycythemia Hyperlipidemia Surgical History Status post incision and drainage (~04/2024) left axilla, MRSA + History of colonoscopy with polypectomy (01/28/18) inflammatory bowel disease, polyps x3, internal and external hemorrhoids History of cystoscopy (05/30/16) with laser litho LT History of ureteroscopy (03/17/19) left, with stone extraction History of esophagogastroduodenoscopy (EGD) (09/17/19) paraesophageal hernia type 3 History of placement of ear tubes Family History Other Colon cancer Dementia Social History Smoking/Tobacco Use Status: Current every day Tobacco Type: cigarettes Tobacco: How many years used: 14 Smoking risk assessment performed?: Yes Alcohol Intake: never Drug use: Occasionally Substance use type: marijuana Counseling given: No Adopted: No Caregiver/Support person: No Foster care: No Household members: significant other Housing: homeless Number of Children: 1 Communication Needs: None and Corrective Lenses Education Level: high school Do you need help understanding health information?: Rarely 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 Pets and animals: No Sexually active: Yes Do you think of yourself as: straight/heterosexual What is your relationship status?: living with partner How often do you talk on the phone with friends or family?: decline to answer How often do you get together with friends or relatives?: never Do you belong to any clubs or organized social groups?: no Panel score (0-1 are the most socially isolated patients): 1 What type of physical activity do you participate in: walking and other Details: stretches Duration: 15-30 minutes/day Frequency: daily Meghana/Denominational: None Seatbelt use: always Helmet use: No Drive intox or ride w/intox starting gate driver: No Working smoke detector in home: Yes Fire extinguisher in home: Yes Carbon monox detector in home: No Do you feel safe at home: Yes Do you feel safe in your relationship?: Yes Additional Social history: lost housing sunday, awaiting bed at [facility] Time Spent with Patient Time Spent with Patient: <45 minutes Time was spent: preparing to see the patient(eg.review tests), obtaining and/or reviewing separately otained hiistory, ordering medications,tests, procedures, referring, communicating with other health day care assistant, indepentently interpreting results, counseling the patient and care coordination
[2024-10-28 10:45] LABS: Activated Partial Thrombo Time 39 sec (25 - 37); DRVVT Screen Ratio 0.92 ratio (<1.20); Prothrombin Time (PT) 10.7 sec (9.4 - 12.5)
[2024-10-28 12:35] LABS: Antithrombin Activity, Plasma 82 % (80 - 130)
[2024-10-28 22:20] LABS: Phospholipid Ab, IgG <9.4 GPL; Phospholipid Ab, IgM <9.4 MPL
[2024-10-29 12:03] LABS: Protein C, Functional 132 % (71-199); Protein S, Functional 130 % (73-156)
[2024-10-30 12:23] LABS: Beta 2 GP1 Ab IgG <9.4 SGU; Beta 2 GP1 Ab IgM <9.4 SMU
[2024-10-31 10:59] LABS: Prothrombin G20210A Mutation Negative (Negative)
== END 2024-10-27 12:49 | disposition home or self-care (01) | DRG 176 ==
LOC: ER 21:23 → MS 22:16
PROVIDERS: Admitting Provider Student in an Organized Health Care Education/Training Program; Emergency Provider Physician Assistant; PCP Nurse Practitioner; Responsible Provider Family Medicine; Visit Provider Student in an Organized Health Care Education/Training Program
DX: I26.99 Other pulmonary embolism without acute cor pulmonale (principal); R60.0 Localized edema; I10 Essential (primary) hypertension; D72.829 Elevated white blood cell count, unspecified; G43.909 Migraine, unspecified, not intractable, without status migrainosus; R80.9 Proteinuria, unspecified; E88.09 Other disorders of plasma-protein metabolism, not elsewhere classified; F31.9 Bipolar disorder, unspecified; E87.70 Fluid overload, unspecified; R73.03 Prediabetes; G47.30 Sleep apnea, unspecified; F41.8 Other specified anxiety disorders; F43.10 Post-traumatic stress disorder, unspecified; F17.210 Nicotine dependence, cigarettes, uncomplicated; F12.90 Cannabis use, unspecified, uncomplicated; K76.0 Fatty (change of) liver, not elsewhere classified; Z79.899 Other long term (current) drug therapy
CPT/HCPCS: 00123; 36415; 71275; 80053; 81240; 83090; 83690; 85027; 85300; 85306; 85390; 85610; 85613; 85730; 86146; 86147; 93005; 96365; 96366; 96375; 99285; 81003; 81015; 82565; 83735; 83880; 84156; 84443; 84484; 85025; 85240; 85303; 93010; 93970; 99223; 99232; 99239; J1644; J1938; J3490

== ENCOUNTER 2024-10-27 20:40 | Emergency (ER) | payer MEDICAID, SELFPAY ==
[2024-10-27] VITALS (20 sets, daily range): BP systolic 128–167; BP diastolic 79–108; PULSE 109–139; RESP 16–31; TEMP 37.2; O2SAT 91–94
--- NOTE | 2024-10-27 20:30 | RT.EKG_ITS ---
APPROVED REPORT Exam: Resting ECG Reason for Exam: chest pain Patient Location: E HR:126 bpm ECG Measurements Heart Rate 126 AXIS ME 149 P 34 QRSd 99 QRS 51 QT 323 T 48 QTc 468 Conclusion Sinus tachycardia 126 normal axis no stemi
[2024-10-27] MEDS: Aspirin 81 MG CHEW 324 MG CH (21:28)
[2024-10-27 21:45] LABS: Abs Immature Grans 0.14 10^3/uL (0.0-0.06); Absolute Basophil Count 0.07 10^3/uL (0.0-0.2); Absolute Eosinophil Count 0.31 10^3/uL (0.0-0.7); Absolute Lymphocyte Count 2.61 10^3/uL (1.2-3.4); Basophils % 0.4 %; Eosinophils % 1.7 %; HCT 47.3 % (40.0-50.0); HGB 15.5 g/dL (13.5-17.5); Immature Grans % 0.8 %; Lymphocytes % 14.4 %; MCHC 32.8 % (32.0-36.0); MCV 82 fL (80-95); MPV 11.5 fL (8.0-11.0); Monocytes % 5.2 %; Neutrophils % 77.5 %; Platelet Count 329 10^3/uL (130-400); RBC 5.75 10^6/uL (4.36-5.78); RDW 14.2 % (11.8-14.1); RDW-SD 41.8 fL
[2024-10-27 22:07] LABS: Absolute Monocyte Count 0.94 10^3/uL (0.1-0.8); Absolute Neutrophil Count 14.03 10^3/uL (1.2-6.7)
[2024-10-27 22:13] LABS: ALT 79 U/L (16-63); AST 18 U/L (15-37); Albumin 2.9 g/dL (3.4-5.0); Alkaline Phosphatase 100 U/L (46-116); BUN 23 mg/dL (7-18); Bilirubin, Total 0.3 mg/dL (0.2-1.0); CREATININE 1.2 mg/dL (0.70-1.30); Calcium 9.4 mg/dL (8.5-10.1); Chloride 99 mmol/L (98-107); Estimated GFR 81.38 (mL/min/1.73m2); Glucose 160 mg/dL (74-106); NT-proBNP 59 pg/mL (<300); Potassium 3.8 mmol/L (3.5-5.1); Sodium 136 mmol/L (136-145); Total Protein 6.9 g/dL (6.4-8.2); Troponin I 10 ng/L (<or=76)
--- NOTE | 2024-10-27 22:27 | DI.CT_ITS ---
Exam(s) CT CHEST PE CTA EXAM: CT CHEST PE CTA CLINICAL HISTORY: Chest pain concern for PE. TECHNIQUE: Imaging Protocol: CT angiography of the chest was performed using pulmonary embolus yevgeniy col. Multi planar reconstructions were performed. CONTRAST MATERIAL: Intravenous: Omnipaque 350 Contrast volume: 100 cc COMPARISON: CT CT CHEST PE CTA from 10/25/2024 FINDINGS: CHEST: PULMONARY ARTERIES: Again noted are multiple filling defects in right lower lobe pulmonary arteries c onsistent withpulmonary emboli and similar to the recent CT study of 10/25/2024. Appearance is stabl e. No additional emboli seen LUNGS: There are no infiltrates nor evidence of pulmonary infarction.. No lung masses. There are no pleural effusions. MEDIASTINUM: There is no hilar nor mediastinal adenopathy. CARDIAC: Heart size is upper normal. There is no pericardial effusion.Again noted is enlargement of the ascending thoracic aorta. No evidence of dissection. There is no IV contrast reflux into the in trahepatic IVC. There is no significant shift of the interventricular septum. PARTIALLY VISUALIZED UPPERMOST ABDOMEN: Small right adrenal gland nodule again noted. Appears stable . Probable adenoma. OSSEOUS: No significant osseous lesions.. IMPRESSION: 1. Compared to the recent CT scan of 10/25/2024 there is no improvement in the multiple filling defec ts within right lower lobe pulmonary arteries consistent with pulmonary emboli. These appear stable. There do not appear to be additional involved vessels at this time..No evidence of pulmonary infarc tion nor pleural effusion. No infiltrates. 2. Again noted is dilatation of the ascending thoracic aorta. No rupture. No dissection. Preliminary virtual Radiology report was reviewed RADIATION DOSE DELIVERED: 217.55mGy.cm Total DLP DATA REPOSITORY: All CT scans at this facility are submitted to the National Radiology Data Registry (NRDR) Dose Index Registry (DIR) with the [employer] ([employer]). RADIATION OPTIMIZATION: All CT scans at this facility use at least one of these dose optimization te chniques: automated exposure control; mA and/or kV adjustment per patient size (includes targeted exa ms where dose is matched to clinical indication); or iterative reconstruction.
[2024-10-27] MEDS: Normal Saline - Diluent 50 ML VIAL IJ (22:29)
[2024-10-27] MEDS: Omnipaque 350 MG/ML 100 ML BTL IJ (22:29)
[2024-10-27] MEDS: Ondansetron 4 MG/2 ML VIAL IVP (22:32)
[2024-10-27 22:39] LABS: PTT Activated 27.9 sec (20.6-30.2); Prothrombin Time 9.9 sec (9.1-11.1)
--- NOTE | 2024-10-27 22:59 | ED.GENADUL_ITS ---
Discharge Plan Discharge Details Chief Complaint: Chest Pain Primary Care Provider: Ann-Marie Booker ED Provider: Syed Nam Home Meds and New Rx's Prescriptions: No Action sumatriptan succinate [Imitrex] 50 mg tablet See Rx Instructions .ROUTE .COMPLEX Qty: 10 0RF Rx Instructions: take 1 tab at onset of headache; if no relief may repeat 1 tab after at least 2 hrs; max = 4 tabs/24 hr furosemide 80 mg tablet 80 mg PO QAM Qty: 90 3RF potassium chloride 20 mEq tablet extended release 20 meq PO DAILY Qty: 90 3RF loratadine [Claritin] 10 mg tablet 10 mg PO DAILY PRN albuterol sulfate 90 mcg/actuation HFA aerosol inhaler 2 puff inhalation Q6H PRN (Reason: shortness of breath or wheezing) Qty: 8.5 0RF metoprolol succinate 50 mg tablet extended release 24 hr 50 mg PO DAILY 90 Days Qty: 90 1RF Rx Instructions: Please cancel 100mg script.. sorry Eliquis 5 mg Tablet See Rx Instructions .ROUTE .COMPLEX Qty: 70 0RF Rx Instructions: take 2 tablets twice a day for 7 days, then one tab po BID HPI General Date/Time Provider Initiated Documentation: 10/27/24 21:19 . Limitations to Documentation: no limitations . Information obtained by: patient and old records reviewed . HPI Narrative: 34-year-old gentleman with recent diagnosis of pulmonary embolism, hypertension presents for evaluation of chest pain and shortness of breath. The patient was admitted in the hospital for the last 2 days and discharged this morning. He was recently diagnosed with a pulmonary embolism. The patient was started on heparin and transition to apixaban And was discharged earlier today. He states that he went to [facility] and then was walking home when he developed chest pain and shortness of breath. Reports still having persistent pain. Related Data Home Medications ?Medication ?Instructions ?Recorded ?Confirmed loratadine 10 mg tablet (Claritin) 10 mg PO DAILY PRN 06/11/24 10/27/24 albuterol sulfate 90 mcg/actuation 2 puff inhalation Q6H PRN 09/22/24 10/27/24 aerosol inhaler shortness of breath or wheezing #8.5 grams metoprolol succinate 50 mg 50 mg PO DAILY 90 days #90 tabs 09/22/24 10/27/24 tablet,extended release 24 hr furosemide 80 mg tablet 80 mg PO QAM #90 tabs 10/17/24 10/27/24 potassium chloride 20 mEq 20 meq PO DAILY #90 tabs 10/17/24 10/27/24 tablet,extended release sumatriptan succinate 50 mg tablet See Rx Instructions PO .COMPLEX 10/17/24 10/27/24 (Imitrex) #10 tabs apixaban 5 mg tablet (Eliquis) See Rx Instructions .Route 10/26/24 10/27/24 .COMPLEX #70 tabs Previous Rx's ?Medication ?Instructions ?Recorded albuterol sulfate 90 mcg/actuation 2 puff inhalation Q6H PRN 09/22/24 aerosol inhaler shortness of breath or wheezing #8.5 grams metoprolol succinate 50 mg 50 mg PO DAILY 90 days #90 tabs 09/22/24 tablet,extended release 24 hr furosemide 80 mg tablet 80 mg PO QAM #90 tabs 10/17/24 potassium chloride 20 mEq 20 meq PO DAILY #90 tabs 10/17/24 tablet,extended release sumatriptan succinate 50 mg tablet See Rx Instructions PO .COMPLEX 10/17/24 (Imitrex) #10 tabs apixaban 5 mg tablet (Eliquis) See Rx Instructions .Route 10/26/24 .COMPLEX #70 tabs Allergies Allergy/AdvReac Type Severity Reaction Status Date / Time acetaminophen (From Tylenol) Allergy Unknown unknown Verified 10/27/24 23:13 ciprofloxacin (From Cipro) Allergy Unknown unknown Verified 10/27/24 23:13 clarithromycin (From Biaxin) Allergy Unknown unknown Verified 10/27/24 23:13 morphine AdvReac Severe Other (See Verified 10/27/24 23:13 Comment) General Stated Complaint: Chest Pain JOHNNY: 2 Exam Narrative Exam Narrative: Review of Systems: All systems reviewed & are unremarkable except as noted in HPI and below Obese, no acute distress NCAT PERRL, normal conjunctiva Tachycardic Unlabored respiratory effort, no hypoxia, clear breath sounds bilaterally, no respiratory distress. Bilateral lower extremity edema Course Vital Signs Vital signs: Vital Signs Temperature 37.2 C 10/27/24 20:42 Pulse 124 H 10/27/24 20:42 Respiratory Rate 20 10/27/24 20:42 Blood Pressure 152/79 H 10/27/24 20:42 Pulse Oximetry 93 10/27/24 20:42 Temperature 37.2 C 10/27/24 20:42 Pulse 124 H 10/27/24 20:42 Respiratory Rate 16 10/27/24 21:10 Respiratory Effort Normal, Short of Breath 10/27/24 21:10 Respiratory Depth Normal 10/27/24 21:10 Respiratory Pattern Normal 10/27/24 21:10 Blood Pressure 152/79 H 10/27/24 20:42 Blood Pressure Position Sitting 10/27/24 20:42 Pulse Oximetry 93 10/27/24 20:42 Oxygen Delivery Method Room Air 10/27/24 20:42 Oxygen Flow Rate 0 10/27/24 20:42 Lab/Test Results Lab/Test Results: Laboratory Tests Range/Units 10/27/24 21:00 WBC (4.4-10.8) 10^3/uL 18.10 H RBC (4.36-5.78) 10^6/uL 5.75 Hgb (13.5-17.5) g/dL 15.5 Hct (40.0-50.0) % 47.3 MCV (80-95) fL 82 MCH (27.0-33.0) pg 27.0 MCHC (32.0-36.0) % 32.8 RDW (11.8-14.1) % 14.2 H Plt Count (130-400) 10^3/uL 329 MPV (8.0-11.0) fL 11.5 H Immature Gran % % 0.8 Neutrophils % % 77.5 Lymphocytes % % 14.4 Monocytes % % 5.2 Eosinophils % % 1.7 Basophils % % 0.4 Nucleated RBC % (0.0-0.3) % 0.0 Absolute Neutrophils (1.2-6.7) 10^3/uL 14.03 H Absolute Lymphocytes (1.2-3.4) 10^3/uL 2.61 Absolute Monocytes (0.1-0.8) 10^3/uL 0.94 H Absolute Eosinophils (0.0-0.7) 10^3/uL 0.31 Absolute Basophils (0.0-0.2) 10^3/uL 0.07 PT (9.1-11.1) sec 9.9 INR (0.9-1.1) 1.0 APTT (20.6-30.2) sec 27.9 Sodium (136-145) mmol/L 136 Potassium (3.5-5.1) mmol/L 3.8 Chloride (98-107) mmol/L 99 Carbon Dioxide (21.0-32.0) mmol/L 28.0 Anion Gap (3-11) mmol/L 9.0 BUN (7-18) mg/dL 23 H Creatinine (0.70-1.30) mg/dL 1.2 Est GFR (CKD-EPI 2020) (mL/min/1.73m2) 81.38 Glucose (74-106) mg/dL 160 H Calcium (8.5-10.1) mg/dL 9.4 Total Bilirubin (0.2-1.0) mg/dL 0.3 AST (15-37) U/L 18 ALT (16-63) U/L 79 H Alkaline Phosphatase (46-116) U/L 100 Troponin I (<or=76) ng/L 10 NT-Pro-B Natriuret Pep (<300) pg/mL 59 Total Protein (6.4-8.2) g/dL 6.9 Albumin (3.4-5.0) g/dL 2.9 L Medical Decision Making Emergent evaluation of chest pain. Patient was diagnosed with a pulmonary embolism and discharged from the hospital earlier this morning. He reports onset of chest pain in the setting of exertion. He is not hypoxic but is noted to be tachycardic. His EKG was independently interpreted sinus tachycardia no STEMI. The patient on a beta-domingo and seems to have persistent tachycardia since May of this year based on vital signs. The patient does not have any hypoxia or tachypnea I do not suspect that the tachycardia is secondary to pulmonary embolism. But I want to make sure that he has not had a worsened pulmonary embolism and that he is responding to the Eliquis. Plan for lab work, serial troponins as well as continued cardiac monitoring and repeat CTA. Lab work reviewed there is some worsening of his chronic with leukocytosis to 18. Unclear etiology. Troponin is not elevated. Tachycardia is improving. No hypoxia noted. At the time of signout, the patient's final disposition is pending second troponin and CT imaging. Signed out to oncoming provider to follow-up with these. Anticipate that the patient will be able to go with continued Eliquis use. Quality:SDOH Health Related Social Needs: Health related social needs housing instability, house d, with risk of homelessness (Z59.811), food insecurity (Z59.41), transportation insecurity (Z59.82), problems related to housing/economic circumstances (Z59.89), problems with daily activities (Z73.9), feeling lonely/isolated (Z60.8) Health related social needs details home less PFSH All Active Problems (Updated 10/27/24 @ 12:23 by Demetrio Mcfarland) Proteinuria, unspecified (Acute) Migraine (Chronic) Leukocytosis (Acute) Pulmonary embolism (Chronic) Fluid overload (Acute) Fluid overload (Acute) Bilateral lower extremity edema (Acute) Low testosterone in male (Acute) Cellulitis (Acute) URI (upper respiratory infection) (Acute) Cough (Acute) Breast lump (Acute) Pre-diabetes (Acute) a1c 5.9 Discharge planning issues (Acute) Hypotension (Acute) MRSA infection (Acute) Sleep apnea in adult (Acute) Homeless (Acute) Leg cramps (Acute) Bipolar 1 disorder (Acute) Anxiety and depression (Chronic) Snoring (Acute) Essential hypertension (Chronic) Left ureteral stone (Acute) Medical History Sepsis Alcoholic gastritis History of herpes zoster Impaired glucose tolerance Abdominal pain Nausea Sleep pattern disturbance Muscle pain Lumbago with sciatica Degeneration of cervical intervertebral disc Kidney stone Hypertensive disorder PTSD (post-traumatic stress disorder) Secondary polycythemia Hyperlipidemia Surgical History Status post incision and drainage (~04/2024) left axilla, MRSA + History of colonoscopy with polypectomy (01/28/18) inflammatory bowel disease, polyps x3, internal and external hemorrhoids History of cystoscopy (05/30/16) with laser litho LT History of ureteroscopy (03/17/19) left, with stone extraction History of esophagogastroduodenoscopy (EGD) (09/17/19) paraesophageal hernia type 3 History of placement of ear tubes Family History Other Colon cancer Dementia Social History Smoking/Tobacco Use Status: Current every day Tobacco Type: cigarettes Tobacco: How many years used: 14 Smoking risk assessment performed?: Yes Alcohol Intake: never Drug use: Occasionally Substance use type: marijuana Counseling given: No Adopted: No Caregiver/Support person: No Foster care: No Household members: significant other Housing: homeless Number of Children: 1 Communication Needs: None and Corrective Lenses Education Level: high school Do you need help understanding health information?: Rarely 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 Pets and animals: No Sexually active: Yes Do you think of yourself as: straight/heterosexual What is your relationship status?: living with partner How often do you talk on the phone with friends or family?: decline to answer How often do you get together with friends or relatives?: never Do you belong to any clubs or organized social groups?: no Panel score (0-1 are the most socially isolated patients): 1 What type of physical activity do you participate in: walking and other Details: stretches Duration: 15-30 minutes/day Frequency: daily Meghana/Christianity: None Seatbelt use: always Helmet use: No Drive intox or ride w/intox coal tram driver: No Working smoke detector in home: Yes Fire extinguisher in home: Yes Carbon monox detector in home: No Do you feel safe at home: Yes Do you feel safe in your relationship?: Yes Additional Social history: lost housing sunday, awaiting bed at [facility]
[2024-10-27 23:55] LABS: Troponin I 11 ng/L (<or=76)
--- NOTE | 2024-10-27 23:58 | DI.VRAD_ITS ---
PROCEDURE INFORMATION: Exam: CTA Chest With Contrast Exam date and time: 10/27/2024 9:49 PM Age: 34 years old Clinical indication: Other: Chest pain concern for pe TECHNIQUE: Imaging protocol: Computed tomographic angiography of the chest with contrast. Exam focused on the arteries. 3D rendering (Not supervised by radiologist): MIP and/or 3D reconstructed images were created by the technologist. Contrast material: OMNIPAQUE 350; Contrast volume: 100 ml; Contrast route: INTRAVENOUS (IV); COMPARISON: CT CHEST PE CTA 10/25/2024 6:27 PM FINDINGS: Pulmonary arteries: Stable right lower lobe pulmonary emboli. Aorta: Stable 4.9 cm fusiform aneurysmal dilatation of the aortic root. Aorta is otherwise unremarkable. No rupture. No acute aortic syndrome. Lungs: Lungs are clear allowing for expiratory phase imaging. Pleural spaces: Unremarkable. No pneumothorax. No pleural effusion. Heart: Left ventricular hypertrophy. No dilatation of the right ventricle to indicate right heart strain. Esophagus: Unremarkable. Lymph nodes: Unremarkable. No enlarged lymph nodes. Liver: Hepatic steatosis. Bones/joints: Unremarkable. No acute fracture. Soft tissues: Gynecomastia. IMPRESSION: Stable right lower lobe pulmonary emboli. Findings discussed with Mike PHILLIPS at time of interpretation. Dictated and Authenticated by: Tomi Pina MD. Orderin Cyril Fatima MD
== END 2024-10-28 00:24 | disposition home or self-care (01) ==
PROVIDERS: Emergency Medicine; Emergency Provider Emergency Medicine; PCP Nurse Practitioner
DX: R11.2 Nausea with vomiting, unspecified (principal); R07.89 Other chest pain; F17.210 Nicotine dependence, cigarettes, uncomplicated; Z86.711 Personal history of pulmonary embolism; Z79.01 Long term (current) use of anticoagulants
CPT/HCPCS: 71275; 80053; 93005; 96374; 99285; 83880; 84484; 85025; 85610; 85730; 93010; J2405; J3490

== ENCOUNTER 2024-10-29 12:55 | Outpatient (REF) | payer MEDICAID, SELFPAY ==
[2024-10-29 15:22] LABS: Abs Immature Grans 0.14 10^3/uL (0.0-0.06); Absolute Basophil Count 0.07 10^3/uL (0.0-0.2); Absolute Eosinophil Count 0.33 10^3/uL (0.0-0.7); Absolute Monocyte Count 0.77 10^3/uL (0.1-0.8); Basophils % 0.5 %; Eosinophils % 2.2 %; HCT 50.4 % (40.0-50.0); HGB 16.2 g/dL (13.5-17.5); Immature Grans % 0.9 %; Lymphocytes % 14.7 %; MCH 26.3 pg (27.0-33.0); MCHC 32.1 % (32.0-36.0); MCV 82 fL (80-95); MPV 11.6 fL (8.0-11.0); Monocytes % 5.2 %; Neutrophils % 76.5 %; Platelet Count 325 10^3/uL (130-400); RBC 6.15 10^6/uL (4.36-5.78); RDW 14.2 % (11.8-14.1); RDW-SD 41.2 fL; WBC 14.79 10^3/uL (4.4-10.8)
[2024-10-29 15:37] LABS: ALT 50 U/L (16-63); AST 26 U/L (15-37); Albumin 3.5 g/dL (3.4-5.0); Alkaline Phosphatase 93 U/L (46-116); Anion Gap 11.8 mmol/L (3-11); BUN 14 mg/dL (7-18); Bilirubin, Total 0.3 mg/dL (0.2-1.0); CO2 26.2 mmol/L (21.0-32.0); Calcium 9.1 mg/dL (8.5-10.1); Chloride 101 mmol/L (98-107); Estimated GFR 101.28 (mL/min/1.73m2); Glucose 137 mg/dL (74-106); NT-proBNP 12 pg/mL (<300); Potassium 4.3 mmol/L (3.5-5.1); Sodium 139 mmol/L (136-145)
[2024-10-29 16:08] LABS: Absolute Lymphocyte Count 2.17 10^3/uL (1.2-3.4); Absolute Neutrophil Count 11.31 10^3/uL (1.2-6.7)
[2024-10-29 16:09] LABS: Diff Comment Diff Reviewed; RBC Morphology Normal
[2024-10-30 10:22] LABS: Prealbumin 24 mg/dL (20-40)
== END 2024-10-29 12:56 | disposition home or self-care (01) ==
LOC: LBN 12:55
PROVIDERS: PCP Nurse Practitioner; Visit Provider Nurse Practitioner Adult Health
DX: R74.01 Elevation of levels of liver transaminase levels (principal); R60.0 Localized edema; E87.70 Fluid overload, unspecified; I10 Essential (primary) hypertension
CPT/HCPCS: 80053; 83880; 84134; 85025

== ENCOUNTER 2024-10-29 13:28 | Emergency (ER) | payer MEDICAID, SELFPAY ==
[2024-10-29] VITALS (21 sets, daily range): BP systolic 132–166; BP diastolic 72–128; PULSE 92–110; RESP 13–23; TEMP 36.4; O2SAT 90–96
--- NOTE | 2024-10-29 13:15 | RT.EKG_ITS ---
APPROVED REPORT Exam: Resting ECG Reason for Exam: fluid overload Patient Location: E HR:96 bpm ECG Measurements Heart Rate 96 AXIS DC 165 P 29 QRSd 99 QRS 20 QT 357 T 37 QTc 452 Conclusion Sinus rhythm...normal P axis, V-rate 60- 99 Abnrm R prog, consider ASMI or lead placement...Q >30mS, diminished R, V1-V2
--- NOTE | 2024-10-29 13:37 | W.ED.GENAD ---
Discharge Plan Disposition Patient Disposition: Home Condition: Stable Discharge Details Clinical Impression: N&V (nausea and vomiting) Primary Care Provider: Ann-Marie Booker ED Provider: Fabiano Cedeño Home Meds and New Rx's Prescriptions: New prochlorperazine maleate [Compazine] 10 mg tablet 10 mg PO TID PRN (Reason: nausea and vomiting) Qty: 30 0RF Continued sumatriptan succinate [Imitrex] 50 mg tablet See Rx Instructions .ROUTE .COMPLEX Qty: 10 0RF Rx Instructions: take 1 tab at onset of headache; if no relief may repeat 1 tab after at least 2 hrs; max = 4 tabs/24 hr furosemide 80 mg tablet 80 mg PO QAM Qty: 90 3RF potassium chloride 20 mEq tablet extended release 20 meq PO DAILY Qty: 90 3RF loratadine [Claritin] 10 mg tablet 10 mg PO DAILY PRN albuterol sulfate 90 mcg/actuation HFA aerosol inhaler 2 puff inhalation Q6H PRN (Reason: shortness of breath or wheezing) Qty: 8.5 0RF metoprolol succinate 50 mg tablet extended release 24 hr 50 mg PO DAILY 90 Days Qty: 90 1RF Rx Instructions: Please cancel 100mg script.. sorry Eliquis 5 mg Tablet See Rx Instructions .ROUTE .COMPLEX Qty: 70 0RF Rx Instructions: take 2 tablets twice a day for 7 days, then one tab po BID Discharge Instructions Additional Instructions: Take the Compazine as needed for nausea and vomiting. Make sure you are drinking plenty fluids to stay hydrated. If your stomach symptoms and a few days follow-up with your primary care provider. If you feel more ill or have new symptoms such as severe abdominal pain return to the emergency department for reevaluation. HPI General Mode of arrival: EMS. Date/Time Provider Initiated Documentation: 10/29/24 13:29. Limitations to Documentation: no limitations. Information obtained by: patient. History of Present Illness 34 year old M presents to the emergency department with the chief complaint of n/v, described as moderate, Patient started experiencing this day(s) (1) and it has been constant. No relieving factors improve symptom(s), No exacerbating factors reported . Patient notes no other symptoms.; denies fever/chills and shortness of breath. Patient did receive the following treatments prior to arrival, none Related Data Home Medications ?Medication ?Instructions ?Recorded ?Confirmed loratadine 10 mg tablet (Claritin) 10 mg PO DAILY PRN 06/11/24 10/29/24 albuterol sulfate 90 mcg/actuation 2 puff inhalation Q6H PRN 09/22/24 10/29/24 aerosol inhaler shortness of breath or wheezing #8.5 grams metoprolol succinate 50 mg 50 mg PO DAILY 90 days #90 tabs 09/22/24 10/29/24 tablet,extended release 24 hr furosemide 80 mg tablet 80 mg PO QAM #90 tabs 10/17/24 10/29/24 potassium chloride 20 mEq 20 meq PO DAILY #90 tabs 10/17/24 10/29/24 tablet,extended release sumatriptan succinate 50 mg tablet See Rx Instructions PO .COMPLEX 10/17/24 10/29/24 (Imitrex) #10 tabs apixaban 5 mg tablet (Eliquis) See Rx Instructions .Route 10/26/24 10/29/24 .COMPLEX #70 tabs prochlorperazine maleate 10 mg 10 mg PO TID PRN nausea and 10/29/24 tablet (Compazine) vomiting #30 tabs Previous Rx's ?Medication ?Instructions ?Recorded albuterol sulfate 90 mcg/actuation 2 puff inhalation Q6H PRN 09/22/24 aerosol inhaler shortness of breath or wheezing #8.5 grams metoprolol succinate 50 mg 50 mg PO DAILY 90 days #90 tabs 09/22/24 tablet,extended release 24 hr furosemide 80 mg tablet 80 mg PO QAM #90 tabs 10/17/24 potassium chloride 20 mEq 20 meq PO DAILY #90 tabs 10/17/24 tablet,extended release sumatriptan succinate 50 mg tablet See Rx Instructions PO .COMPLEX 10/17/24 (Imitrex) #10 tabs apixaban 5 mg tablet (Eliquis) See Rx Instructions .Route 10/26/24 .COMPLEX #70 tabs prochlorperazine maleate 10 mg 10 mg PO TID PRN nausea and 10/29/24 tablet (Compazine) vomiting #30 tabs Allergies Allergy/AdvReac Type Severity Reaction Status Date / Time acetaminophen (From Tylenol) Allergy Unknown unknown Verified 10/29/24 13:27 ciprofloxacin (From Cipro) Allergy Unknown unknown Verified 10/29/24 13:27 clarithromycin (From Biaxin) Allergy Unknown unknown Verified 10/29/24 13:27 morphine AdvReac Severe Other (See Verified 10/29/24 13:27 Comment) General Stated Complaint: Nausea/Vomit/Diar JOHNNY: 3 Review of Systems All systems reviewed & are unremarkable except as noted in HPI and below Constitutional Constitutional: Denies chills, Denies fever(s) and Denies weakness Cardiovascular Cardiovascular: Denies chest pain and Denies dyspnea Respiratory Respiratory: Denies cough and Denies dyspnea Gastrointestinal Gastrointestinal: Denies abdominal pain, Reports nausea and Reports vomiting Genitourinary Genitourinary: Denies dysuria Neurologic Neurologic: Denies weakness Exam Const General: no acute distress Orientation: alert HENPA Head: normal to inspection Ears: external ears normal General nose exam: external nose normal Mouth: moist mucous membranes Eyes General: appearance normal, both eyes and all related structures Neck Neck: normal visual inspection Resp Effort & Inspection: normal respiratory effort and able to speak in complete sentences Auscultation: clear to auscultation bilaterally Cardio Jugular venous pressure: no JVD Rate: regular rate GI Palpation: nontender Skin General skin exam: no rashes or lesions noted Neuro General: patient alert and patient oriented x3 Extrem General: normal to inspection Psych Mental Status: mental status grossly normal Course Vital Signs Vital signs: Vital Signs Temperature 36.4 C 10/29/24 13:20 Pulse 98 H 10/29/24 13:20 Respiratory Rate 20 10/29/24 13:20 Blood Pressure 166/120 H 10/29/24 13:20 Pulse Oximetry 96 10/29/24 13:20 Temperature 36.4 C 10/29/24 13:20 Temperature Source Oral 10/29/24 13:20 Pulse 98 H 10/29/24 13:20 Respiratory Rate 20 10/29/24 13:20 Blood Pressure 166/120 H 10/29/24 13:20 Pulse Oximetry 96 10/29/24 13:20 Oxygen Delivery Method Room Air 10/29/24 13:20 Oxygen Flow Rate 0 10/29/24 13:20 Pain Level 6 10/29/24 13:20 Medical Decision Making 34-year-old male with history of bipolar, recent admission for PE and s/p on Eliquis but due to nausea and vomiting has missed his last 2 doses. Denies any severe abdominal pain, no severe chest pain, no fevers or chills. No recent travel. He is alert and oriented x 4 and arrival in no distress. He has no JVD, abdomen is nontender on exam. Given lack of chest pain I doubt ACS but will obtain troponins. I will also check a CBC, CMP and treat his symptoms with droperidol and reassess. Given his lack of abdominal tenderness I doubt entities such as bowel obstruction and do not feel CT of his abdomen/pelvis is indicated. Labs thus far unremarkable from baseline, chronic leukocytosis but improved today at 14 from 18, pending delta Troponin. Patient is sleeping on reassessment and awakens easily to voice. He was able to tolerate p.o. Eliquis feels significantly better. Will continue to monitor. Still has no abdominal pain or tenderness I do not feel imaging of his abdomen is indicated. patient sleeping on reassessment again and awakens easily to voice. He has no symptoms currently and his delta troponin is negative. He is tolerating po. He is stable for d/c, will f/u with pcp and return precautions given Differential Diagnosis Differential Diagnosis: Food illness, electrolyte abnormality Medical Records Medical records reviewed: Yes I reviewed the patient's medical records. Lab Data Lab results reviewed: Yes I reviewed the patient's lab results. ECG Data Attestation: I personally reviewed and interpreted this ECG (s) as follows: Prior ECG tracings: available for review Interpretation: Sinus rhythm, rate of 96, no STEMI Quality:SDOH Health Related Social Needs: Health related social needs housing instability, housed, with risk of homelessness (Z59.811), food insecurity (Z59.41), transportation insecurity (Z59.82), problems related to housing/economic circumstances (Z59.89), problems with daily activities (Z73.9), feeling lonely/isolated (Z60.8) Health related social needs details home less PFSH All Active Problems (Updated 10/29/24 @ 15:23 by Fabiano Cedeño MD) N&V (nausea and vomiting) (Acute) Proteinuria, unspecified (Acute) Migraine (Chronic) Leukocytosis (Acute) Pulmonary embolism (Chronic) Fluid overload (Acute) Fluid overload (Acute) Bilateral lower extremity edema (Acute) Low testosterone in male (Acute) Cellulitis (Acute) URI (upper respiratory infection) (Acute) Cough (Acute) Breast lump (Acute) Pre-diabetes (Acute) a1c 5.9 Discharge planning issues (Acute) Hypotension (Acute) MRSA infection (Acute) Sleep apnea in adult (Acute) Homeless (Acute) Leg cramps (Acute) Bipolar 1 disorder (Acute) Anxiety and depression (Chronic) Snoring (Acute) Essential hypertension (Chronic) Left ureteral stone (Acute) Medical History Sepsis Alcoholic gastritis History of herpes zoster Impaired glucose tolerance Abdominal pain Nausea Sleep pattern disturbance Muscle pain Lumbago with sciatica Degeneration of cervical intervertebral disc Kidney stone Hypertensive disorder PTSD (post-traumatic stress disorder) Secondary polycythemia Hyperlipidemia Surgical History Status post incision and drainage (~04/2024) left axilla, MRSA + History of colonoscopy with polypectomy (01/28/18) inflammatory bowel disease, polyps x3, internal and external hemorrhoids History of cystoscopy (05/30/16) with laser litho LT History of ureteroscopy (03/17/19) left, with stone extraction History of esophagogastroduodenoscopy (EGD) (09/17/19) paraesophageal hernia type 3 History of placement of ear tubes Family History Other Colon cancer Dementia Social History Smoking/Tobacco Use Status: Current every day Tobacco Type: cigarettes Tobacco: How many years used: 14 Smoking risk assessment performed?: Yes Alcohol Intake: never Drug use: Occasionally Substance use type: marijuana Counseling given: No Adopted: No Caregiver/Support person: No Foster care: No Household members: significant other Housing: homeless Number of Children: 1 Communication Needs: None and Corrective Lenses Education Level: high school Do you need help understanding health information?: Rarely 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 Pets and animals: No Sexually active: Yes Do you think of yourself as: straight/heterosexual What is your relationship status?: living with partner How often do you talk on the phone with friends or family?: decline to answer How often do you get together with friends or relatives?: never Do you belong to any clubs or organized social groups?: no Panel score (0-1 are the most socially isolated patients): 1 What type of physical activity do you participate in: walking and other Details: stretches Duration: 15-30 minutes/day Frequency: daily Meghana/Sikh: None Seatbelt use: always Helmet use: No Drive intox or ride w/intox local company 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
[2024-10-29] MEDS: Droperidol 5 MG/2 ML VIAL 2.5 MG IVP (13:45)
[2024-10-29 13:47] LABS: BE (Venous) 3 mmol/L (-2-3); HCO3 (Venous) 28 mmol/L (23-28); O2 Sat (Venous) 76 %; TCO2 (Venous) 24 mmol/L (24-29); pCO2 (Venous) 45 mmHg (41-51); pO2 (Venous) 38 mmHg
[2024-10-29 13:54] LABS: Abs Immature Grans 0.12 10^3/uL (0.0-0.06); Absolute Basophil Count 0.06 10^3/uL (0.0-0.2); Absolute Eosinophil Count 0.29 10^3/uL (0.0-0.7); Absolute Monocyte Count 0.83 10^3/uL (0.1-0.8); Basophils % 0.4 %; HCT 48.5 % (40.0-50.0); HGB 15.8 g/dL (13.5-17.5); Immature Grans % 0.8 %; Lymphocytes % 13.3 %; MCH 26.7 pg (27.0-33.0); MCHC 32.6 % (32.0-36.0); MCV 82 fL (80-95); MPV 11.3 fL (8.0-11.0); Monocytes % 5.8 %; Neutrophils % 77.7 %; Platelet Count 318 10^3/uL (130-400); RBC 5.91 10^6/uL (4.36-5.78); RDW 14.2 % (11.8-14.1); RDW-SD 41.7 fL; WBC 14.27 10^3/uL (4.4-10.8)
[2024-10-29 13:55] LABS: Absolute Neutrophil Count 11.09 10^3/uL (1.2-6.7)
[2024-10-29] MEDS: Apixaban 5 MG TAB 10 MG PO ×2 (14:09→15:28)
[2024-10-29 14:10] LABS: ALT 48 U/L (16-63); AST 22 U/L (15-37); Albumin 3.2 g/dL (3.4-5.0); Alkaline Phosphatase 86 U/L (46-116); Anion Gap 8.8 mmol/L (3-11); BUN 14 mg/dL (7-18); Bilirubin, Direct 0.1 mg/dL (0.0-0.2); Bilirubin, Total 0.3 mg/dL (0.2-1.0); CO2 29.2 mmol/L (21.0-32.0); Calcium 8.8 mg/dL (8.5-10.1); Chloride 101 mmol/L (98-107); Estimated GFR 101.28 (mL/min/1.73m2); Glucose 135 mg/dL (74-106); Lipase 27 U/L (<78); Magnesium 1.8 mg/dL (1.8-2.4); Sodium 139 mmol/L (136-145); Total Protein 7.1 g/dL (6.4-8.2); Troponin I 8 ng/L (<or=76)
[2024-10-29 14:33] LABS: COVID-19 PCR Negative (Negative); Influenza A PCR Negative (Negative); Influenza B PCR Negative (Negative); RSV PCR Negative (Negative); Source Nasopharynx
[2024-10-29 15:03] LABS: Troponin I 8 ng/L (<or=76)
== END 2024-10-29 15:33 | disposition home or self-care (01) ==
PROVIDERS: Emergency Provider Emergency Medicine; PCP Nurse Practitioner
DX: R11.2 Nausea with vomiting, unspecified (principal); I10 Essential (primary) hypertension; E78.5 Hyperlipidemia, unspecified; F17.210 Nicotine dependence, cigarettes, uncomplicated; Z86.711 Personal history of pulmonary embolism; Z79.01 Long term (current) use of anticoagulants
CPT/HCPCS: 36415; 80053; 82805; 83690; 87637; 93005; 96374; 99284; 82248; 83735; 84484; 85025; 93010; J1790

== ENCOUNTER 2024-11-11 13:21 | Emergency (ER) | payer MEDICAID, SELFPAY ==
[2024-11-11] VITALS (45 sets, daily range): BP systolic 157–181; BP diastolic 11–133; PULSE 84–128; RESP 12–30; TEMP 37.2; O2SAT 85–98
--- NOTE | 2024-11-11 13:30 | RT.EKG_ITS ---
APPROVED REPORT Exam: Resting ECG Reason for Exam: Irregular Heart Rythm Patient Location: E HR:116 bpm ECG Measurements Heart Rate 116 AXIS W[place] 157 P 58 QRSd 99 QRS 65 QT 352 T 75 QTc 490 Conclusion Sinus tachycardia...rate> 99 Multiple ventricular premature complexes...V complexes w/ short R-R intervls Prolonged QT interval...QTc >488mS No Occlusion [place]
--- NOTE | 2024-11-11 13:51 | DI.CT_ITS ---
Exam(s) CT FACIAL W EXAM: CT FACIAL W CLINICAL HISTORY: Right maxillary tenderness swelling. TECHNIQUE: Imaging Protocol: Axial computed tomography images with coronal and sagittal reformatted images were created and reviewed CONTRAST MATERIAL: Intravenous: Omnipaque 350 Contrast volume:100 mL COMPARISON: No exams were available for comparison FINDINGS: Facial Bones: No definite fracture is noted in facial bones. There is a periapical lucency associated with the 1st right maxillary bicuspid. There is destruction of the adjacent bone suspicious for an abscess. Sinuses and Mastoids: There is moderate mucosal thickening in the right maxillary sinus and mild mucosal thickening in the left maxillary sinus. The remaining visualized paranasal sinuses are clear. There is opacification of a few of the mastoid air cells. Globes, extraocular muscles, optic nerves and retrobulbar fat: Normal. Upper aerodigestive tract: Normal. No evidence of tonsillar enlargement. Mandible and bilateral temporomandibular joints: Unremarkable. Soft tissues: There is infiltration of the soft tissues overlying the right mandible and cheek. No focal fluid collection is seen to suggest an abscess. There is no evidence of a soft tissue mass. The findings are suspicious for cellulitis. The parotid and submandibular glands are unremarkable. There are mildly enlarged lymph nodes in the right neck which are likely reactive. No suspicious soft tissue calcifications are present. Enhancement: No abnormal enhancement. IMPRESSION: 1. Cystic periapical lesion involving the 1st right maxillary bicuspid. There is destruction of the adjacent bone suspicious for periapical abscess. 2. Infiltration of the soft tissues over the right cheek and submandibular region consistent with cellulitis. No focal soft tissue fluid collection is seen. 3. Mildly enlarged lymph nodes in the right neck which are likely reactive. 4. Mucosal thickening in the maxillary sinuses, right greater than left. RADIATION DOSE DELIVERED: 1,115.61mGy.cm Total DLP DATA REPOSITORY: All CT scans at this facility are submitted to the National Radiology Data Registry (NRDR) Dose Index Registry (DIR) with the [employer] (ACR). RADIATION OPTIMIZATION: All CT scans at this facility use at least one of these dose optimization techniques: automated exposure control; mA and/or kV adjustment per patient size (includes targeted exams where dose is matched to clinical indication); or iterative reconstruction.
--- NOTE | 2024-11-11 13:55 | W.ED.GENAD ---
Discharge Plan Disposition Patient Disposition: Home Discharge Details Clinical Impression: Acute periapical abscess Primary Care Provider: Ann-Marie Booker ED Provider: Demetrio Castro Home Meds and New Rx's Prescriptions: New clindamycin HCl [Cleocin HCl] 150 mg capsule 450 mg PO TID 10 Days Qty: 90 0RF ondansetron 4 mg tablet,disintegrating 4 mg PO BID 5 Days Qty: 10 0RF Continued sumatriptan succinate [Imitrex] 50 mg tablet See Rx Instructions .ROUTE .COMPLEX Qty: 10 0RF Rx Instructions: take 1 tab at onset of headache; if no relief may repeat 1 tab after at least 2 hrs; max = 4 tabs/24 hr furosemide 80 mg tablet 80 mg PO QAM Qty: 90 3RF potassium chloride 20 mEq tablet extended release 20 meq PO DAILY Qty: 90 3RF loratadine [Claritin] 10 mg tablet 10 mg PO DAILY PRN albuterol sulfate 90 mcg/actuation HFA aerosol inhaler 2 puff inhalation Q6H PRN (Reason: shortness of breath or wheezing) Qty: 8.5 0RF metoprolol succinate 50 mg tablet extended release 24 hr 50 mg PO DAILY 90 Days Qty: 90 1RF Rx Instructions: Please cancel 100mg script.. sorry valsartan 80 mg tablet 80 mg PO DAILY Qty: 30 0RF Rx Instructions: New med for BP with goal <140/90 Eliquis 5 mg Tablet See Rx Instructions .ROUTE .COMPLEX Qty: 70 0RF Rx Instructions: take 2 tablets twice a day for 7 days, then one tab po BID prochlorperazine maleate [Compazine] 10 mg tablet 10 mg PO TID PRN (Reason: nausea and vomiting) Qty: 30 0RF Discharge Instructions Instructions: Tooth Abscess (DC) Additional Instructions: You were seen in the emergency department for your dental pain. You have a tooth infection. Please take these antibiotics as directed. Please take the short course of pain pills as needed. Please return to the emergency department if you cannot eat or drink as result of fevers nausea or vomiting. Please call your dentist tomorrow for an appointment as soon as possible. Stand Alone Forms: Work Release Discharge Data Discharge Date/Time-TO BE ENTERED AT DEPARTURE: 11/11/24 17:40 HPI General Date/Time Provider Initiated Documentation: 11/11/24 13:29. HPI Narrative: MDM This is an uncomfortable appearing hypertensive normothermic but tachycardic 34-year-old male with right-sided facial swelling adjacent to broken tooth concerning for the possibility of deeper space infection for which he will undergo cross-sectional imaging with CT maxillofacial with IV contrast. Patient has no brawny edema submentally to suggest Gilles's angina. No pain out of proportion to suggest necrotizing soft tissue infection. Good range of motion in neck so I am not suspicious for retropharyngeal abscess. Patient does have a history of PE and reports that he is has not taken his apixaban in several days. Similarly he has not taken his metoprolol. He is not having chest pain to suggest worsening PE so I did not feel he required a repeat CT scan of his chest. I am concerned for sepsis so I did draw blood cultures treated with piperacillin/tazobactam and vancomycin. Will check a lactate and provide 1 L of IV fluids. Will treat pain with fentanyl. In the absence of chest pain I did not feel that the patient required a troponin. Patient does not feel short of breath and reports that his lower extremity edema is markedly improved so I did not feel his presentation represented acute heart failure. No trauma nor cervical spinal tenderness to suggest increased risk for cervical spinal fracture. 3:15 PM CBC showing worsened leukocytosis. No anemia nor thrombocytopenia. Mild hyperglycemia and mild anion gap but normal bicarbonate??not consistent with DKA. 4:45 PM I spoke with Dr. Cm from ENT. He advised clindamycin 450 mg 3 times daily with close outpatient dental follow-up. He discussed that it would be possible to drain the patient's gum boil but that it would likely reaccumulate. Patient and I discussed the possibility of this procedure. We discussed risk of failed procedure worsening pain and bleeding. Patient declined bedside drainage. Patient's heart rate normalized in the ED. I treated him with his home apixaban and his metoprolol. Will prescribe his clindamycin and repeat his lactate prior to discharge. His heart rate was 89 bpm. I prescribed ondansetron for nausea. 11/12 Late charting due to patient care. Patient's tachycardia and lactic acidosis improved in the ED. patient was provided a list of dentists in the ED. HPI This is a patient with a history of MRSA presenting with a toothache. The patient began experiencing a toothache 2 days ago, which has since escalated to severe swelling around the eye and face on the right side, accompanied by intense pain. A visible sore is present. The patient considered having it lanced the previous night but refrained due to a history of MRSA, fearing it might exacerbate the infection. The patient has not yet contacted a dentist regarding this issue. The patient has been unable to keep anything down for the past 2 days, including medications such as Eliquis and Lasix, due to persistent nausea and vomiting. The patient reports no abdominal pain but mentions episodes of sudden vomiting. The patient experienced fever spikes 4 times the previous night, which were managed by taking cold showers and sitting in front of a fan. The patient is unable to take Advil or ibuprofen due to the Eliquis prescription, and an allergy to Tylenol, which causes an itchy throat. The patient reports no chest pain, breathing difficulties, or leg swelling. The patient notes that the legs have been in good condition recently, allowing for comfortable shoe wear. Exam General: Well-appearing in no acute distress speaking in complete sentences. Head: Normocephalic, atraumatic. Eye: Extraocular eye movements intact. No conjunctival injection. No scleral icterus. Ear, nose, mouth, throat: Normal voice, handling secretions normally. Just above tooth #5 on the buccal mucosa there is an erythematous approximately 1 cm blister. No obvious fluctuance. No brawny edema submentally. Neck: Trachea midline. No midline cervical spinal tenderness. Cardiovascular: Well-perfused distal extremities. Rapid regular rate. Respiratory: Nonlabored respiration. Gastrointestinal: Nondistended abdomen. Musculoskeletal: Mild bilateral 1+ nonpitting lower extremity edema. Moving all 4 extremities spontaneously. Skin: Normal for age and race, grossly normal temperature and turgor. No acute rash. Neurologic: Alert and appropriate, no apparent acute deficits. Psychiatric: Mood and manner are appropriate. Grooming and personal hygiene are appropriate. Related Data Home Medications ?Medication ?Instructions ?Recorded ?Confirmed loratadine 10 mg tablet (Claritin) 10 mg PO DAILY PRN 06/11/24 11/11/24 albuterol sulfate 90 mcg/actuation 2 puff inhalation Q6H PRN 09/22/24 11/11/24 aerosol inhaler shortness of breath or wheezing #8.5 grams metoprolol succinate 50 mg 50 mg PO DAILY 90 days #90 tabs 09/22/24 11/11/24 tablet,extended release 24 hr furosemide 80 mg tablet 80 mg PO QAM #90 tabs 10/17/24 11/11/24 potassium chloride 20 mEq 20 meq PO DAILY #90 tabs 10/17/24 11/11/24 tablet,extended release sumatriptan succinate 50 mg tablet See Rx Instructions PO .COMPLEX 10/17/24 11/11/24 (Imitrex) #10 tabs apixaban 5 mg tablet (Eliquis) See Rx Instructions .Route 10/26/24 11/11/24 .COMPLEX #70 tabs prochlorperazine maleate 10 mg 10 mg PO TID PRN nausea and 10/29/24 11/11/24 tablet (Compazine) vomiting #30 tabs valsartan 80 mg tablet 80 mg PO DAILY #30 tabs 10/30/24 11/11/24 clindamycin HCl 150 mg capsule 450 mg (3 x 150 mg) PO TID 10 days 11/11/24 (Cleocin HCl) #90 caps ondansetron 4 mg disintegrating 4 mg PO BID 5 days #10 tabs 11/11/24 tablet Previous Rx's ?Medication ?Instructions ?Recorded albuterol sulfate 90 mcg/actuation 2 puff inhalation Q6H PRN 09/22/24 aerosol inhaler shortness of breath or wheezing #8.5 grams metoprolol succinate 50 mg 50 mg PO DAILY 90 days #90 tabs 09/22/24 tablet,extended release 24 hr furosemide 80 mg tablet 80 mg PO QAM #90 tabs 10/17/24 potassium chloride 20 mEq 20 meq PO DAILY #90 tabs 10/17/24 tablet,extended release sumatriptan succinate 50 mg tablet See Rx Instructions PO .COMPLEX 10/17/24 (Imitrex) #10 tabs apixaban 5 mg tablet (Eliquis) See Rx Instructions .Route 10/26/24 .COMPLEX #70 tabs prochlorperazine maleate 10 mg 10 mg PO TID PRN nausea and 10/29/24 tablet (Compazine) vomiting #30 tabs valsartan 80 mg tablet 80 mg PO DAILY #30 tabs 10/30/24 clindamycin HCl 150 mg capsule 450 mg (3 x 150 mg) PO TID 10 days 11/11/24 (Cleocin HCl) #90 caps ondansetron 4 mg disintegrating 4 mg PO BID 5 days #10 tabs 11/11/24 tablet Allergies Allergy/AdvReac Type Severity Reaction Status Date / Time acetaminophen (From Tylenol) Allergy Unknown unknown Verified 11/11/24 13:30 ciprofloxacin (From Cipro) Allergy Unknown unknown Verified 11/11/24 13:30 clarithromycin (From Biaxin) Allergy Unknown unknown Verified 11/11/24 13:30 morphine AdvReac Severe Other (See Verified 11/11/24 13:30 Comment) General Stated Complaint: DentalOral JOHNNY: 3 Course Vital Signs Vital signs: Vital Signs Temperature 37.2 C 11/11/24 13:24 Pulse 128 H 11/11/24 13:24 Respiratory Rate 18 11/11/24 13:24 Blood Pressure 178/112 H 11/11/24 13:24 Pulse Oximetry 95 11/11/24 13:24 Temperature 37.2 C 11/11/24 13:30 Pulse 120 H 11/11/24 13:50 Pulse 121 H 11/11/24 13:50 Respiratory Rate 30 H 11/11/24 13:50 Blood Pressure 169/108 H 11/11/24 13:47 Blood Pressure Mean 130 11/11/24 13:47 Pulse Oximetry 95 11/11/24 13:50 Pain Level 9 11/11/24 13:30 Medical Decision Making Quality:SDOH Health Related Social Needs: Health related social needs risk of homeless food insecurity transpo insecurity house/econ circumstance daily activities lonely/isolated Health related social needs details home less PFSH All Active Problems (Updated 11/11/24 @ 16:45 by Demetrio Castro MD) Acute periapical abscess (Acute) N&V (nausea and vomiting) (Acute) Proteinuria, unspecified (Acute) Migraine (Chronic) Leukocytosis (Chronic) Pulmonary embolism (Chronic) Fluid overload (Acute) Bilateral lower extremity edema (Acute) Low testosterone in male (Acute) Cellulitis (Acute) URI (upper respiratory infection) (Acute) Cough (Acute) Breast lump (Acute) Pre-diabetes (Acute) a1c 5.9 Discharge planning issues (Acute) Hypotension (Acute) MRSA infection (Acute) Sleep apnea in adult (Acute) Homeless (Acute) Leg cramps (Acute) Bipolar 1 disorder (Acute) Anxiety and depression (Chronic) Snoring (Acute) Essential hypertension (Chronic) Left ureteral stone (Acute) Medical History Sepsis Alcoholic gastritis History of herpes zoster Impaired glucose tolerance Abdominal pain Nausea Sleep pattern disturbance Muscle pain Lumbago with sciatica Degeneration of cervical intervertebral disc Kidney stone Hypertensive disorder PTSD (post-traumatic stress disorder) Secondary polycythemia Hyperlipidemia Surgical History Status post incision and drainage (~04/2024) left axilla, MRSA + History of colonoscopy with polypectomy (01/28/18) inflammatory bowel disease, polyps x3, internal and external hemorrhoids History of cystoscopy (05/30/16) with laser litho LT History of ureteroscopy (03/17/19) left, with stone extraction History of esophagogastroduodenoscopy (EGD) (09/17/19) paraesophageal hernia type 3 History of placement of ear tubes Family History Other Colon cancer Dementia Social History Smoking/Tobacco Use Status: Current every day Tobacco Type: cigarettes Tobacco: How many years used: 14 Smoking risk assessment performed?: Yes Alcohol Intake: never Drug use: Occasionally Substance use type: marijuana Counseling given: No Adopted: No Caregiver/Support person: No Foster care: No Household members: significant other Housing: homeless Number of Children: 1 Communication Needs: None and Corrective Lenses Education Level: high school Do you need help understanding health information?: Rarely 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 Pets and animals: No Sexually active: Yes Do you think of yourself as: straight/heterosexual What is your relationship status?: living with partner How often do you talk on the phone with friends or family?: decline to answer How often do you get together with friends or relatives?: never Do you belong to any clubs or organized social groups?: no Panel score (0-1 are the most socially isolated patients): 1 What type of physical activity do you participate in: walking and other Details: stretches Duration: 15-30 minutes/day Frequency: daily Meghana/Anabaptism: None Seatbelt use: always Helmet use: No Drive intox or ride w/intox local company truck driver: No Working smoke detector in home: Yes Fire extinguisher in home: Yes Carbon monox detector in home: No Do you feel safe at home: Yes Do you feel safe in your relationship?: Yes Additional Social history: lost housing sunday, awaiting bed at [facility]
[2024-11-11 14:05] LABS: Abs Immature Grans 0.09 10^3/uL (0.0-0.06); Absolute Basophil Count 0.05 10^3/uL (0.0-0.2); Absolute Lymphocyte Count 2.03 10^3/uL (1.2-3.4); Basophils % 0.3 %; Eosinophils % 1.1 %; HCT 49.6 % (40.0-50.0); HGB 16.1 g/dL (13.5-17.5); Immature Grans % 0.5 %; Lymphocytes % 11.9 %; MCH 26.4 pg (27.0-33.0); MCHC 32.5 % (32.0-36.0); MCV 81 fL (80-95); MPV 11.3 fL (8.0-11.0); Monocytes % 5.1 %; Neutrophils % 81.1 %; Platelet Count 335 10^3/uL (130-400); RDW 14.6 % (11.8-14.1); RDW-SD 41.9 fL; WBC 17.02 10^3/uL (4.4-10.8)
[2024-11-11 14:06] LABS: Lactate 3.1 mmol/L (<or=2.0)
[2024-11-11 14:23] LABS: Anion Gap 11.9 mmol/L (3-11); BUN 16 mg/dL (7-18); CO2 24.1 mmol/L (21.0-32.0); Chloride 102 mmol/L (98-107); Estimated GFR 101.28 (mL/min/1.73m2); Glucose 202 mg/dL (74-106); Sodium 138 mmol/L (136-145)
[2024-11-11] MEDS: Ondansetron 4 MG/2 ML VIAL IVP (14:27)
[2024-11-11] MEDS: PIPERACILLIN/TAZO 3.375 GM in Normal Saline 50 ML IVPB (14:28)
[2024-11-11] MEDS: fentaNYL 100 MCG/2 ML VIAL 75 MCG IVP (14:28)
[2024-11-11] MEDS: Normal Saline 1,000 ML 1000 ML IV (14:29)
[2024-11-11 14:40] LABS: Absolute Eosinophil Count 0.19 10^3/uL (0.0-0.7); Absolute Monocyte Count 0.87 10^3/uL (0.1-0.8); RBC 6.11 10^6/uL (4.36-5.78)
[2024-11-11] MEDS: Normal Saline - Diluent 50 ML VIAL IJ (14:57)
[2024-11-11] MEDS: Omnipaque 350 MG/ML 100 ML BTL IJ (14:59)
[2024-11-11] MEDS: VANCOMYCIN/WATER (PEG) 2 GM/400 ML BAG IVPB (15:32)
[2024-11-11] MEDS: oxyCODONE 5 MG TAB PO (16:22)
[2024-11-11] MEDS: Apixaban 5 MG TAB 10 MG PO (16:23)
[2024-11-11] MEDS: Metoprolol CR 50 MG TABCR PO (16:23)
[2024-11-11 17:07] LABS: Lactate 1.6 mmol/L (<or=2.0)
--- NOTE | 2024-11-12 08:37 | NUR.NOTE ---
work note added on 11/12/24 to allow for return to work
== END 2024-11-11 17:40 | disposition home or self-care (01) ==
PROVIDERS: Emergency Provider Emergency Medicine; PCP Nurse Practitioner
DX: K04.7 Periapical abscess without sinus (principal); S02.5XXA Fracture of tooth (traumatic), initial encounter for closed fracture; R00.0 Tachycardia, unspecified; I10 Essential (primary) hypertension; E78.5 Hyperlipidemia, unspecified; F17.210 Nicotine dependence, cigarettes, uncomplicated; Z86.711 Personal history of pulmonary embolism; Z79.01 Long term (current) use of anticoagulants; X58.XXXA Exposure to other specified factors, initial encounter
CPT/HCPCS: 36415; 80048; 87040; 93005; 96365; 96366; 96367; 96375; 99285; 70487; 83605; 85025; 93010; J2405; J2543; J3010; J3372; J3490

== ENCOUNTER 2025-01-29 21:51 | Emergency (ER) | payer MEDICAID, SELFPAY ==
--- NOTE | 2025-01-29 00:06 | DI.CT_ITS ---
Exam(s) CT CHEST PE CTA EXAM: CT CHEST PE CTA CLINICAL HISTORY: shortness of breath, tachycardia, known PE. TECHNIQUE: Imaging Protocol: CT angiography of the chest was performed using pulmonary embolus protocol. Multi planar reconstructions were performed. CONTRAST MATERIAL: Intravenous: Omnipaque 350 Contrast volume: 100 cc COMPARISON: CT CT CHEST PE CTA from 10/27/2024 FINDINGS: CHEST: PULMONARY ARTERIES: There are no obvious intraluminal filling defects at this time. The recently described intraluminal filling defects in the right lower lobe pulmonary arteries appear to have mostly resolved. There is no additional involvement of other pulmonary arteries. LUNGS: There are mild subpleural increased markings in the posterior basal segment of the right lower lobe, not previously present on CT scan of 10/27/2024. No associated pleural effusion. Cannot exclude that this may represent an element of pulmonary infarction given the recent pulmonary emboli in the right lower lobe pulmonary arteries as seen on recent CT scans.. There are no pleural effusions. MEDIASTINUM: There is no hilar nor mediastinal adenopathy. CARDIAC: Heart size is upper normal. There is no pericardial effusion.Diameter of the ascending thoracic aorta is again noted be enlarged, measuring 4 cm. The diameter of the mid aortic arch is enlarged at 3.1 cm. The diameter of the descending thoracic aorta is upper normal. There is no evidence of aortic dissection. There is no significant shift of the interventricular septum. No evidence of contrast reflux into the intrahepatic IVC. PARTIALLY VISUALIZED UPPERMOST ABDOMEN: Hypodense liver implying steatosis. OSSEOUS: No significant osseous lesions.No fractures.. IMPRESSION: 1. There appears to been resolution of the previously present intraluminal filling defect/pulmonary emboli within the right lower lobe pulmonary arteries. There are presently no obvious intraluminal filling defects at this level nor elsewhere in either lung. No evidence of right heart strain. 2. There is mild subpleural infiltrate in the posterior basal segment of the right lower lobe which was not evident on CT scan of 10/27/2024. Although this may be atelectatic or mild infectious infiltrate, given that this was the location of the prior emboli cannot exclude mild area of pulmonary infarction which has developed since the CT scan of 10/27/2024. No pleural effusions. 3. The ascending thoracic aorta is again noted be enlarged measuring 4 cm. No evidence of aortic dissection nor pericardial effusion. Preliminary virtual Radiology report reviewed Final report called by myself to ER physician 01/30/2025 at 8:30 a.m. RADIATION DOSE DELIVERED: 258.47mGy.cm Total DLP DATA REPOSITORY: All CT scans at this facility are submitted to the National Radiology Data Registry (NRDR) Dose Index Registry (DIR) with the [employer] (ACR). RADIATION OPTIMIZATION: All CT scans at this facility use at least one of these dose optimization techniques: automated exposure control; mA and/or kV adjustment per patient size (includes targeted exams where dose is matched to clinical indication); or iterative reconstruction.
[2025-01-29 21:57] VITALS: BP 172/118; PULSE 118; RESP 16; TEMP 36.9; O2SAT 98
[2025-01-29 22:00] VITALS: BP 172/118; PULSE 118; RESP 16; TEMP 36.9; O2SAT 98
--- NOTE | 2025-01-29 22:00 | RT.EKG_ITS ---
APPROVED REPORT Exam: Resting ECG Reason for Exam: shortness of breath Patient Location: E HR:103 bpm ECG Measurements Heart Rate [address] 168 P 49 QRSd 107 QRS 34 QT 353 T 40 QTc 464 Conclusion Sinus tachycardia...rate> [address] segment or T wave abnormalities to suggest occlusive RI.
--- NOTE | 2025-01-29 22:18 | W.ED.GENAD ---
Discharge Plan Discharge Details Chief Complaint: GenMedical Clinical Impression: Bilateral lower extremity edema, HX: anticoagulation Primary Care Provider: Ann-Marie Booker ED Provider: Lucy Marmolejo Home Meds and New Rx's Prescriptions: No Action furosemide 80 mg tablet 80 mg PO QAM Qty: 90 3RF potassium chloride 20 mEq tablet extended release 20 meq PO DAILY Qty: 90 3RF sumatriptan succinate 100 mg tablet See Rx Instructions PO .COMPLEX Qty: 60 5RF Rx Instructions: take 1 tab at onset of headache; if no relief, may repeat 1 tab after at least 2 hrs; max = 2 tabs/24 hrs PO Eliquis 5 mg tablet 5 mg PO BID Qty: 180 3RF albuterol sulfate 90 mcg/actuation HFA aerosol inhaler 2 puff inhalation Q6H PRN (Reason: shortness of breath or wheezing) Qty: 8.5 5RF valsartan 80 mg tablet 80 mg PO DAILY Qty: 90 3RF loratadine [Claritin] 10 mg tablet 10 mg PO DAILY PRN metoprolol succinate 50 mg tablet extended release 24 hr 50 mg PO DAILY 90 Days Qty: 90 1RF Rx Instructions: Please cancel 100mg script.. sorry prochlorperazine maleate [Compazine] 10 mg tablet 10 mg PO TID PRN (Reason: nausea and vomiting) Qty: 30 0RF HPI General Mode of arrival: ambulatory. Date/Time Provider Initiated Documentation: 01/29/25 22:01. Limitations to Documentation: no limitations. Information obtained by: patient and old records reviewed. HPI Narrative: 34yo M with PE diagnosed in October of this year (on 5mg eliquis BID), HTN, HLD, leukocytosis, chronic LE edema on lasix, presenting for worsening bilateral lower extremity edema. Legs have been getting much more swollen for the past 4 days. Right leg seems slightly more swollen and painful than left but both are swollen, tender, and have worsening symptoms. Last saw his PCP for this about two weeks ago. Has some shortness of breath at baseline which is not worse recently. No cough. No chest pain. No recent trauma or injury. He is otherwise in his usual state of health with no fevers, chills, rash, abdominal pain, or other concerns. Related Data Home Medications ?Medication ?Instructions ?Recorded ?Confirmed loratadine 10 mg tablet (Claritin) 10 mg PO DAILY PRN 06/11/24 01/29/25 metoprolol succinate 50 mg 50 mg PO DAILY 90 days #90 tabs 09/22/24 01/29/25 tablet,extended release 24 hr furosemide 80 mg tablet 80 mg PO QAM #90 tabs 10/17/24 01/29/25 potassium chloride 20 mEq 20 meq PO DAILY #90 tabs 10/17/24 01/29/25 tablet,extended release prochlorperazine maleate 10 mg 10 mg PO TID PRN nausea and 10/29/24 01/29/25 tablet (Compazine) vomiting #30 tabs apixaban 5 mg tablet (Eliquis) 5 mg PO BID #180 tabs 12/11/24 01/29/25 sumatriptan succinate 100 mg tablet See Rx Instructions PO .COMPLEX 12/11/24 01/29/25 #60 tabs albuterol sulfate 90 mcg/actuation 2 puff inhalation Q6H PRN 01/16/25 01/29/25 aerosol inhaler shortness of breath or wheezing #8.5 grams valsartan 80 mg tablet 80 mg PO DAILY #90 tabs 01/16/25 01/29/25 Previous Rx's ?Medication ?Instructions ?Recorded metoprolol succinate 50 mg 50 mg PO DAILY 90 days #90 tabs 09/22/24 tablet,extended release 24 hr furosemide 80 mg tablet 80 mg PO QAM #90 tabs 10/17/24 potassium chloride 20 mEq 20 meq PO DAILY #90 tabs 10/17/24 tablet,extended release prochlorperazine maleate 10 mg 10 mg PO TID PRN nausea and 10/29/24 tablet (Compazine) vomiting #30 tabs apixaban 5 mg tablet (Eliquis) 5 mg PO BID #180 tabs 12/11/24 sumatriptan succinate 100 mg tablet See Rx Instructions PO .COMPLEX 12/11/24 #60 tabs albuterol sulfate 90 mcg/actuation 2 puff inhalation Q6H PRN 01/16/25 aerosol inhaler shortness of breath or wheezing #8.5 grams valsartan 80 mg tablet 80 mg PO DAILY #90 tabs 01/16/25 Allergies Allergy/AdvReac Type Severity Reaction Status Date / Time acetaminophen (From Tylenol) Allergy Unknown unknown Verified 01/29/25 22:00 ciprofloxacin (From Cipro) Allergy Unknown unknown Verified 01/29/25 22:00 clarithromycin (From Biaxin) Allergy Unknown unknown Verified 01/29/25 22:00 morphine AdvReac Severe Other (See Verified 01/29/25 22:00 Comment) General Stated Complaint: GenMedical JOHNNY: 3 Review of Systems Narrative: see HPI Exam Narrative Exam Narrative: General: Alert, obese, in no acute distress. Head: Normocephalic, atraumatic Neck: Trachea midline, ?Neck supple. ENT: ?MMM.? Cardiac: ?Tachycardiac, regular, no murmurs appreciated Resp: No respiratory distress. CTAB. Abd: ?Soft, non-distended, nontender Extremities: ?No deformities.? BLE diffusely TTP below the knee. Marked BLE edema. Right calf slightly greater than left, measured at 55.75cm & 54.5cm. No warmth or erythema. Neurologic: GCS 15. ? Moves all extremities freely against gravity Course Vital Signs Vital signs: Vital Signs Temperature 36.9 C 01/29/25 21:57 Pulse 118 H 01/29/25 21:57 Respiratory Rate 16 01/29/25 21:57 Blood Pressure 172/118 H 01/29/25 21:57 Pulse Oximetry 98 01/29/25 21:57 Temperature 36.9 C 01/29/25 22:00 Pulse 118 H 01/29/25 22:00 Respiratory Rate 16 01/29/25 22:00 Blood Pressure 172/118 H 01/29/25 22:00 Pulse Oximetry 98 01/29/25 22:00 Pain Level 8 01/29/25 22:00 Medical Decision Making 34yo M with PE diagnosed in October of this year (on 5mg eliquis BID), HTN, HLD, leukocytosis (referral to [facility] heme-onc has been placed), chronic LE edema on lasix, presenting for worsening bilateral lower extremity edema. No worsening shortness of breath. RLE slightly more swollen than left. Hypertensive and tachycardiac to 110's after ambulating into triage. Significant BLE on exam, legs diffusely TTP below the knees, right calf ~1cm > left. Patient reports he did not have an LE DVTs found during workup for his PE. Concern for worsening of chronic edema, new DVT, worsening pulmonary embolism, heart failure, liver disease, kidney disease. Vital signs records reviewed, HR most consistently 90's-120's throughout 2024. -EKG sinus tachycardia rate low 100's, appropriate intervals, no ST segment or T wave abnormalities to suggest occlusive GA. -Labs reviewed as below, CBC with mild leukocytosis at 11.5 (much improved from priors), CMP reassuring with no actionable abnormalities, Mg borderline low at 1.7 (oral replacement ordered),VBG normal, BNP not suggestive of heart failure, initial troponin 14 with one hour repeat unchanged (HEART score low risk, would not further pursue ACS). UA with mild proteinuria (chronic on [facility] record review- he does also have mild chronic serum hypoalbumin and overall presentation is not suggestive of acute nephrotic syndrome). -CTA chest independently reviewed; no large saddle pulmonary embolism on my view, radiology read with no acute findings and no pulmonary embolism. On reassessment pt with good response to lasix, approximately 1L UOP. No symptomatic improvement in leg pain/swelling yet. HPI and exam are not overly suggestive of DVT however he does have asymmetric swelling and a history of unprovoked PE and so warrants DVT study. Discussed options with patient including option for discharge with outpatient US tomorrow; shared decision making and elected to remain in the ED overnight, receive additional IV lasix (will repeat BMP as well to monitor potassium), and DVT when available in the morning. 0500 BMP with reassuring electrolytes. Will be signed out to oncoming physcian, plan as above. Lab Data Lab results reviewed: Yes I reviewed the patient's lab results. Labs: Laboratory Tests Range/Units 01/29/25 01/30/25 01/30/25 22:30 00:02 01:25 WBC (4.4-10.8) 10^3/uL 11.50 H RBC (4.36-5.78) 10^6/uL 5.57 Hgb (13.5-17.5) g/dL 14.5 Hct (40.0-50.0) % 45.7 MCV (80-95) fL 82 MCH (27.0-33.0) pg 26.0 L MCHC (32.0-36.0) % 31.7 L RDW (11.8-14.1) % 14.6 H Plt Count (130-400) 10^3/uL 329 MPV (8.0-11.0) fL 10.9 Immature Gran % % 0.7 Neutrophils % % 68.8 Lymphocytes % % 21.7 Monocytes % % 5.1 Eosinophils % % 3.3 Basophils % % 0.4 Nucleated RBC % (0.0-0.3) % 0.0 Absolute Neutrophils (1.2-6.7) 10^3/uL 7.91 H Absolute Lymphocytes (1.2-3.4) 10^3/uL 2.50 Absolute Monocytes (0.1-0.8) 10^3/uL 0.59 Absolute Eosinophils (0.0-0.7) 10^3/uL 0.38 Absolute Basophils (0.0-0.2) 10^3/uL 0.05 VBG pH (7.31-7.41) 7.41 VBG pCO2 (41-51) mmHg 43 VBG pO2 mmHg 56 VBG HCO3 (23-28) mmol/L 27 VBG Total CO2 (24-29) mmol/L 24 VBG O2 Saturation % 92 VBG Base Excess (-2-3) mmol/L 3 Sodium (136-145) mmol/L 139 Potassium (3.5-5.1) mmol/L 4.0 Chloride (98-107) mmol/L 104 Carbon Dioxide (21.0-32.0) mmol/L 27.1 Anion Gap (3-11) mmol/L 7.9 BUN (7-18) mg/dL 14 Creatinine (0.70-1.30) mg/dL 1.0 Est GFR (CKD-EPI 2020) (mL/min/1.73m2) 101.28 Glucose (74-106) mg/dL 169 H Calcium (8.5-10.1) mg/dL 9.1 Magnesium (1.8-2.4) mg/dL 1.7 L Total Bilirubin (0.2-1.0) mg/dL 0.2 AST (15-37) U/L 28 ALT (16-63) U/L 38 Alkaline Phosphatase (46-116) U/L 70 Troponin I (<or=76) ng/L 14 14 NT-Pro-B Natriuret Pep (<300) pg/mL 49 Total Protein (6.4-8.2) g/dL 6.3 L Albumin (3.4-5.0) g/dL 2.9 L TSH (0.36-3.74) uIU/mL 2.42 Urine Color (Yellow) Yellow Urine Clarity (Clear) Clear Urine pH (5-8) 7.0 Ur Specific [place] (1.005-1.025) 1.015 Urine Protein (Neg-Trace) mg/dL 30 H Urine Ketones (Negative) mg/dL Negative Urine Blood (Negative) Negative Urine Nitrite (Negative) Negative Urine Bilirubin (Negative) Negative Urine Urobilinogen (Up to 0.2) mg/dL 0.2 Ur Leukocyte Esterase (Negative) Negative Urine RBC (0-2) HPF Negative Urine WBC (0-5) HPF Negative Ur Epithelial Cells (Negative) HPF Negative Urine Crystals (Negative) HPF Negative Urine Bacteria (Negative) HPF Negative Urine Casts (Negative) LPF Negative Urine Mucus (Negative) Negative Ur Culture Indicated? No Urine Glucose (Negative) mg/dL Negative Quality:SDOH Health Related Social Needs: Health related social needs risk of homeless Health related social needs details none PFSH All Active Problems (Updated 01/30/25 @ 02:21 by Lucy Marmolejo MD) HX: anticoagulation (Acute) Neutrophilic leukocytosis (Acute) Proteinuria, unspecified (Acute) Migraine (Chronic) Leukocytosis (Chronic) Pulmonary embolism (Chronic) Fluid overload (Acute) Bilateral lower extremity edema (Acute) Low testosterone in male (Acute) Cellulitis (Acute) URI (upper respiratory infection) (Acute) Cough (Acute) Breast lump (Acute) Pre-diabetes (Acute) a1c 5.9 Discharge planning issues (Acute) Hypotension (Acute) MRSA infection (Acute) Sleep apnea in adult (Acute) Homeless (Acute) Leg cramps (Acute) Bipolar 1 disorder (Acute) Anxiety and depression (Chronic) Snoring (Acute) Essential hypertension (Chronic) Left ureteral stone (Acute) Medical History (Updated 01/30/25 @ 02:21 by Lucy Marmolejo MD) Sepsis Alcoholic gastritis History of herpes zoster Impaired glucose tolerance Abdominal pain Nausea Sleep pattern disturbance Muscle pain Lumbago with sciatica Degeneration of cervical intervertebral disc Kidney stone Hypertensive disorder PTSD (post-traumatic stress disorder) Secondary polycythemia Hyperlipidemia Surgical History Status post incision and drainage (~04/2024) left axilla, MRSA + History of colonoscopy with polypectomy (01/28/18) inflammatory bowel disease, polyps x3, internal and external hemorrhoids History of cystoscopy (05/30/16) with laser litho LT History of ureteroscopy (03/17/19) left, with stone extraction History of esophagogastroduodenoscopy (EGD) (09/17/19) paraesophageal hernia type 3 History of placement of ear tubes Family History Other Colon cancer Dementia Social History Smoking/Tobacco Use Status: Current every day Tobacco Type: cigarettes Tobacco: How many years used: 14 Smoking risk assessment performed?: Yes Alcohol Intake: never Drug use: Occasionally Substance use type: marijuana Counseling given: No Adopted: No Caregiver/Support person: No Foster care: No Household members: significant other Housing: homeless Number of Children: 1 Communication Needs: None and Corrective Lenses Education Level: high school Do you need help understanding health information?: Rarely 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 Pets and animals: No Sexually active: Yes Do you think of yourself as: straight/heterosexual What is your relationship status?: living with partner How often do you talk on the phone with friends or family?: decline to answer How often do you get together with friends or relatives?: never Do you belong to any clubs or organized social groups?: no Panel score (0-1 are the most socially isolated patients): 1 What type of physical activity do you participate in: walking and other Details: stretches Duration: 15-30 minutes/day Frequency: daily Meghana/Worship: None Seatbelt use: always Helmet use: No Drive intox or ride w/intox driver merchandiser: No Working smoke detector in home: Yes Fire extinguisher in home: Yes Carbon monox detector in home: No Do you feel safe at home: Yes Do you feel safe in your relationship?: Yes Additional Social history: lost housing sunday, awaiting bed at pending sale to [facility]
[2025-01-29 22:34] LABS: BE (Venous) 3 mmol/L (-2-3); HCO3 (Venous) 27 mmol/L (23-28); O2 Sat (Venous) 92 %; TCO2 (Venous) 24 mmol/L (24-29); pCO2 (Venous) 43 mmHg (41-51); pO2 (Venous) 56 mmHg
[2025-01-29 22:35] LABS: Abs Immature Grans 0.08 10^3/uL (0.0-0.06); HCT 45.7 % (40.0-50.0); HGB 14.5 g/dL (13.5-17.5); Immature Grans % 0.7 %; MCH 26.0 pg (27.0-33.0); MCHC 31.7 % (32.0-36.0); MCV 82 fL (80-95); MPV 10.9 fL (8.0-11.0); Platelet Count 329 10^3/uL (130-400); RBC 5.57 10^6/uL (4.36-5.78); RDW 14.6 % (11.8-14.1); RDW-SD 43.2 fL; WBC 11.50 10^3/uL (4.4-10.8)
[2025-01-29 23:02] LABS: ALT 38 U/L (16-63); AST 28 U/L (15-37); Albumin 2.9 g/dL (3.4-5.0); Alkaline Phosphatase 70 U/L (46-116); Anion Gap 7.9 mmol/L (3-11); BUN 14 mg/dL (7-18); Bilirubin, Total 0.2 mg/dL (0.2-1.0); CO2 27.1 mmol/L (21.0-32.0); Calcium 9.1 mg/dL (8.5-10.1); Chloride 104 mmol/L (98-107); Estimated GFR 101.28 (mL/min/1.73m2); Glucose 169 mg/dL (74-106); Magnesium 1.7 mg/dL (1.8-2.4); NT-proBNP 49 pg/mL (<300); Potassium 4.0 mmol/L (3.5-5.1); Sodium 139 mmol/L (136-145); Total Protein 6.3 g/dL (6.4-8.2); Troponin I 14 ng/L (<or=76)
[2025-01-29] MEDS: Magnesium Gluconate 500 MG TAB 1000 MG PO (23:21)
[2025-01-29 23:31] LABS: TSH (W/Ref FT4) 2.42 uIU/mL (0.36-3.74)
[2025-01-30] VITALS (76 sets, daily range): BP systolic 129–165; BP diastolic 69–120; PULSE 84–132; RESP 9–28; O2SAT 75–100
[2025-01-30] MEDS: Normal Saline Flush 10 ML SYR IVP (00:05)
[2025-01-30] MEDS: Omnipaque 350 MG/ML 100 ML BTL IJ (00:05)
[2025-01-30] MEDS: Normal Saline - Diluent 50 ML VIAL IJ (00:06)
[2025-01-30 00:27] LABS: Troponin I 14 ng/L (<or=76)
--- NOTE | 2025-01-30 00:49 | DI.VRAD_ITS ---
PROCEDURE INFORMATION: Exam: CTA Chest With Contrast Exam date and time: 01/29/2025 11:43 PM Age: 34 years old Clinical indication: Shortness of breath and other: Tachycardia; Shortness of breath, tachycardia, known pe TECHNIQUE: Imaging protocol: Computed tomographic angiography of the chest with contrast. Exam focused on the arteries. 3D rendering (Not supervised by radiologist): MIP and/or 3D reconstructed images were created by the technologist. Radiation optimization: All CT scans at this facility use at least one of these dose optimization techniques: automated exposure control; mA and/or kV adjustment per patient size (includes targeted exams where dose is matched to clinical indication); or iterative reconstruction. Contrast material: [id number]; Contrast volume: 90 ml; Contrast route: INTRAVENOUS (IV); COMPARISON: CT CHEST PE CTA 10/27/2024 9:49 PM FINDINGS: Pulmonary arteries: Normal. No pulmonary emboli. Aorta: Unremarkable. No aortic aneurysm. No aortic dissection. Lungs: Unremarkable. No consolidation. No masses. Pleural spaces: Unremarkable. No pneumothorax. No pleural effusion. Heart: Unremarkable. No cardiomegaly. No pericardial effusion. Lymph nodes: Unremarkable. No enlarged lymph nodes. Bones/joints: Unremarkable. No acute fracture. Soft tissues: Unremarkable. IMPRESSION: No acute findings. Dictated and Authenticated by: Scar Landers MD. Orderin Francie Ayala MD
[2025-01-30] MEDS: Furosemide 100 MG/10 ML VIAL 80 MG IVP ×2 (01:01→05:00)
[2025-01-30 01:37] LABS: Glucose Negative (Negative)
[2025-01-30 01:38] LABS: C & S Indicated? No; RBC Negative HPF (0-2); WBC Negative HPF (0-5)
--- NOTE | 2025-01-30 02:19 | DI.US_ITS ---
Exam(s) US EXTREMITY VENOUS BI EXAM: US EXTREMITY VENOUS BI CLINICAL HISTORY: LE edema and pain, hx unprovoked PE TECHNIQUE: Grayscale, color, and doppler imaging of the deep venous system of both lower extremities was performed. COMPARISON: US US EXTREMITY VENOUS BI from 10/27/2024 FINDINGS: There is no evidence of intraluminal thrombus and there is normal compression and augmentation demonstrated within the common femoral veins, femoral veins, and popliteal veins of both lower extremities. In the calves the interrogated veins also exhibit normal compression/ augmentation properties. The greater saphenous veins also appear patent as do the saphenofemoral junctions bilaterally.. IMPRESSION: 1. No ultrasound evidence of DVT in either lower extremity. DATA REPOSITORY:
[2025-01-30 05:35] LABS: Anion Gap 5.9 mmol/L (3-11); BUN 12 mg/dL (7-18); CO2 30.1 mmol/L (21.0-32.0); Calcium 8.9 mg/dL (8.5-10.1); Chloride 102 mmol/L (98-107); Estimated GFR 119.10 (mL/min/1.73m2); Glucose 113 mg/dL (74-106); Potassium 4.0 mmol/L (3.5-5.1); Sodium 138 mmol/L (136-145)
[2025-01-30] MEDS: SUMAtriptan 50 MG TAB 100 MG PO (08:57)
--- NOTE | 2025-01-30 13:37 | W.EDPROG ---
Date of service: 01/30/25 Time of Service: 13:38 Medical Decision Making Care was signed out by Dr. Cevallos, please see her documentation regarding prior ED course. Patient has received IV diuresis. Awaiting lower extremity ultrasound to assess for DVT. CT of the chest was over read by radiology: 1. There appears to been resolution of the previously present intraluminal filling defect/pulmonary emboli within the right lower lobe pulmonary arteries. There are presently no obvious intraluminal filling defects at this level nor elsewhere in either lung. No evidence of right heart strain. 2. There is mild subpleural infiltrate in the posterior basal segment of the right lower lobe which was not evident on CT scan of 10/27/2024. Although this may be atelectatic or mild infectious infiltrate, given that this was the location of the prior emboli cannot exclude mild area of pulmonary infarction which has developed since the CT scan of 10/27/2024. No pleural effusions. 3. The ascending thoracic aorta is again noted be enlarged measuring 4 cm. No evidence of aortic dissection nor pericardial effusion. Ultrasound of the lower extremities interpreted by radiology: No DVT. I spoke with Dr. Santana, covering for PCP, he will arrange for timely outpatient follow-up early next week. All results were discussed with the patient. Patient stable and requesting discharge. Usual and customary discharge instructions were reviewed. Lab Data Lab results reviewed: Yes I reviewed the patient's lab results. Labs: Laboratory Tests Range/Units 01/29/25 01/30/25 01/30/25 22:30 00:02 01:25 WBC (4.4-10.8) 10^3/uL 11.50 H RBC (4.36-5.78) 10^6/uL 5.57 Hgb (13.5-17.5) g/dL 14.5 Hct (40.0-50.0) % 45.7 MCV (80-95) fL 82 MCH (27.0-33.0) pg 26.0 L MCHC (32.0-36.0) % 31.7 L RDW (11.8-14.1) % 14.6 H Plt Count (130-400) 10^3/uL 329 MPV (8.0-11.0) fL 10.9 Immature Gran % % 0.7 Neutrophils % % 68.8 Lymphocytes % % 21.7 Monocytes % % 5.1 Eosinophils % % 3.3 Basophils % % 0.4 Nucleated RBC % (0.0-0.3) % 0.0 Absolute Neutrophils (1.2-6.7) 10^3/uL 7.91 H Absolute Lymphocytes (1.2-3.4) 10^3/uL 2.50 Absolute Monocytes (0.1-0.8) 10^3/uL 0.59 Absolute Eosinophils (0.0-0.7) 10^3/uL 0.38 Absolute Basophils (0.0-0.2) 10^3/uL 0.05 VBG pH (7.31-7.41) 7.41 VBG pCO2 (41-51) mmHg 43 VBG pO2 mmHg 56 VBG HCO3 (23-28) mmol/L 27 VBG Total CO2 (24-29) mmol/L 24 VBG O2 Saturation % 92 VBG Base Excess (-2-3) mmol/L 3 Sodium (136-145) mmol/L 139 Potassium (3.5-5.1) mmol/L 4.0 Chloride (98-107) mmol/L 104 Carbon Dioxide (21.0-32.0) mmol/L 27.1 Anion Gap (3-11) mmol/L 7.9 BUN (7-18) mg/dL 14 Creatinine (0.70-1.30) mg/dL 1.0 Est GFR (CKD-EPI 2020) (mL/min/1.73m2) 101.28 Glucose (74-106) mg/dL 169 H Calcium (8.5-10.1) mg/dL 9.1 Magnesium (1.8-2.4) mg/dL 1.7 L Total Bilirubin (0.2-1.0) mg/dL 0.2 AST (15-37) U/L 28 ALT (16-63) U/L 38 Alkaline Phosphatase (46-116) U/L 70 Troponin I (<or=76) ng/L 14 14 NT-Pro-B Natriuret Pep (<300) pg/mL 49 Total Protein (6.4-8.2) g/dL 6.3 L Albumin (3.4-5.0) g/dL 2.9 L TSH (0.36-3.74) uIU/mL 2.42 Urine Color (Yellow) Yellow Urine Clarity (Clear) Clear Urine pH (5-8) 7.0 Ur Specific [place] (1.005-1.025) 1.015 Urine Protein (Neg-Trace) mg/dL 30 H Urine Ketones (Negative) mg/dL Negative Urine Blood (Negative) Negative Urine Nitrite (Negative) Negative Urine Bilirubin (Negative) Negative Urine Urobilinogen (Up to 0.2) mg/dL 0.2 Ur Leukocyte Esterase (Negative) Negative Urine RBC (0-2) HPF Negative Urine WBC (0-5) HPF Negative Ur Epithelial Cells (Negative) HPF Negative Urine Crystals (Negative) HPF Negative Urine Bacteria (Negative) HPF Negative Urine Casts (Negative) LPF Negative Urine Mucus (Negative) Negative Ur Culture Indicated? No Urine Glucose (Negative) mg/dL Negative Range/Units 01/30/25 05:00 WBC (4.4-10.8) 10^3/uL RBC (4.36-5.78) 10^6/uL Hgb (13.5-17.5) g/dL Hct (40.0-50.0) % MCV (80-95) fL MCH (27.0-33.0) pg MCHC (32.0-36.0) % RDW (11.8-14.1) % Plt Count (130-400) 10^3/uL MPV (8.0-11.0) fL Immature Gran % % Neutrophils % % Lymphocytes % % Monocytes % % Eosinophils % % Basophils % % Nucleated RBC % (0.0-0.3) % Absolute Neutrophils (1.2-6.7) 10^3/uL Absolute Lymphocytes (1.2-3.4) 10^3/uL Absolute Monocytes (0.1-0.8) 10^3/uL Absolute Eosinophils (0.0-0.7) 10^3/uL Absolute Basophils (0.0-0.2) 10^3/uL VBG pH (7.31-7.41) VBG pCO2 (41-51) mmHg VBG pO2 mmHg VBG HCO3 (23-28) mmol/L VBG Total CO2 (24-29) mmol/L VBG O2 Saturation % VBG Base Excess (-2-3) mmol/L Sodium (136-145) mmol/L 138 Potassium (3.5-5.1) mmol/L 4.0 Chloride (98-107) mmol/L 102 Carbon Dioxide (21.0-32.0) mmol/L 30.1 Anion Gap (3-11) mmol/L 5.9 BUN (7-18) mg/dL 12 Creatinine (0.70-1.30) mg/dL 0.8 Est GFR (CKD-EPI 2020) (mL/min/1.73m2) 119.10 Glucose (74-106) mg/dL 113 H Calcium (8.5-10.1) mg/dL 8.9 Magnesium (1.8-2.4) mg/dL Total Bilirubin (0.2-1.0) mg/dL AST (15-37) U/L ALT (16-63) U/L Alkaline Phosphatase (46-116) U/L Troponin I (<or=76) ng/L NT-Pro-B Natriuret Pep (<300) pg/mL Total Protein (6.4-8.2) g/dL Albumin (3.4-5.0) g/dL TSH (0.36-3.74) uIU/mL Urine Color (Yellow) Urine Clarity (Clear) Urine pH (5-8) Ur Specific [place] (1.005-1.025) Urine Protein (Neg-Trace) mg/dL Urine Ketones (Negative) mg/dL Urine Blood (Negative) Urine Nitrite (Negative) Urine Bilirubin (Negative) Urine Urobilinogen (Up to 0.2) mg/dL Ur Leukocyte Esterase (Negative) Urine RBC (0-2) HPF Urine WBC (0-5) HPF Ur Epithelial Cells (Negative) HPF Urine Crystals (Negative) HPF Urine Bacteria (Negative) HPF Urine Casts (Negative) LPF Urine Mucus (Negative) Ur Culture Indicated? Urine Glucose (Negative) mg/dL Quality:SDOH Health Related Social Needs: Health related social needs risk of homeless Health related social needs details none Discharge Plan Disposition Patient Disposition: Home Condition: Stable Discharge Details Clinical Impression: Bilateral lower extremity edema, HX: anticoagulation, SESAR (obstructive sleep apnea), Enlarged thoracic aorta Primary Care Provider: Ann-Marie Booker ED Provider: Mejia Tran Home Meds and New Rx's Prescriptions: Continued furosemide 80 mg tablet 80 mg PO QAM Qty: 90 3RF potassium chloride 20 mEq tablet extended release 20 meq PO DAILY Qty: 90 3RF sumatriptan succinate 100 mg tablet See Rx Instructions PO .COMPLEX Qty: 60 5RF Rx Instructions: take 1 tab at onset of headache; if no relief, may repeat 1 tab after at least 2 hrs; max = 2 tabs/24 hrs PO Eliquis 5 mg tablet 5 mg PO BID Qty: 180 3RF albuterol sulfate 90 mcg/actuation HFA aerosol inhaler 2 puff inhalation Q6H PRN (Reason: shortness of breath or wheezing) Qty: 8.5 5RF valsartan 80 mg tablet 80 mg PO DAILY Qty: 90 3RF loratadine [Claritin] 10 mg tablet 10 mg PO DAILY PRN metoprolol succinate 50 mg tablet extended release 24 hr 50 mg PO DAILY 90 Days Qty: 90 1RF Rx Instructions: Please cancel 100mg script.. sorry prochlorperazine maleate [Compazine] 10 mg tablet 10 mg PO TID PRN (Reason: nausea and vomiting) Qty: 30 0RF Discharge Instructions Additional Instructions: Ultrasound imaging today did not reveal a DVT (deep vein thrombus). Please follow-up with your primary care physician early next week for reassessment. You may need medication dosing changes. Please discuss this with your doctor soon as possible. Please follow-up with your primary care physician. Return to the emergency department immediately for any worsening or new concerning symptoms. Referrals: Ann-Marie Booker NP [Primary Care Provider, Medicine] Discharge Data Discharge Date/Time-TO BE ENTERED AT DEPARTURE: 01/30/25 14:22
[2025-01-30] MEDS: Metoprolol CR 50 MG TABCR PO (14:13)
[2025-01-30] MEDS: Apixaban 5 MG TAB PO (14:13)
[2025-01-30] MEDS: Valsartan 40 MG TAB (14:15)
--- NOTE | 2025-02-02 08:41 | NUR.NOTE ---
Nursing Note: Received call from patient that he was supposed to get a work note stating he was not being held from work duties, did not receive in his discharge packet. Chart reviewed, no work restrictions were placed on patient. 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
== END 2025-01-30 14:22 | disposition home or self-care (01) ==
PROVIDERS: Student in an Organized Health Care Education/Training Program; Emergency Provider Student in an Organized Health Care Education/Training Program; PCP Nurse Practitioner
DX: R60.0 Localized edema (principal); R00.0 Tachycardia, unspecified; I10 Essential (primary) hypertension; E78.5 Hyperlipidemia, unspecified
CPT/HCPCS: 99285; 99284; 96374; 96376; 00123; 71275; 80048; 80053; 82805; 93005; 81003; 81015; 83735; 83880; 84443; 84484; 85025; 93010; 93970; J1938; J3490

== ENCOUNTER 2025-04-02 07:43 | Emergency (ER) | payer SELFPAY ==
[2025-04-02] VITALS (27 sets, daily range): BP systolic 132–155; BP diastolic 85–106; PULSE 92–110; RESP 15–35; TEMP 36.6; O2SAT 90–96
--- NOTE | 2025-04-02 07:45 | RT.EKG_ITS ---
APPROVED REPORT Exam: Resting ECG Reason for Exam: Back pain Patient Location: E HR:107 bpm ECG Measurements Heart Rate 107 AXIS OH 161 P 30 QRSd 100 QRS 25 QT 348 T 55 QTc 465 Conclusion Sinus tachycardia...rate> 99 No STEMI
--- NOTE | 2025-04-02 08:02 | DI.CT_ITS ---
Exam(s) CT CHEST PE CTA EXAM: CT CHEST PE CTA CLINICAL HISTORY: chest pain hx of PE. TECHNIQUE: Imaging Protocol: CT angiography of the chest was performed using pulmonary embolus protocol. Multi planar reconstructions were performed. CONTRAST MATERIAL: Intravenous: Omnipaque 350 Contrast volume: 100 cc COMPARISON: CT CT CHEST PE ABD PELVIS W from 10/20/[address] CHEST PE CTA from 01/29/2025 FINDINGS: CHEST: PULMONARY ARTERIES: There are no intraluminal filling defects to suggest acute pulmonary emboli evidence of the present study. LUNGS: There are no infiltrates nor evidence of pulmonary infarction.. There are no pleural effusions. No ominous pulmonary nodules. MEDIASTINUM: There is no hilar nor mediastinal adenopathy. Visualized thyroid unremarkable. CARDIAC: Heart size is upper normal. There is no pericardial effusion.The descending thoracic aorta is enlarged measuring 4 cm. The diameter of the mid thoracic aortic arch measures 3.1 cm, also enlarged. The diameter of the proximal descending thoracic aorta is 2.9 cm. The diameter of the lower th oracic aorta is 2.6 cm (within normal limits). There is no significant shift of the interventricular septum. PARTIALLY VISUALIZED UPPERMOST ABDOMEN: Hypodense nodule in the right adrenal gland measuring 1.8 x 1.5 cm. This is probably an incidental adenoma. There is a hepatic steatosis noted. No ascites. OSSEOUS: No fractures nor osseous lesions.. IMPRESSION: 1. No evidence of acute pulmonary emboli. No evidence of pulmonary infarction.No pleural effusions. 2. Ascending thoracic aorta is again noted to be dilated, measuring 4 cm. There is no evidence of dissection. No pericardial effusion. 3. There is an 18 x 15 mm hypodense nodule in the right adrenal gland consistent with an adenoma. Appears unchanged from CT scan of October 2022 Report called by myself to ER physician on 04/02/2025 at 10:18 a.m. RADIATION DOSE DELIVERED: 283.51mGy.cm Total DLP DATA REPOSITORY: All CT scans at this facility are submitted to the National Radiology Data Registry (NRDR) Dose Index Registry (DIR) with the [employer] (A[employer]). RADIATION OPTIMIZATION: All CT scans at this facility use at least one of these dose optimization techniques: automated exposure control; mA and/or kV adjustment per patient size (includes targeted exams where dose is matched to clinical indication); or iterative reconstruction.
[2025-04-02 08:11] LABS: Abs Immature Grans 0.05 10^3/uL (0.0-0.06); HCT 45.9 % (40.0-50.0); HGB 14.6 g/dL (13.5-17.5); Immature Grans % 0.4 %; MCH 25.6 pg (27.0-33.0); MCHC 31.8 % (32.0-36.0); MCV 81 fL (80-95); MPV 11.0 fL (8.0-11.0); Platelet Count 274 10^3/uL (130-400); RBC 5.70 10^6/uL (4.36-5.78); RDW 14.6 % (11.8-14.1); RDW-SD 42.8 fL; WBC 11.77 10^3/uL (4.4-10.8)
[2025-04-02] MEDS: fentaNYL 100 MCG/2 ML VIAL 50 MCG IVP ×2 (08:25→10:50)
[2025-04-02 08:32] LABS: Troponin I 4 ng/L (<54)
[2025-04-02] MEDS: Ipratropium HFA 12.9 GM 200 PUFF INH IH (08:32)
[2025-04-02 08:33] LABS: ALT 29 U/L (10-49); AST 22 U/L (<34); Albumin 3.9 g/dL (3.4-5.0); Alkaline Phosphatase 78 U/L (46-116); Anion Gap 8.9 mmol/L (3-11); BUN 14 mg/dL (9-23); Bilirubin, Total 0.20 mg/dL (0.2-1.2); CO2 25.1 mmol/L (20.0-31.0); Calcium 8.2 mg/dL (8.3-10.6); Chloride 107 mmol/L (98-107); Glucose 121 mg/dL (74-106); Potassium 4.3 mmol/L (3.5-5.1); Sodium 141 mmol/L (136-145); Total Protein 6.2 g/dL (5.7-8.2)
[2025-04-02 08:51] LABS: D-Dimer 248 ng/mlFEU (<500)
[2025-04-02 09:35] LABS: Troponin I 4 ng/L (<54)
[2025-04-02] MEDS: Normal Saline Flush 10 ML SYR IVP (09:43)
[2025-04-02] MEDS: Normal Saline - Diluent 50 ML VIAL IJ (09:47)
[2025-04-02] MEDS: Omnipaque 350 MG/ML 100 ML BTL IJ (09:48)
[2025-04-02] MEDS: Cyclobenzaprine 10 MG TAB PO (10:50)
--- NOTE | 2025-04-02 10:57 | W.ED.GENAD ---
Discharge Plan Disposition Patient Disposition: Home Discharge Details Clinical Impression: Back pain Primary Care Provider: Ann-Marie Booker ED Provider: Santino Marks Home Meds and New Rx's Prescriptions: New cyclobenzaprine 10 mg tablet 10 mg PO TID PRNQty: 20 0RF No Action furosemide 80 mg tablet 80 mg PO QAM Qty: 90 3RF potassium chloride 20 mEq tablet extended release 20 meq PO DAILY Qty: 90 3RF sumatriptan succinate 100 mg tablet See Rx Instructions PO .COMPLEX Qty: 60 5RF Rx Instructions: take 1 tab at onset of headache; if no relief, may repeat 1 tab after at least 2 hrs; max = 2 tabs/24 hrs PO Eliquis 5 mg tablet 5 mg PO BID Qty: 180 3RF albuterol sulfate 90 mcg/actuation HFA aerosol inhaler 2 puff inhalation Q6H PRN (Reason: shortness of breath or wheezing) Qty: 8.5 5RF valsartan 80 mg tablet 80 mg PO DAILY Qty: 90 3RF loratadine [Claritin] 10 mg tablet 10 mg PO DAILY PRN metoprolol succinate 50 mg tablet extended release 24 hr 50 mg PO DAILY 90 Days Qty: 90 1RF Rx Instructions: Please cancel 100mg script.. sorry diltiazem HCl [Cartia XT] 120 mg capsule,extended release 24hr 120 mg PO DAILY Qty: 90 3RF prochlorperazine maleate [Compazine] 10 mg tablet 10 mg PO TID PRN (Reason: nausea and vomiting) Qty: 30 0RF Discharge Instructions Instructions: Upper Back Pain Additional Instructions: Your lab work and CT today did not show any significant acute findings, there is no evidence of remaining blood clot in your lungs. I will discuss with your doctors regarding if you should still be on a blood thinner. Please follow-up with your primary care provider regarding your visit to the emergency department today. Be sure to discuss results of all test performed here today to include radiology, and laboratory testing as well as results for any pending cultures. Should your symptoms worsen, or if you develop new concerning symptoms, please return immediately emergency department for further evaluation. Stand Alone Forms: Portal Information, Work Release Discharge Data Discharge Date/Time-TO BE ENTERED AT DEPARTURE: 04/02/25 12:04 HPI General Date/Time Provider Initiated Documentation: 04/02/25 07:58. HPI Narrative: MDM/Narrative: Initial Assessment: 35-year-old male with chest and back pain, history of PE. Intense back pain wrapping around chest, difficulty walking and breathing. No trauma or fever. Rhomboid tenderness. Differential Diagnosis: - PE: History of PE earlier this year. Symptoms include shortness of breath and chest pain. Comprehensive evaluation planned. - Musculoskeletal pain: Rhomboid tenderness. Pain management with fentanyl due to allergies to Tylenol, current anticoagulation status making NSAIDs contraindicated and elevated due to morphine. Consider muscle relaxers. ED Course: - Fentanyl administered for pain management with significant improvement. Labs unremarkable. CT imaging shows no evidence of acute PE Clinical Impression: - Musculoskeletal pain - Back pain Disposition: - Discharge This document was created with assistance from Chance (app) Co-Form Building Supervisor. The patient consented to its use. HPI: Home ROS: Negative besides as mentioned above Exam: Gen: A&O NAD HEENT: NCAT, EOMI, not icteric. External ears normal. No rhinorrhea. Moist mucous membranes. Neck: Supple, full range of motion, no observable masses, No meningeal sign. Lungs: No Respiratory distress. CV: RRR, no edema. Abdomen: Soft, nondistended, No rebound tenderness. MSK: No joint swelling, no redness. Skin: No rashes, petechiae, lesions. Normal color per patient. Neuro: Normal Gait, Grossly intact. Psych: Appropriate for situation. Rhythm: Sinus tachycardia Rate: 107 bpm [place]: Normal axis Intervals: Normal intervals Other findings: No acute ST segment or T wave changes to suggest acute ischemia. Labs: [] Radiology: Exam(s) CT CHEST PE CTA EXAM: CT CHEST PE CTA CLINICAL HISTORY: chest pain hx of PE. TECHNIQUE: Imaging Protocol: CT angiography of the chest was performed using pulmonary embolus protocol. Multi planar reconstructions were performed. CONTRAST MATERIAL: Intravenous: Omnipaque 350 Contrast volume: 100 cc COMPARISON: CT CT CHEST PE ABD PELVIS W from 10/20/[address] CHEST PE CTA from 01/29/2025 FINDINGS: CHEST: PULMONARY ARTERIES: There are no intraluminal filling defects to suggest acute pulmonary emboli evidence of the present study. LUNGS: There are no infiltrates nor evidence of pulmonary infarction.. There are no pleural effusions. No ominous pulmonary nodules. MEDIASTINUM: There is no hilar nor mediastinal adenopathy. Visualized thyroid unremarkable. CARDIAC: Heart size is upper normal. There is no pericardial effusion.The descending thoracic aorta is enlarged measuring 4 cm. The diameter of the mid thoracic aortic arch measures 3.1 cm, also enlarged. The diameter of the proximal descending thoracic aorta is 2.9 cm. The diameter of the lower thoracic aorta is 2.6 cm (within normal limits). There is no significant shift of the interventricular septum. PARTIALLY VISUALIZED UPPERMOST ABDOMEN: Hypodense nodule in the right adrenal gland measuring 1.8 x 1.5 cm. This is probably an incidental adenoma. There is a hepatic steatosis noted. No ascites. OSSEOUS: No fractures nor osseous lesions.. IMPRESSION: 1. No evidence of acute pulmonary emboli. No evidence of pulmonary infarction.No pleural effusions. 2. Ascending thoracic aorta is again noted to be dilated, measuring 4 cm. There is no evidence of dissection. No pericardial effusion. 3. There is an 18 x 15 mm hypodense nodule in the right adrenal gland consistent with an adenoma. Appears unchanged from CT scan of October 2022 Related Data Home Medications Medication Instructions Recorded Confirmed loratadine 10 mg tablet (Claritin) 10 mg PO DAILY PRN 06/11/24 04/02/25 metoprolol succinate 50 mg 50 mg PO DAILY 90 days #90 tabs 09/22/24 04/02/25 tablet,extended release 24 hr furosemide 80 mg tablet 80 mg PO QAM #90 tabs 10/17/24 04/02/25 potassium chloride 20 mEq 20 meq PO DAILY #90 tabs 10/17/24 04/02/25 tablet,extended release prochlorperazine maleate 10 mg 10 mg PO TID PRN nausea and 10/29/24 04/02/25 tablet (Compazine) vomiting #30 tabs apixaban 5 mg tablet (Eliquis) 5 mg PO BID #180 tabs 12/11/24 04/02/25 sumatriptan succinate 100 mg tablet See Rx Instructions PO .COMPLEX 12/11/24 04/02/25 #60 tabs albuterol sulfate 90 mcg/actuation 2 puff inhalation Q6H PRN 01/16/25 04/02/25 aerosol inhaler shortness of breath or wheezing #8.5 grams valsartan 80 mg tablet 80 mg PO DAILY #90 tabs 01/16/25 04/02/25 diltiazem HCl 120 mg 120 mg PO DAILY #90 caps 02/23/25 04/02/25 capsule,extended release 24 hr (Cartia XT) cyclobenzaprine 10 mg tablet 10 mg PO TID PRN #20 tabs 04/02/25 Previous Rx's Medication Instructions Recorded metoprolol succinate 50 mg 50 mg PO DAILY 90 days #90 tabs 09/22/24 tablet,extended release 24 hr furosemide 80 mg tablet 80 mg PO QAM #90 tabs 10/17/24 potassium chloride 20 mEq 20 meq PO DAILY #90 tabs 10/17/24 tablet,extended release prochlorperazine maleate 10 mg 10 mg PO TID PRN nausea and 10/29/24 tablet (Compazine) vomiting #30 tabs apixaban 5 mg tablet (Eliquis) 5 mg PO BID #180 tabs 12/11/24 sumatriptan succinate 100 mg tablet See Rx Instructions PO .COMPLEX 12/11/24 #60 tabs albuterol sulfate 90 mcg/actuation 2 puff inhalation Q6H PRN 01/16/25 aerosol inhaler shortness of breath or wheezing #8.5 grams valsartan 80 mg tablet 80 mg PO DAILY #90 tabs 01/16/25 diltiazem HCl 120 mg 120 mg PO DAILY #90 caps 02/23/25 capsule,extended release 24 hr (Cartia XT) cyclobenzaprine 10 mg tablet 10 mg PO TID PRN #20 tabs 04/02/25 Allergies Allergy/AdvReac Type Severity Reaction Status Date / Time acetaminophen (From Tylenol) Allergy Unknown unknown Verified 04/02/25 07:54 ciprofloxacin (From Cipro) Allergy Unknown unknown Verified 04/02/25 07:54 clarithromycin (From Biaxin) Allergy Unknown unknown Verified 04/02/25 07:54 morphine AdvReac Severe Other (See Verified 04/02/25 07:54 Comment) General Stated Complaint: Chest Pain JOHNNY: 3 Course Vital Signs Vital signs: Vital Signs Temperature 36.6 C 04/02/25 07:45 Pulse 109 H 04/02/25 07:45 Respiratory Rate 24 04/02/25 07:45 Blood Pressure 150/98 H 04/02/25 07:45 Pulse Oximetry 96 04/02/25 07:45 Temperature 36.6 C 04/02/25 10:21 Temperature Source Oral 04/02/25 10:21 Pulse 99 H 04/02/25 10:21 Pulse 103 H 04/02/25 10:21 Respiratory Rate 26 H 04/02/25 10:21 Respiratory Effort Normal 04/02/25 10:21 Respiratory Depth Normal 04/02/25 10:21 Respiratory Pattern Normal 04/02/25 10:21 Blood Pressure 155/94 H 04/02/25 10:21 Blood Pressure Mean 113 04/02/25 10:21 Blood Pressure Position Sitting 04/02/25 07:45 Pulse Oximetry 95 04/02/25 10:20 Oxygen Delivery Method Room Air 04/02/25 10:21 Oxygen Flow Rate 0 04/02/25 10:21 Pain Level 8 04/02/25 10:50 Lab/Test Results Lab/Test Results: Laboratory Tests Range/Units 04/02/25 04/02/25 04/02/25 08:05 08:15 09:05 WBC (4.4-10.8) 10^3/uL 11.77 H RBC (4.36-5.78) 10^6/uL 5.70 Hgb (13.5-17.5) g/dL 14.6 Hct (40.0-50.0) % 45.9 MCV (80-95) fL 81 MCH (27.0-33.0) pg 25.6 L MCHC (32.0-36.0) % 31.8 L RDW (11.8-14.1) % 14.6 H Plt Count (130-400) 10^3/uL 274 MPV (8.0-11.0) fL 11.0 Immature Gran % % 0.4 Neutrophils % % 71.6 Lymphocytes % % 17.5 Monocytes % % 6.9 Eosinophils % % 3.2 Basophils % % 0.4 Nucleated RBC % (0.0-0.3) % 0.0 Absolute Neutrophils (1.2-6.7) 10^3/uL 8.43 H Absolute Lymphocytes (1.2-3.4) 10^3/uL 2.06 Absolute Monocytes (0.1-0.8) 10^3/uL 0.81 H Absolute Eosinophils (0.0-0.7) 10^3/uL 0.38 Absolute Basophils (0.0-0.2) 10^3/uL 0.05 D-Dimer (<500) ng/mlFEU 248 VBG Lactate (<or=2.0) mmol/L 1.4 Sodium (136-145) mmol/L 141 Potassium (3.5-5.1) mmol/L 4.3 Chloride (98-107) mmol/L 107 Carbon Dioxide (20.0-31.0) mmol/L 25.1 Anion Gap (3-11) mmol/L 8.9 BUN (9-23) mg/dL 14 Creatinine (0.73-1.18) mg/dL 0.8 Est GFR (CKD-EPI 2020) (mL/min/1.73m2) 106.86 Glucose (74-106) mg/dL 121 H Calcium (8.3-10.6) mg/dL 8.2 L Total Bilirubin (0.2-1.2) mg/dL 0.20 AST (<34) U/L 22 ALT (10-49) U/L 29 Alkaline Phosphatase (46-116) U/L 78 Troponin I (<54) ng/L 4 4 NT-Pro-B Natriuret Pep (<300) pg/mL 44 Total Protein (5.7-8.2) g/dL 6.2 Albumin (3.4-5.0) g/dL 3.9 Medical Decision Making Quality:SDOH Health Related Social Needs: Health related social needs risk of homeless Health related social needs details none PFSH All Active Problems (Updated 04/02/25 @ 10:22 by Santino Marks MD) Back pain (Acute) HX: anticoagulation (Acute) Neutrophilic leukocytosis (Acute) Proteinuria, unspecified (Acute) Migraine (Chronic) Leukocytosis (Chronic) Pulmonary embolism (Chronic) Fluid overload (Acute) Bilateral lower extremity edema (Acute) Low testosterone in male (Acute) Cellulitis (Acute) URI (upper respiratory infection) (Acute) Cough (Acute) Breast lump (Acute) Pre-diabetes (Acute) a1c 5.9 Discharge planning issues (Acute) Hypotension (Acute) MRSA infection (Acute) Sleep apnea in adult (Acute) Homeless (Acute) Leg cramps (Acute) Bipolar 1 disorder (Acute) Anxiety and depression (Chronic) Snoring (Acute) Essential hypertension (Chronic) Left ureteral stone (Acute) Medical History (Updated 04/02/25 @ 10:22 by Santino Marks MD) Sepsis Alcoholic gastritis History of herpes zoster Impaired glucose tolerance Abdominal pain Nausea Sleep pattern disturbance Muscle pain Lumbago with sciatica Degeneration of cervical intervertebral disc Kidney stone Hypertensive disorder PTSD (post-traumatic stress disorder) Secondary polycythemia Hyperlipidemia Surgical History Status post incision and drainage (~04/2024) left axilla, MRSA + History of colonoscopy with polypectomy (01/28/18) inflammatory bowel disease, polyps x3, internal and external hemorrhoids History of cystoscopy (05/30/16) with laser litho LT History of ureteroscopy (03/17/19) left, with stone extraction History of esophagogastroduodenoscopy (EGD) (09/17/19) paraesophageal hernia type 3 History of placement of ear tubes Family History Other Colon cancer Dementia Social History Smoking/Tobacco Use Status: Current every day Tobacco Type: cigarettes Tobacco: How many years used: 14 Smoking risk assessment performed?: Yes Alcohol Intake: never Drug use: Occasionally Substance use type: marijuana Counseling given: No Adopted: No Caregiver/Support person: No Foster care: No Household members: significant other Housing: homeless Number of Children: 1 Communication Needs: None and Corrective Lenses Education Level: high school Do you need help understanding health information?: Rarely 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 Pets and animals: No Sexually active: Yes Do you think of yourself as: straight/heterosexual What is your relationship status?: living with partner How often do you talk on the phone with friends or family?: decline to answer How often do you get together with friends or relatives?: never Do you belong to any clubs or organized social groups?: no Panel score (0-1 are the most socially isolated patients): 1 What type of physical activity do you participate in: walking and other Details: stretches Duration: 15-30 minutes/day Frequency: daily Meghana/Hoahaoism: None Seatbelt use: always Helmet use: No Drive intox or ride w/intox city bus driver: No Working smoke detector in home: Yes Fire extinguisher in home: Yes Carbon monox detector in home: No Do you feel safe at home: Yes Do you feel safe in your relationship?: Yes Additional Social history: lost housing sunday, awaiting bed at [facility]
[2025-04-02 11:51] LABS: Lipase 29 U/L (<53)
== END 2025-04-02 12:04 | disposition home or self-care (01) ==
PROVIDERS: Emergency Provider General Practice; PCP Nurse Practitioner
DX: M54.9 Dorsalgia, unspecified (principal); R06.02 Shortness of breath
CPT/HCPCS: 99284; 99285; 36415; 96374; 96375; 71275; 80053; 83690; 93005; 83605; 83880; 84484; 85025; 85379; 93010; J3010; J3490